=== PATIENT | male | born 1940 | race Caucasian/White ===

== ENCOUNTER 2019-11-13 21:28 | Inpatient (IN) | payer OTHER ==
[2019-11-13] MEDS ORDERED: KETAMINE HCL 200 MG/20 ML VIAL ONE (21:43)
[2019-11-13] MEDS ORDERED: PROPOFOL 1,000,000 MCG/100 ML VIAL ONE (21:51)
[2019-11-13] MEDS ORDERED: KETAMINE HCL 500 MG/10 ML VIAL ONE (21:57)
[2019-11-13] MEDS ORDERED: ROCURONIUM BROMIDE 50 MG/5 ML VIAL IVPUSH ONE (22:14)
[2019-11-13] MEDS ORDERED: KETAMINE HCL 200 MG/20 ML VIAL IVPUSH ONE (22:14)
[2019-11-13] MEDS ORDERED: VANCOMYCIN 1 GRAM (PRE-DOCKED) 1,000 MG/250 ML BAG IVPB ONE ×2 (22:15→22:29)
[2019-11-13] MEDS ORDERED: PIPERACILLIN/TAZOB 4.5 GM 4.5 GM in DEXTROSE 5%-WATER 100 ML IVPB ONE (22:16)
[2019-11-13] MEDS ORDERED: methylPREDNISolone NA SUCC 125 MG/2 ML VIAL IVPB ONE (22:21)
[2019-11-13] MEDS ORDERED: ALBUTEROL SO4 2.5/IPRATROPIUM 0.5 INH SOL 3 ML VIAL.NEB. NEB ONE ×2 (22:21→22:28)
--- NOTE | 2019-11-13 22:21 | PDOC ---
Attending Attestation - Resident Resident Name: Jesús Zapien - ED Attending Attestation I have performed the following: I have examined & evaluated the patient, The case was reviewed & discussed with the resident, I agree w/resident's findings & plan, Exceptions are as noted - HPI HPI: 11/14/19 05:44 See resident HPI - Physicial Exam PE: 11/14/19 05:44 Agree with documented exam - Medical Decision Making 11/14/19 05:44 79M BIBEMS after completing dialysis 2/2 acutely worsening dyspnea and decreasing responsiveness Was received in severe respiratory distress, GCS 8 Pt was intubated Concern for sepsis with multiple likely sources, ACS, chf, copd exacerbation f/u labs, cxr, de leon-scan dispo per clinical course possible pna +uti abx admit to icu
[2019-11-13 22:29] LABS: BASO % 0.1 % (0-2.0); HEMATOCRIT 36.4 % (35.4-49); LYMPH % 1.8 % (8-40); MCH 31.9 pg (25.7-33.7); MCHC 30.2 g/dl (32.0-35.9); MEAN CELL VOLUME 105.6 fl (80-96); MEAN PLT VOLUME 10.1 fl (7.5-11.1); MONO % 7.6 % (3.8-10.2); NEUT % 90.5 % (42.8-82.8); PLATELET COUNT 155 K/MM3 (134-434); RBC 3.44 M/mm3 (4.00-5.60); RDW 20.6 % (11.9-15.9); WHITE BLOOD COUNT 11.9 K/mm3 (4.0-10.0)
[2019-11-13] MEDS ORDERED: PIPERACILLIN/TAZOB 4.5 GM 4.5 GM/100 ML BAG IVPB ONE (22:29)
[2019-11-13] MEDS ORDERED: methylPREDNISolone NA SUCC 125 MG/2 ML VIAL ONE (22:29)
[2019-11-13] MEDS ORDERED: SODIUM CHLORIDE 0.9% 500 ML INFUS.BAG IV ONE (22:33)
[2019-11-13] MEDS: NOREPINEPHRINE BITARTRATE 4,000 MCG in DEXTROSE 5%-WATER - 496 ML IV SCH (22:35)
[2019-11-13 22:49] LABS: INR 1.34 (0.83-1.09); PROTHROMBIN TIME (PATIENT) 15.9 SEC (9.7-13.0)
[2019-11-13 22:52] LABS: ACTIVATED PTT 102.1 SECONDS (25.2-36.5)
[2019-11-13 23:01] LABS: ALBUMIN 2.2 g/dl (3.4-5.0); BILIRUBIN,TOTAL 0.8 mg/dL (0.2-1); CALCIUM 7.8 mg/dL (8.5-10.1); CREATININE 2.7 mg/dL (0.55-1.3); POTASSIUM 3.7 mmol/L (3.5-5.1); TOT PROT 5.9 g/dl (6.4-8.2)
--- NOTE | 2019-11-13 23:02 | PDOC ---
History of Present Illness - General Chief Complaint: Respiratory Distress Stated Complaint: RESPIRATORY FAILURE Time Seen by Provider: 11/13/19 22:13 History Source: Patient Exam Limitations: Clinical Condition, Unresponsive - History of Present Illness Initial Comments: Perez Stanford is a 79 yo M presenting to the [facility] er BIBEMS on CPAP in respiratory distress barely responsive with a GCS of 8 (E2V2M4) who is presenting from [facility] with a pmh of COPD, ESRD - finished dialysis today 5 hours prior to arrival via port in chest. EMS cannot provide much history other than saying that [facility] called them because the patient was in respiratory distress and was not responsive. EMS promptly placed the patient on a CPAP machine and brought him straight to the ER. Upon presentation to the ER he was saturating in the low 80's, pale, and was exhibiting agonal breathing. The patient was unable to speak any words, could not say where he is , and could not provide any history. He did open his eyes and withdraw from sternal rub. Limited pmh from son who came into the hospital: ESRD (T,Th,S), Heart Failure, COPD Son - Pascual: [phone] Past History - Past Medical History Allergies/Adverse Reactions: Allergies Allergy/AdvReac Type Severity Reaction Status Date / Time No Known Allergies Allergy Verified 11/13/19 22:17 - Psycho Social/Smoking Cessation Hx Smoking History: Unknown if ever smoked Have you smoked in the past 12 months: No Information on smoking cessation initiated: No Hx Alcohol Use: No Drug/Substance Use Hx: No Review of Systems - Review of Systems Able to Perform ROS?: No (Patient unresponsive) *Physical Exam - Vital Signs Last Vital Signs Temp Pulse Resp BP Pulse Ox 96.9 F L 98 H 16 103/54 L 90 L 11/13/19 21:35 11/13/19 21:35 11/13/19 22:04 11/13/19 21:35 11/13/19 21:35 - Physical Exam General Appearance: Yes: Severe Distress, Obese HEENT: positive: Normal ENT Inspection, Pale Conjunctivae, Other (No blood, no swelling, no exudate) Neck: positive: Supple Respiratory/Chest: positive: Labored Respiration, Rapid RR, Rhonchi (bilateral rhonchi and wheezes throughout), Wheezing. negative: Lungs Clear, Crackles Cardiovascular: positive: Regular Rhythm, Regular Rate Vascular Pulses: Dorsalis-Pedis (R): 2+, Doralis-Pedis (L): 2+ Gastrointestinal/Abdominal: positive: Protuberent, Distended, Tenderness ( Diffuse abdominal TTP). negative: Guarding, Rebound Male Genitalia: positive: normal genitalia Rectal Exam: positive: normal rectal tone. negative: decreased tone Lymphatic: negative: Adenopathy Musculoskeletal: positive: Decreased Range of Motion. negative: Normal Inspection, CVA Tenderness Extremity: positive: Normal Capillary Refill, Normal Range of Motion, Pelvis Stable, Other (Right leg BKA). negative: Normal Inspection Integumentary: positive: Normal Color, Dry, Warm, Rash (lower leg venous stasis dermatitis) Neurologic: positive: Respond to painful stimul Procedures - Intubation Time of Intubation: 10:30 Intubation Method: orotracheal Blade used: Mac Tube Size (Fr): 7.5 Medications: Ketamine, Rocuronium Tube position @ lip (cm): 25 Tube position confirmed by: Direct visualization, CO2 detector, Chest x-ray, Breath sounds Breath Sounds after Intubation: equal Intubation Complications: no complications Post Intubation Xray: Yes Heart Score/ECG Review - History History: Moderately suspicious - Electrocardiogram EKG: Non specific repolarization disturbance - Age Age: >/= 65 - Risk Factors Risk Factors Heart Score: Yes Hx Hypercholesterolemia, Yes Hx Hypertension, Yes Hx Diabetes, Yes Positive family hx of cardiac disease, Yes Hx Obesity Based on the list above the patient has:: >/=3 risk factors or Hx atherosclerotic disease - Troponin Troponin: >/=3x normal limit - Score Heart Score - Total: 8 - ECG Intrepretation Rhythm: Regular Rhythm - Bethel Bethel: Right Bethel Deviation - P and FL Atrial Enlargement: Right Comment:: There are no P waves - QRS Increased Voltage: Precordial Leads Widened: IVCD Poor R Wave Progression: No Q Wave Present: No - ST and T Non Specific ST-T Wave changes: Yes Flattened T Waves: Yes Prolonged Q-T Interval: Yes - ECG Impressions Normal ECG: No Non-specific ST Elevation: Yes Ischemic Changes: Yes ED Treatment Course - LABORATORY CBC & Chemistry Diagram: 11/13/19 22:13 11/13/19 22:13 - ADDITIONAL ORDERS Additional order review: Laboratory Results 11/13/19 11/13/19 11/13/19 22:13 22:13 21:52 PT with INR 15.90 H INR 1.34 H PTT (Actin FS) 102.1 H Sodium 138 Potassium 3.7 Chloride 102 Carbon Dioxide 25 Anion Gap 11 BUN 31.0 H Creatinine 2.7 H Est GFR (CKD-EPI)AfAm 25.21 Est GFR (CKD-EPI)NonAf 21.75 POC Glucometer 123 Random Glucose 126 H Calcium 7.8 L Total Bilirubin 0.8 AST 73 H ALT 36 Alkaline Phosphatase 139 H Troponin I 0.15 H Total Protein 5.9 L Albumin 2.2 L 11/13/19 11/13/19 22:13 21:52 RBC 3.44 L MCV 105.6 H MCHC 30.2 L RDW 20.6 H MPV 10.1 Neutrophils % 90.5 H Lymphocytes % 1.8 L Monocytes % 7.6 Eosinophils % 0.0 Basophils % 0.1 POC Glucometer 123 - RADIOLOGY Radiology Studies Ordered: Category Date Time Status ABDOMEN & PELVIS CT WITH CONTR [CT] Stat CT Scan 11/13/19 22:[address] W/O CONTR [CT] Stat CT Scan 11/13/19 22:[address] WITH CONTRAST [CT] Stat CT Scan 11/13/19 22:[address] WITHOUT CONTRAST [CT] Stat CT Scan 11/13/19 22:29 Ordered CHEST X-RAY PORTABLE* [RAD] Stat Radiology 11/13/19 22:41 Taken Radiograph Interpretation: CTAP: FINDINGS: CT chest:There is no aortic dissection or aneurysm. There is no significant mediastinal or hilar adenopathy. The heart is mildly enlarged. Left-sided pacemaker is noted. Endotracheal tube is in appropriate position. The trachea and bronchi are patent. There is no pericardial effusion. There are small bilateral pleural effusions with loculated right pleural effusion and pleural calcifications consistent with chronic fibrothorax, which may be reactive to prior infection or hemothorax. No acute pleural hemorrhage is noted. Scattered right lung fibrotic changes are noted predominantly right lung base, where there is round atelectasis. It is difficult to exclude a superimposed right-sided pneumonia. No pulmonary edema. There is mild right lung volume loss. CT abdomen and pelvis: Small to moderate amount of slightly dense ascites is noted which could represent hemorrhage. No fluid loculation. Gallbladder is contracted with slightly dense, possibly representing sludge or stones. Early porcelain gallbladder is also considered. No definite gallbladder inflammation. Normal liver, pancreas, spleen, adrenal glands and kidneys. The stomach and abdominal small and large bowel are notable only for a duodenal diverticulum without diverticulitis. There is no aortic aneurysm. There is no significant retroperitoneal lymphadenopathy. Small fat and fluid containing umbilical and right inguinal hernias are noted. The pelvic small and large bowel are notable for diverticulosis without diverticulitis. Appendix is normal. The urinary bladder is collapsed with Kern catheter. The prostate gland in its normal. . There is no significant pelvic lymphadenopathy. IMPRESSION: Small bilateral pleural effusions. Chronic right fibrothorax could be reactive to prior hemothorax or prior infection but there is no evidence of acute hemorrhage. Multifocal right lung fibrosis with right lower lobe round atelectasis and mild right lung volume loss. Superimposed right-sided pneumonia is difficult to exclude Small to moderate amount of ascites suspected to be hemorrhagic in nature, but of uncertain source. Possible early porcelain gallbladder or gallstones without gallbladder inflammation. Diverticulosis. - Medications Given in the ED: ED Medications Discontinued Medications Generic Name Dose Route Start Last Admin Trade Name Freq PRN Reason Stop Dose Admin Ketamine HCl 200 mg 11/13/19 22:14 11/13/19 22:26 Ketalar - IVPUSH 11/13/19 22:15 200 mg ONCE ONE Administration Medical Decision Making - Medical Decision Making Perez Stanford is a 79 yo M presenting to the [facility] on CPAP in respiratory distress barely responsive with a GCS of 8 (E2V2M4) who is presenting from [facility] with a pmh of COPD, ESRD - finished dialysis today 5 hours prior to arrival via port in chest. EMS cannot provide much history other than saying that [facility] called them because the patient was in respiratory distress and was not responsive. EMS promptly placed the patient on a CPAP machine and brought him straight to the ER. Upon presentation to the ER he was saturating in the low 80's, pale, and was exhibiting agonal breathing. The patient was unable to speak any words, could not say where he is , and could not provide any history. He did open his eyes and withdraw from sternal rub. Vital Signs Temp Pulse Resp BP Pulse Ox 96.9 F L 60 16 82/39 L 90 L 11/13/19 21:35 11/13/19 22:35 11/13/19 22:04 11/13/19 22:35 11/13/19 21:35 MDM: Patient was somnolent and stuporous, desaturating and we did not believe he could protect his airway so we decided to intubate the patient with ketamine and rocuronium. The intubation was successful on the first attempt without any complications. After the patient's airway was secured he was hypotensive to 70/ 30. We tried bolusing the patient with one liter of fluid but his BP remained low so we placed a femoral central line in to give the patient norepinephrine and raise his blood pressure. Propofol was placed used for post-intubation sedation after the MAP was elevated to above 65. - We attempted to place a NG and OG tube multiple times without success. - Plan is to frequently suction the patient because we are unable to pass a gastric tube We performed a bedside US which showed the patient's heart appeared to be beating well without focal wall motion abnormalities. The right atrium and ventricle were significantly enlarged without large wall motion abnormalities. The IVC was large, plethoric and plump without respiratory variation implying the patient's venous system is well loaded and he would not likely be fluid responsive. Both of his lungs appeared to have bilateral A-lines, no B-lines, and there were no pleural effusions implying this is more likely a COPD exacerbation and less likely a heart failure situation as his primary insult. His Abdominal fast was positive but this is likely secondary to ascitis fluid less likely blood. DDx IBNLT: COPD exacerbation, ACS, heart failure, electrolyte/metabolic disturbance, septic shock Plan: Sepsis workup, Empiric Abx coverage, Intubation to protect airway, Central line for Pressers to achieve MAP >65, Ruff CT (Head, neck, chest, abdomen ), correct electrolyte abnormalities, Admit ICU 1st troponin positive at 0.15 - no prior's for comparison. EKG: Wide QRS rhythm, ventricular rate of 60, rightward axis, LVH, V1-V3 SIDNEY less than 5 mm, ST depressions in leads II, III, aVF - Scarbossa criteria NOT met for STEMI Repeat EKG at 11:45 - No significant changes from the first EKG - Given inferior ST depressions will perform a right sided EKG Right sided EKG: No ST elevation in v4R MDM: I suspect this patient's primary insult was a COPD exacerbation based on the lack of fluid in his lungs, wheezes and rhoncorous breath sounds. Urine: Suggests possible UTI - covered empirically w/ vanc/Zosyn Plan: Ruff CT, re-assess - Patient can get contrast as he can be dialysed in ICU CT: Right lung aspiration contents Dispo: ICU - Patient accepted to ICU for admission Discharge - Discharge Information Problems reviewed: Yes Clinical Impression/Diagnosis: Elevated troponin COPD (chronic obstructive pulmonary disease) Qualifiers: COPD type: unspecified COPD Qualified Code(s): J44.9 - Chronic obstructive pulmonary disease, unspecified Condition: Guarded - Admission Yes - Follow up/Referral - Patient Discharge Instructions - Post Discharge Activity
--- NOTE | 2019-11-13 23:08 | PDOC ---
*Physical Exam - Vital Signs Last Vital Signs Temp Pulse Resp BP Pulse Ox 96.9 F L 98 H 16 103/54 L 90 L 11/13/19 21:35 11/13/19 21:35 11/13/19 22:04 11/13/19 21:35 11/13/19 21:35 ED Treatment Course - LABORATORY CBC & Chemistry Diagram: 11/13/19 22:13 11/13/19 22:13 - ADDITIONAL ORDERS Additional order review: Laboratory Results 11/13/19 11/13/19 11/13/19 22:13 22:13 21:52 PT with INR 15.90 H INR 1.34 H PTT (Actin FS) 102.1 H Sodium 138 Potassium 3.7 Chloride 102 Carbon Dioxide 25 Anion Gap 11 BUN 31.0 H Creatinine 2.7 H Est GFR (CKD-EPI)AfAm 25.21 Est GFR (CKD-EPI)NonAf 21.75 POC Glucometer 123 Random Glucose 126 H Calcium 7.8 L Total Bilirubin 0.8 AST 73 H ALT 36 Alkaline Phosphatase 139 H Troponin I 0.15 H Total Protein 5.9 L Albumin 2.2 L 11/13/19 11/13/19 22:13 21:52 RBC 3.44 L MCV 105.6 H MCHC 30.2 L RDW 20.6 H MPV 10.1 Neutrophils % 90.5 H Lymphocytes % 1.8 L Monocytes % 7.6 Eosinophils % 0.0 Basophils % 0.1 POC Glucometer 123 - Medications Given in the ED: ED Medications Discontinued Medications Generic Name Dose Route Start Last Admin Trade Name Freq PRN Reason Stop Dose Admin Ketamine HCl 200 mg 11/13/19 22:14 11/13/19 22:26 Ketalar - IVPUSH 11/13/19 22:15 200 mg ONCE ONE Administration ED Progress Note - Progress Note Progress Note: 11/13/19 22:30 CENTRAL LINE PROCEDURE NOTE The risks were noted to include bleeding. The indication for the procedure were hypotension. A timeout was performed. Nursing staff were present and the patient was monitored using telemetry and continuous pulse oximetry. The patient was placed in the supine position and the right groin was prepped chlorhexidine and a sterile full body drape was placed. Sterile technique including gown, mask, and gloves were used and antibacterial hand gel was used before gloving. The ultrasound machine, using a sterile probe cover, was used to visualize the right femoral vein by the compression technique. An 18 gauge finder needle was used to enter the right femoral vein. Venous blood was aspirated and a guidewire was threaded through the needle into the vein. The soft tissues were dilated and the needle was removed. An triple lumen catheter was threaded over the guidewire in the standard Seldinger technique and hubbed all the way. The guidewire was removed and all ports flushed and aspirated blood without difficulty. A sterile dressing and Biopatch were applied. Discharge - Discharge Information Problems reviewed: Yes - Follow up/Referral - Patient Discharge Instructions - Post Discharge Activity
[2019-11-13] MEDS: PROPOFOL 1,000,000 MCG/100 ML VIAL IVPB SCH (23:20)
[2019-11-13 23:57] LABS: ARTERIAL BLD GAS O2 SATURATION 86.1 % (95-98); ARTERIAL BLOOD GAS PCO2 41.8 mmHg (35-45); ARTERIAL BLOOD GAS pH 7.34 (7.35-7.45)
[2019-11-13 23:59] LABS: ARTERIAL BLOOD GAS PO2 57.8 mmHg (80-100); EPI CELLS 2.1 /HPF (0-5/HPF); HYALINE CASTS 25 /lpf (0-8); URINE APPEARANCE TURBID; URINE BACTERIA 0.8 /hpf (NEGATIVE); URINE BILIRUBIN 1+ (NEGATIVE); URINE COLOR DK YELLOW; URINE GLUCOSE (UA) TRACE (NEGATIVE); URINE KETONE NEGATIVE (NEGATIVE); URINE LEUK ESTERASE 2+ (NEGATIVE); URINE NITRITE POSITIVE (NEGATIVE); URINE PROTEIN TRACE (NEGATIVE); URINE UROBILINOGEN 0.2 mg/dL (0.2-1.0); URINE WBC 3 /hpf (0-5)
[2019-11-14 00:01] LABS: ALLENS TEST POSITIVE; CARBOXYHEMOGLOBIN < 0.5 % (0-2)
[2019-11-14] MEDS ORDERED: MAGNESIUM SULF 50% (8.12 MEQ/2 ML-1 GM VIAL) ONE (03:14)
[2019-11-14] MEDS ORDERED: MAGNESIUM SULFATE 2 GM in DEXTROSE 5%-WATER - 100 ML IVPB ONE (03:15)
--- NOTE | 2019-11-14 03:30 | CONSULT ---
Consultation: REQUESTING PROVIDER: Dr. Lyons CONSULT REQUEST: We have been asked to medically evaluate this patient for ICU management. HISTORY OF PRESENT ILLNESS: 79M PMH of COPD, ESRD on HD (T,Th,S), CHF who presented to ED after finishing dialysis 5 hours prior to arrival. Upon arrival patient was found to have a GCS score of 8. He was also found to be hypotensive which was not fluid responsive. Patient was also desaturating to the low 80s and had agonal breathing. Decision was made to intubate and place a central line in the patient. Patient was said to be in respiratory distress in custodial today. Patient is not able to respond to any questioning from examiner, and the son is not present. REVIEW OF SYSTEMS: Patient not able to participate in ROS CONSTITUTIONAL: Absent: fever, chills, diaphoresis, generalized weakness, malaise, loss of appetite, weight change HEENT: Absent: rhinorrhea, nasal congestion, throat pain, throat swelling, difficulty swallowing, mouth swelling, ear pain, eye pain, visual changes CARDIOVASCULAR: Absent: chest pain, syncope, palpitations, irregular heart rate, lightheadedness, peripheral edema RESPIRATORY: Absent: cough, shortness of breath, dyspnea with exertion, orthopnea, wheezing, stridor, hemoptysis GASTROINTESTINAL: Absent: abdominal pain, abdominal distension, nausea, vomiting, diarrhea, constipation, melena, hematochezia GENITOURINARY: Absent: dysuria, frequency, urgency, hesitancy, hematuria, flank pain, genital pain MUSCULOSKELETAL: Absent: myalgia, arthralgia, joint swelling, back pain, neck pain SKIN: Absent: rash, itching, pallor HEMATOLOGIC/IMMUNOLOGIC: Absent: easy bleeding, easy bruising, lymphadenopathy, frequent infections ENDOCRINE: Absent: unexplained weight gain, unexplained weight loss, heat intolerance, cold intolerance NEUROLOGIC: Absent: headache, focal weakness or paresthesias, dizziness, unsteady gait, seizure, mental status changes, bladder or bowel incontinence PSYCHIATRIC: Absent: anxiety, depression, suicidal or homicidal ideation, hallucinations. PHYSICAL EXAMINATION Vital Signs - 24 hr 11/13/19 11/13/19 11/13/19 21:35 22:04 22:13 Temperature 96.9 F L Pulse Rate 98 H Pulse Rate [ Left Radial] Respiratory 38 H 16 14 Rate Blood Pressure 103/54 L Blood Pressure [Right Arm] O2 Sat by Pulse 90 L Oximetry (%) 11/13/19 11/13/19 11/14/19 22:35 23:35 00:01 Temperature Pulse Rate 60 62 Pulse Rate [ Left Radial] Respiratory 15 Rate Blood Pressure 82/39 L 109/38 L Blood Pressure [Right Arm] O2 Sat by Pulse 98 Oximetry (%) 11/14/19 11/14/19 00:05 01:08 Temperature Pulse Rate Pulse Rate [ 60 Left Radial] Respiratory 15 16 Rate Blood Pressure Blood Pressure 112/41 L [Right Arm] O2 Sat by Pulse 97 Oximetry (%) GENERAL: Sedated, and intubated. Not in distress. HEAD: Normal with no signs of trauma. EYES: Left eye miosed. right eye is normal size. Neither eye is reactive to light. EARS, NOSE, THROAT: ET Tube in place. LUNGS: Crackles b/l in both lungs. Ventilator sounds present. HEART: heart sounds faint, lung sounds dominate ABDOMEN: Distended abdomen. No fluid wave shift. Hypoactive bowel sounds. UPPER EXTREMITIES: 2+ pulses, warm, well-perfused. No cyanosis. No clubbing. LOWER EXTREMITIES: Right BKA. Left foot cold to touch, nonpalpable pulses. Left heel has non purulent wound. No discharge noted. NEUROLOGICAL: Gag reflex in tact. SKIN:Chronic venous stasis changes in the left lower leg. Laboratory Results - last 24 hr 11/13/19 11/13/19 11/13/19 21:52 22:13 22:13 WBC 11.9 H RBC 3.44 L Hgb 11.0 L Hct 36.4 MCV 105.6 H MCH 31.9 MCHC 30.2 L RDW 20.6 H Plt Count 155 MPV 10.1 Absolute Neuts (auto) 10.8 H Neutrophils % 90.5 H Lymphocytes % 1.8 L Monocytes % 7.6 Eosinophils % 0.0 Basophils % 0.1 Nucleated RBC % 1 H PT with INR 15.90 H INR 1.34 H PTT (Actin FS) 102.1 H Anticoagulation Therapy Puncture Site ABG pH ABG pCO2 at Pt Temp ABG pO2 at Pt Temp ABG HCO3 ABG O2 Sat (Measured) ABG O2 Content ABG Base Excess Albert Test Carboxyhemoglobin Methemoglobin O2 Delivery Device Oxygen Flow Rate Vent Mode Vent Rate Mechanical Rate Pressure Support Vent Sodium Potassium Chloride Carbon Dioxide Anion Gap BUN Creatinine Est GFR (CKD-EPI)AfAm Est GFR (CKD-EPI)NonAf POC Glucometer 123 Random Glucose Lactic Acid Calcium Total Bilirubin AST ALT Alkaline Phosphatase Troponin I Total Protein Albumin Urine Color Urine Appearance Urine pH Ur Specific [place] Urine Protein Urine Glucose (UA) Urine Ketones Urine Blood Urine Nitrite Urine Bilirubin Urine Urobilinogen Ur Leukocyte Esterase Urine WBC (Auto) Urine Casts (Auto) U Epithel Cells (Auto) Urine Bacteria (Auto) 11/13/19 11/13/19 11/13/19 22:13 22:13 23:50 WBC RBC Hgb Hct MCV MCH MCHC RDW Plt Count MPV Absolute Neuts (auto) Neutrophils % Lymphocytes % Monocytes % Eosinophils % Basophils % Nucleated RBC % PT with INR INR PTT (Actin FS) Anticoagulation Therapy Puncture Site ABG pH ABG pCO2 at Pt Temp ABG pO2 at Pt Temp ABG HCO3 ABG O2 Sat (Measured) ABG O2 Content ABG Base Excess Albert Test Carboxyhemoglobin Methemoglobin O2 Delivery Device Oxygen Flow Rate Vent Mode Vent Rate Mechanical Rate Pressure Support Vent Sodium 138 Potassium 3.7 Chloride 102 Carbon Dioxide 25 Anion Gap 11 BUN 31.0 H Creatinine 2.7 H Est GFR (CKD-EPI)AfAm 25.21 Est GFR (CKD-EPI)NonAf 21.75 POC Glucometer Random Glucose 126 H Lactic Acid 3.2 H* Calcium 7.8 L Total Bilirubin 0.8 AST 73 H ALT 36 Alkaline Phosphatase 139 H Troponin I 0.15 H Total Protein 5.9 L Albumin 2.2 L Urine Color Dk yellow Urine Appearance Turbid Urine pH 5.0 Ur Specific [place] 1.020 Urine Protein Trace Urine Glucose (UA) Trace Urine Ketones Negative Urine Blood Negative Urine Nitrite Positive H Urine Bilirubin 1+ H Urine Urobilinogen 0.2 Ur Leukocyte Esterase 2+ H Urine WBC (Auto) 3 Urine Casts (Auto) 25 U Epithel Cells (Auto) 2.1 Urine Bacteria (Auto) 0.8 11/13/19 23:50 WBC RBC Hgb Hct MCV MCH MCHC RDW Plt Count MPV Absolute Neuts (auto) Neutrophils % Lymphocytes % Monocytes % Eosinophils % Basophils % Nucleated RBC % PT with INR INR PTT (Actin FS) Anticoagulation Therapy No Result Required. Puncture Site Right radial ABG pH 7.34 L ABG pCO2 at Pt Temp 41.8 ABG pO2 at Pt Temp 57.8 L ABG HCO3 22.0 ABG O2 Sat (Measured) 86.1 L ABG O2 Content 86.1 ABG Base Excess -3.0 L Albert Test Positive Carboxyhemoglobin < 0.5 Methemoglobin < 1.0 O2 Delivery Device No Result Required. Oxygen Flow Rate Yes Vent Mode No Result Required. Vent Rate No Result Required. Mechanical Rate No Result Required. Pressure Support Vent No Result Required. Sodium Potassium Chloride Carbon Dioxide Anion Gap BUN Creatinine Est GFR (CKD-EPI)AfAm Est GFR (CKD-EPI)NonAf POC Glucometer Random Glucose Lactic Acid Calcium Total Bilirubin AST ALT Alkaline Phosphatase Troponin I Total Protein Albumin Urine Color Urine Appearance Urine pH Ur Specific [place] Urine Protein Urine Glucose (UA) Urine Ketones Urine Blood Urine Nitrite Urine Bilirubin Urine Urobilinogen Ur Leukocyte Esterase Urine WBC (Auto) Urine Casts (Auto) U Epithel Cells (Auto) Urine Bacteria (Auto) Active Medications Generic Name Dose Route Start Last Admin Trade Name Freq PRN Reason Stop Dose Admin Chlorhexidine Gluconate 1 applic 11/14/19 22:00 Hibiclens For Decolonization - TP HS TED Heparin Sodium (Porcine) 5,000 unit 11/14/19 10:00 Heparin - SQ BID TED Propofol 1,000,000 mcg in 100 mls @ 2.556 mls/hr 11/13/19 22:15 11/14/19 01:45 Diprivan - IVPB 30 mcg/kg/min TITR TED 15.333 mls/hr Titration Protocol 5 MCG/KG/MIN Norepinephrine Bitartrate 4, 500 mls @ 37.5 mls/hr 11/13/19 22:15 11/14/19 00:01 000 mcg/ Dextrose IV 10 mcg/min TITR TED 75 mls/hr Titration Protocol 5 MCG/MIN Mupirocin 1 applic 11/14/19 10:00 Bactroban Ointment (For Decolonization) - NS 11/19/19 09:59 BID TED Imaging: CT Chest/Abdomen/Pelvis: -Small bilateral pleural effusions. -Chronic right fibrothorax could be reactive to prior hemothorax or prior infection but there is no evidence of acute hemorrhage. -Multifocal right lung fibrosis with right lower lobe round atelectasis and mild right lung volume loss. -Superimposed right-sided pneumonia is difficult to exclude -Small to moderate amount of ascites suspected to be hemorrhagic in nature, but of uncertain source. 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 -Diverticulosis. ASSESSMENT/PLAN: 79M PMH of COPD, ESRD on HD (,,), CHF who presents with exacerbation of COPD likely secondary to PNA. Neuro -Patient currently sedated on propofol -Eyes are not equal -GCS of 8 on presentation, according to chart patient is AAOx3 at baseline -Possible toxic metabolic encephalopathy if infectious cause, possible seizure, possible for anoxic brain injury. Will require further history in order to determine events. Was reported to be normal during HD. -Head CT is negative for acute changes, no evidence of bleed. -Sedation breaks Cardiovascular -Patient has hx of CHF -Hypotension refractory to fluid boluses on presentation -Currently on levophed drip. Titrate as needed -Echo to evaluate CHF -Continous cardiac monitoring -Troponin of 0.15, repeat troponin is 0.81, continue to trend. -EKG showed possible PA, repeat EKG showed no ST changes. -Paced rhythm -QTc of 533. Magnesium ordered -Pacemaker interrogation- company of Pacemaker unknown, will need to verify company to interrogate. -Cardiology consulted, appreciate recs Pulmonary -Hx of COPD, SAVANA. -On BiPAP at night. -Chest x-ray shows b/l pleural effusions. -Chest CT shows b/l pleural effusions, multifocal right lung fibrosis, super- imposed right side PNA not excluded as per night read. -Fibrothorax noted on CT chest on read by imagine [employer] motion picture. Will need to investigate prior work up done for patient before admission to [facility]. --Patient noted to have hospitilazations at [facility] in paperwork. -Duonebs -Albuterol PRN -On vent: Vt: 500, RR: 14, Fio2: 80%, PEEP 5 GI -Abdominal distension present -Abdominal CT shows ascites vs hemorrhage on read. Likely cirrhosis. 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 -Ammonia level ordered.F/U -F/U Abdominal U/S Renal -Hx of ESRD, HD on , , . -Patient was dialyzed on before admission -Creatinine of 2.7 on presentation -Had CT with contrast completed -Trend CMP -Nephrology consulted, appreciate recs ID -Vanc and zoysn given in ED -Cultures pending, f/u results -F/U urine legionella culture -Flu swab results pending. -Infectious sources may include his left lower extremity wounds, and his permacath used for dialysis. -ID consulted, appreciate recs Endocrine -Hx of DM -BGM ACHS -ISS DVT: SCD F: No standing fluids at the moment. E: Monitor CMP N: NPO Lines: Right sided femoral line 11/14/19. Intubated 11/14/19. Dispo: We will continue to follow the patient. Thank you for this consultative opportunity. Visit type - Emergency Visit Emergency Visit: Yes ED Registration Date: 11/14/19 Care time: The patient presented to the Emergency Department on the above date and was hospitalized for further evaluation of their emergent condition. - New Patient This patient is new to me today: Yes Date on this admission: 11/14/19 - Critical Care Critical Care patient: Yes Total Critical Care Time (in minutes): 45 Critical Care Statement: The care of this patient involved high complexity decision making to prevent further life threatening deterioration of the patient's condition and/or to evaluate & treat vital organ system(s) failure or risk of failure. ATTENDING PHYSICIAN STATEMENT I saw and evaluated the patient. I reviewed the resident's note and discussed the case with the resident. I agree with the resident's findings and plan as documented. SUBJECTIVE: OBJECTIVE: ASSESSMENT AND PLAN:
--- NOTE | 2019-11-14 03:34 | HP ---
Admitting History and Physical - Primary Care Physician PCP: Leeanne Rucker - Admission Chief Complaint: Respiratory Distress History of Present Illness: This is a 79 y/o man from [facility] with a PMHx of ESRD (HD- ,,), COPD, ASHD, HLD, GERD, SAVANA, Pressure Ulcer, s/p R-BKA. Who presents to the ED with respiratory distress with a GCS of 8 ([id number]). Per ED record: finished dialysis today 5 hours prior to arrival via port in chest. EMS cannot provide much history other than saying that [facility] called them because the patient was in respiratory distress and was not responsive. EMS promptly placed the patient on a CPAP machine and brought him straight to the ER. Upon presentation to the ER he was saturating in the low 80's, pale, and was exhibiting agonal breathing. The patient was unable to speak any words, could not say where he is, and could not provide any history. He did open his eyes and withdraw from sternal rub. History Source: Family Member, Transfer Record Limitations to Obtaining History: Clinical Condition - Past Medical History Cardiovascular: Yes: HTN, Other (ASHD) Pulmonary: Yes: COPD, Sleep Apnea Gastrointestinal: Yes: GERD Renal/: Yes: Renal Failure, Hemodialysis Dermatology: Yes: Other (Pressure Ulcer- L- Heel) - Smoking History Smoking history: Unknown if ever smoked Have you smoked in the past 12 months: No - Alcohol/Substance Use Hx Alcohol Use: No Home Medications - Allergies Allergies/Adverse Reactions: Allergies Allergy/AdvReac Type Severity Reaction Status Date / Time No Known Allergies Allergy Verified 11/13/19 22:17 - Home Medications Home Medications (free text): No med list provided Family Medical History Family Hx Coronary Artery Disease: Mother, Father (Family History of CAD) Review of Systems Unable to obtain ROS, reason: Clinical Condition Physical Examination Vital Signs: Vital Signs Temperature 96.9 F L 11/13/19 21:35 Pulse Rate 60 11/14/19 02:30 Respiratory Rate 19 11/14/19 02:30 Blood Pressure 128/50 L 11/14/19 02:30 O2 Sat by Pulse Oximetry (%) 100 11/14/19 02:30 Constitutional: Yes: Obese, Other (Unresponsive- intubated mechanically ventilated) Eyes: Yes: Conjunctiva Clear, PERRL HENT: Yes: WNL, Atraumatic, Normocephalic Neck: Yes: WNL, Supple, Trachea Midline Cardiovascular: Yes: Regular Rate and Rhythm, S1, S2, Other (permacath to RCW) Respiratory: Yes: Diminished (right lobes), Intubated, Mechanically Ventilated, Rhonchi Gastrointestinal: Yes: Abdomen, Obese, Ascites, Distention, Hypoactive Bowel Sounds Renal/: Yes: Kern Present (scant, dark yellow urine in tubing, nothing in collection bag) Breast(s): Yes: WNL Musculoskeletal: Yes: WNL Extremities: Yes: Amputation (Right BKA) Edema: No Peripheral Pulses WNL: Yes (R- BKA) Integumentary: Yes: Erythema, Pressure Ulcer (Left Heel), Venous Stasis Changes (LLE), Other (dry flaky skin to LLE, L- foot) Wound/Incision: Yes: Dressing Dry and Intact Neurological: Yes: Unresponsive Psychiatric: Yes: Other (unresponsive-intubated- [facility] ventilator- unable to assess) Labs: CBC, BMP 11/13/19 22:13 11/13/19 22:13 Imaging - Results Chest X-ray: Image Reviewed Cat Scan: Report Reviewed, Image Reviewed EKG: Image Reviewed Assessment/Plan This is a 79 y/o man with a PMHx of ESRD (HD- ,,), COPD, ASHD, HLD, GERD, SAVANA, Pressure Ulcer, s/p R-BKA. Admitted to ICU for Respiratory Failure with Hypoxia, Acute on Chronic COPD Exacerbation, Sepsis, Pneumonia, UTI for further evaluation of their emergent condition. Problems: 1. Respiratory Failure with Hypoxia 2. Acute on Chronic COPD Exacerbation 3. Sepsis 4. Pneumonia, Hospital Acquired vs Aspiration 5. UTI 6. ESRD 7. Elevated Troponin 8. ASHD 9. HLD 10. GERD 11. Pressure Ulcer Plan: # Respiratory Failure with Hypoxia - Likely secondary to Pneumonia vs COPD Exacerbation - Intubated- mechanical ventilator - ABG- moderate hypoxemia - Appreciate Pulm consult -Chest Xray image- increased markings, patchy infiltrates R>L - Duonebs - Monitor ABG # Acute on Chronic COPD Exacerbation - see above # Sepsis - Likely secondary to Pneumonia, UTI - Sepsis Criteria Met: WBC 11.9, BUN 31, Lactic Acid 3.2~2.6, T 96.9, R 33, BP 86/34, Spo2 90% - qSOFA- 2 - NS bolus given in ED - Continue Pressors - Chest Xray- reviewed - Continue Vancomycin, Zosyn renal dosing - Monitor vitals - Monitor CBC, BMP - Maintain MAP > 65 - Trend Lactic Acid - Tylenol prn # Pneumonia - will treat for Hospital Acquired vs Aspiration - [id number] - Blood Cultures-pending - Urine Culture-pending - Urine Legionella - Vancomycin, Zosyn given in ED, will continue renal dosing - Appreciate Pulm consult - Appreciate ID consult - Monitor CBC, BMP - Monitor vitals # UTI - UA- +nitrate, +bacteria - Urine Culture-pending - Monitor vitals - Continue ABX - Monitor CBC # ESRD - HD- ,, - Appreciate Nephrology consult- HD management # Elevated Troponin - Likely due to demand ischemia due to Sepsis, Pneumonia - Cardiac monitoring - Serial Enzymes - Appreciate Cardiology consult - EKG- reviewed - Echo in am - Asa # Pressure Ulcer L- Heel - Wound care - Elevate extremity - Heel protector # HLD - No med list avail, will need to have team review today # Hypertension - Hold meds secondary to Hypotension - Currently on Pressors FEN Fluid Restriction 1L Replete lytes prn NPO DVT ppx OOB SCD L- Leg only BOBBI L- Leg only Heparin SQ Code Status: Full Code, HCP Dispo: Requires Inpatient Care Visit type - Emergency Visit Emergency Visit: Yes ED Registration Date: 11/13/19 Care time: The patient presented to the Emergency Department on the above date and was hospitalized for further evaluation of their emergent condition. - New Patient This patient is new to me today: Yes Date on this admission: 11/14/19 - Critical Care Critical Care patient: Yes Total Critical Care Time (in minutes): 35 Critical Care Statement: The care of this patient involved high complexity decision making to prevent further life threatening deterioration of the patient 's condition and/or to evaluate & treat vital organ system(s) failure or risk of failure.
[2019-11-14] MEDS ORDERED: ALBUTEROL SO4 0.083% IH SOL 2.5 MG/3 ML VIAL.NEB. NEB PRN (03:54)
[2019-11-14] MEDS ORDERED: PIPERACILLIN/TAZOB 3.375 GM 3.375 GM in DEXTROSE 5%-WATER - 50 ML IVPB SCH ×2 (05:30→07:30)
[2019-11-14 06:39] LABS: BASO % 0.2 % (0-2.0); EOS % 1.3 % (0-4.5); HEMATOCRIT 36.6 % (35.4-49); HEMOGLOBIN 11.4 GM/dL (11.7-16.9); LYMPH % 0.8 % (8-40); MCH 32.1 pg (25.7-33.7); MCHC 31.2 g/dl (32.0-35.9); MEAN CELL VOLUME 103.1 fl (80-96); MEAN PLT VOLUME 10.1 fl (7.5-11.1); NEUT % 94.7 % (42.8-82.8); PLATELET COUNT 160 K/MM3 (134-434); RBC 3.55 M/mm3 (4.00-5.60); RDW 21.4 % (11.9-15.9); WHITE BLOOD COUNT 14.9 K/mm3 (4.0-10.0)
[2019-11-14] MEDS ORDERED: NOREPINEPHRINE BITARTRATE 4 MG/4 ML ML IV ONE ×3 (07:01→18:01)
[2019-11-14 07:03] LABS: ALBUMIN 2.1 g/dl (3.4-5.0); BILIRUBIN,TOTAL 1.2 mg/dL (0.2-1); CALCIUM 7.6 mg/dL (8.5-10.1); CREATININE 2.8 mg/dL (0.55-1.3); MAGNESIUM 2.3 mg/dL (1.8-2.4); PHOSPHOROUS 3.4 mg/dL (2.5-4.9); TOT PROT 5.8 g/dl (6.4-8.2)
[2019-11-14 07:42] LABS: ARTERIAL BLD GAS O2 SATURATION 87.7 % (95-98); ARTERIAL BLOOD GAS BASE EXCESS -6.2 meq/l (-2-2); ARTERIAL BLOOD GAS PCO2 37.6 mmHg (35-45); ARTERIAL BLOOD GAS pH 7.32 (7.35-7.45)
[2019-11-14 07:43] LABS: ALLENS TEST POSITIVE; ARTERIAL BLOOD GAS PO2 66.9 mmHg (80-100)
[2019-11-14] MEDS ORDERED: POTASSIUM CHLORIDE TABS 20 MEQ TABLET.ER (FP) PO ONE (08:07)
[2019-11-14] MEDS: PROPOFOL 1,000,000 MCG/100 ML VIAL IVPB SCH ×3 (08:30→18:20)
[2019-11-14] MEDS: ALBUTEROL SO4 2.5/IPRATROPIUM 0.5 INH SOL 3 ML VIAL.NEB. NEB SCH ×4 (08:57→21:35)
[2019-11-14 09:11] LABS: ANISOCYTOSIS 1+; MACROCYTOSIS 0; OVALOCYTE 1+; PLATELET ESTIMATE NORMAL; TARGET CELLS 1+; TEAR DROP CELLS 1+
--- NOTE | 2019-11-14 09:14 | CONSULT ---
Consultation: REQUESTING PROVIDER: Dian Newman CONSULT REQUEST: ESRD patient. HISTORY OF PRESENT ILLNESS: 79 y.o male with PMH of ESRD (//) COPD CHF, right BKA, HLD, GERD presents to the ED from [facility] due to unresponsiveness and hypotension- patient was receiving dialysis at [facility] (completed 5 hours) when the staff noticed that he was lethargic with low BPS and in respiratory distress- according to patients son this has happened a few times before after dialysis and he has been responsive to BIPAP, however EMS placed him on BIPAP with little response and patient was subsequently intubated- labs upon arrival : ABG : Ph 7.34 Co2 41 O2 57.8 WBC 11.9 Cr 2.7 (unclear patients baseline) trop 0.15-->0.81-->0.85 ammonia 64 imaging: CT/Ab pelvis B/L effusions Small to moderate amount of ascites suspected to be hemorrhagic in nature, but of uncertain source. 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 from [facility] in the [place] REVIEW OF SYSTEMS: UNABLE TO OBTAIN PATIENT IS INTUBATED/SEDATED CONSTITUTIONAL: Absent: fever, chills, diaphoresis, generalized weakness, malaise, loss of appetite, weight change HEENT: Absent: rhinorrhea, nasal congestion, throat pain, throat swelling, difficulty swallowing, mouth swelling, ear pain, eye pain, visual changes CARDIOVASCULAR: Absent: chest pain, syncope, palpitations, irregular heart rate, lightheadedness , peripheral edema RESPIRATORY: Absent: cough, shortness of breath, dyspnea with exertion, orthopnea, wheezing, stridor, hemoptysis GASTROINTESTINAL: Absent: abdominal pain, abdominal distension, nausea, vomiting, diarrhea, constipation, melena, hematochezia GENITOURINARY: Absent: dysuria, frequency, urgency, hesitancy, hematuria, flank pain, genital pain MUSCULOSKELETAL: Absent: myalgia, arthralgia, joint swelling, back pain, neck pain SKIN: Absent: rash, itching, pallor HEMATOLOGIC/IMMUNOLOGIC: Absent: easy bleeding, easy bruising, lymphadenopathy, frequent infections ENDOCRINE: Absent: unexplained weight gain, unexplained weight loss, heat intolerance, cold intolerance NEUROLOGIC: Absent: headache, focal weakness or paresthesias, dizziness, unsteady gait, seizure, mental status changes, bladder or bowel incontinence PSYCHIATRIC: Absent: anxiety, depression, suicidal or homicidal ideation, hallucinations. PHYSICAL EXAMINATION Vital Signs - 24 hr 11/13/19 11/13/19 11/13/19 21:35 22:04 22:13 Temperature 96.9 F L Pulse Rate 98 H Pulse Rate [ Left Radial] Respiratory 38 H 16 14 Rate Blood Pressure 103/54 L Blood Pressure [Right Arm] O2 Sat by Pulse 90 L Oximetry (%) 11/13/19 11/13/19 11/13/19 22:35 23:00 23:35 Temperature Pulse Rate 60 Pulse Rate [ 60 Left Radial] Respiratory 12 15 Rate Blood Pressure 82/39 L Blood Pressure 108/39 L [Right Arm] O2 Sat by Pulse 100 98 Oximetry (%) 11/14/19 11/14/19 11/14/19 00:00 00:01 00:05 Temperature Pulse Rate 62 Pulse Rate [ 60 60 Left Radial] Respiratory 15 15 Rate Blood Pressure 109/38 L Blood Pressure 112/41 L 112/41 L [Right Arm] O2 Sat by Pulse 98 97 Oximetry (%) 11/14/19 11/14/19 11/14/19 01:00 01:08 02:00 Temperature Pulse Rate Pulse Rate [ 66 64 Left Radial] Respiratory 17 16 19 Rate Blood Pressure Blood Pressure 121/44 L 113/46 L [Right Arm] O2 Sat by Pulse 99 100 Oximetry (%) 11/14/19 11/14/19 11/14/19 02:30 03:00 04:23 Temperature 98.4 F Pulse Rate 60 Pulse Rate [ 60 60 Left Radial] Respiratory 19 20 20 Rate Blood Pressure 119/48 L Blood Pressure 128/50 L 122/52 L [Right Arm] O2 Sat by Pulse 100 100 100 Oximetry (%) 11/14/19 11/14/19 11/14/19 04:35 04:46 06:00 Temperature Pulse Rate 60 Pulse Rate [ Left Radial] Respiratory 20 19 Rate Blood Pressure 104/41 L Blood Pressure [Right Arm] O2 Sat by Pulse 100 Oximetry (%) 11/14/19 09:02 Temperature Pulse Rate Pulse Rate [ Left Radial] Respiratory 141 H Rate Blood Pressure Blood Pressure [Right Arm] O2 Sat by Pulse Oximetry (%) GENERAL:intubated; sedated EYES: PEERLA; EOMI: no scleral icterus. NECK: no JVD; no lymphadenopathy LUNGS: crackles appreciated B/L HEART: Regular rate and rhythm, normal S1 and S2 without murmur, rub or gallop. ABDOMEN: Soft, NT/ND +BS in all 4 quadrants . EXTREMITIES:R BKA; left leg cool ; no edema venous stasis changes present with heel ulcer (slight drainage) NEUROLOGICAL: unable to obtain- patient currently intubated; sedated Laboratory Results - last 24 hr 11/13/19 11/13/19 11/13/19 21:52 22:13 22:13 WBC 11.9 H RBC 3.44 L Hgb 11.0 L Hct 36.4 MCV 105.6 H MCH 31.9 MCHC 30.2 L RDW 20.6 H Plt Count 155 MPV 10.1 Absolute Neuts (auto) 10.8 H Neutrophils % 90.5 H Lymphocytes % 1.8 L Monocytes % 7.6 Eosinophils % 0.0 Basophils % 0.1 Nucleated RBC % 1 H PT with INR 15.90 H INR 1.34 H PTT (Actin FS) 102.1 H Anticoagulation Therapy Puncture Site ABG pH ABG pCO2 at Pt Temp ABG pO2 at Pt Temp ABG HCO3 ABG O2 Sat (Measured) ABG O2 Content ABG Base Excess Albert Test Carboxyhemoglobin Methemoglobin O2 Delivery Device Oxygen Flow Rate Vent Mode Vent Rate Mechanical Rate PEEP Pressure Support Vent Sodium Potassium Chloride Carbon Dioxide Anion Gap BUN Creatinine Est GFR (CKD-EPI)AfAm Est GFR (CKD-EPI)NonAf POC Glucometer 123 Random Glucose Lactic Acid Calcium Phosphorus Magnesium Total Bilirubin AST ALT Alkaline Phosphatase Ammonia Troponin I Total Protein Albumin Urine Color Urine Appearance Urine pH Ur Specific [place] Urine Protein Urine Glucose (UA) Urine Ketones Urine Blood Urine Nitrite Urine Bilirubin Urine Urobilinogen Ur Leukocyte Esterase Urine WBC (Auto) Urine Casts (Auto) U Epithel Cells (Auto) Urine Bacteria (Auto) Random Vancomycin Blood Type Antibody Screen Antibody Identification Antigen Identification 11/13/19 11/13/19 11/13/19 22:13 22:13 23:50 WBC RBC Hgb Hct MCV MCH MCHC RDW Plt Count MPV Absolute Neuts (auto) Neutrophils % Lymphocytes % Monocytes % Eosinophils % Basophils % Nucleated RBC % PT with INR INR PTT (Actin FS) Anticoagulation Therapy Puncture Site ABG pH ABG pCO2 at Pt Temp ABG pO2 at Pt Temp ABG HCO3 ABG O2 Sat (Measured) ABG O2 Content ABG Base Excess Albert Test Carboxyhemoglobin Methemoglobin O2 Delivery Device Oxygen Flow Rate Vent Mode Vent Rate Mechanical Rate PEEP Pressure Support Vent Sodium 138 Potassium 3.7 Chloride 102 Carbon Dioxide 25 Anion Gap 11 BUN 31.0 H Creatinine 2.7 H Est GFR (CKD-EPI)AfAm 25.21 Est GFR (CKD-EPI)NonAf 21.75 POC Glucometer Random Glucose 126 H Lactic Acid 3.2 H* Calcium 7.8 L Phosphorus Magnesium Total Bilirubin 0.8 AST 73 H ALT 36 Alkaline Phosphatase 139 H Ammonia Troponin I 0.15 H Total Protein 5.9 L Albumin 2.2 L Urine Color Dk yellow Urine Appearance Turbid Urine pH 5.0 Ur Specific [place] 1.020 Urine Protein Trace Urine Glucose (UA) Trace Urine Ketones Negative Urine Blood Negative Urine Nitrite Positive H Urine Bilirubin 1+ H Urine Urobilinogen 0.2 Ur Leukocyte Esterase 2+ H Urine WBC (Auto) 3 Urine Casts (Auto) 25 U Epithel Cells (Auto) 2.1 Urine Bacteria (Auto) 0.8 Random Vancomycin Blood Type Antibody Screen Antibody Identification Antigen Identification 11/13/19 11/14/19 11/14/19 23:50 02:16 02:16 WBC RBC Hgb Hct MCV MCH MCHC RDW Plt Count MPV Absolute Neuts (auto) Neutrophils % Lymphocytes % Monocytes % Eosinophils % Basophils % Nucleated RBC % PT with INR INR PTT (Actin FS) Anticoagulation Therapy No Result Required. Puncture Site Right radial ABG pH 7.34 L ABG pCO2 at Pt Temp 41.8 ABG pO2 at Pt Temp 57.8 L ABG HCO3 22.0 ABG O2 Sat (Measured) 86.1 L ABG O2 Content 86.1 ABG Base Excess -3.0 L Albert Test Positive Carboxyhemoglobin < 0.5 Methemoglobin < 1.0 O2 Delivery Device No Result Required. Oxygen Flow Rate Yes Vent Mode No Result Required. Vent Rate No Result Required. Mechanical Rate No Result Required. PEEP Pressure Support Vent No Result Required. Sodium Potassium Chloride Carbon Dioxide Anion Gap BUN Creatinine Est GFR (CKD-EPI)AfAm Est GFR (CKD-EPI)NonAf POC Glucometer Random Glucose Lactic Acid 2.6 H* Calcium Phosphorus Magnesium Total Bilirubin AST ALT Alkaline Phosphatase Ammonia Troponin I Total Protein Albumin Urine Color Urine Appearance Urine pH Ur Specific [place] Urine Protein Urine Glucose (UA) Urine Ketones Urine Blood Urine Nitrite Urine Bilirubin Urine Urobilinogen Ur Leukocyte Esterase Urine WBC (Auto) Urine Casts (Auto) U Epithel Cells (Auto) Urine Bacteria (Auto) Random Vancomycin Blood Type B POSITIVE Antibody Screen Positive Antibody Identification Anti- k Antigen Identification K Antigen - NEGATIVE 11/14/19 11/14/19 11/14/19 03:11 03:30 05:30 WBC 14.9 H RBC 3.55 L Hgb 11.4 L Hct 36.6 MCV 103.1 H MCH 32.1 MCHC 31.2 L RDW 21.4 H Plt Count 160 MPV 10.1 Absolute Neuts (auto) 14.1 H Neutrophils % 94.7 H Lymphocytes % 0.8 L Monocytes % 3.0 L Eosinophils % 1.3 D Basophils % 0.2 Nucleated RBC % 1 H PT with INR INR PTT (Actin FS) Anticoagulation Therapy Puncture Site ABG pH ABG pCO2 at Pt Temp ABG pO2 at Pt Temp ABG HCO3 ABG O2 Sat (Measured) ABG O2 Content ABG Base Excess Albert Test Carboxyhemoglobin Methemoglobin O2 Delivery Device Oxygen Flow Rate Vent Mode Vent Rate Mechanical Rate PEEP Pressure Support Vent Sodium Potassium Chloride Carbon Dioxide Anion Gap BUN Creatinine Est GFR (CKD-EPI)AfAm Est GFR (CKD-EPI)NonAf POC Glucometer Random Glucose Lactic Acid Calcium Phosphorus Magnesium Total Bilirubin AST ALT Alkaline Phosphatase Ammonia 64.60 H Troponin I 0.81 H* Total Protein Albumin Urine Color Urine Appearance Urine pH Ur Specific [place] Urine Protein Urine Glucose (UA) Urine Ketones Urine Blood Urine Nitrite Urine Bilirubin Urine Urobilinogen Ur Leukocyte Esterase Urine WBC (Auto) Urine Casts (Auto) U Epithel Cells (Auto) Urine Bacteria (Auto) Random Vancomycin Blood Type Antibody Screen Antibody Identification Antigen Identification 11/14/19 11/14/19 11/14/19 05:30 05:30 05:30 WBC RBC Hgb Hct MCV MCH MCHC RDW Plt Count MPV Absolute Neuts (auto) Neutrophils % Lymphocytes % Monocytes % Eosinophils % Basophils % Nucleated RBC % PT with INR INR PTT (Actin FS) Anticoagulation Therapy Puncture Site ABG pH ABG pCO2 at Pt Temp ABG pO2 at Pt Temp ABG HCO3 ABG O2 Sat (Measured) ABG O2 Content ABG Base Excess Albert Test Carboxyhemoglobin Methemoglobin O2 Delivery Device Oxygen Flow Rate Vent Mode Vent Rate Mechanical Rate PEEP Pressure Support Vent Sodium 135 L Potassium 3.0 L Chloride 96 L Carbon Dioxide 22 Anion Gap 17 H BUN 37.0 H Creatinine 2.8 H Est GFR (CKD-EPI)AfAm 24.12 Est GFR (CKD-EPI)NonAf 20.82 POC Glucometer Random Glucose 246 H Lactic Acid Calcium 7.6 L Phosphorus 3.4 Magnesium 2.3 Total Bilirubin 1.2 H AST 81 H ALT 42 Alkaline Phosphatase 134 H Ammonia Troponin I 0.85 H* Total Protein 5.8 L Albumin 2.1 L Urine Color Urine Appearance Urine pH Ur Specific [place] Urine Protein Urine Glucose (UA) Urine Ketones Urine Blood Urine Nitrite Urine Bilirubin Urine Urobilinogen Ur Leukocyte Esterase Urine WBC (Auto) Urine Casts (Auto) U Epithel Cells (Auto) Urine Bacteria (Auto) Random Vancomycin 13.4 L Blood Type Antibody Screen Antibody Identification Antigen Identification 11/14/19 07:15 WBC RBC Hgb Hct MCV MCH MCHC RDW Plt Count MPV Absolute Neuts (auto) Neutrophils % Lymphocytes % Monocytes % Eosinophils % Basophils % Nucleated RBC % PT with INR INR PTT (Actin FS) Anticoagulation Therapy No Result Required. Puncture Site Right radial ABG pH 7.32 L ABG pCO2 at Pt Temp 37.6 ABG pO2 at Pt Temp 66.9 L ABG HCO3 18.8 L ABG O2 Sat (Measured) 87.7 L ABG O2 Content No Result Required. ABG Base Excess -6.2 L Albert Test Positive Carboxyhemoglobin Methemoglobin O2 Delivery Device Vent Oxygen Flow Rate 40% Vent Mode A/c Vent Rate 14 Mechanical Rate No Result Required. PEEP 5.0 Pressure Support Vent 500 Sodium Potassium Chloride Carbon Dioxide Anion Gap BUN Creatinine Est GFR (CKD-EPI)AfAm Est GFR (CKD-EPI)NonAf POC Glucometer Random Glucose Lactic Acid Calcium Phosphorus Magnesium Total Bilirubin AST ALT Alkaline Phosphatase Ammonia Troponin I Total Protein Albumin Urine Color Urine Appearance Urine pH Ur Specific [place] Urine Protein Urine Glucose (UA) Urine Ketones Urine Blood Urine Nitrite Urine Bilirubin Urine Urobilinogen Ur Leukocyte Esterase Urine WBC (Auto) Urine Casts (Auto) U Epithel Cells (Auto) Urine Bacteria (Auto) Random Vancomycin Blood Type Antibody Screen Antibody Identification Antigen Identification Active Medications Generic Name Dose Route Start Last Admin Trade Name Freq PRN Reason Stop Dose Admin Albuterol Sulfate 1 amp 11/14/19 03:54 Ventolin 0.083% Nebulizer Soln - NEB Q4H PRN SHORT OF BREATH/WHEEZING Albuterol/Ipratropium 1 amp 11/14/19 08:00 11/14/19 08:57 Duoneb - NEB 1 amp RQID TED Administration Heparin Sodium (Porcine) 5,000 unit 11/14/19 10:00 Heparin - SQ BID TED Propofol 1,000,000 mcg in 100 mls @ 2.556 mls/hr 11/13/19 22:15 11/14/19 01: 45 Diprivan - IVPB 30 mcg/kg/min TITR TED 15.333 mls/hr Titration Protocol 5 MCG/KG/MIN Norepinephrine Bitartrate 4, 500 mls @ 37.5 mls/hr 11/13/19 22:15 11/14/19 00 :01 000 mcg/ Dextrose IV 10 mcg/min TITR TED 75 mls/hr Titration Protocol 5 MCG/MIN Piperacillin Sod/Tazobactam 50 mls @ 100 mls/hr 11/14/19 05:30 Sod 3.375 gm/ Dextrose IVPB Q6H TED Protocol Piperacillin Sod/Tazobactam 50 mls @ 100 mls/hr 11/14/19 07:30 Sod 3.375 gm/ Dextrose IVPB 11/15/19 07:29 Q6H TED Protocol Potassium Chloride 10 meq in 100 mls @ 100 mls/hr 11/14/19 08:15 Potassium Chloride 10 Meq Premix Ivpb - IVPB 11/14/19 11:14 Q60M [facility] ASSESSMENT/PLAN: 79 y.o male with PMH of ESRD (t//s) COPD CHF, right BKA, HLD, GERD presents to the ED from [facility] due to unresponsiveness, respiratory distress and hypotension #ESRD #Hypoxic Resp Failure #CHF #tropinemia f/u renal US HD tomorrow pressor support urine lytes pending f/u echo cardio consult repeat BMP in AM monitor volume status repeat CXR in AM Dispo: We will continue to follow the patient. Thank you for this consultative opportunity. Visit type - Emergency Visit Emergency Visit: Yes ED Registration Date: 11/14/19 Care time: The patient presented to the Emergency Department on the above date and was hospitalized for further evaluation of their emergent condition. - New Patient This patient is new to me today: Yes Date on this admission: 11/14/19 - Critical Care Critical Care patient: Yes Total Critical Care Time (in minutes): 35 Critical Care Statement: The care of this patient involved high complexity decision making to prevent further life threatening deterioration of the patient 's condition and/or to evaluate & treat vital organ system(s) failure or risk of failure. ATTENDING PHYSICIAN STATEMENT I saw and evaluated the patient. I reviewed the resident's note and discussed the case with the resident. I agree with the resident's findings and plan as documented. SUBJECTIVE: OBJECTIVE: ASSESSMENT AND PLAN:
--- NOTE | 2019-11-14 09:22 | CON.CARD ---
Consult Consult Specialty:: Cardiology Referred by:: Dr. Rucker Reason for Consultation:: CAD, borderline TnI - History of Present Illness Chief Complaint: respiratory distress History of Present Illness: History obtained at bedside from son: 79M with CAD , s/p multivessel PCI (> 1 year ago), CHF (unknown type), PPM, AF , recently started on HD. Has been in and out of hospital since July with COPD/ infections/ CKD and recently had a possible GIB at [place]- no endoscopic evaluation. He was in [facility] for short term rehab and was transferred here yest for resp distress/acute resp failure/ possible PNA. Currently mechanically ventilated on Levo gtts in ICU - History Source History Provided By: Family Member - Past Medical History Cardio/Vascular: Yes: HTN, Other (ASHD) Pulmonary: Yes: COPD, Sleep Apnea Gastrointestinal: Yes: GERD, Other (recent GIB) Renal/: Yes: Renal Failure, Hemodialysis Dermatology: Yes: Other (Pressure Ulcer- L- Heel) - Alcohol/Substance Use Hx Alcohol Use: No - Smoking History Smoking history: Unknown if ever smoked Have you smoked in the past 12 months: No - Social History Usual Living Arrangement: With Spouse History of Recent Travel: No Home Medications - Allergies Allergies/Adverse Reactions: Allergies Allergy/AdvReac Type Severity Reaction Status Date / Time No Known Allergies Allergy Verified 11/13/19 22:17 Family Medical History Family History: Unremarkable (non contrib to this presentation) Review of Systems - Review of Systems Constitutional: reports: No Symptoms Eyes: reports: No Symptoms HENT: reports: No Symptoms Neck: reports: No Symptoms Cardiovascular: reports: Shortness of Breath Respiratory: denies: No Symptoms, Cough, Exercise Intolerance, Hemoptysis, Orthopnea, PND, Snoring, SOB, SOB on Exertion, Wheezing, Other Gastrointestinal: denies: No Symptoms, Abdominal Pain, Bloating, Constipation, Diarrhea, Dysphagia, Indigestion, Melena, Nausea, Rectal Bleeding, Vomiting, Vomiting Blood, Other Genitourinary: denies: No Symptoms, Burning, Discharge, Dysuria, Flank Pain, Frequency, Hematuria, Incontinence, Lesions, Menses, Pain, Testicular Mass, Testicular Pain, Testicular Swelling, Urgency, Vaginal Bleeding, Other Breasts: denies: No Symptoms Reported, See HPI, Breast Implants, Discharge from Nipple, Lumps, Pain, Skin Changes, Other Musculoskeletal: denies: No Symptoms, Back Pain, Crepitus, Decreased ROM, Extremity Pain, Joint Pain, Joint Swelling, Muscle Pain, Muscle Cramps, Muscle Weakness, Other Neurological: reports: Other (sedated on vent) Endocrine: denies: No Symptoms, Excessive Sweating, Flushing, Increased Hunger, Increased Thirst, Intolerance to Cold, Intolerance to Heat, Unexplained Weight Gain, Unexplained Weight Loss, Other Hematology/Lymphatic: denies: No Symptoms, Easily Bruised, Excessive Bleeding, Swollen Glands, Other - Risk Factors Known Risk Factors: Yes: Other (Known CAD) Vital Signs: Vital Signs Temperature 98.4 F 11/14/19 04:23 Pulse Rate 60 11/14/19 06:00 Respiratory Rate 141 H 11/14/19 09:02 Blood Pressure 104/41 L 11/14/19 06:00 O2 Sat by Pulse Oximetry (%) 100 11/14/19 04:46 Constitutional: Yes: Other (+ ETT) Respiratory: Yes: Other (= breath sounds b/l) Gastrointestinal: Yes: Soft JVD: No Extremities: Yes: Other (R LE amputation) - Other Data Labs, Other Data: CBC, BMP 11/14/19 05:30 11/14/19 05:30 INR, PTT INR 1.34 (0.83-1.09) H 11/13/19 22:13 Troponin, BNP 11/13/19 11/14/19 11/14/19 22:13 03:11 05:30 Troponin I 0.15 H 0.81 H* 0.85 H* Troponin, BNP 11/13/19 11/14/19 11/14/19 22:13 03:11 05:30 Troponin I 0.15 H 0.81 H* 0.85 H* Microbiology Laboratory Tests 11/13/19 11/13/19 11/13/19 22:13 22:13 23:50 WBC Hgb Plt Count ABG pH ABG pCO2 at Pt Temp ABG pO2 at Pt Temp Oxygen Flow Rate Sodium Lactic Acid 3.2 H* Ammonia Troponin I 0.15 H Urine Nitrite Positive H Urine Bilirubin 1+ H Ur Leukocyte Esterase 2+ H 11/13/19 11/14/19 11/14/19 23:50 02:16 03:11 WBC Hgb Plt Count ABG pH 7.34 L ABG pCO2 at Pt Temp 41.8 ABG pO2 at Pt Temp 57.8 L Oxygen Flow Rate Sodium Lactic Acid 2.6 H* Ammonia Troponin I 0.81 H* Urine Nitrite Urine Bilirubin Ur Leukocyte Esterase 11/14/19 11/14/19 11/14/19 03:30 05:30 05:30 WBC 14.9 H Hgb 11.4 L Plt Count 160 ABG pH ABG pCO2 at Pt Temp ABG pO2 at Pt Temp Oxygen Flow Rate Sodium 135 L Lactic Acid Ammonia 64.60 H Troponin I Urine Nitrite Urine Bilirubin Ur Leukocyte Esterase 11/14/19 11/14/19 05:30 07:15 WBC Hgb Plt Count ABG pH 7.32 L ABG pCO2 at Pt Temp 37.6 ABG pO2 at Pt Temp 66.9 L Oxygen Flow Rate 40% Sodium Lactic Acid Ammonia Troponin I 0.85 H* Urine Nitrite Urine Bilirubin Ur Leukocyte Esterase TELE: V-paced, appears to have underlying AF Echo: Pending Imaging - Results Chest X-ray: Image Reviewed Cat Scan: Report Reviewed, Image Reviewed EKG: Image Reviewed Assessment/Plan IMP: Acute respiratory failure secondary to RLL PNA w/loculated pleural effusion Sepsis secondary to above ESRD on HD Chronic COPD CAD s/p PCI Pacemaker Suspected underlying AF Recent reported GIB (no endoscopic evaluation) REC: 1. Pressors as per Critical Care Team for MAP 60mmHg 2. Vent support 3. Cultures/ Abx as per PMD and Critical Care 4. HD as per renal 5. Borderline/flat TnI unlikely due to type I ND. Likely due to demand ischemia/ sepsis. Trend enzymes. Check echo. Cont Tele. 6. Underlying AF- hold AC in setting recent unexplored GIB. Risks> benefits at this time. Will follow.
[2019-11-14] MEDS ORDERED: PIPERACILLIN/TAZOBACTAM 3.375 GM VIAL IVPB ONE (09:40)
[2019-11-14] MEDS ORDERED: DEXTROSE 5%-WATER - 50 ML IVPB ONE ×2 (09:40→18:00)
[2019-11-14] MEDS: KCL 10 MEQ IVPB 10 MEQ/100 ML INFUS.BAG IVPB SCH ×3 (09:49→12:42)
[2019-11-14] MEDS: HEPARIN NA (PORCINE) 5,000 UNITS/ML 1ML VIAL SQ SCH ×2 (09:49→22:03)
[2019-11-14] MEDS ORDERED: MUPIROCIN 2% TOPICAL OINTMENT FOR DECOLONIZATION NS SCH (10:00)
--- NOTE | 2019-11-14 10:25 | PN ---
Progress Note, Physician History of Present Illness: Pt seen/examined in icu chart is reviewed Intubated/ sedated On pressor support - Current Medication List Current Medications: Active Medications Albuterol Sulfate (Ventolin 0.083% Nebulizer Soln -) 1 amp NEB Q4H PRN PRN Reason: SHORT OF BREATH/WHEEZING Albuterol/Ipratropium (Duoneb -) 1 amp NEB RQID TED Last Admin: 11/14/19 08:57 Dose: 1 amp Heparin Sodium (Porcine) (Heparin -) 5,000 unit SQ BID TED Last Admin: 11/14/19 09:49 Dose: 5,000 unit Propofol (Diprivan -) 1,000,000 mcg in 100 mls @ 2.556 mls/hr IVPB TITR [facility]; Protocol Last Titration: 11/14/19 01:45 Dose: 30 mcg/kg/min, 15.333 mls/hr Norepinephrine Bitartrate 4, (000 mcg/ Dextrose) 500 mls @ 37.5 mls/hr IV TITR [facility]; Protocol Last Titration: 11/14/19 00:01 Dose: 10 mcg/min, 75 mls/hr Piperacillin Sod/Tazobactam (Sod 3.375 gm/ Dextrose) 50 mls @ 100 mls/hr IVPB Q6H TED; Protocol Piperacillin Sod/Tazobactam (Sod 3.375 gm/ Dextrose) 50 mls @ 100 mls/hr IVPB Q6H TED; Protocol Stop: 11/15/19 07:29 Last Admin: 11/14/19 09:49 Dose: 100 mls/hr Potassium Chloride (Potassium Chloride 10 Meq Premix Ivpb -) 10 meq in 100 mls @ 100 mls/hr IVPB Q60M [facility] Stop: 11/14/19 11:14 Last Admin: 11/14/19 09:49 Dose: 100 mls/hr - Objective Vital Signs: Vital Signs Temperature 97.3 F L 11/14/19 10:00 Pulse Rate 61 11/14/19 10:00 Respiratory Rate 18 11/14/19 10:00 Blood Pressure 109/38 L 11/14/19 10:00 O2 Sat by Pulse Oximetry (%) 100 11/14/19 04:46 Constitutional: Yes: Other (Intubated) Eyes: Yes: Conjunctiva Clear Neck: Yes: Supple Cardiovascular: Yes: Regular Rate and Rhythm Respiratory: Yes: Diminished Gastrointestinal: Yes: Soft Genitourinary: Yes: Concha Present Extremities: Yes: Amputation (s/p roght aka) Edema: No Integumentary: No: Other Wound/Incision: Yes: Other (Left heel ulcer) Neurological: Yes: Other (sedated) Additional Findings/Remarks: Right femoral catheter Labs: CBC, BMP 11/14/19 05:30 INR, PTT INR 1.34 (0.83-1.09) H 11/13/19 22:13 - ....Imaging Chest X-ray: Report Reviewed Cat Scan: Report Reviewed Problem List - Problems (1) Respiratory failure Code(s): J96.90 - RESPIRATORY FAILURE, UNSP, UNSP W HYPOXIA OR HYPERCAPNIA (2) CAD (coronary artery disease) Code(s): I25.10 - ATHSCL HEART DISEASE OF [place] CORONARY ARTERY W/O ANG PCTRS (3) PVD (peripheral vascular disease) Code(s): I73.9 - PERIPHERAL VASCULAR DISEASE, UNSPECIFIED (4) Elevated troponin Code(s): R79.89 - OTHER SPECIFIED ABNORMAL FINDINGS OF BLOOD CHEMISTRY Assessment/Plan In summary Pt 79yr old gentleman with extensive PMHx of CAD , s/p multivessel PCI (> 1 year ago), CHF , PPM, AF,COPD, ESRD-HD. Has been in and out of hospital since July with COPD/ infections/ CKD and recently had a possible GIB at [place]- no endoscopic evaluation. Transferred from [facility] for short term rehab and was transferred here yesterday for resp distress. Admitted to ICU / Intubated for Respiratory failure and Pneumonia. Pt was admitted to [facility] from [facility] Continue present care Abx Vent support Will discuss with ICu team lilly Kern - d/c D/W RN also Will follow CC time approx 40 min
--- NOTE | 2019-11-14 10:57 | ECHO ---
Name: JOYCELYN PEDERSEN Exam:Adult Echocardiogram Study Date: 11/14/2019 08:16 AM Age: 79 yrs Height: 70 in Weight: 187 lb BSA: 2.0 m2 MMode/2D Measurements & Calculations IVSd: 1.3 cm Ao root diam: 2.7 cm LVIDd: 3.7 cm LA dimension: 4.8 cm LVIDs: 2.3 cm LVPWd: 1.2 cm EDV(Teich): 60.0 ml LVOT diam: 2.0 cm ESV(Teich): 17.6 ml Doppler Measurements & Calculations MV E max mario alberto: 73.2 cm/sec Ao V2 max: 165.7 cm/sec MV dec time: 0.13 sec Ao max P.0 mmHg MENDEZ(V,D): 2.1 cm2 LV V1 max P.0 mmHg TR max mario alberto: 452.7 cm/sec LV V1 max: 112.0 cm/sec TR max P.6 mmHg PA V2 max: 116.1 cm/sec Med Peak E' Mario Alberto: 8.2 cm/sec PA max P.4 mmHg Med E/e': 9.0 Lat Peak E' Mario Alberto: 9.2 cm/sec Lat E/e': 7.9 PI Vmax: 198.1 cm/sec Left Ventricle Left ventricular systolic function is grossly normal. Ejection Fraction = 55-60%. Flattened septum is consistent with RV pressure overload. Right Ventricle The right ventricle is severely dilated. There is a pacemaker lead in the right ventricle. The right ventricular systolic function is severely reduced. Atria The left atrium is mildly dilated. The right atrium is moderately dilated. Mitral Valve There is mild mitral annular calcification. There is no mitral valve stenosis. There is trace to mild mitral regurgitation. Tricuspid Valve The tricuspid valve is not well visualized, but is grossly normal. There is moderate tricuspid regurg itation. Right ventricular systolic pressure is elevated at >60mmHg. There is severe pulmonary hypertension. Aortic Valve There is mild aortic sclerosis.;. No hemodynamically significant valvular aortic stenosis. No aortic regurgitation is present. Pulmonic Valve The pulmonic valve is not well seen, but is grossly normal. There is no pulmonic valvular stenosis. Great Vessels The aortic root is normal size. Pericardium/Pleura There is no pericardial effusion. Interpretation Summary Left ventricular systolic function is grossly normal. Ejection Fraction = 55-60%. The right ventricle is severely dilated. The right ventricular systolic function is severely reduced. There is a pacemaker lead in the right ventricle. The left atrium is mildly dilated. The right atrium is moderately dilated. There is mild mitral annular calcification. There is moderate tricuspid regurgitation. Right ventricular systolic pressure is elevated at >60mmHg. There is severe pulmonary hypertension. MD Calvert *Fabian 11/14/2019 10:57 AM
--- NOTE | 2019-11-14 11:40 | PROC ---
Central Line Insertion Indication: Sepsis, Vasopressor Risks and Benefits Explained: Yes Consent on Chart: Yes Central Line: Triple Lumen Catheter Anesthesia: 1% Lidocaine Sterile Technique: Yes Ultrasound Guided Assistance: Yes Position: Left Internal Jugular Post Insertion: Yes: Bilateral Breath Sounds, Bilateral Chest Expansion, Chest X-Ray Ordered Sterile Dressing Applied: Yes
--- NOTE | 2019-11-14 12:40 | CON.ID ---
Consult Consult Specialty:: infectious diseases Referred by:: hien Reason for Consultation:: resp failure,sepsis - History of Present Illness Chief Complaint: resp failure History of Present Illness: 79 y/o man from [facility] with a PMHx of ESRD (HD- ,,), COPD, ASHD, HLD, GERD, SAVANA, Pressure Ulcer, s/p R-BKA. Who presents to the ED with respiratory distress with a GCS of 8 ([id number]). Per ED record: finished dialysis today 5 hours prior to arrival via port in chest. EMS cannot provide much history other than saying that [facility] called them because the patient was in respiratory distress and was not responsive. EMS promptly placed the patient on a CPAP machine and brought him straight to the ER. Upon presentation to the ER he was saturating in the low 80's, pale, and was exhibiting agonal breathing. patient is intubated,above history obtained from the charts patient does open his eyes - History Source History Provided By: Medical Record Limitations to Obtaining History: Clinical Condition - Past Medical History Cardio/Vascular: Yes: HTN, Other (ASHD) Pulmonary: Yes: COPD, Sleep Apnea Gastrointestinal: Yes: GERD, Other (recent GIB) Renal/: Yes: Renal Failure, Hemodialysis Dermatology: Yes: Other (Pressure Ulcer- L- Heel) - Alcohol/Substance Use Hx Alcohol Use: No - Smoking History Smoking history: Unknown if ever smoked Have you smoked in the past 12 months: No - Social History Usual Living Arrangement: With Spouse History of Recent Travel: No Home Medications - Allergies Allergies/Adverse Reactions: Allergies Allergy/AdvReac Type Severity Reaction Status Date / Time No Known Allergies Allergy Verified 11/13/19 22:17 - Home Medications Home Medications: Ambulatory Orders Budesonide/Formeterol Fumarate [SYMBICORT 160/4.5mcg -] 1 puff IH BID 11/14/19 Calcitriol [Rocaltrol -] 0.25 mcg PO DAILY 11/14/19 Docusate Sodium [Colace] 100 mg PO BID PRN 11/14/19 Furosemide [Lasix] 40 mg PO DAILY 11/14/19 Iron Polysaccharide Complex [Polysaccharide Iron] 150 mg PO DAILY 11/14/19 Iron Ps Complex/B12/Folic Acid [Ferrex 150 Forte Capsule] 150 mg PO DAILY Mirabegron [Myrbetriq] 50 mg PO DAILY 11/14/19 Nitroglycerin [Nitrostat] 0.4 mg SL PRN PRN 11/14/19 Omeprazole Magnesium [Prilosec Otc] 20 mg PO DAILY 11/14/19 RX: Aspirin 81 mg PO 11/14/19 RX: Glipizide 5 mg PO DAILY 11/14/19 RX: Lisinopril 10 mg PO DAILY 11/14/19 RX: Metoprolol Tartrate 25 mg PO DAILY 11/14/19 RX: Oxybutynin Chloride [Ditropan Xl] 5 mg PO DAILY 11/14/19 RX: Simvastatin 40 mg PO HS 11/14/19 Review of Systems Unable to obtain ROS, reason: unable to obtain Physical Exam Vital Signs: Vital Signs Temperature 97.3 F L 11/14/19 10:00 Pulse Rate 61 11/14/19 12:00 Respiratory Rate 17 11/14/19 12:24 Blood Pressure 105/41 L 11/14/19 12:00 O2 Sat by Pulse Oximetry (%) 100 11/14/19 04:46 Constitutional: Yes: Other Cardiovascular: Yes: Regular Rate and Rhythm Respiratory: Yes: Intubated, Mechanically Ventilated Gastrointestinal: Yes: Normal Bowel Sounds, Soft Musculoskeletal: Yes: WNL Extremities: Yes: WNL Labs: CBC, BMP 11/14/19 05:30 Imaging - Results Chest X-ray: Report Reviewed, Image Reviewed Cat Scan: Report Reviewed, Image Reviewed Ultrasound: Report Reviewed, Image Reviewed Assessment/Plan Acute Respiratory Acute due to RLL PNA COPD, ESRD on HD CHF SAVANA R/O Seizure Septic Shock PAD Demand Ischemia Chronic loculated RLL effusion plan will start on abx await for cx reports as per icu pressors as needed vent support close watch nutrition rest as per the team await for sputum cx cc 40 min
--- NOTE | 2019-11-14 12:48 | PN ---
Teaching Attending Note Name of Resident: Kareen Huang ATTENDING PHYSICIAN STATEMENT I saw and evaluated the patient. I reviewed the resident's note and discussed the case with the resident. I agree with the resident's findings and plan as documented. SUBJECTIVE: Patient seen and examined in the ICU. Sedated on AC Mode of vent, 40% FiO2. 15 mcq NE for hemodynamic support, BP marginal. Intake & Output 11/11/19 11/12/19 11/13/19 11/14/19 23:59 23:59 23:59 23:59 Intake Total 1125 Output Total 25 25 Balance -25 1100 Weight 187 lb 12.8 oz 174 lb 6.4 oz Last Vital Signs Temp Pulse Resp BP Pulse Ox 97.3 F L 61 17 105/41 L 100 11/14/19 10:00 11/14/19 12:00 11/14/19 12:24 11/14/19 12:00 11/14/19 04:46 Active Medications Albuterol Sulfate (Ventolin 0.083% Nebulizer Soln -) 1 amp NEB Q4H PRN PRN Reason: SHORT OF BREATH/WHEEZING Albuterol/Ipratropium (Duoneb -) 1 amp NEB RQID TED Last Admin: 11/14/19 11:49 Dose: 1 amp Fludrocortisone Acetate (Florinef -) 0.05 mg NGT DAILY TED Heparin Sodium (Porcine) (Heparin -) 5,000 unit SQ BID TED Last Admin: 11/14/19 09:49 Dose: 5,000 unit Hydrocortisone Sodium Succinate (Solu-Cortef -) 100 mg IVPB Q8H-IV TED Propofol (Diprivan -) 1,000,000 mcg in 100 mls @ 2.556 mls/hr IVPB TITR TED; Protocol Last Titration: 11/14/19 01:45 Dose: 30 mcg/kg/min, 15.333 mls/hr Norepinephrine Bitartrate 4, (000 mcg/ Dextrose) 500 mls @ 37.5 mls/hr IV TITR TED; Protocol Last Titration: 11/14/19 00:01 Dose: 10 mcg/min, 75 mls/hr Vasopressin 50 units/ Sodium (Chloride) 100 mls @ 24 mls/hr IVPB TITR TED; Protocol Piperacillin Sod/Tazobactam (Sod 2.25 gm/ Dextrose) 50 mls @ 100 mls/hr IVPB Q8H-IV TED; Protocol GENERAL: Sedated and intubated. HEAD: Normal with no signs of trauma. EYES: Left eye miosed. right eye is normal size. Neither eye is reactive to light. EARS, NOSE, THROAT: ET Tube in place. LUNGS: Vented, bilateral coarse rhonchi, no wheeze. HEART: S1S2 ABDOMEN: Distended abdomen. No fluid wave shift. Hypoactive bowel sounds. UPPER EXTREMITIES: 2+ pulses, warm, well-perfused. No cyanosis. No clubbing. LOWER EXTREMITIES: Right BKA. Left foot cool to touch. Left heel has non purulent wound. No discharge noted. NEUROLOGICAL: Sedated SKIN:Chronic venous stasis changes in the left lower leg. Laboratory Results - last 24 hr 11/13/19 11/13/19 11/13/19 21:52 22:13 22:13 WBC 11.9 H RBC 3.44 L Hgb 11.0 L Hct 36.4 MCV 105.6 H MCH 31.9 MCHC 30.2 L RDW 20.6 H Plt Count 155 MPV 10.1 Absolute Neuts (auto) 10.8 H Neutrophils % 90.5 H Neutrophils % (Manual) Band Neutrophils % Lymphocytes % 1.8 L Lymphocytes % (Manual) Monocytes % 7.6 Monocytes % (Manual) Eosinophils % 0.0 Eosinophils % (Manual) Basophils % 0.1 Basophils % (Manual) Myelocytes % (Man) Promyelocytes % (Man) Blast Cells % (Manual) Nucleated RBC % 1 H Metamyelocytes Hypochromia Platelet Estimate Platelet Comment Polychromasia Poikilocytosis Anisocytosis Microcytosis Macrocytosis Target Cells Tear Drop Cells Ovalocytes [place] Cells Schistocytes PT with INR 15.90 H INR 1.34 H PTT (Actin FS) 102.1 H Anticoagulation Therapy Puncture Site ABG pH ABG pCO2 at Pt Temp ABG pO2 at Pt Temp ABG HCO3 ABG O2 Sat (Measured) ABG O2 Content ABG Base Excess Albert Test Carboxyhemoglobin Methemoglobin O2 Delivery Device Oxygen Flow Rate Vent Mode Vent Rate Mechanical Rate PEEP Pressure Support Vent Sodium Potassium Chloride Carbon Dioxide Anion Gap BUN Creatinine Est GFR (CKD-EPI)AfAm Est GFR (CKD-EPI)NonAf POC Glucometer 123 Random Glucose Lactic Acid Calcium Phosphorus Magnesium Total Bilirubin AST ALT Alkaline Phosphatase Ammonia Troponin I Total Protein Albumin Vitamin B12 Urine Color Urine Appearance Urine pH Ur Specific [place] Urine Protein Urine Glucose (UA) Urine Ketones Urine Blood Urine Nitrite Urine Bilirubin Urine Urobilinogen Ur Leukocyte Esterase Urine WBC (Auto) Urine Casts (Auto) U Epithel Cells (Auto) Urine Bacteria (Auto) Random Vancomycin Blood Type Antibody Screen Antibody Identification Antigen Identification 11/13/19 11/13/19 11/13/19 22:13 22:13 23:50 WBC RBC Hgb Hct MCV MCH MCHC RDW Plt Count MPV Absolute Neuts (auto) Neutrophils % Neutrophils % (Manual) Band Neutrophils % Lymphocytes % Lymphocytes % (Manual) Monocytes % Monocytes % (Manual) Eosinophils % Eosinophils % (Manual) Basophils % Basophils % (Manual) Myelocytes % (Man) Promyelocytes % (Man) Blast Cells % (Manual) Nucleated RBC % Metamyelocytes Hypochromia Platelet Estimate Platelet Comment Polychromasia Poikilocytosis Anisocytosis Microcytosis Macrocytosis Target Cells Tear Drop Cells Ovalocytes [place] Cells Schistocytes PT with INR INR PTT (Actin FS) Anticoagulation Therapy Puncture Site ABG pH ABG pCO2 at Pt Temp ABG pO2 at Pt Temp ABG HCO3 ABG O2 Sat (Measured) ABG O2 Content ABG Base Excess Albert Test Carboxyhemoglobin Methemoglobin O2 Delivery Device Oxygen Flow Rate Vent Mode Vent Rate Mechanical Rate PEEP Pressure Support Vent Sodium 138 Potassium 3.7 Chloride 102 Carbon Dioxide 25 Anion Gap 11 BUN 31.0 H Creatinine 2.7 H Est GFR (CKD-EPI)AfAm 25.21 Est GFR (CKD-EPI)NonAf 21.75 POC Glucometer Random Glucose 126 H Lactic Acid 3.2 H* Calcium 7.8 L Phosphorus Magnesium Total Bilirubin 0.8 AST 73 H ALT 36 Alkaline Phosphatase 139 H Ammonia Troponin I 0.15 H Total Protein 5.9 L Albumin 2.2 L Vitamin B12 Urine Color Dk yellow Urine Appearance Turbid Urine pH 5.0 Ur Specific [place] 1.020 Urine Protein Trace Urine Glucose (UA) Trace Urine Ketones Negative Urine Blood Negative Urine Nitrite Positive H Urine Bilirubin 1+ H Urine Urobilinogen 0.2 Ur Leukocyte Esterase 2+ H Urine WBC (Auto) 3 Urine Casts (Auto) 25 U Epithel Cells (Auto) 2.1 Urine Bacteria (Auto) 0.8 Random Vancomycin Blood Type Antibody Screen Antibody Identification Antigen Identification 11/13/19 11/14/19 11/14/19 23:50 02:16 02:16 WBC RBC Hgb Hct MCV MCH MCHC RDW Plt Count MPV Absolute Neuts (auto) Neutrophils % Neutrophils % (Manual) Band Neutrophils % Lymphocytes % Lymphocytes % (Manual) Monocytes % Monocytes % (Manual) Eosinophils % Eosinophils % (Manual) Basophils % Basophils % (Manual) Myelocytes % (Man) Promyelocytes % (Man) Blast Cells % (Manual) Nucleated RBC % Metamyelocytes Hypochromia Platelet Estimate Platelet Comment Polychromasia Poikilocytosis Anisocytosis Microcytosis Macrocytosis Target Cells Tear Drop Cells Ovalocytes [place] Cells Schistocytes PT with INR INR PTT (Actin FS) Anticoagulation Therapy No Result Required. Puncture Site Right radial ABG pH 7.34 L ABG pCO2 at Pt Temp 41.8 ABG pO2 at Pt Temp 57.8 L ABG HCO3 22.0 ABG O2 Sat (Measured) 86.1 L ABG O2 Content 86.1 ABG Base Excess -3.0 L Albert Test Positive Carboxyhemoglobin < 0.5 Methemoglobin < 1.0 O2 Delivery Device No Result Required. Oxygen Flow Rate Yes Vent Mode No Result Required. Vent Rate No Result Required. Mechanical Rate No Result Required. PEEP Pressure Support Vent No Result Required. Sodium Potassium Chloride Carbon Dioxide Anion Gap BUN Creatinine Est GFR (CKD-EPI)AfAm Est GFR (CKD-EPI)NonAf POC Glucometer Random Glucose Lactic Acid 2.6 H* Calcium Phosphorus Magnesium Total Bilirubin AST ALT Alkaline Phosphatase Ammonia Troponin I Total Protein Albumin Vitamin B12 Urine Color Urine Appearance Urine pH Ur Specific [place] Urine Protein Urine Glucose (UA) Urine Ketones Urine Blood Urine Nitrite Urine Bilirubin Urine Urobilinogen Ur Leukocyte Esterase Urine WBC (Auto) Urine Casts (Auto) U Epithel Cells (Auto) Urine Bacteria (Auto) Random Vancomycin Blood Type B POSITIVE Antibody Screen Positive Antibody Identification Anti- k Antigen Identification K Antigen - NEGATIVE 11/14/19 11/14/19 11/14/19 03:11 03:30 05:30 WBC 14.9 H RBC 3.55 L Hgb 11.4 L Hct 36.6 MCV 103.1 H MCH 32.1 MCHC 31.2 L RDW 21.4 H Plt Count 160 MPV 10.1 Absolute Neuts (auto) 14.1 H Neutrophils % 94.7 H Neutrophils % (Manual) 89.6 H Band Neutrophils % 7.3 Lymphocytes % 0.8 L Lymphocytes % (Manual) 0.0 L Monocytes % 3.0 L Monocytes % (Manual) 3 L Eosinophils % 1.3 D Eosinophils % (Manual) 0.0 Basophils % 0.2 Basophils % (Manual) 0.0 Myelocytes % (Man) 0 Promyelocytes % (Man) 0 Blast Cells % (Manual) 0 Nucleated RBC % 0 Metamyelocytes 0 Hypochromia 0 Platelet Estimate Normal Platelet Comment Present Polychromasia 1+ Poikilocytosis 1+ Anisocytosis 1+ Microcytosis 1+ Macrocytosis 0 Target Cells 1+ Tear Drop Cells 1+ Ovalocytes 1+ [place] Cells 2+ Schistocytes 1+ PT with INR INR PTT (Actin FS) Anticoagulation Therapy Puncture Site ABG pH ABG pCO2 at Pt Temp ABG pO2 at Pt Temp ABG HCO3 ABG O2 Sat (Measured) ABG O2 Content ABG Base Excess Albetr Test Carboxyhemoglobin Methemoglobin O2 Delivery Device Oxygen Flow Rate Vent Mode Vent Rate Mechanical Rate PEEP Pressure Support Vent Sodium Potassium Chloride Carbon Dioxide Anion Gap BUN Creatinine Est GFR (CKD-EPI)AfAm Est GFR (CKD-EPI)NonAf POC Glucometer Random Glucose Lactic Acid Calcium Phosphorus Magnesium Total Bilirubin AST ALT Alkaline Phosphatase Ammonia 64.60 H Troponin I 0.81 H* Total Protein Albumin Vitamin B12 Urine Color Urine Appearance Urine pH Ur Specific [place] Urine Protein Urine Glucose (UA) Urine Ketones Urine Blood Urine Nitrite Urine Bilirubin Urine Urobilinogen Ur Leukocyte Esterase Urine WBC (Auto) Urine Casts (Auto) U Epithel Cells (Auto) Urine Bacteria (Auto) Random Vancomycin Blood Type Antibody Screen Antibody Identification Antigen Identification 11/14/19 11/14/19 11/14/19 05:30 05:30 05:30 WBC RBC Hgb Hct MCV MCH MCHC RDW Plt Count MPV Absolute Neuts (auto) Neutrophils % Neutrophils % (Manual) Band Neutrophils % Lymphocytes % Lymphocytes % (Manual) Monocytes % Monocytes % (Manual) Eosinophils % Eosinophils % (Manual) Basophils % Basophils % (Manual) Myelocytes % (Man) Promyelocytes % (Man) Blast Cells % (Manual) Nucleated RBC % Metamyelocytes Hypochromia Platelet Estimate Platelet Comment Polychromasia Poikilocytosis Anisocytosis Microcytosis Macrocytosis Target Cells Tear Drop Cells Ovalocytes [place] Cells Schistocytes PT with INR INR PTT (Actin FS) Anticoagulation Therapy Puncture Site ABG pH ABG pCO2 at Pt Temp ABG pO2 at Pt Temp ABG HCO3 ABG O2 Sat (Measured) ABG O2 Content ABG Base Excess Albert Test Carboxyhemoglobin Methemoglobin O2 Delivery Device Oxygen Flow Rate Vent Mode Vent Rate Mechanical Rate PEEP Pressure Support Vent Sodium 135 L Potassium 3.0 L Chloride 96 L Carbon Dioxide 22 Anion Gap 17 H BUN 37.0 H Creatinine 2.8 H Est GFR (CKD-EPI)AfAm 24.12 Est GFR (CKD-EPI)NonAf 20.82 POC Glucometer Random Glucose 246 H Lactic Acid Calcium 7.6 L Phosphorus 3.4 Magnesium 2.3 Total Bilirubin 1.2 H AST 81 H ALT 42 Alkaline Phosphatase 134 H Ammonia Troponin I 0.85 H* Total Protein 5.8 L Albumin 2.1 L Vitamin B12 3654 H Urine Color Urine Appearance Urine pH Ur Specific [place] Urine Protein Urine Glucose (UA) Urine Ketones Urine Blood Urine Nitrite Urine Bilirubin Urine Urobilinogen Ur Leukocyte Esterase Urine WBC (Auto) Urine Casts (Auto) U Epithel Cells (Auto) Urine Bacteria (Auto) Random Vancomycin 13.4 L Blood Type Antibody Screen Antibody Identification Antigen Identification 11/14/19 07:15 WBC RBC Hgb Hct MCV MCH MCHC RDW Plt Count MPV Absolute Neuts (auto) Neutrophils % Neutrophils % (Manual) Band Neutrophils % Lymphocytes % Lymphocytes % (Manual) Monocytes % Monocytes % (Manual) Eosinophils % Eosinophils % (Manual) Basophils % Basophils % (Manual) Myelocytes % (Man) Promyelocytes % (Man) Blast Cells % (Manual) Nucleated RBC % Metamyelocytes Hypochromia Platelet Estimate Platelet Comment Polychromasia Poikilocytosis Anisocytosis Microcytosis Macrocytosis Target Cells Tear Drop Cells Ovalocytes [place] Cells Schistocytes PT with INR INR PTT (Actin FS) Anticoagulation Therapy No Result Required. Puncture Site Right radial ABG pH 7.32 L ABG pCO2 at Pt Temp 37.6 ABG pO2 at Pt Temp 66.9 L ABG HCO3 18.8 L ABG O2 Sat (Measured) 87.7 L ABG O2 Content No Result Required. ABG Base Excess -6.2 L Albert Test Positive Carboxyhemoglobin Methemoglobin O2 Delivery Device Vent Oxygen Flow Rate 40% Vent Mode A/c Vent Rate 14 Mechanical Rate No Result Required. PEEP 5.0 Pressure Support Vent 500 Sodium Potassium Chloride Carbon Dioxide Anion Gap BUN Creatinine Est GFR (CKD-EPI)AfAm Est GFR (CKD-EPI)NonAf POC Glucometer Random Glucose Lactic Acid Calcium Phosphorus Magnesium Total Bilirubin AST ALT Alkaline Phosphatase Ammonia Troponin I Total Protein Albumin Vitamin B12 Urine Color Urine Appearance Urine pH Ur Specific [place] Urine Protein Urine Glucose (UA) Urine Ketones Urine Blood Urine Nitrite Urine Bilirubin Urine Urobilinogen Ur Leukocyte Esterase Urine WBC (Auto) Urine Casts (Auto) U Epithel Cells (Auto) Urine Bacteria (Auto) Random Vancomycin Blood Type Antibody Screen Antibody Identification Antigen Identification ASSESSMENT/PLAN: Acute Respiratory Acute due to RLL PNA COPD ESRD on HD CHF SAVANA R/O Seizure Septic Shock (?) Cirrhosis PAD Demand Ischemia Chronic loculated RLL effusion Add Vasopressin Hydrocortisone & Fludrocortisone Strict I & O ABX per ID AC Mode of vent HD per Renal BD TX VTE prophylaxis ECHO Enteral feeds Requires ICU monitoring Dr Barnard Critical care time spent in reviewing chart, evaluating patient and formulating plan - 36 minutes.
--- NOTE | 2019-11-14 13:47 | PN ---
Physical Exam: SUBJECTIVE: Patient seen and examined. Patient remains intubated, on sedation. Left IJ CVC placed. A-flutter noted on tele today. OBJECTIVE: Vital Signs Period Temp Pulse Resp BP Sys/Armando Pulse Ox Last 24 Hr 96.9 F-98.4 F 60-98 12-141 82-128/38-54 90-100 GENERAL: Intubated, sedated. HEENT: L tunnel dialysis cath in place c/d/i no signs of infection. L IJ CVC in place c/d/i. ET & NGT in place. LUNGS: scattered rhonchi b/l bases HEART: irregular, S1, S2 without murmurs ABDOMEN: Soft, NTND. +BS. EXTREMITIES: R BKA. LLE cellulitis below knee, no weeping. SKIN: Warm, dry. Laboratory Results - last 24 hr 11/13/19 11/13/19 11/13/19 21:52 22:13 22:13 WBC 11.9 H RBC 3.44 L Hgb 11.0 L Hct 36.4 MCV 105.6 H MCH 31.9 MCHC 30.2 L RDW 20.6 H Plt Count 155 MPV 10.1 Absolute Neuts (auto) 10.8 H Neutrophils % 90.5 H Neutrophils % (Manual) Band Neutrophils % Lymphocytes % 1.8 L Lymphocytes % (Manual) Monocytes % 7.6 Monocytes % (Manual) Eosinophils % 0.0 Eosinophils % (Manual) Basophils % 0.1 Basophils % (Manual) Myelocytes % (Man) Promyelocytes % (Man) Blast Cells % (Manual) Nucleated RBC % 1 H Metamyelocytes Hypochromia Platelet Estimate Platelet Comment Polychromasia Poikilocytosis Anisocytosis Microcytosis Macrocytosis Target Cells Tear Drop Cells Ovalocytes Wheeler Cells Schistocytes PT with INR 15.90 H INR 1.34 H PTT (Actin FS) 102.1 H Anticoagulation Therapy Puncture Site ABG pH ABG pCO2 at Pt Temp ABG pO2 at Pt Temp ABG HCO3 ABG O2 Sat (Measured) ABG O2 Content ABG Base Excess Albert Test Carboxyhemoglobin Methemoglobin O2 Delivery Device Oxygen Flow Rate Vent Mode Vent Rate Mechanical Rate PEEP Pressure Support Vent Sodium Potassium Chloride Carbon Dioxide Anion Gap BUN Creatinine Est GFR (CKD-EPI)AfAm Est GFR (CKD-EPI)NonAf POC Glucometer 123 Random Glucose Lactic Acid Calcium Phosphorus Magnesium Total Bilirubin AST ALT Alkaline Phosphatase Ammonia Troponin I Total Protein Albumin Vitamin B12 Urine Color Urine Appearance Urine pH Ur Specific [place] Urine Protein Urine Glucose (UA) Urine Ketones Urine Blood Urine Nitrite Urine Bilirubin Urine Urobilinogen Ur Leukocyte Esterase Urine WBC (Auto) Urine Casts (Auto) U Epithel Cells (Auto) Urine Bacteria (Auto) Random Vancomycin Blood Type Antibody Screen Antibody Identification Antigen Identification 11/13/19 11/13/19 11/13/19 22:13 22:13 23:50 WBC RBC Hgb Hct MCV MCH MCHC RDW Plt Count MPV Absolute Neuts (auto) Neutrophils % Neutrophils % (Manual) Band Neutrophils % Lymphocytes % Lymphocytes % (Manual) Monocytes % Monocytes % (Manual) Eosinophils % Eosinophils % (Manual) Basophils % Basophils % (Manual) Myelocytes % (Man) Promyelocytes % (Man) Blast Cells % (Manual) Nucleated RBC % Metamyelocytes Hypochromia Platelet Estimate Platelet Comment Polychromasia Poikilocytosis Anisocytosis Microcytosis Macrocytosis Target Cells Tear Drop Cells Ovalocytes Wheeler Cells Schistocytes PT with INR INR PTT (Actin FS) Anticoagulation Therapy Puncture Site ABG pH ABG pCO2 at Pt Temp ABG pO2 at Pt Temp ABG HCO3 ABG O2 Sat (Measured) ABG O2 Content ABG Base Excess Albert Test Carboxyhemoglobin Methemoglobin O2 Delivery Device Oxygen Flow Rate Vent Mode Vent Rate Mechanical Rate PEEP Pressure Support Vent Sodium 138 Potassium 3.7 Chloride 102 Carbon Dioxide 25 Anion Gap 11 BUN 31.0 H Creatinine 2.7 H Est GFR (CKD-EPI)AfAm 25.21 Est GFR (CKD-EPI)NonAf 21.75 POC Glucometer Random Glucose 126 H Lactic Acid 3.2 H* Calcium 7.8 L Phosphorus Magnesium Total Bilirubin 0.8 AST 73 H ALT 36 Alkaline Phosphatase 139 H Ammonia Troponin I 0.15 H Total Protein 5.9 L Albumin 2.2 L Vitamin B12 Urine Color Dk yellow Urine Appearance Turbid Urine pH 5.0 Ur Specific [place] 1.020 Urine Protein Trace Urine Glucose (UA) Trace Urine Ketones Negative Urine Blood Negative Urine Nitrite Positive H Urine Bilirubin 1+ H Urine Urobilinogen 0.2 Ur Leukocyte Esterase 2+ H Urine WBC (Auto) 3 Urine Casts (Auto) 25 U Epithel Cells (Auto) 2.1 Urine Bacteria (Auto) 0.8 Random Vancomycin Blood Type Antibody Screen Antibody Identification Antigen Identification 11/13/19 11/14/19 11/14/19 23:50 02:16 02:16 WBC RBC Hgb Hct MCV MCH MCHC RDW Plt Count MPV Absolute Neuts (auto) Neutrophils % Neutrophils % (Manual) Band Neutrophils % Lymphocytes % Lymphocytes % (Manual) Monocytes % Monocytes % (Manual) Eosinophils % Eosinophils % (Manual) Basophils % Basophils % (Manual) Myelocytes % (Man) Promyelocytes % (Man) Blast Cells % (Manual) Nucleated RBC % Metamyelocytes Hypochromia Platelet Estimate Platelet Comment Polychromasia Poikilocytosis Anisocytosis Microcytosis Macrocytosis Target Cells Tear Drop Cells Ovalocytes [place] Cells Schistocytes PT with INR INR PTT (Actin FS) Anticoagulation Therapy No Result Required. Puncture Site Right radial ABG pH 7.34 L ABG pCO2 at Pt Temp 41.8 ABG pO2 at Pt Temp 57.8 L ABG HCO3 22.0 ABG O2 Sat (Measured) 86.1 L ABG O2 Content 86.1 ABG Base Excess -3.0 L Albert Test Positive Carboxyhemoglobin < 0.5 Methemoglobin < 1.0 O2 Delivery Device No Result Required. Oxygen Flow Rate Yes Vent Mode No Result Required. Vent Rate No Result Required. Mechanical Rate No Result Required. PEEP Pressure Support Vent No Result Required. Sodium Potassium Chloride Carbon Dioxide Anion Gap BUN Creatinine Est GFR (CKD-EPI)AfAm Est GFR (CKD-EPI)NonAf POC Glucometer Random Glucose Lactic Acid 2.6 H* Calcium Phosphorus Magnesium Total Bilirubin AST ALT Alkaline Phosphatase Ammonia Troponin I Total Protein Albumin Vitamin B12 Urine Color Urine Appearance Urine pH Ur Specific [place] Urine Protein Urine Glucose (UA) Urine Ketones Urine Blood Urine Nitrite Urine Bilirubin Urine Urobilinogen Ur Leukocyte Esterase Urine WBC (Auto) Urine Casts (Auto) U Epithel Cells (Auto) Urine Bacteria (Auto) Random Vancomycin Blood Type B POSITIVE Antibody Screen Positive Antibody Identification Anti- k Antigen Identification K Antigen - NEGATIVE 11/14/19 11/14/19 11/14/19 03:11 03:30 05:30 WBC 14.9 H RBC 3.55 L Hgb 11.4 L Hct 36.6 MCV 103.1 H MCH 32.1 MCHC 31.2 L RDW 21.4 H Plt Count 160 MPV 10.1 Absolute Neuts (auto) 14.1 H Neutrophils % 94.7 H Neutrophils % (Manual) 89.6 H Band Neutrophils % 7.3 Lymphocytes % 0.8 L Lymphocytes % (Manual) 0.0 L Monocytes % 3.0 L Monocytes % (Manual) 3 L Eosinophils % 1.3 D Eosinophils % (Manual) 0.0 Basophils % 0.2 Basophils % (Manual) 0.0 Myelocytes % (Man) 0 Promyelocytes % (Man) 0 Blast Cells % (Manual) 0 Nucleated RBC % 0 Metamyelocytes 0 Hypochromia 0 Platelet Estimate Normal Platelet Comment Present Polychromasia 1+ Poikilocytosis 1+ Anisocytosis 1+ Microcytosis 1+ Macrocytosis 0 Target Cells 1+ Tear Drop Cells 1+ Ovalocytes 1+ [place] Cells 2+ Schistocytes 1+ PT with INR INR PTT (Actin FS) Anticoagulation Therapy Puncture Site ABG pH ABG pCO2 at Pt Temp ABG pO2 at Pt Temp ABG HCO3 ABG O2 Sat (Measured) ABG O2 Content ABG Base Excess Albert Test Carboxyhemoglobin Methemoglobin O2 Delivery Device Oxygen Flow Rate Vent Mode Vent Rate Mechanical Rate PEEP Pressure Support Vent Sodium Potassium Chloride Carbon Dioxide Anion Gap BUN Creatinine Est GFR (CKD-EPI)AfAm Est GFR (CKD-EPI)NonAf POC Glucometer Random Glucose Lactic Acid Calcium Phosphorus Magnesium Total Bilirubin AST ALT Alkaline Phosphatase Ammonia 64.60 H Troponin I 0.81 H* Total Protein Albumin Vitamin B12 Urine Color Urine Appearance Urine pH Ur Specific [place] Urine Protein Urine Glucose (UA) Urine Ketones Urine Blood Urine Nitrite Urine Bilirubin Urine Urobilinogen Ur Leukocyte Esterase Urine WBC (Auto) Urine Casts (Auto) U Epithel Cells (Auto) Urine Bacteria (Auto) Random Vancomycin Blood Type Antibody Screen Antibody Identification Antigen Identification 11/14/19 11/14/19 11/14/19 05:30 05:30 05:30 WBC RBC Hgb Hct MCV MCH MCHC RDW Plt Count MPV Absolute Neuts (auto) Neutrophils % Neutrophils % (Manual) Band Neutrophils % Lymphocytes % Lymphocytes % (Manual) Monocytes % Monocytes % (Manual) Eosinophils % Eosinophils % (Manual) Basophils % Basophils % (Manual) Myelocytes % (Man) Promyelocytes % (Man) Blast Cells % (Manual) Nucleated RBC % Metamyelocytes Hypochromia Platelet Estimate Platelet Comment Polychromasia Poikilocytosis Anisocytosis Microcytosis Macrocytosis Target Cells Tear Drop Cells Ovalocytes [place] Cells Schistocytes PT with INR INR PTT (Actin FS) Anticoagulation Therapy Puncture Site ABG pH ABG pCO2 at Pt Temp ABG pO2 at Pt Temp ABG HCO3 ABG O2 Sat (Measured) ABG O2 Content ABG Base Excess Albert Test Carboxyhemoglobin Methemoglobin O2 Delivery Device Oxygen Flow Rate Vent Mode Vent Rate Mechanical Rate PEEP Pressure Support Vent Sodium 135 L Potassium 3.0 L Chloride 96 L Carbon Dioxide 22 Anion Gap 17 H BUN 37.0 H Creatinine 2.8 H Est GFR (CKD-EPI)AfAm 24.12 Est GFR (CKD-EPI)NonAf 20.82 POC Glucometer Random Glucose 246 H Lactic Acid Calcium 7.6 L Phosphorus 3.4 Magnesium 2.3 Total Bilirubin 1.2 H AST 81 H ALT 42 Alkaline Phosphatase 134 H Ammonia Troponin I 0.85 H* Total Protein 5.8 L Albumin 2.1 L Vitamin B12 3654 H Urine Color Urine Appearance Urine pH Ur Specific [place] Urine Protein Urine Glucose (UA) Urine Ketones Urine Blood Urine Nitrite Urine Bilirubin Urine Urobilinogen Ur Leukocyte Esterase Urine WBC (Auto) Urine Casts (Auto) U Epithel Cells (Auto) Urine Bacteria (Auto) Random Vancomycin 13.4 L Blood Type Antibody Screen Antibody Identification Antigen Identification 11/14/19 11/14/19 07:15 11:40 WBC RBC Hgb Hct MCV MCH MCHC RDW Plt Count MPV Absolute Neuts (auto) Neutrophils % Neutrophils % (Manual) Band Neutrophils % Lymphocytes % Lymphocytes % (Manual) Monocytes % Monocytes % (Manual) Eosinophils % Eosinophils % (Manual) Basophils % Basophils % (Manual) Myelocytes % (Man) Promyelocytes % (Man) Blast Cells % (Manual) Nucleated RBC % Metamyelocytes Hypochromia Platelet Estimate Platelet Comment Polychromasia Poikilocytosis Anisocytosis Microcytosis Macrocytosis Target Cells Tear Drop Cells Ovalocytes [place] Cells Schistocytes PT with INR INR PTT (Actin FS) Anticoagulation Therapy No Result Required. Puncture Site Right radial ABG pH 7.32 L ABG pCO2 at Pt Temp 37.6 ABG pO2 at Pt Temp 66.9 L ABG HCO3 18.8 L ABG O2 Sat (Measured) 87.7 L ABG O2 Content No Result Required. ABG Base Excess -6.2 L Albert Test Positive Carboxyhemoglobin Methemoglobin O2 Delivery Device Vent Oxygen Flow Rate 40% Vent Mode A/c Vent Rate 14 Mechanical Rate No Result Required. PEEP 5.0 Pressure Support Vent 500 Sodium Potassium Chloride Carbon Dioxide Anion Gap BUN Creatinine Est GFR (CKD-EPI)AfAm Est GFR (CKD-EPI)NonAf POC Glucometer Random Glucose Lactic Acid Calcium Phosphorus Magnesium Total Bilirubin AST ALT Alkaline Phosphatase Ammonia Troponin I 0.84 H* Total Protein Albumin Vitamin B12 Urine Color Urine Appearance Urine pH Ur Specific [place] Urine Protein Urine Glucose (UA) Urine Ketones Urine Blood Urine Nitrite Urine Bilirubin Urine Urobilinogen Ur Leukocyte Esterase Urine WBC (Auto) Urine Casts (Auto) U Epithel Cells (Auto) Urine Bacteria (Auto) Random Vancomycin Blood Type Antibody Screen Antibody Identification Antigen Identification Active Medications Generic Name Dose Route Start Last Admin Trade Name Freq PRN Reason Stop Dose Admin Albuterol Sulfate 1 amp 11/14/19 03:54 Ventolin 0.083% Nebulizer Soln - NEB Q4H PRN SHORT OF BREATH/WHEEZING Albuterol/Ipratropium 1 amp 11/14/19 08:00 11/14/19 11:49 Duoneb - NEB 1 amp RQID TED Administration Fludrocortisone Acetate 0.05 mg 11/15/19 10:00 Florinef - NGT DAILY TED Heparin Sodium (Porcine) 5,000 unit 11/14/19 10:00 11/14/19 09:49 Heparin - SQ 5,000 unit BID TED Administration Hydrocortisone Sodium Succinate 100 mg 11/14/19 12:00 Solu-Cortef - IVPB Q8H-IV TED Propofol 1,000,000 mcg in 100 mls @ 2.556 mls/hr 11/13/19 22:15 11/14/19 01: 45 Diprivan - IVPB 30 mcg/kg/min TITR TED 15.333 mls/hr Titration Protocol 5 MCG/KG/MIN Norepinephrine Bitartrate 4, 500 mls @ 37.5 mls/hr 11/13/19 22:15 11/14/19 00 :01 000 mcg/ Dextrose IV 10 mcg/min TITR TED 75 mls/hr Titration Protocol 5 MCG/MIN Vasopressin 50 units/ Sodium 100 mls @ 24 mls/hr 11/14/19 11:45 Chloride IVPB TITR TED Protocol 0.2 UNITS/MIN Piperacillin Sod/Tazobactam 50 mls @ 100 mls/hr 11/14/19 18:00 Sod 2.25 gm/ Dextrose IVPB Q8H-IV TED Protocol ASSESSMENT/PLAN: 79 y.o. M from [facility] DM type 2, HTN, CHF s/p pacemaker placement in 2012 ( replaced in 2018), ESRD on HD via R tunneled dialysis cath Tu/Val/Sat, SAVANA, MGUS , prostate CA, venous stasis, constipation presenting for septic shock & acute respiratory failure 2/2 pneumonia. #[employer]AND [employer]ER -Acute toxic metabolic encephalopathy; as per son patient is AOx3 at baseline -Sedated on propofol 30 -CT head neg for acute pathology -daily sedation vacations to assess mental status #CV -Acute respiratory failure 2/2 RLL PNA -records acquired from [facility], echo done 09/23/19: EF>70%, mild conc LVH, diastolic filling pattern indicated impaired relaxation. RV mildly enlarged, RV sys fxn severely impaired. . LA mildly dilated, RA mildly enlagred. Mod ao valve sclerosis. Mild aortic insufficiency. Mild mitral annular calc. MV leaflets mildly thickened. Mild MR noted. Mod TR. Severe pulm HTN, estimated ventricular systolic pressure of nearly 100. Trivial pericardial effusion present. IVC is dilated, RA pressure estimated at least 15mmHg. -On pressor support, inserted L IJ CVC today: Levo 15. adding vasopressin -Septic shock -added steroids hydrocortisone & fludrocortisone -A-flutter seen on tele today: rate controlled, f/u cardio for further recs -Tropinemia; latest is downtrending (0.85--0.84)-- f/u repeat & document peak. -Dr. Peralta following -Hx HTN, HLD, diastolic CHF: home meds include asa 81mg/d, metoprolol 25mg/d, simvastatin 40mg/d, lasix 40mg/d, lisinopril 10mg/d, nitroglycerin SL 0.4mg prn #Pulm -Intubated; vent settings: 500/ 14/ 5/ 40% -CT chest: small b/l pl effusion. 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 Multifocal R lung fibrosis w/ RLL round atelectasis & mild R lung volume loss. Rt sided PNA. -continue inhaled bronchodilators prn -Continue abx #Renal -ESRD on HD-- last HD 11/13 -calculate FeNa -F/u renal U/S -evaluate for HD tomorrow -Cr 2.8 today #GI -Transaminitis -CT A/P shows ascites, diverticulosis, small umbilical R inguinal hernias -F/u Abd/ pelvis u/s #Endo -Dm2 -holding oral agents -ISS -BGMs ACHS #ID -continue zosyn -Dr. Tello consulted -f/u permacath cx's, blood, urine & sputum cx's -leukocytosis present trend cbc #PPX -Heparin SQ #FENLTD -no standing fluids -hypokalemia repleted; trend lytes replete prn -NPO -Left IJ CVC placed 11/14/2019 -[facility] d/c'd today #Dispo Continue ICU level of care Visit type - Emergency Visit Emergency Visit: Yes ED Registration Date: 11/14/19 Care time: The patient presented to the Emergency Department on the above date and was hospitalized for further evaluation of their emergent condition. - New Patient This patient is new to me today: Yes Date on this admission: 11/14/19 - Critical Care Critical Care patient: Yes Total Critical Care Time (in minutes): 45 Critical Care Statement: The care of this patient involved high complexity decision making to prevent further life threatening deterioration of the patient 's condition and/or to evaluate & treat vital organ system(s) failure or risk of failure. ATTENDING PHYSICIAN STATEMENT I saw and evaluated the patient. I reviewed the resident's note and discussed the case with the resident. I agree with the resident's findings and plan as documented. SUBJECTIVE: OBJECTIVE: ASSESSMENT AND PLAN:
--- NOTE | 2019-11-14 13:49 | EKG ---
Test Reason : Blood Pressure : / mmHG Vent. Rate : 060 BPM Atrial Rate : 375 BPM P-R Int : 000 ms QRS Dur : 178 ms QT Int : 536 ms P-R-T Axes : 030 104 027 degrees QTc Int : 536 ms Ventricular-paced rhythm ABNORMAL ECG WHEN COMPARED WITH ECG OF 14-NOV-2019 02:30, NO SIGNIFICANT CHANGE WAS FOUND Confirmed by PRISCILLA TRIPLETT MD ([id number]) on 11/14/2019 1:48:47 PM Referred By: FOX ARZOLA Confirmed By:PRISCILLA TRIPLETT MD
--- NOTE | 2019-11-14 13:55 | EKG ---
Test Reason : Blood Pressure : / mmHG Vent. Rate : 061 BPM Atrial Rate : 416 BPM P-R Int : 000 ms QRS Dur : 182 ms QT Int : 506 ms P-R-T Axes : 000 099 -35 degrees QTc Int : 509 ms Ventricular-paced rhythm ABNORMAL ECG WHEN COMPARED WITH ECG OF 13-NOV-2019 21:58, ELECTRONIC VENTRICULAR PACEMAKER HAS REPLACED WIDE QRS RHYTHM Confirmed by PRISCILLA TRIPLETT MD ([id number]) on 11/14/2019 1:55:26 PM Referred By: Confirmed By:PRISCILLA TRIPLETT MD
--- NOTE | 2019-11-14 13:55 | EKG ---
Test Reason : Blood Pressure : / mmHG Vent. Rate : 060 BPM Atrial Rate : 258 BPM P-R Int : 000 ms QRS Dur : 182 ms QT Int : 518 ms P-R-T Axes : 000 099 020 degrees QTc Int : 518 ms Ventricular-paced rhythm ABNORMAL ECG WHEN COMPARED WITH ECG OF 13-NOV-2019 23:50, NO SIGNIFICANT CHANGE WAS FOUND Confirmed by PRISCILLA TRIPLETT MD ([id number]) on 11/14/2019 1:55:22 PM Referred By: Confirmed By:PRISCILLA TRIPLETT MD
--- NOTE | 2019-11-14 14:02 | EKG ---
Test Reason : Blood Pressure : / mmHG Vent. Rate : 060 BPM Atrial Rate : 144 BPM P-R Int : 000 ms QRS Dur : 190 ms QT Int : 528 ms P-R-T Axes : 000 100 -60 degrees QTc Int : 528 ms Underlying atrial fibrillation Ventricular-paced rhythm ABNORMAL ECG NO PREVIOUS ECGS AVAILABLE Confirmed by PRISCILLA TRIPLETT MD ([id number]) on 11/14/2019 2:01:43 PM Referred By: Confirmed By:PRISCILLA TRIPLETT MD
[2019-11-14] MEDS: HYDROCORTISONE SOD SUCCINATE 100 MG/2 ML VIAL IVPB SCH ×2 (14:27→18:14)
[2019-11-14] MEDS ORDERED: PROPOFOL 1,000,000 MCG/100 ML VIAL ONE ×2 (14:42→18:00)
--- NOTE | 2019-11-14 15:00 | PN ---
Teaching Attending Note Name of Resident: Margo Cramer (Nephrology) ATTENDING PHYSICIAN STATEMENT I saw and evaluated the patient. I reviewed the resident's note and discussed the case with the resident. I agree with the resident's findings and plan as documented. Renal Pt is a 79 year old male with pmhx of esrd, copd, HLD, GERD, SAVANA, right bka who presents with resp distress. He was intubated and is now in the ICU. He was last dialyzed yesterday. pmhx esrd, copd hld gerd pshx right bka nkda fam hx unable to obtain social hx unable to obtain ros unable to obtain Current Medications Generic Name Dose Route Start Last Admin Trade Name Freq PRN Reason Stop Dose Admin Albuterol Sulfate 1 amp 11/14/19 03:54 Ventolin 0.083% Nebulizer Soln - NEB Q4H PRN SHORT OF BREATH/WHEEZING Albuterol/Ipratropium 1 amp 11/14/19 08:00 11/14/19 11:49 Duoneb - NEB 1 amp RQID TED Administration Fludrocortisone Acetate 0.05 mg 11/15/19 10:00 Florinef - NGT DAILY TED Heparin Sodium (Porcine) 5,000 unit 11/14/19 10:00 11/14/19 09:49 Heparin - SQ 5,000 unit BID TED Administration Hydrocortisone Sodium Succinate 100 mg 11/14/19 12:00 11/14/19 14:27 Solu-Cortef - IVPB 100 mg Q8H-IV TED Administration Propofol 1,000,000 mcg in 100 mls @ 2.556 mls/hr 11/13/19 22:15 11/14/19 01: 45 Diprivan - IVPB 30 mcg/kg/min TITR TED 15.333 mls/hr Titration Protocol 5 MCG/KG/MIN Norepinephrine Bitartrate 4, 500 mls @ 37.5 mls/hr 11/13/19 22:15 11/14/19 00 :01 000 mcg/ Dextrose IV 10 mcg/min TITR TED 75 mls/hr Titration Protocol 5 MCG/MIN Vasopressin 50 units/ Sodium 100 mls @ 24 mls/hr 11/14/19 11:45 Chloride IVPB TITR TED Protocol 0.2 UNITS/MIN Piperacillin Sod/Tazobactam 50 mls @ 100 mls/hr 11/14/19 18:00 Sod 2.25 gm/ Dextrose IVPB Q8H-IV TED Protocol Last Vital Signs Temp Pulse Resp BP Pulse Ox 98 F 64 18 111/43 L 100 11/14/19 14:00 11/14/19 14:00 11/14/19 14:00 11/14/19 14:00 11/14/19 09:00 Selected Entries 11/14/19 11/14/19 10:00 12:00 Blood Pressure 109/38 L 105/41 L Laboratory Tests 11/14/19 05:30 BUN 37.0 H Creatinine 2.8 H cardio s1s2 pulm vent support GI soft ext right bka neuro awake and alert Impression 1. ESRD 2. resp failure 3. PNA 4. copd 5. chf 6. sepsis 7. pulm effusion Plan - vent support - pressors to map of 65 - follow cultures - cont abx - evaluate for HD tomorrow - called HD unit for prescription - HD: TTS f180 3:30 DW 87 kg 2 k bath 2.5 ca, [id number], na 137, access PC right chest
[2019-11-14] MEDS ORDERED: PIPERACILLIN/TAZOBACTAM 2.25 GM VIAL IVPB ONE (18:00)
[2019-11-14] MEDS: NOREPINEPHRINE BITARTRATE 4,000 MCG in DEXTROSE 5%-WATER - 496 ML IV SCH (18:00)
[2019-11-14] MEDS: PIPERACILLIN/TAZOB 2.25 GM 2.25 GM in DEXTROSE 5%-WATER - 50 ML IVPB SCH (18:14)
[2019-11-14] MEDS: VASOPRESSIN 50 UNITS in SODIUM CHLORIDE 97.5 ML IVPB SCH (18:14)
[2019-11-14] MEDS: INSULIN SLIDING SCALE (NOVOLOG) 1 VIAL SQ SCH ×2 (18:28→22:07)
[2019-11-14] MEDS ORDERED: CHLORHEXIDINE GLUCONATE 4% CLEANSER FOR DECOLONIZATION TP SCH (22:00)
[2019-11-15] MEDS ORDERED: PIPERACILLIN/TAZOBACTAM 2.25 GM VIAL IVPB ONE ×3 (02:53→14:03)
[2019-11-15] MEDS ORDERED: DEXTROSE 5%-WATER - 50 ML IVPB ONE ×3 (02:54→14:03)
[2019-11-15] MEDS: PIPERACILLIN/TAZOB 2.25 GM 2.25 GM in DEXTROSE 5%-WATER - 50 ML IVPB SCH ×3 (03:13→17:08)
[2019-11-15] MEDS: HYDROCORTISONE SOD SUCCINATE 100 MG/2 ML VIAL IVPB SCH ×3 (03:14→17:07)
[2019-11-15] MEDS: NOREPINEPHRINE BITARTRATE 4,000 MCG in DEXTROSE 5%-WATER - 496 ML IV SCH (03:15)
[2019-11-15] MEDS: PROPOFOL 1,000,000 MCG/100 ML VIAL IVPB SCH (03:16)
[2019-11-15] MEDS: INSULIN SLIDING SCALE (NOVOLOG) 1 VIAL SQ SCH ×4 (06:23→22:00)
[2019-11-15 07:12] LABS: BASO % 0.2 % (0-2.0); HEMATOCRIT 34.8 % (35.4-49); LYMPH % 1.8 % (8-40); MCH 31.7 pg (25.7-33.7); MCHC 31.7 g/dl (32.0-35.9); MEAN CELL VOLUME 99.8 fl (80-96); MEAN PLT VOLUME 9.7 fl (7.5-11.1); MONO % 3.2 % (3.8-10.2); NEUT % 94.8 % (42.8-82.8); PLATELET COUNT 115 K/MM3 (134-434); RBC 3.48 M/mm3 (4.00-5.60); RDW 20.4 % (11.9-15.9); WHITE BLOOD COUNT 13.2 K/mm3 (4.0-10.0)
[2019-11-15] MEDS ORDERED: NOREPINEPHRINE BITARTRATE 4 MG/4 ML ML IV ONE ×2 (07:23→14:03)
[2019-11-15 07:41] LABS: ALBUMIN 2.1 g/dl (3.4-5.0); BLOOD UREA NITROGEN 46.9 mg/dL (7-18); CALCIUM 7.8 mg/dL (8.5-10.1); CREATININE 3.5 mg/dL (0.55-1.3); MAGNESIUM 2.5 mg/dL (1.8-2.4); PHOSPHOROUS 3.3 mg/dL (2.5-4.9); POTASSIUM 3.5 mmol/L (3.5-5.1); TOT PROT 5.8 g/dl (6.4-8.2)
[2019-11-15] MEDS: ALBUTEROL SO4 2.5/IPRATROPIUM 0.5 INH SOL 3 ML VIAL.NEB. NEB SCH ×4 (08:05→21:05)
--- NOTE | 2019-11-15 08:10 | PN ---
Progress Note (short form) - Note Progress Note: Pulm/CCM SUBJECTIVE: Patient seen and examined in the ICU. -remains on levo -likely HD today, seen by Neph -Cxl negative Vital Signs Temp 97.4 F L 11/15/19 03:00 Pulse 60 11/15/19 06:00 Resp 18 11/15/19 06:00 BP 122/58 L 11/15/19 06:00 Pulse Ox 100 11/14/19 09:00 Intake & Output 11/14/19 11/14/19 11/15/19 11:59 23:59 11:59 Intake Total 1125 2214.8 713.4 Output Total 25 0 0 Balance 1100 2214.8 713.4 Weight 79.107 kg 80.195 kg Intake: IV 775 1814.8 663.4 DIPRIVAN - 1,000,000 mcg 55 160 120 In 100 ml @ 5 MCG/KG/MIN 2.556 mls/hr IVPB TITR TED Rx#:[id number] Levophed - 4,000 Mcg In 220 1150 535 D5w - 496 ml @ 5 MCG/MIN 37.5 mls/hr IV TITR TED Rx#:[id number] NS 500 500 Pitressin - 50 Units In 4.8 8.4 Normal Saline - 97.5 ml @ 0.2 UNITS/MIN 24 mls/hr IVPB TITR TED Rx#: [id number] IVPB 350 400 50 Output: Urine 25 0 0 [place] 25 0 0 Other: Voiding Method Indwelling Catheter Diaper Bowel Movement No No Height 5 ft 10 in Body Mass Index (BMI) 25.0 Weight Measurement Method Built in [facility] Built in [facility] GENERAL: Sedated and intubated. RASS -4 HEAD: Normal with no signs of trauma. EYES: Left eye miosed. right eye is normal size. Neither eye is reactive to light. EARS, NOSE, THROAT: ET Tube in place. LUNGS: Vented, scattered rhonchi HEART: S1S2 ABDOMEN: lightly distened , hypoactivce BS UPPER EXTREMITIES: 2+ pulses, warm, well-perfused. No cyanosis. No clubbing. 1+ upper ext edema LOWER EXTREMITIES: Right BKA. Left foot cool to touch. Left heel has non purulent wound. No discharge noted. NEUROLOGICAL: Sedated , withdrawals to noxious stimuli SKIN:Chronic venous stasis changes in the left lower leg. CBC, BMP 11/15/19 06:00 11/15/19 06:00 ASSESSMENT/PLAN: Acute Respiratory Acute due to RLL PNA COPD, ? Cor Pulmonale ESRD on HD CHF SAVANA R/O Seizure Septic Shock (?) Cirrhosis PAD Demand Ischemia Chronic loculated RLL effusion On Levo and Vaso, trending down check CVP in setting of TTE with RV hypokinesis/?overload (CVP 15 this am) Hydrocortisone & Fludrocortisone Strict I & O ABX per ID AC Mode of vent , pPlat 22, will monitor and decrease TV, adjust rate HD per Renal , likely HD today BD TX VTE prophylaxis Start Enteral feeds today Requires ICU monitoring , discussed pt condition and plan of care with . Pedro ACNP [id number] 35Min CCT
--- NOTE | 2019-11-15 08:12 | PN ---
Progress Note, Physician Chief Complaint: CXR worse Echo yesterday with normal LVEF but sig RV dilatation and RV dysfx and severe PHTN On vent: 40% FIO2, AC Mode, PEEP 5 TELE: Paced. Sedated, on Levo and Vaso - Current Medication List Current Medications: Active Medications Albuterol Sulfate (Ventolin 0.083% Nebulizer Soln -) 1 amp NEB Q4H PRN PRN Reason: SHORT OF BREATH/WHEEZING Albuterol/Ipratropium (Duoneb -) 1 amp NEB RQID TED Last Admin: 11/14/19 21:35 Dose: 1 amp Fludrocortisone Acetate (Florinef -) 0.05 mg NGT DAILY TED Heparin Sodium (Porcine) (Heparin -) 5,000 unit SQ BID TED Last Admin: 11/14/19 22:03 Dose: 5,000 unit Hydrocortisone Sodium Succinate (Solu-Cortef -) 100 mg IVPB Q8H-IV TED Last Admin: 11/15/19 03:14 Dose: 100 mg Propofol (Diprivan -) 1,000,000 mcg in 100 mls @ 2.556 mls/hr IVPB TITR TED; Protocol Last Admin: 11/15/19 03:16 Dose: 20 mcg/kg/min, 10.222 mls/hr Norepinephrine Bitartrate 4, (000 mcg/ Dextrose) 500 mls @ 37.5 mls/hr IV TITR TED; Protocol Last Admin: 11/15/19 03:15 Dose: 10 mcg/min, 75 mls/hr Vasopressin 50 units/ Sodium (Chloride) 100 mls @ 24 mls/hr IVPB TITR TED; Protocol Last Admin: 11/14/19 18:14 Dose: 0.6 units/min, 72 mls/hr Piperacillin Sod/Tazobactam (Sod 2.25 gm/ Dextrose) 50 mls @ 100 mls/hr IVPB Q8H-IV TED; Protocol Last Admin: 11/15/19 03:13 Dose: 100 mls/hr Insulin Aspart (Novolog Vial Sliding Scale -) 1 vial SQ ACHS TED; Protocol Last Admin: 11/15/19 06:23 Dose: 4 units - Objective Vital Signs: Vital Signs Temperature 97.4 F L 11/15/19 03:00 Pulse Rate 60 11/15/19 06:00 Respiratory Rate 18 11/15/19 06:00 Blood Pressure 122/58 L 11/15/19 06:00 O2 Sat by Pulse Oximetry (%) 100 11/14/19 09:00 Constitutional: Yes: Other (+ ETT) Cardiovascular: Yes: Regular Rate and Rhythm Respiratory: Yes: Other (= breath sounds b/l, no wheezing) Gastrointestinal: Yes: Soft Edema: No (LE amputation) Labs: CBC, BMP 11/15/19 06:00 11/15/19 06:00 INR, PTT INR 1.34 (0.83-1.09) H 11/13/19 22:13 Microbiology 11/13/19 22:13 Blood - Peripheral Venous Blood Culture - Preliminary NO GROWTH OBTAINED AFTER 24 HOURS, INCUBATION TO CONTINUE FOR 4 DAYS. 11/13/19 00:05 Blood - Peripheral Venous Blood Culture - Preliminary NO GROWTH OBTAINED AFTER 24 HOURS, INCUBATION TO CONTINUE FOR 4 DAYS. Laboratory Tests 11/13/19 11/14/19 11/14/19 22:13 03:11 05:30 WBC Hgb Plt Count Sodium Potassium BUN Creatinine Magnesium Total Bilirubin AST ALT Alkaline Phosphatase Troponin I 0.15 H 0.81 H* 0.85 H* 11/14/19 11/15/19 11/15/19 11:40 06:00 06:00 WBC 13.2 H Hgb 11.0 L Plt Count 115 L D Sodium 129 L Potassium 3.5 BUN 46.9 H Creatinine 3.5 H Magnesium 2.5 H Total Bilirubin 1.0 AST 57 H ALT 40 Alkaline Phosphatase 129 H Troponin I 0.84 H* - ....Imaging X-ray: Image Reviewed Assessment/Plan Assessment/Plan IMP: Acute respiratory failure secondary to RLL PNA w/loculated pleural effusion Sepsis secondary to above ESRD on HD Chronic COPD CAD s/p PCI Right sided CHF with severe PHTN, RV dilatation and RV dysfunction (chronic per son report) Pacemaker Underlying AFib/flutter Recent reported GIB (no endoscopic evaluation) REC: 1. Pressors as per Critical Care Team for MAP 60mmHg 2. Vent support 3. Cultures/ Abx as per PMD, Critical Care and ID 4. HD as per renal, planned for today. 5. Borderline/flat TnI unlikely due to type I [place]. Likely due to demand ischemia/ sepsis. Echo with RV dilatation and RV dysfx, severe PHTN- chronic per son. May be due to chronic COPD, and acutely worsened in setting of PNA/hypoxia. D/W Critical Care. Will check LE venous duplex r/o DVT. CTEPH?? 6. Underlying AF- hold AC in setting recent unexplored GIB. Risks> benefits at this time. Prognosis guarded.
--- NOTE | 2019-11-15 08:37 | PN ---
Progress Note (short form) - Note Progress Note: RENAL Pt is known to me from [facility] dialysis He is now in icu and is on pressors Last Vital Signs Temp Pulse Resp BP Pulse Ox 97.4 F L 60 18 122/58 L 100 11/15/19 03:00 11/15/19 06:00 11/15/19 06:00 11/15/19 06:00 11/14/19 09:00 lungs clear anteriorly has an IJ catheter on left cvs s1s2 rr abd soft ext no edema neuro sedated ext no edema has BKA CBC, BMP 11/15/19 06:00 11/15/19 06:00 Current Medications Generic Name Dose Route Start Last Admin Trade Name Freq PRN Reason Stop Dose Admin Albuterol Sulfate 1 amp 11/14/19 03:54 Ventolin 0.083% Nebulizer Soln - NEB Q4H PRN SHORT OF BREATH/WHEEZING Albuterol/Ipratropium 1 amp 11/14/19 08:00 11/14/19 21:35 Duoneb - NEB 1 amp RQID TED Administration Fludrocortisone Acetate 0.05 mg 11/15/19 10:00 Florinef - NGT DAILY TED Heparin Sodium (Porcine) 5,000 unit 11/14/19 10:00 11/14/19 22:03 Heparin - SQ 5,000 unit BID TED Administration Hydrocortisone Sodium Succinate 100 mg 11/14/19 12:00 11/15/19 03:14 Solu-Cortef - IVPB 100 mg Q8H-IV TED Administration Propofol 1,000,000 mcg in 100 mls @ 2.556 mls/hr 11/13/19 22:15 11/15/19 03: 16 Diprivan - IVPB 20 mcg/kg/min TITR TED 10.222 mls/hr Administration Protocol 5 MCG/KG/MIN Norepinephrine Bitartrate 4, 500 mls @ 37.5 mls/hr 11/13/19 22:15 11/15/19 03 :15 000 mcg/ Dextrose IV 10 mcg/min TITR TED 75 mls/hr Administration Protocol 5 MCG/MIN Vasopressin 50 units/ Sodium 100 mls @ 24 mls/hr 11/14/19 11:45 11/14/19 18: 14 Chloride IVPB 0.6 units/min TITR TED 72 mls/hr Administration Protocol 0.2 UNITS/MIN Piperacillin Sod/Tazobactam 50 mls @ 100 mls/hr 11/14/19 18:00 11/15/19 03:13 Sod 2.25 gm/ Dextrose IVPB 100 mls/hr Q8H-IV TED Administration Protocol Insulin Aspart 1 vial 11/14/19 16:30 11/15/19 06:23 Novolog Vial Sliding Scale - SQ 4 units ACHS TED Administration Protocol Impression 1. ESRD 2. resp failure 3. PNA 4. copd 5. chf 6. sepsis 7. pleural effusion Plan He has no acute indication for HD remains septic and on pressors continue antibiotics follow cultures will hold HD today MV
[2019-11-15] MEDS: HEPARIN NA (PORCINE) 5,000 UNITS/ML 1ML VIAL SQ SCH ×2 (09:23→21:46)
[2019-11-15] MEDS ORDERED: FLUDROCORTISONE ACETATE 0.1 MG TABLET (FP) PO SCH (10:00)
[2019-11-15] MEDS: FLUDROCORTISONE ACETATE 0.1 MG TABLET (FP) NGT SCH (10:57)
[2019-11-15 11:20] LABS: OVALOCYTE 1+; PLATELET ESTIMATE DECREASED; TARGET CELLS 1+; TEAR DROP CELLS 1+
--- NOTE | 2019-11-15 12:26 | PN ---
Progress Note (short form) - Note Progress Note: pt seen/ examined in icu. Events noted/ all f/u noted and appreciated. Also d/w ICU attending as well as RN. Remains on pressor support/ intubated . Vital Signs Temp 97.4 F L 11/15/19 03:00 Pulse 60 11/15/19 10:00 Resp 14 11/15/19 11:46 BP 139/62 11/15/19 10:00 Pulse Ox 100 11/15/19 10:30 Intake & Output 11/14/19 11/15/19 11/15/19 23:59 11:59 23:59 Intake Total 2214.8 713.4 Output Total 0 0 Balance 2214.8 713.4 Weight 176 lb 12.8 oz Intake: IV 1814.8 663.4 DIPRIVAN - 1,000,000 mcg 160 120 In 100 ml @ 5 MCG/KG/MIN 2.556 mls/hr IVPB TITR [facility] Rx#:[id number] Levophed - 4,000 Mcg In 1150 535 D5w - 496 ml @ 5 MCG/MIN 37.5 mls/hr IV TITR TED Rx#:[id number] NS 500 Pitressin - 50 Units In 4.8 8.4 Normal Saline - 97.5 ml @ 0.2 UNITS/MIN 24 mls/hr IVPB TITR TED Rx#: [id number] IVPB 400 50 Output: Urine 0 0 Kern 0 0 Other: Voiding Method Diaper Diaper Bowel Movement No Weight Measurement Method Built in [facility] Active Medications Albuterol Sulfate (Ventolin 0.083% Nebulizer Soln -) 1 amp NEB Q4H PRN PRN Reason: SHORT OF BREATH/WHEEZING Albuterol/Ipratropium (Duoneb -) 1 amp NEB RQID [facility] Last Admin: 11/15/19 11:47 Dose: 1 amp Fludrocortisone Acetate (Florinef -) 0.05 mg NGT DAILY [facility] Last Admin: 11/15/19 10:57 Dose: 0.05 mg Heparin Sodium (Porcine) (Heparin -) 5,000 unit SQ BID TED Last Admin: 11/15/19 09:23 Dose: 5,000 unit Hydrocortisone Sodium Succinate (Solu-Cortef -) 100 mg IVPB Q8H-IV TED Last Admin: 11/15/19 09:24 Dose: 100 mg Propofol (Diprivan -) 1,000,000 mcg in 100 mls @ 2.556 mls/hr IVPB TITR TED; Protocol Last Admin: 11/15/19 03:16 Dose: 20 mcg/kg/min, 10.222 mls/hr Norepinephrine Bitartrate 4, (000 mcg/ Dextrose) 500 mls @ 37.5 mls/hr IV TITR TED; Protocol Last Admin: 11/15/19 03:15 Dose: 10 mcg/min, 75 mls/hr Vasopressin 50 units/ Sodium (Chloride) 100 mls @ 24 mls/hr IVPB TITR TED; Protocol Last Titration: 11/15/19 08:00 Dose: 0 units/min, 0 mls/hr Piperacillin Sod/Tazobactam (Sod 2.25 gm/ Dextrose) 50 mls @ 100 mls/hr IVPB Q8H-IV TED; Protocol Last Admin: 11/15/19 09:23 Dose: 100 mls/hr Insulin Aspart (Novolog Vial Sliding Scale -) 1 vial SQ ACHS TED; Protocol Last Admin: 11/15/19 10:46 Dose: 6 units CBC, BMP 11/15/19 06:00 11/15/19 06:00 Abnormal Lab Results 11/14/19 11/14/19 11/15/19 11:40 18:15 06:00 WBC 13.2 H RBC 3.48 L Hgb 11.0 L Hct 34.8 L MCV 99.8 H MCHC 31.7 L RDW 20.4 H Plt Count 115 L D Absolute Neuts (auto) 12.6 H Neutrophils % 94.8 H Neutrophils % (Manual) 87.0 H Lymphocytes % 1.8 L D Lymphocytes % (Manual) 6.0 L D Monocytes % 3.2 L Nucleated RBC % 1 H Sodium Chloride BUN Creatinine Random Glucose Calcium Magnesium AST Alkaline Phosphatase Troponin I 0.84 H* Total Protein Albumin U Random Total Protein 233.7 H Ur Random Sodium 28 L 11/15/19 06:00 WBC RBC Hgb Hct MCV MCHC RDW Plt Count Absolute Neuts (auto) Neutrophils % Neutrophils % (Manual) Lymphocytes % Lymphocytes % (Manual) Monocytes % Nucleated RBC % Sodium 129 L Chloride 93 L BUN 46.9 H Creatinine 3.5 H Random Glucose 267 H Calcium 7.8 L Magnesium 2.5 H AST 57 H Alkaline Phosphatase 129 H Troponin I Total Protein 5.8 L Albumin 2.1 L U Random Total Protein Ur Random Sodium Microbiology 11/14/19 05:00 Gram Stain - Final Sputum - Endotrachea Suction/Ventilator Sputum Culture - Preliminary NORMAL RESPIRATORY MONICA 11/13/19 23:50 Urine Culture - Final Urine - Urine Kern NO GROWTH OBTAINED 11/13/19 00:05 Blood Culture - Preliminary Blood - Peripheral Venous NO GROWTH OBTAINED AFTER 24 HOURS, INCUBATION TO CONTINUE FOR 4 DAYS. 11/13/19 22:13 Blood Culture - Preliminary Blood - Peripheral Venous NO GROWTH OBTAINED AFTER 24 HOURS, INCUBATION TO CONTINUE FOR 4 DAYS. 11/14/19 05:00 Legionella Antigen - Final Urine For Antigen Detection Streptococcus pneumoniae Antigen (M - Final cxr-- No change. Physical Constitutional: Yes: Other (Intubated) NGT + Eyes: Yes: Conjunctiva Clear Neck: Yes: Supple. Central line + Cardiovascular: Yes: Regular Rate and Rhythm Respiratory: Yes: Diminished Gastrointestinal: Yes: Soft Genitourinary: Yes: Kern Removed Extremities: Yes: Amputation (s/p right aka) Edema: No Integumentary: No: Other Wound/Incision: Yes: Other (Left heel ulcer) Neurological: Yes: Other (sedated) Additional Findings/Remarks: - ....Imaging Chest X-ray: Report Reviewed Cat Scan: Report Reviewed Echo-- Reviewed Assessment/Plan In summary Pt 79yr old gentleman with extensive PMHx of CAD , s/p multivessel PCI (> 1 year ago), CHF , PPM, AF,COPD, ESRD-HD. Has been in and out of hospital since July with COPD/ infections/ CKD and recently had a possible GIB at [place]- no endoscopic evaluation. Transferred from [facility] for short term rehab and was transferred here yesterday for resp distress. Admitted to ICU / Intubated for Respiratory failure and Pneumonia. Pt was admitted to [facility] from [facility] Remains critically ill Continue present care Abx Vent support Kern - d/c ed Taper pressors as tolerated Start on feeding D/W RN also Will follow CC time approx 35 min Problem List - Problems (1) Respiratory failure Code(s): J96.90 - RESPIRATORY FAILURE, UNSP, UNSP W HYPOXIA OR HYPERCAPNIA (2) CAD (coronary artery disease) Code(s): I25.10 - ATHSCL HEART DISEASE OF [place] CORONARY ARTERY W/O ANG PCTRS (3) PVD (peripheral vascular disease) Code(s): I73.9 - PERIPHERAL VASCULAR DISEASE, UNSPECIFIED (4) Elevated troponin Code(s): R79.89 - OTHER SPECIFIED ABNORMAL FINDINGS OF BLOOD CHEMISTRY
--- NOTE | 2019-11-15 12:54 | PN ---
Progress Note, Physician History of Present Illness: continues to be intubated still needing pressor support - Current Medication List Current Medications: Active Medications Albuterol Sulfate (Ventolin 0.083% Nebulizer Soln -) 1 amp NEB Q4H PRN PRN Reason: SHORT OF BREATH/WHEEZING Albuterol/Ipratropium (Duoneb -) 1 amp NEB RQID TED Last Admin: 11/15/19 11:47 Dose: 1 amp Fludrocortisone Acetate (Florinef -) 0.05 mg NGT DAILY TED Last Admin: 11/15/19 10:57 Dose: 0.05 mg Heparin Sodium (Porcine) (Heparin -) 5,000 unit SQ BID TED Last Admin: 11/15/19 09:23 Dose: 5,000 unit Hydrocortisone Sodium Succinate (Solu-Cortef -) 100 mg IVPB Q8H-IV TED Last Admin: 11/15/19 09:24 Dose: 100 mg Propofol (Diprivan -) 1,000,000 mcg in 100 mls @ 2.556 mls/hr IVPB TITR TED; Protocol Last Admin: 11/15/19 03:16 Dose: 20 mcg/kg/min, 10.222 mls/hr Norepinephrine Bitartrate 4, (000 mcg/ Dextrose) 500 mls @ 37.5 mls/hr IV TITR TED; Protocol Last Admin: 11/15/19 03:15 Dose: 10 mcg/min, 75 mls/hr Vasopressin 50 units/ Sodium (Chloride) 100 mls @ 24 mls/hr IVPB TITR TED; Protocol Last Titration: 11/15/19 08:00 Dose: 0 units/min, 0 mls/hr Piperacillin Sod/Tazobactam (Sod 2.25 gm/ Dextrose) 50 mls @ 100 mls/hr IVPB Q8H-IV TED; Protocol Last Admin: 11/15/19 09:23 Dose: 100 mls/hr Insulin Aspart (Novolog Vial Sliding Scale -) 1 vial SQ ACHS TED; Protocol Last Admin: 11/15/19 10:46 Dose: 6 units - Objective Vital Signs: Vital Signs Temperature 97.4 F L 11/15/19 03:00 Pulse Rate 60 11/15/19 10:00 Respiratory Rate 14 11/15/19 11:46 Blood Pressure 139/62 01/25/20 10:00 O2 Sat by Pulse Oximetry (%) 100 11/15/19 10:30 Constitutional: Yes: No Distress, Calm Cardiovascular: Yes: S1, S2, Other (on pressors) Respiratory: Yes: Intubated, Mechanically Ventilated Gastrointestinal: Yes: Normal Bowel Sounds, Soft, Other (ng tube) Musculoskeletal: Yes: WNL Extremities: Yes: WNL Labs: CBC, BMP 11/15/19 06:00 11/15/19 06:00 INR, PTT INR 1.34 (0.83-1.09) H 11/13/19 22:13 Assessment/Plan Acute Respiratory Acute due to RLL PNA COPD, ESRD on HD CHF SAVANA R/O Seizure Septic Shock PAD Demand Ischemia Chronic loculated RLL effusion plan continue abx as per icu pressors as needed vent support close watch nutrition rest as per the team cc 45 min
[2019-11-16] MEDS ORDERED: PIPERACILLIN/TAZOBACTAM 2.25 GM VIAL IVPB ONE ×3 (00:57→17:05)
[2019-11-16] MEDS ORDERED: DEXTROSE 5%-WATER - 50 ML IVPB ONE ×3 (00:57→17:05)
[2019-11-16] MEDS: VASOPRESSIN 50 UNITS in SODIUM CHLORIDE 97.5 ML IVPB SCH (01:36)
[2019-11-16] MEDS: HYDROCORTISONE SOD SUCCINATE 100 MG/2 ML VIAL IVPB SCH ×3 (01:39→17:08)
[2019-11-16] MEDS: PIPERACILLIN/TAZOB 2.25 GM 2.25 GM in DEXTROSE 5%-WATER - 50 ML IVPB SCH ×3 (02:00→17:08)
[2019-11-16 06:11] LABS: HEMATOCRIT 32.2 % (35.4-49); HEMOGLOBIN 10.3 GM/dL (11.7-16.9); MCH 31.7 pg (25.7-33.7); MCHC 32.1 g/dl (32.0-35.9); MEAN CELL VOLUME 98.8 fl (80-96); MEAN PLT VOLUME 9.2 fl (7.5-11.1); PLATELET COUNT 74 K/MM3 (134-434); RBC 3.26 M/mm3 (4.00-5.60); RDW 20.5 % (11.9-15.9); WHITE BLOOD COUNT 12.9 K/mm3 (4.0-10.0)
[2019-11-16 06:41] LABS: BLOOD UREA NITROGEN 55.9 mg/dL (7-18); CREATININE 3.8 mg/dL (0.55-1.3); MAGNESIUM 2.4 mg/dL (1.8-2.4); PHOSPHOROUS 4.9 mg/dL (2.5-4.9); POTASSIUM 3.9 mmol/L (3.5-5.1)
[2019-11-16] MEDS: INSULIN SLIDING SCALE (NOVOLOG) 1 VIAL SQ SCH ×4 (06:47→21:30)
[2019-11-16] MEDS: NOREPINEPHRINE BITARTRATE 4,000 MCG in DEXTROSE 5%-WATER - 496 ML IV SCH (06:50)
[2019-11-16] MEDS: ALBUTEROL SO4 2.5/IPRATROPIUM 0.5 INH SOL 3 ML VIAL.NEB. NEB SCH ×4 (08:00→20:55)
--- NOTE | 2019-11-16 08:04 | PN ---
Progress Note, Physician Chief Complaint: More hyponatremic Creat increasing Weight is up Remains mechanically ventilated on AC/ 40% FIO2, PEEP 5- settings are unchanged Remains on Levo/ off Vaso TELE: Paced. - Current Medication List Current Medications: Active Medications Albuterol Sulfate (Ventolin 0.083% Nebulizer Soln -) 1 amp NEB Q4H PRN PRN Reason: SHORT OF BREATH/WHEEZING Albuterol/Ipratropium (Duoneb -) 1 amp NEB RQID TED Last Admin: 11/15/19 21:05 Dose: 1 amp Fludrocortisone Acetate (Florinef -) 0.05 mg NGT DAILY TED Last Admin: 11/15/19 10:57 Dose: 0.05 mg Heparin Sodium (Porcine) (Heparin -) 5,000 unit SQ BID TED Last Admin: 11/15/19 21:46 Dose: 5,000 unit Hydrocortisone Sodium Succinate (Solu-Cortef -) 100 mg IVPB Q8H-IV TED Last Admin: 11/16/19 01:39 Dose: 100 mg Propofol (Diprivan -) 1,000,000 mcg in 100 mls @ 2.556 mls/hr IVPB TITR TED; Protocol Last Admin: 11/15/19 03:16 Dose: 20 mcg/kg/min, 10.222 mls/hr Norepinephrine Bitartrate 4, (000 mcg/ Dextrose) 500 mls @ 37.5 mls/hr IV TITR TED; Protocol Last Admin: 11/16/19 06:50 Dose: 5 mcg/min, 37.5 mls/hr Vasopressin 50 units/ Sodium (Chloride) 100 mls @ 24 mls/hr IVPB TITR TED; Protocol Last Admin: 11/16/19 01:36 Dose: Not Given Piperacillin Sod/Tazobactam (Sod 2.25 gm/ Dextrose) 50 mls @ 100 mls/hr IVPB Q8H-IV TED; Protocol Last Admin: 11/16/19 02:00 Dose: 100 mls/hr Insulin Aspart (Novolog Vial Sliding Scale -) 1 vial SQ ACHS TED; Protocol Last Admin: 11/16/19 06:47 Dose: 4 units - Objective Vital Signs: Vital Signs Temperature 97.9 F 11/16/19 02:00 Pulse Rate 60 11/16/19 06:50 Respiratory Rate 16 11/16/19 04:56 Blood Pressure 95/51 L 11/16/19 06:50 O2 Sat by Pulse Oximetry (%) 100 11/16/19 04:30 HENT: Yes: Other (+ ETT) Cardiovascular: Yes: Regular Rate and Rhythm Respiratory: Yes: Rhonchi Gastrointestinal: Yes: Soft Edema: No (amputation) Neurological: Yes: Other (sedated on vent) Labs: CBC, BMP 11/16/19 05:59 11/16/19 05:59 INR, PTT INR 1.34 (0.83-1.09) H 11/13/19 22:13 Microbiology 11/14/19 05:00 Urine For Antigen Detection Legionella Antigen - Final 11/14/19 05:00 Urine For Antigen Detection Streptococcus pneumoniae Antigen (M - Final 11/14/19 05:00 Sputum - Endotrachea Suction/Ventilator Gram Stain - Final 11/13/19 23:50 Urine - Urine Kern Urine Culture - Final NO GROWTH OBTAINED 11/14/19 16:20 Blood - Diamante Cath Blood Culture - Preliminary NO GROWTH OBTAINED AFTER 24 HOURS, INCUBATION TO CONTINUE FOR 4 DAYS. 11/14/19 16:20 Blood - Diamante Cath Blood Culture - Preliminary NO GROWTH OBTAINED AFTER 24 HOURS, INCUBATION TO CONTINUE FOR 4 DAYS. 11/14/19 05:00 Sputum - Endotrachea Suction/Ventilator Sputum Culture - Preliminary NORMAL RESPIRATORY MONICA 11/13/19 22:13 Blood - Peripheral Venous Blood Culture - Preliminary NO GROWTH OBTAINED AFTER 48 HOURS, INCUBATION TO CONTINUE FOR 3 DAYS. 11/13/19 00:05 Blood - Peripheral Venous Blood Culture - Preliminary NO GROWTH OBTAINED AFTER 48 HOURS, INCUBATION TO CONTINUE FOR 3 DAYS. Laboratory Tests 11/13/19 11/14/19 11/15/19 22:13 05:30 06:00 WBC Hgb Plt Count Sodium Potassium Creatinine 2.7 H 2.8 H 3.5 H Magnesium 11/16/19 11/16/19 05:59 05:59 WBC 12.9 H Hgb 10.3 L Plt Count 74 L D Sodium 127 L Potassium 3.9 Creatinine 3.8 H Magnesium 2.4 - ....Imaging EKG: Image Reviewed Assessment/Plan IMP: Acute respiratory failure secondary to RLL PNA w/loculated pleural effusion Sepsis secondary to above ESRD on HD Hyponatremia Chronic COPD CAD s/p PCI Right sided CHF with severe PHTN, RV dilatation and RV dysfunction (chronic per son report) Pacemaker Underlying AFib/flutter Recent reported GIB (no endoscopic evaluation) REC: 1. Pressors as per Critical Care Team for MAP 60mmHg 2. Vent support 3. D/W Renal- for ultrafiltration today. 4. Cultures/ Abx as per PMD, Critical Care and ID 5. Borderline/flat TnI unlikely due to type I [place]. Likely due to demand ischemia/ sepsis. Echo with RV dilatation and RV dysfx, severe PHTN- chronic per son. May be due to chronic COPD, and acutely worsened in setting of PNA/hypoxia. LE venous duplex r/o DVT pending . CTEPH?? 6. Underlying AF- hold AC in setting recent unexplored GIB/ dropping platelets ( sepsis/ possible abx effect). Risks> benefits at this time. Prognosis guarded.
--- NOTE | 2019-11-16 08:58 | PN ---
Progress Note (short form) - Note Progress Note: RENAL Pt is known to me from [facility] dialysis He is now in icu and is on pressors he was not dialyzed yesterday Last Vital Signs Temp Pulse Resp BP Pulse Ox 97.9 F 60 16 95/51 L 100 11/16/19 02:00 11/16/19 06:50 11/16/19 04:56 11/16/19 06:50 11/16/19 04:30 ngt lungs clear anteriorly has an IJ catheter on left cvs s1s2 rr abd soft ext + edema neuro sedated has BKA CBC, BMP 11/16/19 05:59 11/16/19 05:59 Current Medications Current Medications Generic Name Dose Route Start Last Admin Trade Name Freq PRN Reason Stop Dose Admin Albuterol Sulfate 1 amp 11/14/19 03:54 Ventolin 0.083% Nebulizer Soln - NEB Q4H PRN SHORT OF BREATH/WHEEZING Albuterol/Ipratropium 1 amp 11/14/19 08:00 11/15/19 21:05 Duoneb - NEB 1 amp RQID TED Administration Fludrocortisone Acetate 0.05 mg 11/15/19 10:00 11/15/19 10:57 Florinef - NGT 0.05 mg DAILY TED Administration Heparin Sodium (Porcine) 5,000 unit 11/14/19 10:00 11/15/19 21:46 Heparin - SQ 5,000 unit BID TED Administration Hydrocortisone Sodium Succinate 100 mg 11/14/19 12:00 11/16/19 01:39 Solu-Cortef - IVPB 100 mg Q8H-IV TED Administration Propofol 1,000,000 mcg in 100 mls @ 2.556 mls/hr 11/13/19 22:15 11/15/19 03: 16 Diprivan - IVPB 20 mcg/kg/min TITR TED 10.222 mls/hr Administration Protocol 5 MCG/KG/MIN Norepinephrine Bitartrate 4, 500 mls @ 37.5 mls/hr 11/13/19 22:15 11/16/19 06 :50 000 mcg/ Dextrose IV 5 mcg/min TITR TED 37.5 mls/hr Administration Protocol 5 MCG/MIN Vasopressin 50 units/ Sodium 100 mls @ 24 mls/hr 11/14/19 11:45 11/16/19 01: 36 Chloride IVPB Not Given TITR TED Protocol 0.2 UNITS/MIN Piperacillin Sod/Tazobactam 50 mls @ 100 mls/hr 11/14/19 18:00 11/16/19 02:00 Sod 2.25 gm/ Dextrose IVPB 100 mls/hr Q8H-IV TED Administration Protocol Insulin Aspart 1 vial 11/14/19 16:30 11/16/19 06:47 Novolog Vial Sliding Scale - SQ 4 units ACHS TED Administration Protocol Impression 1. ESRD 2. resp failure 3. PNA 4. copd 5. chf 6. sepsis 7. pleural effusion 8 becoming increasingly hyponatremic Plan will uf, hopefully bp wont drop too much this way remains septic and on pressors continue antibiotics follow cultures- all neg so far MV
[2019-11-16] MEDS ORDERED: SODIUM CHLORIDE 250 ML IV PRN (09:06)
[2019-11-16] MEDS: HEPARIN NA (PORCINE) 5,000 UNITS/ML 1ML VIAL SQ SCH (09:26)
[2019-11-16] MEDS: FLUDROCORTISONE ACETATE 0.1 MG TABLET (FP) NGT SCH (09:26)
--- NOTE | 2019-11-16 10:39 | PN ---
Progress Note (short form) - Note Progress Note: pt seen/ examined all f/u noted and appreciated off sedation opens eyes on calling name son at bedside Vital Signs Temp 97.9 F 11/16/19 02:00 Pulse 61 11/16/19 08:00 Resp 14 11/16/19 08:00 BP 95/51 L 11/16/19 06:50 Pulse Ox 100 11/16/19 08:00 Intake & Output 11/15/19 11/15/19 11/16/19 11:59 23:59 11:59 Intake Total 713.4 1753.4 Output Total 0 0 Balance 713.4 1753.4 Weight 176 lb 12.8 oz 180 lb 9 oz Intake: IV 663.4 1653.4 DIPRIVAN - 1,000,000 mcg 120 240 In 100 ml @ 5 MCG/KG/MIN 2.556 mls/hr IVPB TITR TED Rx#:[id number] Levophed - 4,000 Mcg In 535 905 D5w - 496 ml @ 5 MCG/MIN 37.5 mls/hr IV TITR TED Rx#:[id number] NS 500 Pitressin - 50 Units In 8.4 8.4 Normal Saline - 97.5 ml @ 0.2 UNITS/MIN 24 mls/hr IVPB TITR TED Rx#: [id number] IVPB 50 100 Output: Urine 0 0 Kern 0 0 Other: Voiding Method Diaper Diaper # Unmeasured Voids Kern 1 1 Bowel Movement No No Weight Measurement Method Built in [facility] Active Medications Albuterol Sulfate (Ventolin 0.083% Nebulizer Soln -) 1 amp NEB Q4H PRN PRN Reason: SHORT OF BREATH/WHEEZING Albuterol/Ipratropium (Duoneb -) 1 amp NEB RQID [facility] Last Admin: 11/16/19 08:00 Dose: 1 amp Fludrocortisone Acetate (Florinef -) 0.05 mg NGT DAILY TED Last Admin: 11/16/19 09:26 Dose: 0.05 mg Heparin Sodium (Porcine) (Heparin -) 5,000 unit SQ BID TED Last Admin: 11/16/19 09:26 Dose: 5,000 unit Hydrocortisone Sodium Succinate (Solu-Cortef -) 100 mg IVPB Q8H-IV TED Last Admin: 11/16/19 09:26 Dose: 100 mg Propofol (Diprivan -) 1,000,000 mcg in 100 mls @ 2.556 mls/hr IVPB TITR TED; Protocol Last Admin: 11/15/19 03:16 Dose: 20 mcg/kg/min, 10.222 mls/hr Norepinephrine Bitartrate 4, (000 mcg/ Dextrose) 500 mls @ 37.5 mls/hr IV TITR TED; Protocol Last Admin: 11/16/19 06:50 Dose: 5 mcg/min, 37.5 mls/hr Vasopressin 50 units/ Sodium (Chloride) 100 mls @ 24 mls/hr IVPB TITR TED; Protocol Last Admin: 11/16/19 01:36 Dose: Not Given Piperacillin Sod/Tazobactam (Sod 2.25 gm/ Dextrose) 50 mls @ 100 mls/hr IVPB Q8H-IV TED; Protocol Last Admin: 11/16/19 09:27 Dose: 100 mls/hr Sodium Chloride (Normal Saline -) 250 mls @ 3,000 mls/hr IV PRN PRN PRN Reason: Hypotension during Dialysis Stop: 11/17/19 09:06 Insulin Aspart (Novolog Vial Sliding Scale -) 1 vial SQ ACHS TED; Protocol Last Admin: 11/16/19 06:47 Dose: 4 units CBC, BMP 11/16/19 05:59 11/16/19 05:59 Microbiology 11/14/19 05:00 Gram Stain - Final Sputum - Endotrachea Suction/Ventilator Sputum Culture - Preliminary Non Lactose Fermenting Gnb 11/13/19 00:05 Blood Culture - Preliminary Blood - Peripheral Venous NO GROWTH OBTAINED AFTER 48 HOURS, INCUBATION TO CONTINUE FOR 3 DAYS. 11/13/19 22:13 Blood Culture - Preliminary Blood - Peripheral Venous NO GROWTH OBTAINED AFTER 48 HOURS, INCUBATION TO CONTINUE FOR 3 DAYS. 11/14/19 16:20 Blood Culture - Preliminary Blood - Diamante Cath NO GROWTH OBTAINED AFTER 24 HOURS, INCUBATION TO CONTINUE FOR 4 DAYS. 11/14/19 16:20 Blood Culture - Preliminary Blood - Diamante Cath NO GROWTH OBTAINED AFTER 24 HOURS, INCUBATION TO CONTINUE FOR 4 DAYS. 11/13/19 23:50 Urine Culture - Final Urine - Urine Kern NO GROWTH OBTAINED Physical Constitutional: Yes: Other (Intubated) NGT + Eyes: Yes: Conjunctiva Clear Neck: Yes: Supple. Central line + Cardiovascular: Yes: Regular Rate and Rhythm Respiratory: Yes: Diminished Gastrointestinal: Yes: Soft Genitourinary: Yes: Kern Removed Extremities: Yes: Amputation (s/p right aka) Edema: No Integumentary: No: Other Wound/Incision: Yes: Other (Left heel ulcer)-- Dressing + Neurological: Yes: Other (sedated) Additional Findings/Remarks: - ....Imaging Chest X-ray: Report Reviewed Cat Scan: Report Reviewed Echo-- Reviewed Assessment/Plan In summary Pt 79yr old gentleman with extensive PMHx of CAD , s/p multivessel PCI (> 1 year ago), CHF , PPM, AF,COPD, ESRD-HD. Has been in and out of hospital since July with COPD/ infections/ CKD and recently had a possible GIB at [facility]- no endoscopic evaluation. Transferred from [facility] for short term rehab and was transferred here yesterday for resp distress. Admitted to ICU / Intubated for Respiratory failure and Pneumonia. Pt was admitted to [facility] from [facility] Remains critically ill Continue present care Abx Vent support Kern - d/c ed Taper pressors as tolerated Started on feeding weaning as tolerated Dialysis today D/W RN also Platlets low-- will hold off Heparin d/w pts son in detail also Will follow CC time approx 35 min Problem List - Problems (1) Respiratory failure Code(s): J96.90 - RESPIRATORY FAILURE, UNSP, UNSP W HYPOXIA OR HYPERCAPNIA (2) CAD (coronary artery disease) Code(s): I25.10 - ATHSCL HEART DISEASE OF [place] CORONARY ARTERY W/O ANG PCTRS (3) PVD (peripheral vascular disease) Code(s): I73.9 - PERIPHERAL VASCULAR DISEASE, UNSPECIFIED (4) Elevated troponin Code(s): R79.89 - OTHER SPECIFIED ABNORMAL FINDINGS OF BLOOD CHEMISTRY (5) Thrombocytopenia Code(s): D69.6 - THROMBOCYTOPENIA, UNSPECIFIED
--- NOTE | 2019-11-16 12:36 | PN ---
Progress Note (short form) - Note Progress Note: Progress Note Pulm/CCM Pt seen and examined in the ICU. Remains intubated and sedated. Remains on low dose pressor. For iHD today. Easily aroused, follows commands. Active Medications Albuterol Sulfate (Ventolin 0.083% Nebulizer Soln -) 1 amp NEB Q4H PRN PRN Reason: SHORT OF BREATH/WHEEZING Albuterol/Ipratropium (Duoneb -) 1 amp NEB RQID TED Last Admin: 11/16/19 12:09 Dose: Not Given Fludrocortisone Acetate (Florinef -) 0.05 mg NGT DAILY TED Last Admin: 11/16/19 09:26 Dose: 0.05 mg Hydrocortisone Sodium Succinate (Solu-Cortef -) 100 mg IVPB Q8H-IV TED Last Admin: 11/16/19 09:26 Dose: 100 mg Propofol (Diprivan -) 1,000,000 mcg in 100 mls @ 2.556 mls/hr IVPB TITR TED; Protocol Last Admin: 11/15/19 03:16 Dose: 20 mcg/kg/min, 10.222 mls/hr Norepinephrine Bitartrate 4, (000 mcg/ Dextrose) 500 mls @ 37.5 mls/hr IV TITR TED; Protocol Last Admin: 11/16/19 06:50 Dose: 5 mcg/min, 37.5 mls/hr Vasopressin 50 units/ Sodium (Chloride) 100 mls @ 24 mls/hr IVPB TITR TED; Protocol Last Admin: 11/16/19 01:36 Dose: Not Given Piperacillin Sod/Tazobactam (Sod 2.25 gm/ Dextrose) 50 mls @ 100 mls/hr IVPB Q8H-IV TED; Protocol Last Admin: 11/16/19 09:27 Dose: 100 mls/hr Sodium Chloride (Normal Saline -) 250 mls @ 3,000 mls/hr IV PRN PRN PRN Reason: Hypotension during Dialysis Stop: 11/17/19 09:06 Insulin Aspart (Novolog Vial Sliding Scale -) 1 vial SQ ACHS TED; Protocol Last Admin: 11/16/19 11:36 Dose: 4 units Vital Signs Period Temp Pulse Resp BP Sys/Armando Pulse Ox Last 24 Hr 97.6 F-98.2 F 60-67 14-21 91-124/47-64 100-100 Intake & Output 11/13/19 11/14/19 11/15/19 11/16/19 23:59 23:59 23:59 23:59 Intake Total 3339.8 713.4 3.4 Output Total 25 25 0 0 Balance -25 3314.8 713.4 3.4 Weight 85.185 kg 79.107 kg 80.195 kg 81.902 kg GENERAL: Sedated and intubated. RASS -1 HEAD: Normal with no signs of trauma. EYES: Left eye miosed. right eye is normal size. Neither eye is reactive to light. EARS, NOSE, THROAT: ET Tube in place. LUNGS: Vented, scattered rhonchi HEART: S1S2 ABDOMEN: lightly distended , hypoactivce BS UPPER EXTREMITIES: 2+ pulses, warm, well-perfused. No cyanosis. No clubbing. 1+ upper ext edema LOWER EXTREMITIES: Right BKA. LLE venous discoloration; Left foot cool to touch. Left heel has non purulent wound. NEUROLOGICAL: Easily aroused; following simple commands CBC,CMP WBC 12.9 K/mm3 (4.0-10.0) H 11/16/19 05:59 RBC 3.26 M/mm3 (4.00-5.60) L 11/16/19 05:59 Hgb 10.3 GM/dL (11.7-16.9) L 11/16/19 05:59 Hct 32.2 % (35.4-49) L 11/16/19 05:59 MCV 98.8 fl (80-96) H 11/16/19 05:59 MCH 31.7 pg (25.7-33.7) 11/16/19 05:59 MCHC 32.1 g/dl (32.0-35.9) 11/16/19 05:59 RDW 20.5 % (11.9-15.9) H 11/16/19 05:59 Plt Count 74 K/MM3 (134-434) L D 11/16/19 05:59 MPV 9.2 fl (7.5-11.1) 11/16/19 05:59 Absolute Neuts (auto) 12.6 K/mm3 (1.5-8.0) H 11/15/19 06:00 Total Counted 100 11/15/19 06:00 Neutrophils % 94.8 % (42.8-82.8) H 11/15/19 06:00 Neutrophils % (Manual) 87.0 % (42.8-82.8) H 11/15/19 06:00 Band Neutrophils % 7.0 % 11/15/19 06:00 Lymphocytes % 1.8 % (8-40) L D 11/15/19 06:00 Lymphocytes % (Manual) 6.0 % (8-40) L D 11/15/19 06:00 Monocytes % 3.2 % (3.8-10.2) L 11/15/19 06:00 Monocytes % (Manual) 3 % (3.8-10.2) L 11/14/19 05:30 Eosinophils % 0.0 % (0-4.5) D 11/15/19 06:00 Eosinophils % (Manual) 0.0 % (0-4.5) 11/14/19 05:30 Basophils % 0.2 % (0-2.0) 11/15/19 06:00 Basophils % (Manual) 0.0 % (0-2.0) 11/14/19 05:30 Myelocytes % (Man) 0 % (0-2) 11/14/19 05:30 Promyelocytes % (Man) 0 % (0-2) 11/14/19 05:30 Blast Cells % (Manual) 0 % (0-0) 11/14/19 05:30 Nucleated RBC % 1 % (0-0) H 11/15/19 06:00 Metamyelocytes 0 % (0-2) 11/14/19 05:30 Hypochromia 0 11/14/19 05:30 Platelet Estimate Decreased 11/15/19 06:00 Platelet Comment Giant platelets 11/15/19 06:00 Platelet Comment Large platelets 11/15/19 06:00 Polychromasia 1+ 11/15/19 06:00 Poikilocytosis 1+ 11/14/19 05:30 Anisocytosis 1+ 11/14/19 05:30 Microcytosis 1+ 11/14/19 05:30 Macrocytosis 0 11/14/19 05:30 Target Cells 1+ 11/15/19 06:00 Tear Drop Cells 1+ 11/15/19 06:00 Ovalocytes 1+ 11/15/19 06:00 Israel Cells 1+ 11/15/19 06:00 Schistocytes 1+ 11/15/19 06:00 Sodium 127 mmol/L (136-145) L 11/16/19 05:59 Potassium 3.9 mmol/L (3.5-5.1) 11/16/19 05:59 Chloride 90 mmol/L (98-107) L 11/16/19 05:59 Carbon Dioxide 23 mmol/L (21-32) 11/16/19 05:59 Anion Gap 13 MMOL/L (8-16) 11/16/19 05:59 BUN 55.9 mg/dL (7-18) H 11/16/19 05:59 Creatinine 3.8 mg/dL (0.55-1.3) H 11/16/19 05:59 Est GFR (CKD-EPI)AfAm 16.68 11/16/19 05:59 Est GFR (CKD-EPI)NonAf 14.39 11/16/19 05:59 POC Glucometer 240 UNITS (80-120) 11/16/19 11:29 Random Glucose 189 mg/dL (74-106) H 11/16/19 05:59 Lactic Acid 2.6 mmol/L (0.4-2.0) H* 11/14/19 02:16 Calcium 8.0 mg/dL (8.5-10.1) L 11/16/19 05:59 Phosphorus 4.9 mg/dL (2.5-4.9) 11/16/19 05:59 Magnesium 2.4 mg/dL (1.8-2.4) 11/16/19 05:59 Total Bilirubin 1.0 mg/dL (0.2-1) 11/15/19 06:00 AST 57 U/L (15-37) H 11/15/19 06:00 ALT 40 U/L (13-61) 11/15/19 06:00 Alkaline Phosphatase 129 U/L (45-117) H 11/15/19 06:00 Ammonia 64.60 umol/L (11-32) H 11/14/19 03:30 Troponin I 0.84 ng/ml (0.00-0.05) H* 11/14/19 11:40 Total Protein 5.8 g/dl (6.4-8.2) L 11/15/19 06:00 Albumin 2.1 g/dl (3.4-5.0) L 11/15/19 06:00 Vitamin B12 3654 pg/ml (193-986) H 11/14/19 05:30 Folate >1619 ng/mL (>498) 11/14/19 09:15 Folate Hemolysate >620.0 ng/mL (Not Estab.) 11/14/19 09:15 ASSESSMENT/PLAN: Acute Respiratory Acute due to RLL PNA COPD, ? Cor Pulmonale ESRD on HD CHF SAVANA R/O Seizure Septic Shock (?) Cirrhosis PAD Demand Ischemia Chronic loculated RLL effusion -Cont Levo and Vaso may need to increase to tolerate iHD -Trend CVP and BMP -Cont Hydrocortisone & Fludrocortisone -Strict I & O -ABX per ID -AC Mode of vent, minimal settings -SBT trial s/p fluid removal -HD per Renal , likely HD today -VTE prophylaxis -Enteral feeds - Requires ICU monitoring Shayla Lewis, JEANNEP
--- NOTE | 2019-11-16 12:51 | PN ---
Progress Note, Physician History of Present Illness: continues to be intubated more responsive today bp still on the lower side being dialysed - Current Medication List Current Medications: Active Medications Albuterol Sulfate (Ventolin 0.083% Nebulizer Soln -) 1 amp NEB Q4H PRN PRN Reason: SHORT OF BREATH/WHEEZING Albuterol/Ipratropium (Duoneb -) 1 amp NEB RQID TED Last Admin: 11/16/19 12:09 Dose: Not Given Fludrocortisone Acetate (Florinef -) 0.05 mg NGT DAILY TED Last Admin: 11/16/19 09:26 Dose: 0.05 mg Hydrocortisone Sodium Succinate (Solu-Cortef -) 100 mg IVPB Q8H-IV TED Last Admin: 11/16/19 09:26 Dose: 100 mg Propofol (Diprivan -) 1,000,000 mcg in 100 mls @ 2.556 mls/hr IVPB TITR TED; Protocol Last Admin: 11/15/19 03:16 Dose: 20 mcg/kg/min, 10.222 mls/hr Norepinephrine Bitartrate 4, (000 mcg/ Dextrose) 500 mls @ 37.5 mls/hr IV TITR TED; Protocol Last Admin: 11/16/19 06:50 Dose: 5 mcg/min, 37.5 mls/hr Vasopressin 50 units/ Sodium (Chloride) 100 mls @ 24 mls/hr IVPB TITR TED; Protocol Last Admin: 11/16/19 01:36 Dose: Not Given Piperacillin Sod/Tazobactam (Sod 2.25 gm/ Dextrose) 50 mls @ 100 mls/hr IVPB Q8H-IV TED; Protocol Last Admin: 11/16/19 09:27 Dose: 100 mls/hr Sodium Chloride (Normal Saline -) 250 mls @ 3,000 mls/hr IV PRN PRN PRN Reason: Hypotension during Dialysis Stop: 11/17/19 09:06 Insulin Aspart (Novolog Vial Sliding Scale -) 1 vial SQ ACHS [facility]; Protocol Last Admin: 11/16/19 11:36 Dose: 4 units - Objective Vital Signs: Vital Signs Temperature 98.2 F 11/16/19 10:45 Pulse Rate 60 11/16/19 12:00 Respiratory Rate 20 11/16/19 12:08 Blood Pressure 97/54 L 11/16/19 12:00 O2 Sat by Pulse Oximetry (%) 100 11/16/19 09:00 Constitutional: Yes: Other Cardiovascular: Yes: S1, S2 Respiratory: Yes: Intubated, Mechanically Ventilated Gastrointestinal: Yes: Normal Bowel Sounds, Soft, Other (ng in place) Musculoskeletal: Yes: WNL Extremities: Yes: WNL Labs: CBC, BMP 11/16/19 05:59 11/16/19 05:59 INR, PTT INR 1.34 (0.83-1.09) H 11/13/19 22:13 Assessment/Plan Acute Respiratory Acute due to RLL PNA COPD, ESRD on HD CHF SAVANA R/O Seizure Septic Shock PAD Demand Ischemia Chronic loculated RLL effusion plan continue abx as per icu pressors as needed vent support close watch nutrition rest as per the team await for sputum cx cc 40 min
[2019-11-16] MEDS ORDERED: NOREPINEPHRINE BITARTRATE 4 MG/4 ML ML IV ONE (14:06)
[2019-11-16] MEDS: PROPOFOL 1,000,000 MCG/100 ML VIAL IVPB SCH (21:31)
[2019-11-17] MEDS ORDERED: DEXTROSE 5%-WATER - 50 ML IVPB ONE (01:19)
[2019-11-17] MEDS ORDERED: PIPERACILLIN/TAZOBACTAM 2.25 GM VIAL IVPB ONE ×3 (01:19→16:23)
[2019-11-17] MEDS: PIPERACILLIN/TAZOB 2.25 GM 2.25 GM in DEXTROSE 5%-WATER - 50 ML IVPB SCH (01:42)
[2019-11-17] MEDS: HYDROCORTISONE SOD SUCCINATE 100 MG/2 ML VIAL IVPB SCH ×3 (01:43→16:59)
[2019-11-17] MEDS: PROPOFOL 1,000,000 MCG/100 ML VIAL IVPB SCH (06:47)
[2019-11-17] MEDS: INSULIN SLIDING SCALE (NOVOLOG) 1 VIAL SQ SCH ×4 (06:48→22:16)
[2019-11-17 06:56] LABS: MCH 31.9 pg (25.7-33.7); MCHC 32.2 g/dl (32.0-35.9); MEAN CELL VOLUME 99.2 fl (80-96); MEAN PLT VOLUME 9.1 fl (7.5-11.1); PLATELET COUNT 61 K/MM3 (134-434); RBC 3.13 M/mm3 (4.00-5.60); WHITE BLOOD COUNT 12.8 K/mm3 (4.0-10.0)
[2019-11-17 07:08] LABS: INR 1.02 (0.83-1.09)
[2019-11-17 07:09] LABS: ACTIVATED PTT 31.4 SECONDS (25.2-36.5)
[2019-11-17] MEDS: VASOPRESSIN 50 UNITS in SODIUM CHLORIDE 97.5 ML IVPB SCH (07:34)
[2019-11-17 07:45] LABS: ALBUMIN 1.8 g/dl (3.4-5.0); BILIRUBIN,DIRECT 0.5 mg/dL (0.0-0.2); BILIRUBIN,TOTAL 0.9 mg/dL (0.2-1); BLOOD UREA NITROGEN 71.6 mg/dL (7-18); CALCIUM 7.7 mg/dL (8.5-10.1); CREATININE 4.2 mg/dL (0.55-1.3); MAGNESIUM 2.3 mg/dL (1.8-2.4); PHOSPHOROUS 5.7 mg/dL (2.5-4.9); TOT PROT 5.4 g/dl (6.4-8.2)
[2019-11-17] MEDS: ALBUTEROL SO4 2.5/IPRATROPIUM 0.5 INH SOL 3 ML VIAL.NEB. NEB SCH ×4 (08:00→20:50)
[2019-11-17] MEDS ORDERED: SODIUM CHLORIDE 50 ML IVPB ONE ×2 (09:53→16:23)
[2019-11-17] MEDS: FLUDROCORTISONE ACETATE 0.1 MG TABLET (FP) NGT SCH (09:58)
[2019-11-17] MEDS ORDERED: PIPERACILLIN/TAZOB 2.25 GM 2.25 GM in SODIUM CHLORIDE 50 ML IVPB SCH (10:00)
--- NOTE | 2019-11-17 10:09 | PN ---
Progress Note, Physician Chief Complaint: resp failure History of Present Illness: intubated, opens eyes. not communicative - Current Medication List Current Medications: Active Medications Albuterol Sulfate (Ventolin 0.083% Nebulizer Soln -) 1 amp NEB Q4H PRN PRN Reason: SHORT OF BREATH/WHEEZING Albuterol/Ipratropium (Duoneb -) 1 amp NEB RQID TED Last Admin: 11/16/19 20:55 Dose: 1 amp Fludrocortisone Acetate (Florinef -) 0.05 mg NGT DAILY TED Last Admin: 11/17/19 09:58 Dose: 0.05 mg Hydrocortisone Sodium Succinate (Solu-Cortef -) 100 mg IVPB Q8H-IV TED Last Admin: 11/17/19 09:57 Dose: 100 mg Propofol (Diprivan -) 1,000,000 mcg in 100 mls @ 2.556 mls/hr IVPB TITR TED; Protocol Last Admin: 11/17/19 06:47 Dose: 20 mcg/kg/min, 10.222 mls/hr Norepinephrine Bitartrate 4, (000 mcg/ Dextrose) 500 mls @ 37.5 mls/hr IV TITR TED; Protocol Last Titration: 11/17/19 05:27 Dose: 3 mcg/min, 22.5 mls/hr Vasopressin 50 units/ Sodium (Chloride) 100 mls @ 24 mls/hr IVPB TITR TED; Protocol Last Admin: 11/17/19 07:34 Dose: Not Given Sodium Chloride (Normal Saline -) 250 mls @ 3,000 mls/hr IV PRN PRN PRN Reason: Hypotension during Dialysis Stop: 11/17/19 09:06 Piperacillin Sod/Tazobactam (Sod 2.25 gm/ Sodium Chloride) 50 mls @ 100 mls/hr IVPB Q8H-IV TED; Protocol Last Admin: 11/17/19 09:57 Dose: 100 mls/hr Insulin Aspart (Novolog Vial Sliding Scale -) 1 vial SQ ACHS TED; Protocol Last Admin: 11/17/19 06:48 Dose: 8 units - Objective Vital Signs: Vital Signs Temperature 98.2 F 11/17/19 06:00 Pulse Rate 60 11/17/19 08:00 Respiratory Rate 14 11/17/19 08:00 Blood Pressure 104/56 L 11/17/19 08:00 O2 Sat by Pulse Oximetry (%) 98 11/17/19 04:04 Constitutional: Yes: Well Nourished, No Distress, Calm Cardiovascular: Yes: Regular Rate and Rhythm, S1, S2. No: Gallop, Murmur Respiratory: Yes: Regular, CTA Bilaterally. No: Accessory Muscle Use, Rales, Wheezes Extremities: No: Cold Edema: No (s/p R AKA) Neurological: Yes: Alert. No: Seizure Psychiatric: No: Agitated Labs: CBC, BMP 11/17/19 06:00 11/17/19 06:00 INR, PTT INR 1.02 (0.83-1.09) 11/17/19 06:00 Assessment/Plan tele: AF, V-P IMP: Acute respiratory failure secondary to RLL PNA w/loculated pleural effusion Sepsis secondary to above ESRD on HD Hyponatremia Chronic COPD CAD s/p PCI Right sided CHF with severe PHTN, RV dilatation and RV dysfunction (chronic per son report). nl LVEF Pacemaker Underlying AFib/flutter Recent reported GIB (no endoscopic evaluation) REC: 1. Pressors as per Critical Care Team for MAP 60mmHg 2. Vent support, per ICU team 3. HD/UF per renal 4. Cultures/ Abx as per PMD, Critical Care and ID 5. Borderline/flat TnI unlikely due to type I [place]. Likely due to demand ischemia/ sepsis. Echo with RV dilatation and RV dysfx, severe PHTN- chronic per son. May be due to chronic COPD, and acutely worsened in setting of PNA/hypoxia. LE venous duplex r/o DVT pending . CTEPH?? 6. Underlying AF-holding AC in setting recent unexplored GIB/ dropping platelets (sepsis/ possible abx effect). Risks> benefits at this time. no tachycardia (V-paced--? PM dependent)
[2019-11-17 11:07] LABS: BLOOD UREA NITROGEN 77.1 mg/dL (7-18); CALCIUM 7.9 mg/dL (8.5-10.1); CREATININE 4.4 mg/dL (0.55-1.3); POTASSIUM 3.8 mmol/L (3.5-5.1)
--- NOTE | 2019-11-17 11:37 | PN ---
Teaching Attending Note Name of Resident: Titi Olivas ATTENDING PHYSICIAN STATEMENT I saw and evaluated the patient. I reviewed the resident's note and discussed the case with the resident. I agree with the resident's findings and plan as documented. SUBJECTIVE: Patient seen and examined in the ICU. Sedated on AC Mode of vent, 40% FiO2. 3 mcq NE for hemodynamic support. Apparently failed weaning attempts yesterday after only 3 minutes. Intake & Output 11/14/19 11/15/19 11/16/19 11/17/19 23:59 23:59 23:59 23:59 Intake Total 3339.8 713.4 2915.8 464 Output Total 25 0 3400 Balance 3314.8 713.4 -484.2 464 Weight 174 lb 6.4 oz 176 lb 12.8 oz 180 lb 184 lb 14.4 oz Last Vital Signs Temp Pulse Resp BP Pulse Ox 98.4 F 60 14 95/54 L 100 11/17/19 10:00 11/17/19 10:00 11/17/19 10:00 11/17/19 10:00 11/17/19 09:00 Active Medications Albuterol Sulfate (Ventolin 0.083% Nebulizer Soln -) 1 amp NEB Q4H PRN PRN Reason: SHORT OF BREATH/WHEEZING Albuterol/Ipratropium (Duoneb -) 1 amp NEB RQID TED Last Admin: 11/17/19 08:00 Dose: 1 amp Fludrocortisone Acetate (Florinef -) 0.05 mg NGT DAILY TED Last Admin: 11/17/19 09:58 Dose: 0.05 mg Hydrocortisone Sodium Succinate (Solu-Cortef -) 100 mg IVPB Q8H-IV TED Last Admin: 11/17/19 09:57 Dose: 100 mg Propofol (Diprivan -) 1,000,000 mcg in 100 mls @ 2.556 mls/hr IVPB TITR TED; Protocol Last Admin: 11/17/19 06:47 Dose: 20 mcg/kg/min, 10.222 mls/hr Vasopressin 50 units/ Sodium (Chloride) 100 mls @ 24 mls/hr IVPB TITR TED; Protocol Last Admin: 11/17/19 07:34 Dose: Not Given Sodium Chloride (Normal Saline -) 250 mls @ 3,000 mls/hr IV PRN PRN PRN Reason: Hypotension during Dialysis Stop: 11/17/19 09:06 Norepinephrine Bitartrate 4, (000 mcg/ Sodium Chloride) 500 mls @ 37.5 mls/hr IV TITR TED; Protocol Piperacillin Sod/Tazobactam (Sod 2.25 gm/ Sodium Chloride) 50 mls @ 100 mls/hr IVPB Q8H-IV TED; Protocol Insulin Aspart (Novolog Vial Sliding Scale -) 1 vial SQ ACHS TED; Protocol Last Admin: 11/17/19 11:25 Dose: 6 units GENERAL: Sedated and intubated. HEAD: Normal with no signs of trauma. EYES: Left eye miosed. right eye is normal size. Neither eye is reactive to light. EARS, NOSE, THROAT: ET Tube in place. LUNGS: Vented, bilateral coarse rhonchi, no wheeze. HEART: S1S2 ABDOMEN: Distended abdomen. No fluid wave shift. Hypoactive bowel sounds. UPPER EXTREMITIES: 2+ pulses, warm, well-perfused. No cyanosis. No clubbing. LOWER EXTREMITIES: Right BKA. Left foot cool to touch. Left heel has non purulent wound. No discharge noted. NEUROLOGICAL: Sedated SKIN:Chronic venous stasis changes in the left lower leg. Laboratory Results - last 24 hr 11/16/19 11/16/19 11/17/19 16:23 21:29 06:00 WBC 12.8 H RBC 3.13 L Hgb 10.0 L Hct 31.0 L MCV 99.2 H MCH 31.9 MCHC 32.2 RDW 20.0 H Plt Count 61 L MPV 9.1 PT with INR INR PTT (Actin FS) Sodium Potassium Chloride Carbon Dioxide Anion Gap BUN Creatinine Est GFR (CKD-EPI)AfAm Est GFR (CKD-EPI)NonAf POC Glucometer 198 186 Random Glucose Calcium Phosphorus Magnesium Total Bilirubin Direct Bilirubin AST ALT Alkaline Phosphatase Total Protein Albumin 11/17/19 11/17/19 11/17/19 06:00 06:00 06:45 WBC RBC Hgb Hct MCV MCH MCHC RDW Plt Count MPV PT with INR 12.00 INR 1.02 PTT (Actin FS) 31.4 Sodium 121 L Potassium 4.0 Chloride 86 L Carbon Dioxide 22 Anion Gap 14 BUN 71.6 H Creatinine 4.2 H Est GFR (CKD-EPI)AfAm 14.78 Est GFR (CKD-EPI)NonAf 12.75 POC Glucometer 364 Random Glucose 336 H Calcium 7.7 L Phosphorus 5.7 H Magnesium 2.3 Total Bilirubin 0.9 Direct Bilirubin 0.5 H AST 20 ALT 23 Alkaline Phosphatase 116 Total Protein 5.4 L Albumin 1.8 L 11/17/19 11/17/19 10:15 11:23 WBC RBC Hgb Hct MCV MCH MCHC RDW Plt Count MPV PT with INR INR PTT (Actin FS) Sodium 124 L Potassium 3.8 Chloride 86 L Carbon Dioxide 24 Anion Gap 15 BUN 77.1 H Creatinine 4.4 H Est GFR (CKD-EPI)AfAm 13.97 Est GFR (CKD-EPI)NonAf 12.05 POC Glucometer 294 Random Glucose 262 H Calcium 7.9 L Phosphorus Magnesium Total Bilirubin Direct Bilirubin AST ALT Alkaline Phosphatase Total Protein Albumin ASSESSMENT/PLAN: Acute Respiratory Acute due to RLL PNA COPD ESRD on HD CHF SAVANA R/O Seizure Septic Shock (?) Cirrhosis PAD Demand Ischemia Chronic loculated RLL effusion Hyponatremia: (?) worsening a lab error Follow repeat Sodium level Wean pressors Hydrocortisone & Fludrocortisone Strict I & O ABX per ID HD per Renal BD TX VTE prophylaxis Enteral feeds Wean trials as tolerated Requires ICU monitoring Dr Barnard Critical care time spent in reviewing chart, evaluating patient and formulating plan - 36 minutes.
--- NOTE | 2019-11-17 12:27 | PN ---
Progress Note (short form) - Note Progress Note: Pt seen/ examined in icu. chart is reviewed. remains Intubated off sedation opens eyes had dialysis yesterday remains on Levophed Vital Signs Temp 98.4 F 11/17/19 10:00 Pulse 60 11/17/19 10:00 Resp 14 11/17/19 10:00 BP 95/54 L 11/17/19 10:00 Pulse Ox 100 11/17/19 09:00 Intake & Output 11/16/19 11/17/19 11/17/19 23:59 11:59 23:59 Intake Total 962.4 464 Output Total 3400 Balance -2437.6 464 Weight 180 lb 184 lb 14.4 oz Intake: IV 562.4 414 DIPRIVAN - 1,000,000 mcg 92.4 150 In 100 ml @ 5 MCG/KG/MIN 2.556 mls/hr IVPB TITR TED Rx#:[id number] Levophed - 4,000 Mcg In 470 264 D5w - 496 ml @ 5 MCG/MIN 37.5 mls/hr IV TITR TED Rx#:[id number] IVPB 400 50 Output: Fluid Removed, 3400 Hemodialysis Other: Voiding Method Diaper # Unmeasured Voids Kern 1 Bowel Movement Yes Yes # Bowel Movements 1 1 Height 5 ft 10 in Body Mass Index (BMI) 25.8 Weight Measurement Method Built in [facility] Active Medications Albuterol Sulfate (Ventolin 0.083% Nebulizer Soln -) 1 amp NEB Q4H PRN PRN Reason: SHORT OF BREATH/WHEEZING Albuterol/Ipratropium (Duoneb -) 1 amp NEB RQID TED Last Admin: 11/17/19 08:00 Dose: 1 amp Fludrocortisone Acetate (Florinef -) 0.05 mg NGT DAILY TED Last Admin: 11/17/19 09:58 Dose: 0.05 mg Hydrocortisone Sodium Succinate (Solu-Cortef -) 100 mg IVPB Q8H-IV TED Last Admin: 11/17/19 09:57 Dose: 100 mg Propofol (Diprivan -) 1,000,000 mcg in 100 mls @ 2.556 mls/hr IVPB TITR TED; Protocol Last Admin: 11/17/19 06:47 Dose: 20 mcg/kg/min, 10.222 mls/hr Vasopressin 50 units/ Sodium (Chloride) 100 mls @ 24 mls/hr IVPB TITR TED; Protocol Last Admin: 11/17/19 07:34 Dose: Not Given Sodium Chloride (Normal Saline -) 250 mls @ 3,000 mls/hr IV PRN PRN PRN Reason: Hypotension during Dialysis Stop: 11/17/19 09:06 Norepinephrine Bitartrate 4, (000 mcg/ Sodium Chloride) 500 mls @ 37.5 mls/hr IV TITR TED; Protocol Piperacillin Sod/Tazobactam (Sod 2.25 gm/ Sodium Chloride) 50 mls @ 100 mls/hr IVPB Q8H-IV TED; Protocol Insulin Aspart (Novolog Vial Sliding Scale -) 1 vial SQ ACHS TED; Protocol Last Admin: 11/17/19 11:25 Dose: 6 units CBC, BMP 11/17/19 06:00 11/17/19 10:15 Microbiology 11/14/19 05:00 Gram Stain - Final Sputum - Endotrachea Suction/Ventilator Sputum Culture - Final Morganella Morganii 11/13/19 00:05 Blood Culture - Preliminary Blood - Peripheral Venous NO GROWTH OBTAINED AFTER 72 HOURS, INCUBATION TO CONTINUE FOR 2 DAYS. 11/13/19 22:13 Blood Culture - Preliminary Blood - Peripheral Venous NO GROWTH OBTAINED AFTER 72 HOURS, INCUBATION TO CONTINUE FOR 2 DAYS. 11/14/19 16:20 Blood Culture - Preliminary Blood - Diamante Cath NO GROWTH OBTAINED AFTER 48 HOURS, INCUBATION TO CONTINUE FOR 3 DAYS. 11/14/19 16:20 Blood Culture - Preliminary Blood - Diamante Cath NO GROWTH OBTAINED AFTER 48 HOURS, INCUBATION TO CONTINUE FOR 3 DAYS. cxr - No change Physical Constitutional: Yes: Other (Intubated) NGT + Eyes: Yes: Conjunctiva Clear Neck: Yes: Supple. Central line + Cardiovascular: Yes: Regular Rate and Rhythm Respiratory: Yes: Diminished Gastrointestinal: Yes: Soft Genitourinary: Yes: Kern Removed Extremities: Yes: Amputation (s/p right aka) Edema: No Integumentary: No: Other Wound/Incision: Yes: Other (Left heel ulcer)-- Dressing + Neurological: Yes: Other (sedated) Additional Findings/Remarks: - ....Imaging Chest X-ray: Report Reviewed Cat Scan: Report Reviewed Echo-- Reviewed Assessment/Plan In summary Pt 79yr old gentleman with extensive PMHx of CAD , s/p multivessel PCI (> 1 year ago), CHF , PPM, AF,COPD, ESRD-HD. Has been in and out of hospital since July with COPD/ infections/ CKD and recently had a possible GIB at [place]- no endoscopic evaluation. Transferred from [facility] for short term rehab and was transferred here yesterday for resp distress. Admitted to ICU / Intubated for Respiratory failure and Pneumonia. Pt was admitted to [facility] Remains critically ill Continue present care Abx Vent support Taper pressors as tolerated Started on feeding weaning as tolerated Dialysis today D/W RN also [place] low--hold off Heparin d/w pts son in detail also Will follow CC time approx 35 min Problem List - Problems (1) Respiratory failure Code(s): J96.90 - RESPIRATORY FAILURE, UNSP, UNSP W HYPOXIA OR HYPERCAPNIA (2) CAD (coronary artery disease) Code(s): I25.10 - ATHSCL HEART DISEASE OF [place] CORONARY ARTERY W/O ANG PCTRS (3) PVD (peripheral vascular disease) Code(s): I73.9 - PERIPHERAL VASCULAR DISEASE, UNSPECIFIED (4) Elevated troponin Code(s): R79.89 - OTHER SPECIFIED ABNORMAL FINDINGS OF BLOOD CHEMISTRY (5) Thrombocytopenia Code(s): D69.6 - THROMBOCYTOPENIA, UNSPECIFIED Problem List - Problems (1) Respiratory failure Code(s): J96.90 - RESPIRATORY FAILURE, UNSP, UNSP W HYPOXIA OR HYPERCAPNIA (2) CAD (coronary artery disease) Code(s): I25.10 - ATHSCL HEART DISEASE OF [place] CORONARY ARTERY W/O ANG PCTRS (3) PVD (peripheral vascular disease) Code(s): I73.9 - PERIPHERAL VASCULAR DISEASE, UNSPECIFIED (4) Elevated troponin Code(s): R79.89 - OTHER SPECIFIED ABNORMAL FINDINGS OF BLOOD CHEMISTRY (5) Thrombocytopenia Code(s): D69.6 - THROMBOCYTOPENIA, UNSPECIFIED
--- NOTE | 2019-11-17 12:58 | PN ---
Progress Note, Physician History of Present Illness: Pt seen and examined at bedside. He was dialyzed yesterday. He remains in the ICU. - Current Medication List Current Medications: Active Medications Albuterol Sulfate (Ventolin 0.083% Nebulizer Soln -) 1 amp NEB Q4H PRN PRN Reason: SHORT OF BREATH/WHEEZING Albuterol/Ipratropium (Duoneb -) 1 amp NEB RQID TED Last Admin: 11/17/19 08:00 Dose: 1 amp Fludrocortisone Acetate (Florinef -) 0.05 mg NGT DAILY TED Last Admin: 11/17/19 09:58 Dose: 0.05 mg Hydrocortisone Sodium Succinate (Solu-Cortef -) 100 mg IVPB Q8H-IV TED Last Admin: 11/17/19 09:57 Dose: 100 mg Propofol (Diprivan -) 1,000,000 mcg in 100 mls @ 2.556 mls/hr IVPB TITR TED; Protocol Last Admin: 11/17/19 06:47 Dose: 20 mcg/kg/min, 10.222 mls/hr Vasopressin 50 units/ Sodium (Chloride) 100 mls @ 24 mls/hr IVPB TITR TED; Protocol Last Admin: 11/17/19 07:34 Dose: Not Given Sodium Chloride (Normal Saline -) 250 mls @ 3,000 mls/hr IV PRN PRN PRN Reason: Hypotension during Dialysis Stop: 11/17/19 09:06 Norepinephrine Bitartrate 4, (000 mcg/ Sodium Chloride) 500 mls @ 37.5 mls/hr IV TITR TED; Protocol Piperacillin Sod/Tazobactam (Sod 2.25 gm/ Sodium Chloride) 50 mls @ 100 mls/hr IVPB Q8H-IV TED; Protocol Insulin Aspart (Novolog Vial Sliding Scale -) 1 vial SQ ACHS TED; Protocol Last Admin: 11/17/19 11:25 Dose: 6 units - Objective Vital Signs: Vital Signs Temperature 98.4 F 11/17/19 10:00 Pulse Rate 60 11/17/19 12:00 Respiratory Rate 14 11/17/19 12:00 Blood Pressure 88/52 L 11/17/19 12:00 O2 Sat by Pulse Oximetry (%) 100 11/17/19 09:00 Constitutional: Yes: Calm Eyes: Yes: Conjunctiva Clear Cardiovascular: Yes: S1, S2 Respiratory: Yes: Mechanically Ventilated Genitourinary: Yes: Incontinence Musculoskeletal: Yes: Muscle Weakness Extremities: Yes: Other (right bka) Edema: No Neurological: Yes: Lethargy Labs: CBC, BMP 11/17/19 06:00 11/17/19 10:15 INR, PTT INR 1.02 (0.83-1.09) 11/17/19 06:00 - ....Imaging Chest X-ray: Report Reviewed Assessment/Plan Current Medications Generic Name Dose Route Start Last Admin Trade Name Freq PRN Reason Stop Dose Admin Albuterol Sulfate 1 amp 11/14/19 03:54 Ventolin 0.083% Nebulizer Soln - NEB Q4H PRN SHORT OF BREATH/WHEEZING Albuterol/Ipratropium 1 amp 11/14/19 08:00 11/17/19 08:00 Duoneb - NEB 1 amp RQID TED Administration Fludrocortisone Acetate 0.05 mg 11/15/19 10:00 11/17/19 09:58 Florinef - NGT 0.05 mg DAILY TED Administration Hydrocortisone Sodium Succinate 100 mg 11/14/19 12:00 11/17/19 09:57 Solu-Cortef - IVPB 100 mg Q8H-IV TED Administration Propofol 1,000,000 mcg in 100 mls @ 2.556 mls/hr 11/13/19 22:15 11/17/19 06: 47 Diprivan - IVPB 20 mcg/kg/min TITR TED 10.222 mls/hr Administration Protocol 5 MCG/KG/MIN Vasopressin 50 units/ Sodium 100 mls @ 24 mls/hr 11/14/19 11:45 11/17/19 07: 34 Chloride IVPB Not Given TITR TED Protocol 0.2 UNITS/MIN Sodium Chloride 250 mls @ 3,000 mls/hr 11/16/19 09:06 Normal Saline - IV 11/17/19 09:06 PRN PRN Hypotension during Dialysis Norepinephrine Bitartrate 4, 500 mls @ 37.5 mls/hr 11/17/19 11:15 000 mcg/ Sodium Chloride IV TITR TED Protocol 5 MCG/MIN Piperacillin Sod/Tazobactam 50 mls @ 100 mls/hr 11/17/19 18:00 Sod 2.25 gm/ Sodium Chloride IVPB Q8H-IV TED Protocol Insulin Aspart 1 vial 11/14/19 16:30 11/17/19 11:25 Novolog Vial Sliding Scale - SQ 6 units ACHS TED Administration Protocol Impression 1. ESRD 2. resp failure 3. PNA 4. copd 5. chf 6. sepsis 7. pulm effusion 8. hyponatremia Plan - HD likely tomorrow - change drips to saline - titrate off vasopressin, con norepi - vent support - pressors to map of 65 - follow cultures - cont abx - HD: TTS f180 3:30 DW 87 kg 2 k bath 2.5 ca, [id number], na 137, access PC right chest
--- NOTE | 2019-11-17 13:03 | PN ---
Progress Note, Physician History of Present Illness: failed weaning attempts still on pressors continues to be intubated opens eyes and understands - Current Medication List Current Medications: Active Medications Albuterol Sulfate (Ventolin 0.083% Nebulizer Soln -) 1 amp NEB Q4H PRN PRN Reason: SHORT OF BREATH/WHEEZING Albuterol/Ipratropium (Duoneb -) 1 amp NEB RQID TED Last Admin: 11/17/19 08:00 Dose: 1 amp Fludrocortisone Acetate (Florinef -) 0.05 mg NGT DAILY TED Last Admin: 11/17/19 09:58 Dose: 0.05 mg Hydrocortisone Sodium Succinate (Solu-Cortef -) 100 mg IVPB Q8H-IV TED Last Admin: 11/17/19 09:57 Dose: 100 mg Propofol (Diprivan -) 1,000,000 mcg in 100 mls @ 2.556 mls/hr IVPB TITR TED; Protocol Last Admin: 11/17/19 06:47 Dose: 20 mcg/kg/min, 10.222 mls/hr Vasopressin 50 units/ Sodium (Chloride) 100 mls @ 24 mls/hr IVPB TITR TED; Protocol Last Admin: 11/17/19 07:34 Dose: Not Given Sodium Chloride (Normal Saline -) 250 mls @ 3,000 mls/hr IV PRN PRN PRN Reason: Hypotension during Dialysis Stop: 11/17/19 09:06 Norepinephrine Bitartrate 4, (000 mcg/ Sodium Chloride) 500 mls @ 37.5 mls/hr IV TITR TED; Protocol Piperacillin Sod/Tazobactam (Sod 2.25 gm/ Sodium Chloride) 50 mls @ 100 mls/hr IVPB Q8H-IV TED; Protocol Insulin Aspart (Novolog Vial Sliding Scale -) 1 vial SQ ACHS TED; Protocol Last Admin: 11/17/19 11:25 Dose: 6 units - Objective Vital Signs: Vital Signs Temperature 98.4 F 11/17/19 10:00 Pulse Rate 60 11/17/19 12:00 Respiratory Rate 14 11/17/19 12:00 Blood Pressure 88/52 L 11/17/19 12:00 O2 Sat by Pulse Oximetry (%) 100 11/17/19 09:00 Constitutional: Yes: Other Cardiovascular: Yes: S1, S2 Respiratory: Yes: Intubated, Mechanically Ventilated Gastrointestinal: Yes: Normal Bowel Sounds, Soft, Other (ng tube) Musculoskeletal: Yes: WNL Extremities: Yes: WNL, Other (Right BKA. Left foot cool to touch. Left heel has non purulent wound. No discharge noted.) Integumentary: Yes: Other (Right BKA. Left foot cool to touch. Left heel has non purulent wound. No discharge noted.) Neurological: Yes: Other Labs: CBC, BMP 11/17/19 06:00 11/17/19 10:15 INR, PTT INR 1.02 (0.83-1.09) 11/17/19 06:00 Assessment/Plan Acute Respiratory Acute due to RLL PNA COPD, ESRD on HD CHF SAVANA R/O Seizure Septic Shock PAD Demand Ischemia Chronic loculated RLL effusion plan will start on abx await for cx reports as per icu pressors as needed vent support close watch nutrition rest as per the team await for sputum cx cc 40 min low sodium monitor weaning trials as tolerated
--- NOTE | 2019-11-17 13:23 | PN ---
Physical Exam: SUBJECTIVE: Patient seen and examined in the morning. No acute events overnight. No events on cardiac monitoring. Patient was coming off of sedation in the morning, was not able to respond to questions about pain. OBJECTIVE: Vital Signs Period Temp Pulse Resp BP Sys/Armando Pulse Ox Last 24 Hr 98.2 F-98.9 F 60-63 14-25 88-129/52-58 98-100 GENERAL: The patient is sedated and intubated. HEAD: Normal with no signs of trauma. ET tube in place. EYES: PERRLA NECK: Central line in place, left side. LUNGS: Breath sounds equal, clear to auscultation bilaterally, no wheezes, no crackles, no accessory muscle use. HEART: Regular rate and rhythm, S1, S2 without murmur, rub or gallop. ABDOMEN: Soft, nontender, nondistended, normoactive bowel sounds, no guarding, no rebound, no hepatosplenomegaly, no masses. EXTREMITIES: Left leg has venous stasis changes, right leg aka. NEUROLOGICAL: Sedated. Laboratory Results - last 24 hr 11/16/19 11/16/19 11/17/19 16:23 21:29 06:00 WBC 12.8 H RBC 3.13 L Hgb 10.0 L Hct 31.0 L MCV 99.2 H MCH 31.9 MCHC 32.2 RDW 20.0 H Plt Count 61 L MPV 9.1 PT with INR INR PTT (Actin FS) Sodium Potassium Chloride Carbon Dioxide Anion Gap BUN Creatinine Est GFR (CKD-EPI)AfAm Est GFR (CKD-EPI)NonAf POC Glucometer 198 186 Random Glucose Calcium Phosphorus Magnesium Total Bilirubin Direct Bilirubin AST ALT Alkaline Phosphatase Total Protein Albumin 11/17/19 11/17/19 11/17/19 06:00 06:00 06:45 WBC RBC Hgb Hct MCV MCH MCHC RDW Plt Count MPV PT with INR 12.00 INR 1.02 PTT (Actin FS) 31.4 Sodium 121 L Potassium 4.0 Chloride 86 L Carbon Dioxide 22 Anion Gap 14 BUN 71.6 H Creatinine 4.2 H Est GFR (CKD-EPI)AfAm 14.78 Est GFR (CKD-EPI)NonAf 12.75 POC Glucometer 364 Random Glucose 336 H Calcium 7.7 L Phosphorus 5.7 H Magnesium 2.3 Total Bilirubin 0.9 Direct Bilirubin 0.5 H AST 20 ALT 23 Alkaline Phosphatase 116 Total Protein 5.4 L Albumin 1.8 L 11/17/19 11/17/19 10:15 11:23 WBC RBC Hgb Hct MCV MCH MCHC RDW Plt Count MPV PT with INR INR PTT (Actin FS) Sodium 124 L Potassium 3.8 Chloride 86 L Carbon Dioxide 24 Anion Gap 15 BUN 77.1 H Creatinine 4.4 H Est GFR (CKD-EPI)AfAm 13.97 Est GFR (CKD-EPI)NonAf 12.05 POC Glucometer 294 Random Glucose 262 H Calcium 7.9 L Phosphorus Magnesium Total Bilirubin Direct Bilirubin AST ALT Alkaline Phosphatase Total Protein Albumin Active Medications Generic Name Dose Route Start Last Admin Trade Name Freq PRN Reason Stop Dose Admin Albuterol Sulfate 1 amp 11/14/19 03:54 Ventolin 0.083% Nebulizer Soln - NEB Q4H PRN SHORT OF BREATH/WHEEZING Albuterol/Ipratropium 1 amp 11/14/19 08:00 11/17/19 08:00 Duoneb - NEB 1 amp RQID TED Administration Fludrocortisone Acetate 0.05 mg 11/15/19 10:00 11/17/19 09:58 Florinef - NGT 0.05 mg DAILY TED Administration Hydrocortisone Sodium Succinate 100 mg 11/14/19 12:00 11/17/19 09:57 Solu-Cortef - IVPB 100 mg Q8H-IV TED Administration Propofol 1,000,000 mcg in 100 mls @ 2.556 mls/hr 11/13/19 22:15 11/17/19 06: 47 Diprivan - IVPB 20 mcg/kg/min TITR TED 10.222 mls/hr Administration Protocol 5 MCG/KG/MIN Vasopressin 50 units/ Sodium 100 mls @ 24 mls/hr 11/14/19 11:45 11/17/19 07: 34 Chloride IVPB Not Given TITR TED Protocol 0.2 UNITS/MIN Sodium Chloride 250 mls @ 3,000 mls/hr 11/16/19 09:06 Normal Saline - IV 11/17/19 09:06 PRN PRN Hypotension during Dialysis Norepinephrine Bitartrate 4, 500 mls @ 37.5 mls/hr 11/17/19 11:15 000 mcg/ Sodium Chloride IV TITR TED Protocol 5 MCG/MIN Piperacillin Sod/Tazobactam 50 mls @ 100 mls/hr 11/17/19 18:00 Sod 2.25 gm/ Sodium Chloride IVPB Q8H-IV TED Protocol Insulin Aspart 1 vial 11/14/19 16:30 11/17/19 11:25 Novolog Vial Sliding Scale - SQ 6 units ACHS TED Administration Protocol ASSESSMENT/PLAN: 79M PMH of COPD, ESRD on HD (,Sun),CHF s/p pacemaker, DM II, prostate cancer , venous stasis changes, constipation who presented with exacerbation of COPD likely secondary to PNA. Was found to be obtunded in the [facility] and was intubated in the ED. Neuro -Patient currently sedated on propofol -Sedation break given. patient was not able to stay on CPAP mode of ventilation for extended period of time -Continue to monitor, Cardiovascular -Patient has hx of CHF -Patient was hypotensive refractory to fluid boluses. Will continue with levophed -Echo records obtained from [place]. EF of 70%, mild conc. lVH, diastolic filling pattern, RV mildly enlarged, RV severely imparied, LA dilated, RA mildly enlarged, AO valve sclerosis, aortic insufficiency. -Continous cardiac monitoring -Afib present,holding anticoagulation. -Continue hydro/fludro -Cardiology consulted, appreciate recs Pulmonary -Hx of COPD, SAVANA. -On BiPAP at night. -Chest x-ray shows RLL pleural effusions -Duonebs -Albuterol PRN -On vent: Vt: 500, RR: 14, Fio2: 40%, PEEP 5 GI -CT A/P shows ascites, diverticulosis, small umbilical R inguinal hernias -Abd U/S shows mild hepatomegaly with fatty infiltration of the liver.Smallamount of ascites in the 4 abdominal quadrants. No cholelithiasis. Nonspecific diffusely thickned gallbladder wall likely due to hepatocellular disease andthird spacing rather than cholecystitis.Correlate clinically. Diffusely prominent and heterogenous pancreas but no focal lesion probably due to third spacing -Continue to monitor Renal -Hx of ESRD, HD on , S. -Patient was dialyzed on Sunday-3L taken off of Fluid -Na of 121 in the morning, repeat was 124. F/U repeat BMP in the evening. -D/C vasopressin, continue levophed. Switched fluids to NS for zosyn -Nephrology consulted, appreciate recs ID -Continue zoysn -sputum culture growing lactose fermenting GNB -ID consulted, appreciate recs Endocrine -ACHS -ISS DVT: SCDs F: No standing fluids at the moment. E: Monitor Na. N: Nepro Tube feeds Lines: Right sided femoral line 11/14/19. Intubated 11/14/19. Kern in place. Dispo: We will continue to follow the patient. Thank you for this consultative opportunity. Visit type - Emergency Visit Emergency Visit: Yes ED Registration Date: 11/14/19 Care time: The patient presented to the Emergency Department on the above date and was hospitalized for further evaluation of their emergent condition. - New Patient This patient is new to me today: No - Critical Care Critical Care patient: Yes Total Critical Care Time (in minutes): 35 Critical Care Statement: The care of this patient involved high complexity decision making to prevent further life threatening deterioration of the patient 's condition and/or to evaluate & treat vital organ system(s) failure or risk of failure. ATTENDING PHYSICIAN STATEMENT I saw and evaluated the patient. I reviewed the resident's note and discussed the case with the resident. I agree with the resident's findings and plan as documented. SUBJECTIVE: OBJECTIVE: ASSESSMENT AND PLAN:
[2019-11-17] MEDS: NOREPINEPHRINE BITARTRATE 4,000 MCG in SODIUM CHLORIDE 496 ML IV SCH (13:24)
[2019-11-17 16:33] LABS: BLOOD UREA NITROGEN 75.1 mg/dL (7-18); CALCIUM 7.9 mg/dL (8.5-10.1); CREATININE 4.4 mg/dL (0.55-1.3); POTASSIUM 3.8 mmol/L (3.5-5.1)
[2019-11-17] MEDS: PIPERACILLIN/TAZOB 2.25 GM 2.25 GM in SODIUM CHLORIDE 50 ML IVPB SCH (16:59)
[2019-11-17] MEDS ORDERED: PIPERACILLIN/TAZOB 2.25 GM 2.25 GM in DEXTROSE 5%-WATER - 50 ML IVPB SCH (18:00)
[2019-11-18] MEDS ORDERED: SODIUM CHLORIDE 50 ML IVPB ONE ×2 (03:20→08:07)
[2019-11-18] MEDS ORDERED: PIPERACILLIN/TAZOBACTAM 2.25 GM VIAL IVPB ONE ×2 (03:20→08:06)
[2019-11-18] MEDS: PIPERACILLIN/TAZOB 2.25 GM 2.25 GM in SODIUM CHLORIDE 50 ML IVPB SCH ×2 (03:25→11:00)
[2019-11-18] MEDS: HYDROCORTISONE SOD SUCCINATE 100 MG/2 ML VIAL IVPB SCH ×3 (03:27→17:48)
[2019-11-18] MEDS: INSULIN SLIDING SCALE (NOVOLOG) 1 VIAL SQ SCH ×4 (06:25→21:30)
[2019-11-18] MEDS: PROPOFOL 1,000,000 MCG/100 ML VIAL IVPB SCH (06:26)
[2019-11-18 06:30] LABS: BASO % 0.4 % (0-2.0); EOS % 0.1 % (0-4.5); HEMATOCRIT 30.1 % (35.4-49); HEMOGLOBIN 9.9 GM/dL (11.7-16.9); LYMPH % 1.6 % (8-40); MCH 32.5 pg (25.7-33.7); MCHC 32.9 g/dl (32.0-35.9); MEAN CELL VOLUME 98.6 fl (80-96); MEAN PLT VOLUME 9.3 fl (7.5-11.1); MONO % 1.8 % (3.8-10.2); NEUT % 96.1 % (42.8-82.8); PLATELET COUNT 57 K/MM3 (134-434); RBC 3.05 M/mm3 (4.00-5.60); RDW 19.9 % (11.9-15.9); WHITE BLOOD COUNT 10.2 K/mm3 (4.0-10.0)
[2019-11-18 06:51] LABS: ALBUMIN 1.9 g/dl (3.4-5.0); BILIRUBIN,TOTAL 0.7 mg/dL (0.2-1); BLOOD UREA NITROGEN 84.4 mg/dL (7-18); CALCIUM 7.7 mg/dL (8.5-10.1); CREATININE 4.6 mg/dL (0.55-1.3); MAGNESIUM 2.4 mg/dL (1.8-2.4); PHOSPHOROUS 5.8 mg/dL (2.5-4.9); POTASSIUM 3.9 mmol/L (3.5-5.1); TOT PROT 5.6 g/dl (6.4-8.2)
[2019-11-18] MEDS: ALBUTEROL SO4 2.5/IPRATROPIUM 0.5 INH SOL 3 ML VIAL.NEB. NEB SCH ×4 (07:50→20:15)
--- NOTE | 2019-11-18 10:38 | PN ---
Progress Note (short form) - Note Progress Note: Events noted Pt intubated in ICU Weaning trial in progress Vital Signs - 24 hr 11/17/19 11/17/19 11/17/19 16:00 16:14 18:00 Temperature Pulse Rate 60 60 Respiratory 15 15 14 Rate Blood Pressure 92/52 L 98/53 L O2 Sat by Pulse 100 Oximetry (%) 11/17/19 11/17/19 11/17/19 18:05 19:00 20:00 Temperature 97.6 F Pulse Rate 60 60 60 Respiratory 18 15 20 Rate Blood Pressure 96/51 L 99/55 L 94/54 L O2 Sat by Pulse Oximetry (%) 11/17/19 11/17/19 11/17/19 20:30 21:00 22:00 Temperature 97.6 F Pulse Rate 60 60 Respiratory 16 16 17 Rate Blood Pressure 95/52 L 97/54 L O2 Sat by Pulse Oximetry (%) 11/17/19 11/17/19 11/18/19 22:37 23:00 00:00 Temperature Pulse Rate 60 60 Respiratory 16 25 H 19 Rate Blood Pressure 100/53 L 98/54 L O2 Sat by Pulse 100 Oximetry (%) 11/18/19 11/18/19 11/18/19 00:49 01:00 02:00 Temperature 97.7 F Pulse Rate 60 60 Respiratory 18 17 17 Rate Blood Pressure 95/53 L 96/52 L O2 Sat by Pulse Oximetry (%) 11/18/19 11/18/19 11/18/19 03:00 04:00 05:00 Temperature Pulse Rate 60 60 60 Respiratory 18 20 19 Rate Blood Pressure 97/54 L 99/53 L 97/52 L O2 Sat by Pulse Oximetry (%) 11/18/19 11/18/19 11/18/19 06:00 08:00 08:31 Temperature 97.8 F Pulse Rate 60 60 Respiratory 17 19 15 Rate Blood Pressure 94/54 L 97/52 L O2 Sat by Pulse Oximetry (%) 11/18/19 11/18/19 11/18/19 09:00 10:00 10:35 Temperature 97.2 F L Pulse Rate 60 Respiratory 17 19 Rate Blood Pressure 97/52 L O2 Sat by Pulse 100 97 Oximetry (%) 11/18/19 11/18/19 11/18/19 11:00 11:25 11:30 Temperature 97.5 F L Pulse Rate 60 60 60 Respiratory 17 22 H 18 Rate Blood Pressure 90/51 L 96/51 L 81/47 L O2 Sat by Pulse 97 Oximetry (%) 11/18/19 11/18/19 11/18/19 11:46 12:00 12:10 Temperature Pulse Rate 60 61 Respiratory 21 H 24 H Rate Blood Pressure 81/47 L 91/49 L O2 Sat by Pulse Oximetry (%) 11/18/19 11/18/19 12:30 13:00 Temperature Pulse Rate 60 60 Respiratory 19 17 Rate Blood Pressure 91/49 L 90/51 L O2 Sat by Pulse Oximetry (%) Current Medications Generic Name Dose Route Start Last Admin Trade Name Freq PRN Reason Stop Dose Admin Albuterol Sulfate 1 amp 11/14/19 03:54 Ventolin 0.083% Nebulizer Soln - NEB Q4H PRN SHORT OF BREATH/WHEEZING Albuterol/Ipratropium 1 amp 11/14/19 08:00 11/18/19 11:40 Duoneb - NEB 1 amp RQID TED Administration Fludrocortisone Acetate 0.05 mg 11/15/19 10:00 11/18/19 11:01 Florinef - NGT 0.05 mg DAILY TED Administration Hydrocortisone Sodium Succinate 100 mg 11/14/19 12:00 11/18/19 11:01 Solu-Cortef - IVPB 100 mg Q8H-IV TED Administration Propofol 1,000,000 mcg in 100 mls @ 2.556 mls/hr 11/13/19 22:15 11/18/19 06: 26 Diprivan - IVPB 20 mcg/kg/min TITR TED 10.222 mls/hr Administration Protocol 5 MCG/KG/MIN Norepinephrine Bitartrate 4, 500 mls @ 37.5 mls/hr 11/17/19 11:15 11/18/19 11 :46 000 mcg/ Sodium Chloride IV 2 mcg/min TITR TED 15 mls/hr Titration Protocol 5 MCG/MIN Sodium Chloride 250 mls @ 3,000 mls/hr 11/18/19 10:52 Normal Saline - IV 11/19/19 10:51 PRN PRN Hypotension during Dialysis Sodium Chloride 250 mls @ 3,000 mls/hr 11/18/19 10:53 Normal Saline - IV 11/19/19 10:52 PRN PRN Hypotension during Dialysis Ceftriaxone Sodium 1 gm/ 50 mls @ 100 mls/hr 11/18/19 13:15 Dextrose IVPB DAILY [facility] Protocol Insulin Aspart 1 vial 11/14/19 16:30 11/18/19 11:47 Novolog Vial Sliding Scale - SQ 4 units ACHS [facility] Administration Protocol Laboratory Results - last 24 hr 11/17/19 11/17/19 11/17/19 15:50 16:10 22:12 WBC RBC Hgb Hct MCV MCH MCHC RDW Plt Count MPV Absolute Neuts (auto) Neutrophils % Neutrophils % (Manual) Band Neutrophils % Lymphocytes % Lymphocytes % (Manual) Monocytes % Monocytes % (Manual) Eosinophils % Eosinophils % (Manual) Basophils % Basophils % (Manual) Myelocytes % (Man) Promyelocytes % (Man) Blast Cells % (Manual) Nucleated RBC % Metamyelocytes Hypochromia Platelet Estimate Polychromasia Anisocytosis Microcytosis Macrocytosis [place] Cells Fragmented RBCs Sodium 122 L Potassium 3.8 Chloride 87 L Carbon Dioxide 22 Anion Gap 13 BUN 75.1 H Creatinine 4.4 H Est GFR (CKD-EPI)AfAm 13.97 Est GFR (CKD-EPI)NonAf 12.05 POC Glucometer 233 253 Random Glucose 229 H Calcium 7.9 L Phosphorus Magnesium Total Bilirubin AST ALT Alkaline Phosphatase Total Protein Albumin 11/18/19 11/18/19 11/18/19 06:00 06:00 06:25 WBC 10.2 H RBC 3.05 L Hgb 9.9 L Hct 30.1 L MCV 98.6 H MCH 32.5 MCHC 32.9 RDW 19.9 H Plt Count 57 L MPV 9.3 Absolute Neuts (auto) 9.8 H Neutrophils % 96.1 H Neutrophils % (Manual) 99.0 H Band Neutrophils % 0.0 Lymphocytes % 1.6 L Lymphocytes % (Manual) 0.0 L Monocytes % 1.8 L Monocytes % (Manual) 0 L D Eosinophils % 0.1 D Eosinophils % (Manual) 0.0 Basophils % 0.4 Basophils % (Manual) 0.0 Myelocytes % (Man) 1 D Promyelocytes % (Man) 0 Blast Cells % (Manual) 0 Nucleated RBC % 0 Metamyelocytes 0 Hypochromia 0 Platelet Estimate Decreased Polychromasia 1+ Anisocytosis 1+ Microcytosis 0 Macrocytosis 0 [place] Cells 1+ Fragmented RBCs 1+ Sodium 122 L Potassium 3.9 Chloride 84 L Carbon Dioxide 22 Anion Gap 16 BUN 84.4 H Creatinine 4.6 H Est GFR (CKD-EPI)AfAm 13.24 Est GFR (CKD-EPI)NonAf 11.42 POC Glucometer 345 Random Glucose 319 H Calcium 7.7 L Phosphorus 5.8 H Magnesium 2.4 Total Bilirubin 0.7 AST 24 ALT 23 Alkaline Phosphatase 152 H Total Protein 5.6 L Albumin 1.9 L 11/18/19 11:42 WBC RBC Hgb Hct MCV MCH MCHC RDW Plt Count MPV Absolute Neuts (auto) Neutrophils % Neutrophils % (Manual) Band Neutrophils % Lymphocytes % Lymphocytes % (Manual) Monocytes % Monocytes % (Manual) Eosinophils % Eosinophils % (Manual) Basophils % Basophils % (Manual) Myelocytes % (Man) Promyelocytes % (Man) Blast Cells % (Manual) Nucleated RBC % Metamyelocytes Hypochromia Platelet Estimate Polychromasia Anisocytosis Microcytosis Macrocytosis [place] Cells Fragmented RBCs Sodium Potassium Chloride Carbon Dioxide Anion Gap BUN Creatinine Est GFR (CKD-EPI)AfAm Est GFR (CKD-EPI)NonAf POC Glucometer 219 Random Glucose Calcium Phosphorus Magnesium Total Bilirubin AST ALT Alkaline Phosphatase Total Protein Albumin cxr - No change Physical Constitutional: Yes: Other (Intubated) NGT + Eyes: Yes: Conjunctiva Clear Neck: Yes: Supple. Central line + Cardiovascular: Yes: Regular Rate and Rhythm Respiratory: Yes: Diminished Gastrointestinal: Yes: Soft Genitourinary: Yes: [place] Removed Extremities: Yes: Amputation (s/p right aka) Edema: No Integumentary: No: Other Wound/Incision: Yes: Other (Left heel ulcer)-- Dressing + Neurological: Yes: Other (sedated) Additional Findings/Remarks: - ....Imaging Chest X-ray: Report Reviewed Cat Scan: Report Reviewed Echo-- Reviewed Assessment/Plan In summary Pt 79yr old gentleman with extensive PMHx of CAD , s/p multivessel PCI (> 1 year ago), CHF , PPM, AF,COPD, ESRD-HD. Has been in and out of hospital since July with COPD/ infections/ CKD and recently had a possible GIB at [place]- no endoscopic evaluation. Transferred from [facility] for short term rehab and was transferred here for resp distress. Admitted to ICU / Intubated for Respiratory failure and Pneumonia. Pt was admitted to [facility] from [facility] Remains critically ill Continue present care Abx Vent support Taper pressors as tolerated Started on feeding weaning as tolerated Dialysis yesterday D/W RN also Tommy low--hold off Heparin CC time approx 35 min Problem List - Problems (1) CAD (coronary artery disease) Code(s): I25.10 - ATHSCL HEART DISEASE OF [place] CORONARY ARTERY W/O ANG PCTRS (2) COPD (chronic obstructive pulmonary disease) Code(s): J44.9 - CHRONIC OBSTRUCTIVE PULMONARY DISEASE, UNSPECIFIED Qualifiers: COPD type: unspecified COPD Qualified Code(s): J44.9 - Chronic obstructive pulmonary disease, unspecified (3) Elevated troponin Code(s): R79.89 - OTHER SPECIFIED ABNORMAL FINDINGS OF BLOOD CHEMISTRY (4) PVD (peripheral vascular disease) Code(s): I73.9 - PERIPHERAL VASCULAR DISEASE, UNSPECIFIED (5) Respiratory failure Code(s): J96.90 - RESPIRATORY FAILURE, UNSP, UNSP W HYPOXIA OR HYPERCAPNIA (6) Thrombocytopenia Code(s): D69.6 - THROMBOCYTOPENIA, UNSPECIFIED
[2019-11-18 10:39] LABS: ANISOCYTOSIS 1+; MACROCYTOSIS 0; PLATELET ESTIMATE DECREASED
[2019-11-18] MEDS ORDERED: SODIUM CHLORIDE 250 ML IV PRN ×2 (10:52→10:53)
[2019-11-18] MEDS ORDERED: EPOETIN ALFA-EPBX 2,000 UNIT/ML VIAL IVPUSH ONE (11:00)
[2019-11-18] MEDS ORDERED: EPOETIN ALFA 3,000 UNIT/1 ML ML IVPUSH ONE (11:00)
[2019-11-18] MEDS: FLUDROCORTISONE ACETATE 0.1 MG TABLET (FP) NGT SCH (11:01)
--- NOTE | 2019-11-18 11:17 | PN ---
Teaching Attending Note Name of Resident: Titi Olivas ATTENDING PHYSICIAN STATEMENT I saw and evaluated the patient. I reviewed the resident's note and discussed the case with the resident. I agree with the resident's findings and plan as documented. SUBJECTIVE: Patient seen and examined in the ICU. Sedated on AC Mode of vent, 40% FiO2. 1 mcq NE for hemodynamic support. Failed weaning attempts due to low minute ventilation and lethargy. Intake & Output 11/15/19 11/16/19 11/17/19 11/18/19 23:59 23:59 23:59 23:59 Intake Total 713.4 2915.8 909 501 Output Total 0 3400 0 Balance 713.4 -484.2 909 501 Weight 176 lb 12.8 oz 180 lb 184 lb 14.4 oz 183 lb 14.4 oz Last Vital Signs Temp Pulse Resp BP Pulse Ox 97.2 F L 60 19 87/45 L 100 11/18/19 10:00 11/18/19 10:00 11/18/19 10:11/18/19 10:00 11/17/19 22:37 Active Medications Albumin Human (Albumin Human 25%) 12.5 gm IVPB Q30M TED Stop: 11/18/19 12:31 Albuterol Sulfate (Ventolin 0.083% Nebulizer Soln -) 1 amp NEB Q4H PRN PRN Reason: SHORT OF BREATH/WHEEZING Albuterol/Ipratropium (Duoneb -) 1 amp NEB RQID TED Last Admin: 11/18/19 07:50 Dose: 1 amp Fludrocortisone Acetate (Florinef -) 0.05 mg NGT DAILY TED Last Admin: 11/18/19 11:01 Dose: 0.05 mg Hydrocortisone Sodium Succinate (Solu-Cortef -) 100 mg IVPB Q8H-IV TED Last Admin: 11/18/19 11:01 Dose: 100 mg Propofol (Diprivan -) 1,000,000 mcg in 100 mls @ 2.556 mls/hr IVPB TITR TED; Protocol Last Admin: 11/18/19 06:26 Dose: 20 mcg/kg/min, 10.222 mls/hr Norepinephrine Bitartrate 4, (000 mcg/ Sodium Chloride) 500 mls @ 37.5 mls/hr IV TITR TED; Protocol Last Admin: 11/17/19 13:24 Dose: 2 mcg/min, 15 mls/hr Piperacillin Sod/Tazobactam (Sod 2.25 gm/ Sodium Chloride) 50 mls @ 100 mls/hr IVPB Q8H-IV TED; Protocol Last Admin: 11/18/19 11:00 Dose: 100 mls/hr Sodium Chloride (Normal Saline -) 250 mls @ 3,000 mls/hr IV PRN PRN PRN Reason: Hypotension during Dialysis Stop: 11/19/19 10:51 Sodium Chloride (Normal Saline -) 250 mls @ 3,000 mls/hr IV PRN PRN PRN Reason: Hypotension during Dialysis Stop: 11/19/19 10:52 Insulin Aspart (Novolog Vial Sliding Scale -) 1 vial SQ ACHS [facility]; Protocol Last Admin: 11/18/19 06:25 Dose: 8 units GENERAL: Intubated, sleepy but arousable. HEAD: Normal with no signs of trauma. EYES: (-) Icterus (-) Pallor EARS, NOSE, THROAT: ET Tube in place. LUNGS: Vented, bilateral coarse rhonchi, no wheeze. HEART: S1S2 ABDOMEN: Mildly distended. No fluid wave shift. Hypoactive bowel sounds. UPPER EXTREMITIES: 2+ pulses, warm, well-perfused. No cyanosis. No clubbing. LOWER EXTREMITIES: Right BKA. Left foot cool to touch. Left heel has non purulent wound. No discharge noted. NEUROLOGICAL: Sleepy, non-focal SKIN:Chronic venous stasis changes in the left lower leg. Laboratory Results - last 24 hr 11/16/19 11/17/19 11/17/19 06:00 11:23 15:50 WBC RBC Hgb Hct MCV MCH MCHC RDW Plt Count MPV Absolute Neuts (auto) Neutrophils % Neutrophils % (Manual) Band Neutrophils % Lymphocytes % Lymphocytes % (Manual) Monocytes % Monocytes % (Manual) Eosinophils % Eosinophils % (Manual) Basophils % Basophils % (Manual) Myelocytes % (Man) Promyelocytes % (Man) Blast Cells % (Manual) Nucleated RBC % Metamyelocytes Hypochromia Platelet Estimate Polychromasia Anisocytosis Microcytosis Macrocytosis [place] Cells Fragmented RBCs Sodium 122 L Potassium 3.8 Chloride 87 L Carbon Dioxide 22 Anion Gap 13 BUN 75.1 H Creatinine 4.4 H Est GFR (CKD-EPI)AfAm 13.97 Est GFR (CKD-EPI)NonAf 12.05 POC Glucometer 294 Random Glucose 229 H Calcium 7.9 L Phosphorus Magnesium Total Bilirubin AST ALT Alkaline Phosphatase Total Protein Albumin Hep Bs Antigen Negative Hep C Ab Diagnostic <0.1 11/17/19 11/17/19 11/18/19 16:10 22:12 06:00 WBC 10.2 H RBC 3.05 L Hgb 9.9 L Hct 30.1 L MCV 98.6 H MCH 32.5 MCHC 32.9 RDW 19.9 H Plt Count 57 L MPV 9.3 Absolute Neuts (auto) 9.8 H Neutrophils % 96.1 H Neutrophils % (Manual) 99.0 H Band Neutrophils % 0.0 Lymphocytes % 1.6 L Lymphocytes % (Manual) 0.0 L Monocytes % 1.8 L Monocytes % (Manual) 0 L D Eosinophils % 0.1 D Eosinophils % (Manual) 0.0 Basophils % 0.4 Basophils % (Manual) 0.0 Myelocytes % (Man) 1 D Promyelocytes % (Man) 0 Blast Cells % (Manual) 0 Nucleated RBC % 0 Metamyelocytes 0 Hypochromia 0 Platelet Estimate Decreased Polychromasia 1+ Anisocytosis 1+ Microcytosis 0 Macrocytosis 0 [place] Cells 1+ Fragmented RBCs 1+ Sodium Potassium Chloride Carbon Dioxide Anion Gap BUN Creatinine Est GFR (CKD-EPI)AfAm Est GFR (CKD-EPI)NonAf POC Glucometer 233 253 Random Glucose Calcium Phosphorus Magnesium Total Bilirubin AST ALT Alkaline Phosphatase Total Protein Albumin Hep Bs Antigen Hep C Ab Diagnostic 11/18/19 11/18/19 06:00 06:25 WBC RBC Hgb Hct MCV MCH MCHC RDW Plt Count MPV Absolute Neuts (auto) Neutrophils % Neutrophils % (Manual) Band Neutrophils % Lymphocytes % Lymphocytes % (Manual) Monocytes % Monocytes % (Manual) Eosinophils % Eosinophils % (Manual) Basophils % Basophils % (Manual) Myelocytes % (Man) Promyelocytes % (Man) Blast Cells % (Manual) Nucleated RBC % Metamyelocytes Hypochromia Platelet Estimate Polychromasia Anisocytosis Microcytosis Macrocytosis [place] Cells Fragmented RBCs Sodium 122 L Potassium 3.9 Chloride 84 L Carbon Dioxide 22 Anion Gap 16 BUN 84.4 H Creatinine 4.6 H Est GFR (CKD-EPI)AfAm 13.24 Est GFR (CKD-EPI)NonAf 11.42 POC Glucometer 345 Random Glucose 319 H Calcium 7.7 L Phosphorus 5.8 H Magnesium 2.4 Total Bilirubin 0.7 AST 24 ALT 23 Alkaline Phosphatase 152 H Total Protein 5.6 L Albumin 1.9 L Hep Bs Antigen Hep C Ab Diagnostic ASSESSMENT/PLAN: Acute Respiratory Acute due to RLL PNA COPD ESRD on HD CHF SAVANA R/O Seizure Septic Shock (?) Cirrhosis PAD Demand Ischemia Chronic loculated RLL effusion Hyponatremia Follow Sodium level Wean pressors Hydrocortisone & Fludrocortisone Strict I & O ABX per ID HD per Renal BD TX VTE prophylaxis Enteral feeds Wean trials as tolerated Requires ICU monitoring Dr Barnard Critical care time spent in reviewing chart, evaluating patient and formulating plan - 36 minutes.
--- NOTE | 2019-11-18 11:18 | PN ---
Progress Note (short form) - Note Progress Note: s: intubated, sedated Current Medications Albumin Human (Albumin Human 25%) 12.5 gm IVPB Q30M TED Stop: 11/18/19 12:31 Albuterol Sulfate (Ventolin 0.083% Nebulizer Soln -) 1 amp NEB Q4H PRN PRN Reason: SHORT OF BREATH/WHEEZING Albuterol/Ipratropium (Duoneb -) 1 amp NEB RQID TED Last Admin: 11/18/19 07:50 Dose: 1 amp Fludrocortisone Acetate (Florinef -) 0.05 mg NGT DAILY TED Last Admin: 11/18/19 11:01 Dose: 0.05 mg Hydrocortisone Sodium Succinate (Solu-Cortef -) 100 mg IVPB Q8H-IV TED Last Admin: 11/18/19 11:01 Dose: 100 mg Propofol (Diprivan -) 1,000,000 mcg in 100 mls @ 2.556 mls/hr IVPB TITR TED; Protocol Last Admin: 11/18/19 06:26 Dose: 20 mcg/kg/min, 10.222 mls/hr Norepinephrine Bitartrate 4, (000 mcg/ Sodium Chloride) 500 mls @ 37.5 mls/hr IV TITR TDE; Protocol Last Admin: 11/17/19 13:24 Dose: 2 mcg/min, 15 mls/hr Piperacillin Sod/Tazobactam (Sod 2.25 gm/ Sodium Chloride) 50 mls @ 100 mls/hr IVPB Q8H-IV TED; Protocol Last Admin: 11/18/19 11:00 Dose: 100 mls/hr Sodium Chloride (Normal Saline -) 250 mls @ 3,000 mls/hr IV PRN PRN PRN Reason: Hypotension during Dialysis Stop: 11/19/19 10:51 Sodium Chloride (Normal Saline -) 250 mls @ 3,000 mls/hr IV PRN PRN PRN Reason: Hypotension during Dialysis Stop: 11/19/19 10:52 Insulin Aspart (Novolog Vial Sliding Scale -) 1 vial SQ ACHS T[facility]; Protocol Last Admin: 11/18/19 06:25 Dose: 8 units Vital Signs Period Temp Pulse Resp BP Sys/Armando Pulse Ox Last 24 Hr 97.2 F-98.1 F 60-60 14-25 85-100/45-55 100-100 Constitutional: Yes: Well Nourished, No Distress, Calm Cardiovascular: Yes: Regular Rate and Rhythm, S1, S2. No: Gallop, Murmur Respiratory: Yes: Regular, CTA Bilaterally. No: Accessory Muscle Use, Rales, Wheezes Extremities: No: Cold Edema: No (s/p R AKA) Neurological: Yes: Alert. No: Seizure Psychiatric: No: Agitated Assessment/Plan tele: AF, V-P, 3 bt NSVT IMP: Acute respiratory failure secondary to RLL PNA w/loculated pleural effusion Sepsis secondary to above ESRD on HD Hyponatremia Chronic COPD CAD s/p PCI Right sided CHF with severe PHTN, RV dilatation and RV dysfunction (chronic per son report). nl LVEF Pacemaker Underlying AFib/flutter Recent reported GIB (no endoscopic evaluation) REC: 1. wean pressors as tolerated per critical care for MAP 60mmHg 2. Vent support, per ICU team 3. HD/UF per renal 4. Cultures/ Abx as per PMD, Critical Care and ID 5. Borderline/flat TnI unlikely due to type I DC. Likely due to demand ischemia/ sepsis. Echo with RV dilatation and RV dysfx, severe PHTN- chronic per son. May be due to chronic COPD, and acutely worsened in setting of PNA/hypoxia. LE venous duplex r/o DVT pending . ?CTEPH 6. Underlying AF-holding AC in setting recent unexplored GIB/ dropping platelets (sepsis/ possible abx effect). Risks> benefits at this time. no tachycardia (V-paced--? PM dependent)
[2019-11-18] MEDS: ALBUMIN HUMAN 25% 12.5 GM/50 ML VIAL IVPB SCH ×4 (12:00→14:06)
--- NOTE | 2019-11-18 12:16 | PN ---
Physical Exam: SUBJECTIVE: Patient seen and examined in the morning. No acute events overnight. No events on cardiac monitoring. Patient was coming off of sedation in the morning, was not able to respond to questions about pain. OBJECTIVE: Vital Signs Period Temp Pulse Resp BP Sys/Armando Pulse Ox Last 24 Hr 97.2 F-98.1 F 60-60 14-25 81-100/45-55 100-100 GENERAL: The patient is sedated and intubated. HEAD: Normal with no signs of trauma. ET tube in place. EYES: PERRLA NECK: Central line in place, left side. LUNGS: Breath sounds equal, clear to auscultation bilaterally, no wheezes, no crackles, no accessory muscle use. HEART: Regular rate and rhythm, S1, S2 without murmur, rub or gallop. ABDOMEN: Soft, nontender, nondistended, normoactive bowel sounds, no guarding, no rebound, no hepatosplenomegaly, no masses. EXTREMITIES: Left leg has venous stasis changes, right leg aka. NEUROLOGICAL: Sedated. Laboratory Results - last 24 hr 11/16/19 11/17/19 11/17/19 06:00 15:50 16:10 WBC RBC Hgb Hct MCV MCH MCHC RDW Plt Count MPV Absolute Neuts (auto) Neutrophils % Neutrophils % (Manual) Band Neutrophils % Lymphocytes % Lymphocytes % (Manual) Monocytes % Monocytes % (Manual) Eosinophils % Eosinophils % (Manual) Basophils % Basophils % (Manual) Myelocytes % (Man) Promyelocytes % (Man) Blast Cells % (Manual) Nucleated RBC % Metamyelocytes Hypochromia Platelet Estimate Polychromasia Anisocytosis Microcytosis Macrocytosis [place] Cells Fragmented RBCs Sodium 122 L Potassium 3.8 Chloride 87 L Carbon Dioxide 22 Anion Gap 13 BUN 75.1 H Creatinine 4.4 H Est GFR (CKD-EPI)AfAm 13.97 Est GFR (CKD-EPI)NonAf 12.05 POC Glucometer 233 Random Glucose 229 H Calcium 7.9 L Phosphorus Magnesium Total Bilirubin AST ALT Alkaline Phosphatase Total Protein Albumin Hep Bs Antigen Negative Hep C Ab Diagnostic <0.1 11/17/19 11/18/19 11/18/19 22:12 06:00 06:00 WBC 10.2 H RBC 3.05 L Hgb 9.9 L Hct 30.1 L MCV 98.6 H MCH 32.5 MCHC 32.9 RDW 19.9 H Plt Count 57 L MPV 9.3 Absolute Neuts (auto) 9.8 H Neutrophils % 96.1 H Neutrophils % (Manual) 99.0 H Band Neutrophils % 0.0 Lymphocytes % 1.6 L Lymphocytes % (Manual) 0.0 L Monocytes % 1.8 L Monocytes % (Manual) 0 L D Eosinophils % 0.1 D Eosinophils % (Manual) 0.0 Basophils % 0.4 Basophils % (Manual) 0.0 Myelocytes % (Man) 1 D Promyelocytes % (Man) 0 Blast Cells % (Manual) 0 Nucleated RBC % 0 Metamyelocytes 0 Hypochromia 0 Platelet Estimate Decreased Polychromasia 1+ Anisocytosis 1+ Microcytosis 0 Macrocytosis 0 [place] Cells 1+ Fragmented RBCs 1+ Sodium 122 L Potassium 3.9 Chloride 84 L Carbon Dioxide 22 Anion Gap 16 BUN 84.4 H Creatinine 4.6 H Est GFR (CKD-EPI)AfAm 13.24 Est GFR (CKD-EPI)NonAf 11.42 POC Glucometer 253 Random Glucose 319 H Calcium 7.7 L Phosphorus 5.8 H Magnesium 2.4 Total Bilirubin 0.7 AST 24 ALT 23 Alkaline Phosphatase 152 H Total Protein 5.6 L Albumin 1.9 L Hep Bs Antigen Hep C Ab Diagnostic 11/18/19 11/18/19 06:25 11:42 WBC RBC Hgb Hct MCV MCH MCHC RDW Plt Count MPV Absolute Neuts (auto) Neutrophils % Neutrophils % (Manual) Band Neutrophils % Lymphocytes % Lymphocytes % (Manual) Monocytes % Monocytes % (Manual) Eosinophils % Eosinophils % (Manual) Basophils % Basophils % (Manual) Myelocytes % (Man) Promyelocytes % (Man) Blast Cells % (Manual) Nucleated RBC % Metamyelocytes Hypochromia Platelet Estimate Polychromasia Anisocytosis Microcytosis Macrocytosis [place] Cells Fragmented RBCs Sodium Potassium Chloride Carbon Dioxide Anion Gap BUN Creatinine Est GFR (CKD-EPI)AfAm Est GFR (CKD-EPI)NonAf POC Glucometer 345 219 Random Glucose Calcium Phosphorus Magnesium Total Bilirubin AST ALT Alkaline Phosphatase Total Protein Albumin Hep Bs Antigen Hep C Ab Diagnostic Active Medications Generic Name Dose Route Start Last Admin Trade Name Freq PRN Reason Stop Dose Admin Albumin Human 12.5 gm 11/18/19 11:00 Albumin Human 25% IVPB 11/18/19 12:31 Q30M TED Albuterol Sulfate 1 amp 11/14/19 03:54 Ventolin 0.083% Nebulizer Soln - NEB Q4H PRN SHORT OF BREATH/WHEEZING Albuterol/Ipratropium 1 amp 11/14/19 08:00 11/18/19 07:50 Duoneb - NEB 1 amp RQID TED Administration Fludrocortisone Acetate 0.05 mg 11/15/19 10:00 11/18/19 11:01 Florinef - NGT 0.05 mg DAILY TED Administration Hydrocortisone Sodium Succinate 100 mg 11/14/19 12:00 11/18/19 11:01 Solu-Cortef - IVPB 100 mg Q8H-IV TED Administration Propofol 1,000,000 mcg in 100 mls @ 2.556 mls/hr 11/13/19 22:15 11/18/19 06: 26 Diprivan - IVPB 20 mcg/kg/min TITR TED 10.222 mls/hr Administration Protocol 5 MCG/KG/MIN Norepinephrine Bitartrate 4, 500 mls @ 37.5 mls/hr 11/17/19 11:15 11/18/19 11 :46 000 mcg/ Sodium Chloride IV 2 mcg/min TITR TED 15 mls/hr Titration Protocol 5 MCG/MIN Piperacillin Sod/Tazobactam 50 mls @ 100 mls/hr 11/17/19 18:00 11/18/19 11:00 Sod 2.25 gm/ Sodium Chloride IVPB 100 mls/hr Q8H-IV TED Administration Protocol Sodium Chloride 250 mls @ 3,000 mls/hr 11/18/19 10:52 Normal Saline - IV 11/19/19 10:51 PRN PRN Hypotension during Dialysis Sodium Chloride 250 mls @ 3,000 mls/hr 11/18/19 10:53 Normal Saline - IV 11/19/19 10:52 PRN PRN Hypotension during Dialysis Insulin Aspart 1 vial 11/14/19 16:30 11/18/19 11:47 Novolog Vial Sliding Scale - SQ 4 units ACHS TED Administration Protocol ASSESSMENT/PLAN: 79M PMH of COPD, ESRD on HD (T,Th,Sat),CHF s/p pacemaker, DM II, prostate cancer , venous stasis changes, constipation who presented with exacerbation of COPD likely secondary to PNA. [facility] and was intubated in the ED. Neuro -Patient currently sedated on propofol -Sedation break given. patient was not able to stay on CPAP mode of ventilation for extended period of time -Continue to monitor, Cardiovascular -Patient has hx of CHF -Patient was hypotensive refractory to fluid boluses. Will continue with levophed -Echo records obtained from [facility]. EF of 70%, mild conc. lVH, diastolic filling pattern, RV mildly enlarged, RV severely imparied, LA dilated, RA mildly enlarged, AO valve sclerosis, aortic insufficiency. -Continous cardiac monitoring -Afib present,holding anticoagulation. -Continue hydro/fludro -Cardiology consulted, appreciate recs Pulmonary -Hx of COPD, SAVANA. -Chest x-ray shows RLL pleural effusions -Duonebs -Albuterol PRN -On vent: Vt: 500, RR: 14, Fio2: 40%, PEEP 5 GI -CT A/P shows ascites, diverticulosis, small umbilical R inguinal hernias -Abd U/S shows mild hepatomegaly with fatty infiltration of the liver.Smallamount of ascites in the 4 abdominal quadrants. No cholelithiasis. Nonspecific diffusely thickned gallbladder wall likely due to hepatocellular disease andthird spacing rather than cholecystitis.Correlate clinically. Diffusely prominent and heterogenous pancreas but no focal lesion probably due to third spacing -Continue to monitor Renal -Hx of ESRD, HD on T, Th, S. -Dialysis today. -Na of 121 today. -D/Cd vasopressin, continue levophed. Switched fluids to NS for zosyn -Nephrology consulted, appreciate recs ID -Continue zoysn -sputum culture growing lactose fermenting GNB -ID consulted, appreciate recs Endocrine -ACHS -ISS DVT: SCDs F: No standing fluids at the moment. E: Monitor Na. N: Nepro Tube feeds Lines: Right sided femoral line 11/14/19. Intubated 11/14/19. [place] in place. Dispo: We will continue to follow the patient. Thank you for this consultative opportunity. Visit type - Emergency Visit Emergency Visit: Yes ED Registration Date: 11/14/19 Care time: The patient presented to the Emergency Department on the above date and was hospitalized for further evaluation of their emergent condition. - New Patient This patient is new to me today: No - Critical Care Critical Care patient: Yes Total Critical Care Time (in minutes): 45 Critical Care Statement: The care of this patient involved high complexity decision making to prevent further life threatening deterioration of the patient 's condition and/or to evaluate & treat vital organ system(s) failure or risk of failure. ATTENDING PHYSICIAN STATEMENT I saw and evaluated the patient. I reviewed the resident's note and discussed the case with the resident. I agree with the resident's findings and plan as documented. SUBJECTIVE: OBJECTIVE: ASSESSMENT AND PLAN:
--- NOTE | 2019-11-18 13:06 | PN ---
Progress Note, Physician History of Present Illness: continues to be intubated being dialysis - Current Medication List Current Medications: Active Medications Albuterol Sulfate (Ventolin 0.083% Nebulizer Soln -) 1 amp NEB Q4H PRN PRN Reason: SHORT OF BREATH/WHEEZING Albuterol/Ipratropium (Duoneb -) 1 amp NEB RQID TED Last Admin: 11/18/19 11:40 Dose: 1 amp Fludrocortisone Acetate (Florinef -) 0.05 mg NGT DAILY TED Last Admin: 11/18/19 11:01 Dose: 0.05 mg Hydrocortisone Sodium Succinate (Solu-Cortef -) 100 mg IVPB Q8H-IV TED Last Admin: 11/18/19 11:01 Dose: 100 mg Propofol (Diprivan -) 1,000,000 mcg in 100 mls @ 2.556 mls/hr IVPB TITR [facility]; Protocol Last Admin: 11/18/19 06:26 Dose: 20 mcg/kg/min, 10.222 mls/hr Norepinephrine Bitartrate 4, (000 mcg/ Sodium Chloride) 500 mls @ 37.5 mls/hr IV TITR [facility]; Protocol Last Titration: 11/18/19 11:46 Dose: 2 mcg/min, 15 mls/hr Sodium Chloride (Normal Saline -) 250 mls @ 3,000 mls/hr IV PRN PRN PRN Reason: Hypotension during Dialysis Stop: 11/19/19 10:51 Sodium Chloride (Normal Saline -) 250 mls @ 3,000 mls/hr IV PRN PRN PRN Reason: Hypotension during Dialysis Stop: 11/19/19 10:52 Ceftriaxone Sodium 1 gm/ (Dextrose) 50 mls @ 200 mls/hr IVPB DAILY [facility]; Protocol Insulin Aspart (Novolog Vial Sliding Scale -) 1 vial SQ ACHS [facility]; Protocol Last Admin: 11/18/19 11:47 Dose: 4 units - Objective Vital Signs: Vital Signs Temperature 97.5 F L 11/18/19 11:25 Pulse Rate 60 11/18/19 12:00 Respiratory Rate 24 H 11/18/19 12:10 Blood Pressure 87/48 L 11/18/19 12:00 O2 Sat by Pulse Oximetry (%) 97 11/18/19 10:35 Constitutional: Yes: No Distress, Calm Cardiovascular: Yes: S1, S2 Respiratory: Yes: Intubated, Mechanically Ventilated, Other Gastrointestinal: Yes: Normal Bowel Sounds, Soft Musculoskeletal: Yes: WNL Extremities: Yes: Other Integumentary: Yes: Other Labs: CBC, BMP 11/18/19 06:00 11/18/19 06:00 INR, PTT INR 1.02 (0.83-1.09) 11/17/19 06:00
[2019-11-18 15:53] LABS: BLOOD UREA NITROGEN 32.8 mg/dL (7-18); CALCIUM 8.5 mg/dL (8.5-10.1); CREATININE 2.2 mg/dL (0.55-1.3); POTASSIUM 3.1 mmol/L (3.5-5.1)
[2019-11-18] MEDS ORDERED: NOREPINEPHRINE BITARTRATE 4 MG/4 ML ML IV ONE (16:24)
[2019-11-18] MEDS ORDERED: DEXTROSE 5%-WATER - 50 ML IVPB ONE (16:35)
[2019-11-18] MEDS ORDERED: cefTRIAXone SODIUM 1 GM VIAL ONE (16:35)
[2019-11-18] MEDS: CEFTRIAXONE 1 GM in DEXTROSE 5%-WATER - 50 ML IVPB SCH (16:38)
[2019-11-18] MEDS: NOREPINEPHRINE BITARTRATE 4,000 MCG in SODIUM CHLORIDE 496 ML IV SCH ×2 (16:40→20:30)
[2019-11-18] MEDS ORDERED: PT OWN MED DRAWER 7, Y5N ONE (19:47)
--- NOTE | 2019-11-18 20:06 | PN ---
Progress Note, Physician History of Present Illness: Pt seen and examined at bedside. He remains in the ICU. He tolerated HD. - Current Medication List Current Medications: Active Medications Albuterol Sulfate (Ventolin 0.083% Nebulizer Soln -) 1 amp NEB Q4H PRN PRN Reason: SHORT OF BREATH/WHEEZING Albuterol/Ipratropium (Duoneb -) 1 amp NEB RQID TED Last Admin: 11/18/19 15:50 Dose: 1 amp Fludrocortisone Acetate (Florinef -) 0.05 mg NGT DAILY TED Last Admin: 11/18/19 11:01 Dose: 0.05 mg Hydrocortisone Sodium Succinate (Solu-Cortef -) 100 mg IVPB Q8H-IV TED Last Admin: 11/18/19 17:48 Dose: 100 mg Propofol (Diprivan -) 1,000,000 mcg in 100 mls @ 2.556 mls/hr IVPB TITR TED; Protocol Last Titration: 11/18/19 09:00 Dose: 0 mcg/kg/min, 0 mls/hr Norepinephrine Bitartrate 4, (000 mcg/ Sodium Chloride) 500 mls @ 37.5 mls/hr IV TITR TED; Protocol Last Admin: 11/18/19 16:40 Dose: 2 mcg/min, 15 mls/hr Sodium Chloride (Normal Saline -) 250 mls @ 3,000 mls/hr IV PRN PRN PRN Reason: Hypotension during Dialysis Stop: 11/19/19 10:51 Sodium Chloride (Normal Saline -) 250 mls @ 3,000 mls/hr IV PRN PRN PRN Reason: Hypotension during Dialysis Stop: 11/19/19 10:52 Ceftriaxone Sodium 1 gm/ (Dextrose) 50 mls @ 100 mls/hr IVPB DAILY TED; Protocol Last Admin: 11/18/19 16:38 Dose: 100 mls/hr Insulin Aspart (Novolog Vial Sliding Scale -) 1 vial SQ ACHS TED; Protocol Last Admin: 11/18/19 17:00 Dose: 2 units Mupirocin (Bactroban 2% Cream -) 1 applic TP BID [facility] - Objective Vital Signs: Vital Signs Temperature 98 F 11/18/19 18:00 Pulse Rate 62 11/18/19 18:00 Respiratory Rate 18 11/18/19 18:00 Blood Pressure 98/46 L 11/18/19 18:00 O2 Sat by Pulse Oximetry (%) 100 11/18/19 19:13 Constitutional: Yes: Calm Eyes: Yes: Conjunctiva Clear HENT: Yes: Atraumatic Neck: Yes: Supple Cardiovascular: Yes: S1, S2 Respiratory: Yes: Mechanically Ventilated Gastrointestinal: Yes: Normal Bowel Sounds, Soft Genitourinary: Yes: WNL Musculoskeletal: Yes: WNL Edema: No Neurological: Yes: Lethargy Labs: CBC, BMP 11/18/19 06:00 11/18/19 14:45 INR, PTT INR 1.02 (0.83-1.09) 11/17/19 06:00 Assessment/Plan Current Medications Generic Name Dose Route Start Last Admin Trade Name Freq PRN Reason Stop Dose Admin Albuterol Sulfate 1 amp 11/14/19 03:54 Ventolin 0.083% Nebulizer Soln - NEB Q4H PRN SHORT OF BREATH/WHEEZING Albuterol/Ipratropium 1 amp 11/14/19 08:00 11/18/19 15:50 Duoneb - NEB 1 amp RQID TED Administration Fludrocortisone Acetate 0.05 mg 11/15/19 10:00 11/18/19 11:01 Florinef - NGT 0.05 mg DAILY TED Administration Hydrocortisone Sodium Succinate 100 mg 11/14/19 12:00 11/18/19 17:48 Solu-Cortef - IVPB 100 mg Q8H-IV TED Administration Propofol 1,000,000 mcg in 100 mls @ 2.556 mls/hr 11/13/19 22:15 11/18/19 09: 00 Diprivan - IVPB 0 mcg/kg/min TITR TED 0 mls/hr Titration Protocol 5 MCG/KG/MIN Norepinephrine Bitartrate 4, 500 mls @ 37.5 mls/hr 11/17/19 11:15 11/18/19 16 :40 000 mcg/ Sodium Chloride IV 2 mcg/min TITR TED 15 mls/hr Administration Protocol 5 MCG/MIN Sodium Chloride 250 mls @ 3,000 mls/hr 11/18/19 10:52 Normal Saline - IV 11/19/19 10:51 PRN PRN Hypotension during Dialysis Sodium Chloride 250 mls @ 3,000 mls/hr 11/18/19 10:53 Normal Saline - IV 11/19/19 10:52 PRN PRN Hypotension during Dialysis Ceftriaxone Sodium 1 gm/ 50 mls @ 100 mls/hr 11/18/19 13:15 11/18/19 16:38 Dextrose IVPB 100 mls/hr DAILY TED Administration Protocol Insulin Aspart 1 vial 11/14/19 16:30 11/18/19 17:00 Novolog Vial Sliding Scale - SQ 2 units ACHS TED Administration Protocol Mupirocin 1 applic 11/18/19 22:00 Bactroban 2% Cream - TP BID TED Impression 1. ESRD 2. resp failure 3. PNA 4. copd 5. chf 6. sepsis 7. pulm effusion 8. hyponatremia Plan - HD today - monitor bp - pt remains hypotensive on pressors - cont abx - vent support - pressors to map of 65 - follow cultures - prognosis guarded - HD: TTS f180 3:30 DW 87 kg 2 k bath 2.5 ca, zyg408, na 137, access PC right chest
[2019-11-18] MEDS: MUPIROCIN CA 2% TOPICAL CREAM 15 GM TUBE TP SCH (22:00)
[2019-11-18 22:12] LABS: BLOOD UREA NITROGEN 48.9 mg/dL (7-18); CALCIUM 8.2 mg/dL (8.5-10.1); POTASSIUM 3.3 mmol/L (3.5-5.1)
[2019-11-19] MEDS: HYDROCORTISONE SOD SUCCINATE 100 MG/2 ML VIAL IVPB SCH ×3 (03:57→18:30)
[2019-11-19] MEDS ORDERED: SODIUM CHLORIDE 250 ML IV STA (04:28)
[2019-11-19 06:15] LABS: BASO % 0.3 % (0-2.0); HEMATOCRIT 34.1 % (35.4-49); LYMPH % 1.1 % (8-40); MCH 31.8 pg (25.7-33.7); MCHC 32.3 g/dl (32.0-35.9); MEAN CELL VOLUME 98.5 fl (80-96); MEAN PLT VOLUME 9.1 fl (7.5-11.1); MONO % 2.5 % (3.8-10.2); NEUT % 96.1 % (42.8-82.8); PLATELET COUNT 112 K/MM3 (134-434); RBC 3.46 M/mm3 (4.00-5.60); RDW 20.4 % (11.9-15.9); WHITE BLOOD COUNT 19.9 K/mm3 (4.0-10.0)
[2019-11-19 06:40] LABS: ALBUMIN 2.3 g/dl (3.4-5.0); BILIRUBIN,TOTAL 0.9 mg/dL (0.2-1); BLOOD UREA NITROGEN 51.2 mg/dL (7-18); CALCIUM 8.2 mg/dL (8.5-10.1); CREATININE 3.2 mg/dL (0.55-1.3); PHOSPHOROUS 3.4 mg/dL (2.5-4.9); POTASSIUM 3.2 mmol/L (3.5-5.1)
[2019-11-19] MEDS: INSULIN SLIDING SCALE (NOVOLOG) 1 VIAL SQ SCH ×4 (06:43→21:05)
[2019-11-19] MEDS ORDERED: POTASSIUM CHLORIDE 20 MEQ PREMIX IVPB 100 ML IVPB SCH (07:00)
[2019-11-19] MEDS: ALBUTEROL SO4 2.5/IPRATROPIUM 0.5 INH SOL 3 ML VIAL.NEB. NEB SCH ×4 (08:15→20:30)
[2019-11-19] MEDS ORDERED: cefTRIAXone SODIUM 1 GM VIAL ONE (09:11)
[2019-11-19] MEDS ORDERED: NOREPINEPHRINE BITARTRATE 4 MG/4 ML ML IV ONE ×2 (09:11→23:44)
[2019-11-19] MEDS ORDERED: DEXTROSE 5%-WATER - 50 ML IVPB ONE (09:12)
--- NOTE | 2019-11-19 09:21 | PN ---
Teaching Attending Note Name of Resident: Titi Olivas ATTENDING PHYSICIAN STATEMENT I saw and evaluated the patient. I reviewed the resident's note and discussed the case with the resident. I agree with the resident's findings and plan as documented. SUBJECTIVE: Patient seen and examined in the ICU. Sedated on AC Mode of vent, 40% FiO2. 10 mcq NE for hemodynamic support. WBC increasing. Intake & Output 11/16/19 11/17/19 11/18/19 11/19/19 23:59 23:59 23:59 23:59 Intake Total 2915.8 909 1781 1129 Output Total 3400 3000 Balance -484.2 909 -1219 1129 Weight 180 lb 184 lb 14.4 oz 183 lb 14.4 oz 179 lb 6.4 oz Last Vital Signs Temp Pulse Resp BP Pulse Ox 98.1 F 60 18 113/44 L 99 11/19/19 01:00 11/19/19 06:53 11/19/19 06:00 11/19/19 06:53 11/19/19 04:49 Active Medications Albuterol Sulfate (Ventolin 0.083% Nebulizer Soln -) 1 amp NEB Q4H PRN PRN Reason: SHORT OF BREATH/WHEEZING Albuterol/Ipratropium (Duoneb -) 1 amp NEB RQID TED Last Admin: 11/18/19 20:15 Dose: 1 amp Hydrocortisone Sodium Succinate (Solu-Cortef -) 50 mg IVPB Q8H-IV TED Propofol (Diprivan -) 1,000,000 mcg in 100 mls @ 2.556 mls/hr IVPB TITR TED; Protocol Last Titration: 11/18/19 20:00 Dose: 0 mcg/kg/min, 0 mls/hr Norepinephrine Bitartrate 4, (000 mcg/ Sodium Chloride) 500 mls @ 37.5 mls/hr IV TITR TED; Protocol Last Titration: 11/19/19 06:53 Dose: 10 mcg/min, 75 mls/hr Sodium Chloride (Normal Saline -) 250 mls @ 3,000 mls/hr IV PRN PRN PRN Reason: Hypotension during Dialysis Stop: 11/19/19 10:51 Sodium Chloride (Normal Saline -) 250 mls @ 3,000 mls/hr IV PRN PRN PRN Reason: Hypotension during Dialysis Stop: 11/19/19 10:52 Ceftriaxone Sodium 1 gm/ (Dextrose) 50 mls @ 100 mls/hr IVPB DAILY [facility]; Protocol Last Admin: 11/18/19 16:38 Dose: 100 mls/hr Potassium Chloride (Potassium Chloride 10 Meq Premix Ivpb -) 10 meq in 100 mls @ 100 mls/hr IVPB Q60M TED Stop: 11/19/19 12:14 Insulin Aspart (Novolog Vial Sliding Scale -) 1 vial SQ ACHS [facility]; Protocol Last Admin: 11/19/19 06:43 Dose: 4 units Mupirocin (Bactroban 2% Cream -) 1 applic TP BID TED Last Admin: 11/18/19 22:00 Dose: 1 applic Pantoprazole Sodium (Protonix Iv) 40 mg IVPUSH DAILY [facility] GENERAL: Intubated, sedated HEAD: Normal with no signs of trauma. EYES: (-) Icterus (-) Pallor EARS, NOSE, THROAT: ET Tube in place. LUNGS: Vented, bilateral coarse rhonchi, no wheeze. HEART: S1S2 ABDOMEN: Increased distention, more tense. No fluid wave shift. Hypoactive bowel sounds. UPPER EXTREMITIES: 2+ pulses, warm, well-perfused. No cyanosis. No clubbing. LOWER EXTREMITIES: Right BKA. Left foot cool to touch. Left heel has non purulent wound. No discharge noted. NEUROLOGICAL: Sleepy, non-focal SKIN:Chronic venous stasis changes in the left lower leg. Laboratory Results - last 24 hr 11/18/19 11/18/19 11/18/19 06:00 11:42 14:45 WBC RBC Hgb Hct MCV MCH MCHC RDW Plt Count MPV Absolute Neuts (auto) Neutrophils % Neutrophils % (Manual) 99.0 H Band Neutrophils % 0.0 Lymphocytes % Lymphocytes % (Manual) 0.0 L Monocytes % Monocytes % (Manual) 0 L D Eosinophils % Eosinophils % (Manual) 0.0 Basophils % Basophils % (Manual) 0.0 Myelocytes % (Man) 1 D Promyelocytes % (Man) 0 Blast Cells % (Manual) 0 Nucleated RBC % Metamyelocytes 0 Hypochromia 0 Platelet Estimate Decreased Polychromasia 1+ Anisocytosis 1+ Microcytosis 0 Macrocytosis 0 [place] Cells 1+ Fragmented RBCs 1+ Sodium 134 L Potassium 3.1 L Chloride 96 L Carbon Dioxide 29 Anion Gap 8 BUN 32.8 H Creatinine 2.2 H Est GFR (CKD-EPI)AfAm 32.29 Est GFR (CKD-EPI)NonAf 27.86 POC Glucometer 219 Random Glucose 145 H Calcium 8.5 Phosphorus Magnesium Total Bilirubin AST ALT Alkaline Phosphatase Total Protein Albumin 11/18/19 11/18/19 11/18/19 17:35 20:18 21:08 WBC RBC Hgb Hct MCV MCH MCHC RDW Plt Count MPV Absolute Neuts (auto) Neutrophils % Neutrophils % (Manual) Band Neutrophils % Lymphocytes % Lymphocytes % (Manual) Monocytes % Monocytes % (Manual) Eosinophils % Eosinophils % (Manual) Basophils % Basophils % (Manual) Myelocytes % (Man) Promyelocytes % (Man) Blast Cells % (Manual) Nucleated RBC % Metamyelocytes Hypochromia Platelet Estimate Polychromasia Anisocytosis Microcytosis Macrocytosis [place] Cells Fragmented RBCs Sodium 132 L Potassium 3.3 L Chloride 95 L Carbon Dioxide 26 Anion Gap 11 BUN 48.9 H Creatinine 3.0 H Est GFR (CKD-EPI)AfAm 22.19 Est GFR (CKD-EPI)NonAf 19.15 POC Glucometer 186 213 Random Glucose 205 H Calcium 8.2 L Phosphorus Magnesium Total Bilirubin AST ALT Alkaline Phosphatase Total Protein Albumin 11/19/19 11/19/19 11/19/19 05:40 05:44 06:00 WBC 19.9 H RBC 3.46 L Hgb 11.0 L Hct 34.1 L MCV 98.5 H MCH 31.8 MCHC 32.3 RDW 20.4 H Plt Count 112 L D MPV 9.1 Absolute Neuts (auto) 19.1 H Neutrophils % 96.1 H Neutrophils % (Manual) Band Neutrophils % Lymphocytes % 1.1 L D Lymphocytes % (Manual) Monocytes % 2.5 L Monocytes % (Manual) Eosinophils % 0.0 D Eosinophils % (Manual) Basophils % 0.3 Basophils % (Manual) Myelocytes % (Man) Promyelocytes % (Man) Blast Cells % (Manual) Nucleated RBC % 0 Metamyelocytes Hypochromia Platelet Estimate Polychromasia Anisocytosis Microcytosis Macrocytosis [place] Cells Fragmented RBCs Sodium 133 L Potassium 3.2 L Chloride 94 L Carbon Dioxide 27 Anion Gap 13 BUN 51.2 H Creatinine 3.2 H Est GFR (CKD-EPI)AfAm 20.53 Est GFR (CKD-EPI)NonAf 17.71 POC Glucometer 211 Random Glucose 210 H Calcium 8.2 L Phosphorus 3.4 Magnesium 2.0 Total Bilirubin 0.9 AST 21 ALT 22 Alkaline Phosphatase 147 H Total Protein 6.0 L Albumin 2.3 L ASSESSMENT/PLAN: Acute Respiratory Acute due to RLL PNA COPD ESRD on HD CHF SAVANA R/O Seizure Septic Shock (?) Cirrhosis PAD Demand Ischemia Chronic loculated RLL effusion Hyponatremia CT Ab/Plevis Follow Sodium level Wean pressors Hydrocortisone & Fludrocortisone Strict I & O ABX per ID HD per Renal BD TX VTE prophylaxis Enteral feeds Wean trials as tolerated Requires ICU monitoring Dr Barnard Critical care time spent in reviewing chart, evaluating patient and formulating plan - 36 minutes.
[2019-11-19] MEDS: NOREPINEPHRINE BITARTRATE 4,000 MCG in SODIUM CHLORIDE 496 ML IV SCH (10:24)
[2019-11-19] MEDS: PANTOPRAZOLE SODIUM 40 MG VIAL IVPUSH SCH (10:27)
[2019-11-19] MEDS: CEFTRIAXONE 1 GM in DEXTROSE 5%-WATER - 50 ML IVPB SCH (10:27)
[2019-11-19] MEDS: KCL 10 MEQ IVPB 10 MEQ/100 ML INFUS.BAG IVPB SCH ×3 (10:28→13:00)
--- NOTE | 2019-11-19 10:32 | PN ---
Progress Note (short form) - Note Progress Note: s: intubated, opens eyes to voice Current Medications Albuterol Sulfate (Ventolin 0.083% Nebulizer Soln -) 1 amp NEB Q4H PRN PRN Reason: SHORT OF BREATH/WHEEZING Albuterol/Ipratropium (Duoneb -) 1 amp NEB RQID TED Last Admin: 11/18/19 20:15 Dose: 1 amp Hydrocortisone Sodium Succinate (Solu-Cortef -) 50 mg IVPB Q8H-IV TED Propofol (Diprivan -) 1,000,000 mcg in 100 mls @ 2.556 mls/hr IVPB TITR TED; Protocol Last Titration: 11/18/19 20:00 Dose: 0 mcg/kg/min, 0 mls/hr Norepinephrine Bitartrate 4, (000 mcg/ Sodium Chloride) 500 mls @ 37.5 mls/hr IV TITR TED; Protocol Last Titration: 11/19/19 06:53 Dose: 10 mcg/min, 75 mls/hr Sodium Chloride (Normal Saline -) 250 mls @ 3,000 mls/hr IV PRN PRN PRN Reason: Hypotension during Dialysis Stop: 11/19/19 10:51 Sodium Chloride (Normal Saline -) 250 mls @ 3,000 mls/hr IV PRN PRN PRN Reason: Hypotension during Dialysis Stop: 11/19/19 10:52 Ceftriaxone Sodium 1 gm/ (Dextrose) 50 mls @ 100 mls/hr IVPB DAILY [facility]; Protocol Last Admin: 11/18/19 16:38 Dose: 100 mls/hr Potassium Chloride (Potassium Chloride 10 Meq Premix Ivpb -) 10 meq in 100 mls @ 100 mls/hr IVPB Q60M [facility] Stop: 11/19/19 12:14 Insulin Aspart (Novolog Vial Sliding Scale -) 1 vial SQ ACHS [facility]; Protocol Last Admin: 11/19/19 06:43 Dose: 4 units Mupirocin (Bactroban 2% Cream -) 1 applic TP BID [facility] Last Admin: 11/18/19 22:00 Dose: 1 applic Pantoprazole Sodium (Protonix Iv) 40 mg IVPUSH DAILY [facility] Vital Signs Period Temp Pulse Resp BP Sys/Armando Pulse Ox Last 24 Hr 97.5 F-98.3 F 60-79 14-28 81-122/44-53 97-100 Constitutional: Yes: Well Nourished, No Distress, Calm Cardiovascular: Yes: Regular Rate and Rhythm, S1, S2. No: Gallop, Murmur Respiratory: Yes: Regular, CTA Bilaterally. No: Accessory Muscle Use, Rales, Wheezes Extremities: No: Cold Edema: No (s/p R AKA) Neurological: Yes: Alert. No: Seizure Psychiatric: No: Agitated no jaundice, diaphoresis Assessment/Plan tele: AF, V-P IMP: Acute respiratory failure secondary to RLL PNA w/loculated pleural effusion Sepsis secondary to above ESRD on HD Hyponatremia Chronic COPD CAD s/p PCI Right sided CHF with severe PHTN, RV dilatation and RV dysfunction (chronic per son report). nl LVEF Pacemaker Underlying AFib/flutter Recent reported GIB (no endoscopic evaluation) REC: - wean pressors as tolerated per critical care for MAP 60mmHg - Vent support, per ICU team - HD/UF per renal - Abx as per PMD, Critical Care and ID - Borderline/flat TnI likely due to demand ischemia/sepsis. - Echo with RV dilatation and RV dysfx, severe PHTN- chronic per son. May be due to chronic COPD, and acutely worsened in setting of PNA/hypoxia. LE venous duplex r/o DVT pending . ?CTEPH - Underlying AF-holding AC in setting recent unexplored GIB/ low platelets ( sepsis/ possible abx effect). Risks> benefits at this time. no tachycardia (V- paced--? PM dependent)
[2019-11-19 10:47] LABS: ANISOCYTOSIS 2+; MACROCYTOSIS 0; OVALOCYTE 1+; PLATELET ESTIMATE DECREASED; TEAR DROP CELLS 1+; TOXIC GRANULATION 1+
--- NOTE | 2019-11-19 10:48 | PN ---
Progress Note (short form) - Note Progress Note: Events noted Pt intubated in ICU failed weaning Vital Signs - 24 hr 11/18/19 11/18/19 11/18/19 11:00 11:25 11:30 Temperature 97.5 F L Pulse Rate 60 60 60 Respiratory 17 22 H 18 Rate Blood Pressure 90/51 L 96/51 L 81/47 L O2 Sat by Pulse 97 Oximetry (%) 11/18/19 11/18/19 11/18/19 11:46 12:00 12:10 Temperature Pulse Rate 60 61 Respiratory 21 H 24 H Rate Blood Pressure 81/47 L 91/49 L O2 Sat by Pulse 100 Oximetry (%) 11/18/19 11/18/19 11/18/19 12:30 13:00 13:30 Temperature Pulse Rate 60 60 60 Respiratory 19 17 19 Rate Blood Pressure 91/49 L 90/51 L 96/51 L O2 Sat by Pulse Oximetry (%) 11/18/19 11/18/19 11/18/19 14:00 14:30 14:35 Temperature 97.8 F Pulse Rate 60 60 60 Respiratory 17 19 20 Rate Blood Pressure 88/49 L 105/51 L 107/53 L O2 Sat by Pulse Oximetry (%) 11/18/19 11/18/19 11/18/19 16:00 16:22 16:23 Temperature Pulse Rate 60 79 Respiratory 18 15 Rate Blood Pressure 94/47 L O2 Sat by Pulse 98 Oximetry (%) 11/18/19 11/18/19 11/18/19 16:40 18:00 19:13 Temperature 98 F Pulse Rate 60 62 Respiratory 18 Rate Blood Pressure 97/47 L 98/46 L O2 Sat by Pulse 100 Oximetry (%) 11/18/19 11/18/19 11/18/19 20:00 20:16 20:20 Temperature 98.2 F 98.0 F Pulse Rate 60 60 60 Respiratory 20 20 16 Rate Blood Pressure 98/49 L O2 Sat by Pulse 98 Oximetry (%) 11/18/19 11/18/19 11/18/19 20:30 21:00 22:00 Temperature 98.3 F Pulse Rate 60 60 60 Respiratory 23 H 25 H Rate Blood Pressure 104/50 L 104/50 L 96/45 L O2 Sat by Pulse 98 Oximetry (%) 11/18/19 11/18/19 11/19/19 22:30 23:00 00:15 Temperature Pulse Rate 60 60 Respiratory 19 18 Rate Blood Pressure 102/47 L 109/51 L O2 Sat by Pulse Oximetry (%) 11/19/19 11/19/19 11/19/19 01:00 03:00 04:00 Temperature 98.1 F Pulse Rate 60 60 60 Respiratory 21 H 15 15 Rate Blood Pressure 115/46 L 117/45 L 118/47 L O2 Sat by Pulse Oximetry (%) 11/19/19 11/19/19 11/19/19 04:15 04:49 05:00 Temperature Pulse Rate 62 60 Respiratory 15 28 H Rate Blood Pressure 121/48 L O2 Sat by Pulse 99 Oximetry (%) 11/19/19 11/19/19 11/19/19 06:00 06:53 08:00 Temperature Pulse Rate 63 60 60 Respiratory 18 14 Rate Blood Pressure 122/52 L 113/44 L 108/45 L O2 Sat by Pulse Oximetry (%) 11/19/19 11/19/19 08:15 10:24 Temperature Pulse Rate 60 60 Respiratory 14 Rate Blood Pressure 104/41 L O2 Sat by Pulse 100 Oximetry (%) Current Medications Generic Name Dose Route Start Last Admin Trade Name Freq PRN Reason Stop Dose Admin Albuterol Sulfate 1 amp 11/14/19 03:54 Ventolin 0.083% Nebulizer Soln - NEB Q4H PRN SHORT OF BREATH/WHEEZING Albuterol/Ipratropium 1 amp 11/14/19 08:00 11/19/19 08:15 Duoneb - NEB 1 amp RQID TED Administration Hydrocortisone Sodium Succinate 50 mg 11/19/19 05:05 11/19/19 10:27 Solu-Cortef - IVPB 50 mg Q8H-IV TED Administration Propofol 1,000,000 mcg in 100 mls @ 2.556 mls/hr 11/13/19 22:15 11/18/19 20: 00 Diprivan - IVPB 0 mcg/kg/min TITR TED 0 mls/hr Titration Protocol 5 MCG/KG/MIN Norepinephrine Bitartrate 4, 500 mls @ 37.5 mls/hr 11/17/19 11:15 11/19/19 10 :24 000 mcg/ Sodium Chloride IV 8 mcg/min TITR TED 60 mls/hr Administration Protocol 5 MCG/MIN Ceftriaxone Sodium 1 gm/ 50 mls @ 100 mls/hr 11/18/19 13:15 11/19/19 10:27 Dextrose IVPB 100 mls/hr DAILY TED Administration Protocol Potassium Chloride 10 meq in 100 mls @ 100 mls/hr 11/19/19 09:15 11/19/19 10: 28 Potassium Chloride 10 Meq Premix Ivpb - IVPB 11/19/19 12:14 100 mls/hr Q60M TED Administration Insulin Aspart 1 vial 11/14/19 16:30 11/19/19 06:43 Novolog Vial Sliding Scale - SQ 4 units ACHS TED Administration Protocol Mupirocin 1 applic 11/18/19 22:00 11/18/19 22:00 Bactroban 2% Cream - TP 1 applic BID TED Administration Pantoprazole Sodium 40 mg 11/19/19 10:00 11/19/19 10:27 Protonix Iv IVPUSH 40 mg DAILY TED Administration Laboratory Results - last 24 hr 11/18/19 11/18/19 11/18/19 11:42 14:45 17:35 WBC RBC Hgb Hct MCV MCH MCHC RDW Plt Count MPV Absolute Neuts (auto) Neutrophils % Lymphocytes % Monocytes % Eosinophils % Basophils % Nucleated RBC % Sodium 134 L Potassium 3.1 L Chloride 96 L Carbon Dioxide 29 Anion Gap 8 BUN 32.8 H Creatinine 2.2 H Est GFR (CKD-EPI)AfAm 32.29 Est GFR (CKD-EPI)NonAf 27.86 POC Glucometer 219 186 Random Glucose 145 H Calcium 8.5 Phosphorus Magnesium Total Bilirubin AST ALT Alkaline Phosphatase Total Protein Albumin 11/18/19 11/18/19 11/19/19 20:18 21:08 05:40 WBC 19.9 H RBC 3.46 L Hgb 11.0 L Hct 34.1 L MCV 98.5 H MCH 31.8 MCHC 32.3 RDW 20.4 H Plt Count 112 L D MPV 9.1 Absolute Neuts (auto) 19.1 H Neutrophils % 96.1 H Lymphocytes % 1.1 L D Monocytes % 2.5 L Eosinophils % 0.0 D Basophils % 0.3 Nucleated RBC % 0 Sodium 132 L Potassium 3.3 L Chloride 95 L Carbon Dioxide 26 Anion Gap 11 BUN 48.9 H Creatinine 3.0 H Est GFR (CKD-EPI)AfAm 22.19 Est GFR (CKD-EPI)NonAf 19.15 POC Glucometer 213 Random Glucose 205 H Calcium 8.2 L Phosphorus Magnesium Total Bilirubin AST ALT Alkaline Phosphatase Total Protein Albumin 11/19/19 11/19/19 05:44 06:00 WBC RBC Hgb Hct MCV MCH MCHC RDW Plt Count MPV Absolute Neuts (auto) Neutrophils % Lymphocytes % Monocytes % Eosinophils % Basophils % Nucleated RBC % Sodium 133 L Potassium 3.2 L Chloride 94 L Carbon Dioxide 27 Anion Gap 13 BUN 51.2 H Creatinine 3.2 H Est GFR (CKD-EPI)AfAm 20.53 Est GFR (CKD-EPI)NonAf 17.71 POC Glucometer 211 Random Glucose 210 H Calcium 8.2 L Phosphorus 3.4 Magnesium 2.0 Total Bilirubin 0.9 AST 21 ALT 22 Alkaline Phosphatase 147 H Total Protein 6.0 L Albumin 2.3 L cxr - No change Physical Constitutional: Yes: Other (Intubated) NGT + Eyes: Yes: Conjunctiva Clear Neck: Yes: Supple. Central line + Cardiovascular: Yes: Regular Rate and Rhythm Respiratory: Yes: Diminished Gastrointestinal: Yes: Soft, tender ++ Genitourinary: Yes: [place] Removed Extremities: Yes: Amputation (s/p right aka) Edema: No Integumentary: No: Other Wound/Incision: Yes: Other (Left heel ulcer)-- Dressing + Neurological: Yes: Other (sedated) Additional Findings/Remarks: - ....Imaging Chest X-ray: Report Reviewed Cat Scan: Report Reviewed Echo-- Reviewed Assessment/Plan In summary Pt 79yr old gentleman with extensive PMHx of CAD , s/p multivessel PCI (> 1 year ago), CHF , PPM, AF,COPD, ESRD-HD. Has been in and out of hospital since July with COPD/ infections/ CKD and recently had a possible GIB at [place]- no endoscopic evaluation. Transferred from [facility] for short term rehab and was transferred here for resp distress. Admitted to ICU / Intubated for Respiratory failure and Pneumonia. Pt was admitted to [facility] from [facility] Remains critically ill Continue present care Abx Vent support Taper pressors as tolerated ct abd/pelvis ordered spoke with ICU team Surgical eval for abd pain Dialysis yesterday D/W RN also Platelets low--hold off Heparin CC time approx 35 min Problem List - Problems (1) CAD (coronary artery disease) Code(s): I25.10 - ATHSCL HEART DISEASE OF [place] CORONARY ARTERY W/O ANG PCTRS (2) COPD (chronic obstructive pulmonary disease) Code(s): J44.9 - CHRONIC OBSTRUCTIVE PULMONARY DISEASE, UNSPECIFIED Qualifiers: COPD type: unspecified COPD Qualified Code(s): J44.9 - Chronic obstructive pulmonary disease, unspecified (3) Elevated troponin Code(s): R79.89 - OTHER SPECIFIED ABNORMAL FINDINGS OF BLOOD CHEMISTRY (4) PVD (peripheral vascular disease) Code(s): I73.9 - PERIPHERAL VASCULAR DISEASE, UNSPECIFIED (5) Respiratory failure Code(s): J96.90 - RESPIRATORY FAILURE, UNSP, UNSP W HYPOXIA OR HYPERCAPNIA (6) Thrombocytopenia Code(s): D69.6 - THROMBOCYTOPENIA, UNSPECIFIED
--- NOTE | 2019-11-19 11:26 | PN ---
Progress Note, Physician History of Present Illness: Pt seen and examined at bedside. He remains in ICU. He remains intubated. - Current Medication List Current Medications: Active Medications Albuterol Sulfate (Ventolin 0.083% Nebulizer Soln -) 1 amp NEB Q4H PRN PRN Reason: SHORT OF BREATH/WHEEZING Albuterol/Ipratropium (Duoneb -) 1 amp NEB RQID TED Last Admin: 11/19/19 08:15 Dose: 1 amp Hydrocortisone Sodium Succinate (Solu-Cortef -) 50 mg IVPB Q8H-IV TED Last Admin: 11/19/19 10:27 Dose: 50 mg Propofol (Diprivan -) 1,000,000 mcg in 100 mls @ 2.556 mls/hr IVPB TITR [facility]; Protocol Last Titration: 11/18/19 20:00 Dose: 0 mcg/kg/min, 0 mls/hr Norepinephrine Bitartrate 4, (000 mcg/ Sodium Chloride) 500 mls @ 37.5 mls/hr IV TITR TED; Protocol Last Admin: 11/19/19 10:24 Dose: 8 mcg/min, 60 mls/hr Ceftriaxone Sodium 1 gm/ (Dextrose) 50 mls @ 100 mls/hr IVPB DAILY TED; Protocol Last Admin: 11/19/19 10:27 Dose: 100 mls/hr Potassium Chloride (Potassium Chloride 10 Meq Premix Ivpb -) 10 meq in 100 mls @ 100 mls/hr IVPB Q60M TED Stop: 11/19/19 12:14 Last Admin: 11/19/19 10:28 Dose: 100 mls/hr Insulin Aspart (Novolog Vial Sliding Scale -) 1 vial SQ ACHS TED; Protocol Last Admin: 11/19/19 06:43 Dose: 4 units Mupirocin (Bactroban 2% Cream -) 1 applic TP BID TED Last Admin: 11/18/19 22:00 Dose: 1 applic Pantoprazole Sodium (Protonix Iv) 40 mg IVPUSH DAILY TED Last Admin: 11/19/19 10:27 Dose: 40 mg - Objective Vital Signs: Vital Signs Temperature 98.1 F 11/19/19 01:00 Pulse Rate 60 11/19/19 10:24 Respiratory Rate 14 11/19/19 08:15 Blood Pressure 104/41 L 11/19/19 10:24 O2 Sat by Pulse Oximetry (%) 100 11/19/19 08:15 Constitutional: Yes: Calm Eyes: Yes: Conjunctiva Clear HENT: Yes: Atraumatic Neck: Yes: Supple Cardiovascular: Yes: S1, S2 Respiratory: Yes: Mechanically Ventilated Gastrointestinal: Yes: Soft Genitourinary: Yes: Incontinence Extremities: Yes: Other (right bka) Neurological: Yes: Lethargy Labs: CBC, BMP 11/19/19 05:40 11/19/19 06:00 INR, PTT INR 1.02 (0.83-1.09) 11/17/19 06:00 Assessment/Plan Current Medications Generic Name Dose Route Start Last Admin Trade Name Freq PRN Reason Stop Dose Admin Albuterol Sulfate 1 amp 11/14/19 03:54 Ventolin 0.083% Nebulizer Soln - NEB Q4H PRN SHORT OF BREATH/WHEEZING Albuterol/Ipratropium 1 amp 11/14/19 08:00 11/19/19 08:15 Duoneb - NEB 1 amp RQID TED Administration Hydrocortisone Sodium Succinate 50 mg 11/19/19 05:05 11/19/19 10:27 Solu-Cortef - IVPB 50 mg Q8H-IV TED Administration Propofol 1,000,000 mcg in 100 mls @ 2.556 mls/hr 11/13/19 22:15 11/18/19 20: 00 Diprivan - IVPB 0 mcg/kg/min TITR TED 0 mls/hr Titration Protocol 5 MCG/KG/MIN Norepinephrine Bitartrate 4, 500 mls @ 37.5 mls/hr 11/17/19 11:15 11/19/19 10 :24 000 mcg/ Sodium Chloride IV 8 mcg/min TITR TED 60 mls/hr Administration Protocol 5 MCG/MIN Ceftriaxone Sodium 1 gm/ 50 mls @ 100 mls/hr 11/18/19 13:15 11/19/19 10:27 Dextrose IVPB 100 mls/hr DAILY TED Administration Protocol Potassium Chloride 10 meq in 100 mls @ 100 mls/hr 11/19/19 09:15 11/19/19 10: 28 Potassium Chloride 10 Meq Premix Ivpb - IVPB 11/19/19 12:14 100 mls/hr Q60M TED Administration Insulin Aspart 1 vial 11/14/19 16:30 11/19/19 06:43 Novolog Vial Sliding Scale - SQ 4 units ACHS TED Administration Protocol Mupirocin 1 applic 11/18/19 22:00 11/18/19 22:00 Bactroban 2% Cream - TP 1 applic BID TED Administration Pantoprazole Sodium 40 mg 11/19/19 10:00 11/19/19 10:27 Protonix Iv IVPUSH 40 mg DAILY TED Administration Impression 1. ESRD 2. resp failure 3. PNA 4. copd 5. chf 6. sepsis 7. pulm effusion 8. hyponatremia Plan - HD tomorrow - monitor lytes - vent support - pressors to map of 65 - prognosis guarded - HD: TTS f180 3:30 DW 87 kg 2 k bath 2.5 ca, [id number], na 137, access PC right chest
[2019-11-19] MEDS: MUPIROCIN CA 2% TOPICAL CREAM 15 GM TUBE TP SCH ×2 (12:00→21:06)
--- NOTE | 2019-11-19 12:14 | PN ---
Progress Note, Physician - Current Medication List Current Medications: Active Medications Albumin Human (Albumin Human 25%) 12.5 gm IVPB Q30M TED Albuterol Sulfate (Ventolin 0.083% Nebulizer Soln -) 1 amp NEB Q4H PRN PRN Reason: SHORT OF BREATH/WHEEZING Albuterol/Ipratropium (Duoneb -) 1 amp NEB RQID TED Last Admin: 11/19/19 08:15 Dose: 1 amp Hydrocortisone Sodium Succinate (Solu-Cortef -) 50 mg IVPB Q8H-IV TED Last Admin: 11/19/19 10:27 Dose: 50 mg Propofol (Diprivan -) 1,000,000 mcg in 100 mls @ 2.556 mls/hr IVPB TITR TED; Protocol Last Titration: 11/18/19 20:00 Dose: 0 mcg/kg/min, 0 mls/hr Norepinephrine Bitartrate 4, (000 mcg/ Sodium Chloride) 500 mls @ 37.5 mls/hr IV TITR TED; Protocol Last Admin: 11/19/19 10:24 Dose: 8 mcg/min, 60 mls/hr Ceftriaxone Sodium 1 gm/ (Dextrose) 50 mls @ 100 mls/hr IVPB DAILY TED; Protocol Last Admin: 11/19/19 10:27 Dose: 100 mls/hr Sodium Chloride (Normal Saline -) 250 mls @ 3,000 mls/hr IV PRN PRN PRN Reason: Hypotension during Dialysis Stop: 11/20/19 11:26 Insulin Aspart (Novolog Vial Sliding Scale -) 1 vial SQ ACHS TED; Protocol Last Admin: 11/19/19 06:43 Dose: 4 units Mupirocin (Bactroban 2% Cream -) 1 applic TP BID TED Last Admin: 11/18/19 22:00 Dose: 1 applic Pantoprazole Sodium (Protonix Iv) 40 mg IVPUSH DAILY TED Last Admin: 11/19/19 10:27 Dose: 40 mg - Objective Vital Signs: Vital Signs Temperature 98.1 F 11/19/19 01:00 Pulse Rate 60 11/19/19 10:24 Respiratory Rate 14 11/19/19 08:15 Blood Pressure 104/41 L 11/19/19 10:24 O2 Sat by Pulse Oximetry (%) 100 11/19/19 08:15 Labs: CBC, BMP 11/19/19 05:40 11/19/19 06:00 INR, PTT INR 1.02 (0.83-1.09) 11/17/19 06:00
--- NOTE | 2019-11-19 12:55 | CONSULT ---
Consult Consult Specialty:: surgery Reason for Consultation:: Abdominal pain - History of Present Illness History of Present Illness: 79yr old gentleman with extensive PMHx of CAD , s/p multivessel PCI (> 1 year ago), CHF , PPM, AF,COPD, ESRD-HD. Has been in and out of hospital since July with COPD/ infections/ CKD and recently had a possible GIB at [place]- no endoscopic evaluation. Transferred from rehab and was transferred here for resp distress. Admitted to ICU / Intubated for Respiratory failure and Pneumonia. Over the last 24 horus has developed Abdominal pain and elevated WBC - Past Medical History Cardio/Vascular: Yes: HTN, Other (ASHD) Pulmonary: Yes: COPD, Sleep Apnea Gastrointestinal: Yes: GERD, Other (recent GIB) Renal/: Yes: Renal Failure, Hemodialysis Dermatology: Yes: Other (Pressure Ulcer- L- Heel) - Alcohol/Substance Use Hx Alcohol Use: No - Smoking History Smoking history: Unknown if ever smoked Have you smoked in the past 12 months: No - Social History Usual Living Arrangement: With Spouse History of Recent Travel: No Home Medications - Allergies Allergies/Adverse Reactions: Allergies Allergy/AdvReac Type Severity Reaction Status Date / Time No Known Allergies Allergy Verified 11/13/19 22:17 - Home Medications Home Medications: Ambulatory Orders Aspirin 81 mg PO 11/14/19 Budesonide/Formeterol Fumarate [SYMBICORT 160/4.5mcg -] 1 puff IH BID 11/14/19 Calcitriol [Rocaltrol -] 0.25 mcg PO DAILY 11/14/19 Docusate Sodium [Colace] 100 mg PO BID PRN 11/14/19 Furosemide [Lasix] 40 mg PO DAILY 11/14/19 Glipizide 5 mg PO DAILY 11/14/19 Iron Polysaccharide Complex [Polysaccharide Iron] 150 mg PO DAILY 11/14/19 Iron Ps Complex/B12/Folic Acid [Ferrex 150 Forte Capsule] 150 mg PO DAILY Lisinopril 10 mg PO DAILY 11/14/19 Metoprolol Tartrate 25 mg PO DAILY 11/14/19 Mirabegron [Myrbetriq] 50 mg PO DAILY 11/14/19 Nitroglycerin [Nitrostat] 0.4 mg SL PRN PRN 11/14/19 Omeprazole Magnesium [Prilosec Otc] 20 mg PO DAILY 11/14/19 Oxybutynin Chloride [Ditropan Xl] 5 mg PO DAILY 11/14/19 Simvastatin 40 mg PO HS 11/14/19 Physical Exam Vital Signs: Vital Signs Temperature 98.1 F 11/19/19 01:00 Pulse Rate 60 11/19/19 10:24 Respiratory Rate 14 11/19/19 08:15 Blood Pressure 104/41 L 11/19/19 10:24 O2 Sat by Pulse Oximetry (%) 100 11/19/19 08:15 Gastrointestinal: Yes: Other (soft , mildly distended, with a chronically incarcerated umbilical hernia, bilateral lower quadrant tenderness with some grimacing, minimal guarding) Labs: CBC, BMP 11/19/19 05:40 11/19/19 06:00 Problem List - Problems (1) CAD (coronary artery disease) Code(s): I25.10 - ATHSCL HEART DISEASE OF [place] CORONARY ARTERY W/O ANG PCTRS (2) PVD (peripheral vascular disease) Code(s): I73.9 - PERIPHERAL VASCULAR DISEASE, UNSPECIFIED (3) Respiratory failure Code(s): J96.90 - RESPIRATORY FAILURE, UNSP, UNSP W HYPOXIA OR HYPERCAPNIA (4) Thrombocytopenia Code(s): D69.6 - THROMBOCYTOPENIA, UNSPECIFIED Assessment/Plan 79 yr old with multiple med problems including CAD ESRD,afib respiratory failure with new onset of abdominal pain and rising WBC Agree with imaging CT . Concerned for ischemia, please order lactate and will follow up on results of CT
--- NOTE | 2019-11-19 16:02 | PN ---
Physical Exam: SUBJECTIVE: Patient seen and examined in the morning. Patient began returning brown fluid on NGT suction overnight. Patient sedated and intubated. OBJECTIVE: Vital Signs Period Temp Pulse Resp BP Sys/Armando Pulse Ox Last 24 Hr 98 F-98.3 F 60-79 12 94-122/41-53 98-100 GENERAL: The patient is sedated and intubated. HEAD: Normal with no signs of trauma. ET tube in place. EYES: PERRLA NECK: Central line in place, left side. LUNGS: Breath sounds equal, clear to auscultation bilaterally, no wheezes, no crackles, no accessory muscle use. HEART: Regular rate and rhythm, S1, S2 without murmur, rub or gallop. ABDOMEN: Soft, nontender to palpation on sedation. Hypoactive bowel sounds. EXTREMITIES: Left leg has venous stasis changes, right leg aka. Edema present. Weeping arms. NEUROLOGICAL: Sedated. Laboratory Results - last 24 hr 11/18/19 11/18/19 11/18/19 17:35 20:18 21:08 WBC RBC Hgb Hct MCV MCH MCHC RDW Plt Count MPV Absolute Neuts (auto) Neutrophils % Neutrophils % (Manual) Band Neutrophils % Lymphocytes % Lymphocytes % (Manual) Monocytes % Monocytes % (Manual) Eosinophils % Eosinophils % (Manual) Basophils % Basophils % (Manual) Myelocytes % (Man) Promyelocytes % (Man) Blast Cells % (Manual) Nucleated RBC % Metamyelocytes Hypochromia Toxic Granulation Platelet Estimate Polychromasia Poikilocytosis Anisocytosis Microcytosis Macrocytosis Spherocytes Tear Drop Cells Ovalocytes [place] Cells Schistocytes Sodium 132 L Potassium 3.3 L Chloride 95 L Carbon Dioxide 26 Anion Gap 11 BUN 48.9 H Creatinine 3.0 H Est GFR (CKD-EPI)AfAm 22.19 Est GFR (CKD-EPI)NonAf 19.15 POC Glucometer 186 213 Random Glucose 205 H Calcium 8.2 L Phosphorus Magnesium Total Bilirubin AST ALT Alkaline Phosphatase Total Protein Albumin 11/19/19 11/19/19 11/19/19 05:40 05:44 06:00 WBC 19.9 H RBC 3.46 L Hgb 11.0 L Hct 34.1 L MCV 98.5 H MCH 31.8 MCHC 32.3 RDW 20.4 H Plt Count 112 L D MPV 9.1 Absolute Neuts (auto) 19.1 H Neutrophils % 96.1 H Neutrophils % (Manual) 95.0 H Band Neutrophils % 0.0 Lymphocytes % 1.1 L D Lymphocytes % (Manual) 0.0 L Monocytes % 2.5 L Monocytes % (Manual) 4 D Eosinophils % 0.0 D Eosinophils % (Manual) 0.0 Basophils % 0.3 Basophils % (Manual) 0.0 Myelocytes % (Man) 0 D Promyelocytes % (Man) 0 Blast Cells % (Manual) 0 Nucleated RBC % 0 Metamyelocytes 0 Hypochromia 0 Toxic Granulation 1+ Platelet Estimate Decreased Polychromasia 1+ Poikilocytosis 1+ Anisocytosis 2+ Microcytosis 1+ Macrocytosis 0 Spherocytes 1+ Tear Drop Cells 1+ Ovalocytes 1+ [place] Cells 1+ Schistocytes 1+ Sodium 133 L Potassium 3.2 L Chloride 94 L Carbon Dioxide 27 Anion Gap 13 BUN 51.2 H Creatinine 3.2 H Est GFR (CKD-EPI)AfAm 20.53 Est GFR (CKD-EPI)NonAf 17.71 POC Glucometer 211 Random Glucose 210 H Calcium 8.2 L Phosphorus 3.4 Magnesium 2.0 Total Bilirubin 0.9 AST 21 ALT 22 Alkaline Phosphatase 147 H Total Protein 6.0 L Albumin 2.3 L 11/19/19 14:18 WBC RBC Hgb Hct MCV MCH MCHC RDW Plt Count MPV Absolute Neuts (auto) Neutrophils % Neutrophils % (Manual) Band Neutrophils % Lymphocytes % Lymphocytes % (Manual) Monocytes % Monocytes % (Manual) Eosinophils % Eosinophils % (Manual) Basophils % Basophils % (Manual) Myelocytes % (Man) Promyelocytes % (Man) Blast Cells % (Manual) Nucleated RBC % Metamyelocytes Hypochromia Toxic Granulation Platelet Estimate Polychromasia Poikilocytosis Anisocytosis Microcytosis Macrocytosis Spherocytes Tear Drop Cells Ovalocytes [place] Cells Schistocytes Sodium Potassium Chloride Carbon Dioxide Anion Gap BUN Creatinine Est GFR (CKD-EPI)AfAm Est GFR (CKD-EPI)NonAf POC Glucometer 306 Random Glucose Calcium Phosphorus Magnesium Total Bilirubin AST ALT Alkaline Phosphatase Total Protein Albumin Active Medications Generic Name Dose Route Start Last Admin Trade Name Freq PRN Reason Stop Dose Admin Albumin Human 12.5 gm 11/20/19 11:30 Albumin Human 25% IVPB Q30M TED Albuterol Sulfate 1 amp 11/14/19 03:54 Ventolin 0.083% Nebulizer Soln - NEB Q4H PRN SHORT OF BREATH/WHEEZING Albuterol/Ipratropium 1 amp 11/14/19 08:00 11/19/19 12:00 Duoneb - NEB 1 amp RQID TED Administration Hydrocortisone Sodium Succinate 50 mg 11/19/19 05:05 11/19/19 10:27 Solu-Cortef - IVPB 50 mg Q8H-IV TED Administration Propofol 1,000,000 mcg in 100 mls @ 2.556 mls/hr 11/13/19 22:15 11/18/19 20: 00 Diprivan - IVPB 0 mcg/kg/min TITR TED 0 mls/hr Titration Protocol 5 MCG/KG/MIN Norepinephrine Bitartrate 4, 500 mls @ 37.5 mls/hr 11/17/19 11:15 11/19/19 10 :24 000 mcg/ Sodium Chloride IV 8 mcg/min TITR TED 60 mls/hr Administration Protocol 5 MCG/MIN Ceftriaxone Sodium 1 gm/ 50 mls @ 100 mls/hr 11/18/19 13:15 11/19/19 10:27 Dextrose IVPB 100 mls/hr DAILY TED Administration Protocol Sodium Chloride 250 mls @ 3,000 mls/hr 11/19/19 11:26 Normal Saline - IV 11/20/19 11:26 PRN PRN Hypotension during Dialysis Insulin Aspart 1 vial 11/14/19 16:30 11/19/19 06:43 Novolog Vial Sliding Scale - SQ 4 units ACHS TED Administration Protocol Mupirocin 1 applic 11/18/19 22:00 11/18/19 22:00 Bactroban 2% Cream - TP 1 applic BID TED Administration Pantoprazole Sodium 40 mg 11/19/19 10:00 11/19/19 10:27 Protonix Iv IVPUSH 40 mg DAILY TED Administration ASSESSMENT/PLAN: 79M PMH of COPD, ESRD on HD (T,,Sun),CHF s/p pacemaker, DM II, prostate cancer , venous stasis changes, constipation who presented with exacerbation of COPD likely secondary to PNA. [facility] found to be [facility]unded [facility] and was intubated in the ED. Neuro -Patient currently sedated on propofol -Sedation break given. patient was not able to stay on CPAP mode of ventilation for extended period of time -Continue to monitor Cardiovascular -Patient has hx of CHF -Patient was hypotensive refractory to fluid boluses. Will continue with levophed -Echo records obtained from [place]. EF of 70%, mild conc. lVH, diastolic filling pattern, RV mildly enlarged, RV severely imparied, LA dilated, RA mildly enlarged, AO valve sclerosis, aortic insufficiency. -Continous cardiac monitoring -Afib present,holding anticoagulation. -Continue hydro/fludro -Cardiology consulted, appreciate recs Pulmonary -Hx of COPD, SAVANA. -Chest x-ray shows RLL pleural effusions -Duonebs -Albuterol PRN -On vent: Vt: 500, RR: 14, Fio2: 40%, PEEP 5 GI -CT A/P shows ascites, diverticulosis, small umbilical R inguinal hernias -Repeat CT A/P shows: ascites has slightly increased, diverticulosis, small right inguinal hernia, and subcutaneous edema b/l. -Dark brown fluid on NGT suction. -Abd U/S shows mild hepatomegaly with fatty infiltration of the liver.Smallamount of ascites in the 4 abdominal quadrants. No cholelithiasis. Nonspecific diffusely thickned gallbladder wall likely due to hepatocellular disease andthird spacing rather than cholecystitis.Correlate clinically. Diffusely prominent and heterogenous pancreas but no focal lesion probably due to third spacing -Continue to monitor -General surgery consulted, appreciate recs. Renal -Hx of ESRD, HD on T, Th, S. -Dialysis yesterday. -Na of 132 today -D/Cd vasopressin, continue levophed. Switched fluids to NS for zosyn -Nephrology consulted, appreciate recs ID -Continue zoysn -sputum culture growing lactose fermenting GNB -ID consulted, appreciate recs Endocrine -ACHS -ISS DVT: SCDs F: No standing fluids at the moment. E: Monitor Na. N: Nepro Tube feeds Lines: Right sided femoral line 11/14/19. Intubated 11/14/19. Kern in place. Dispo: Continue ICU management. Visit type - Emergency Visit Emergency Visit: Yes ED Registration Date: 11/14/19 Care time: The patient presented to the Emergency Department on the above date and was hospitalized for further evaluation of their emergent condition. - New Patient This patient is new to me today: No - Critical Care Critical Care patient: Yes Total Critical Care Time (in minutes): 45 Critical Care Statement: The care of this patient involved high complexity decision making to prevent further life threatening deterioration of the patient 's condition and/or to evaluate & treat vital organ system(s) failure or risk of failure. ATTENDING PHYSICIAN STATEMENT I saw and evaluated the patient. I reviewed the resident's note and discussed the case with the resident. I agree with the resident's findings and plan as documented. SUBJECTIVE: OBJECTIVE: ASSESSMENT AND PLAN:
[2019-11-20] MEDS: HYDROCORTISONE SOD SUCCINATE 100 MG/2 ML VIAL IVPB SCH ×3 (02:00→17:03)
[2019-11-20] MEDS: NOREPINEPHRINE BITARTRATE 8,000 MCG in SODIUM CHLORIDE 492 ML IV SCH (03:00)
[2019-11-20] MEDS: INSULIN SLIDING SCALE (NOVOLOG) 1 VIAL SQ SCH ×4 (06:20→21:48)
[2019-11-20 06:53] LABS: BASO % 0.2 % (0-2.0); EOS % 0.1 % (0-4.5); HEMATOCRIT 33.2 % (35.4-49); HEMOGLOBIN 10.8 GM/dL (11.7-16.9); LYMPH % 2.2 % (8-40); MCHC 32.6 g/dl (32.0-35.9); MEAN CELL VOLUME 98.1 fl (80-96); MEAN PLT VOLUME 10.4 fl (7.5-11.1); MONO % 4.3 % (3.8-10.2); NEUT % 93.2 % (42.8-82.8); PLATELET COUNT 147 K/MM3 (134-434); RBC 3.39 M/mm3 (4.00-5.60); RDW 20.9 % (11.9-15.9); WHITE BLOOD COUNT 17.3 K/mm3 (4.0-10.0)
[2019-11-20 07:19] LABS: ALBUMIN 2.2 g/dl (3.4-5.0); BILIRUBIN,TOTAL 0.8 mg/dL (0.2-1); BLOOD UREA NITROGEN 67.2 mg/dL (7-18); CREATININE 3.7 mg/dL (0.55-1.3); MAGNESIUM 2.1 mg/dL (1.8-2.4); PHOSPHOROUS 4.6 mg/dL (2.5-4.9); POTASSIUM 3.5 mmol/L (3.5-5.1); TOT PROT 5.7 g/dl (6.4-8.2)
[2019-11-20] MEDS ORDERED: PT OWN MED DRAWER 7, Y5N ONE (08:42)
[2019-11-20] MEDS ORDERED: DEXTROSE 5%-WATER - 50 ML IVPB ONE (08:43)
[2019-11-20] MEDS ORDERED: cefTRIAXone SODIUM 1 GM VIAL ONE (08:43)
--- NOTE | 2019-11-20 09:06 | PN ---
Progress Note (short form) - Note Progress Note: PT intubated and in the ICU. Vital Signs Period Temp Pulse Resp BP Sys/Armando Pulse Ox Last 24 Hr 97.8 F-98.3 F 60-71 12-24 94-126/41-58 100-100 ngt: 700 ml light brown GEN: Intubated and following commands ABD: soft, non-distended. reducible umbilcial hernia Right wrist with AV thrill. Inc c/d/i. CT scan: no pneumoperitoneum, no bowel obstruction. ascites. CBC, BMP 11/20/19 05:30 11/20/19 05:30 Laboratory Tests 11/19/19 15:00 Lactic Acid 1.0 Microbiology 11/14/19 16:20 Blood - Diamante Cath Blood Culture - Final NO GROWTH AFTER 5 DAYS INCUBATION 11/14/19 16:20 Blood - Diamante Cath Blood Culture - Final NO GROWTH AFTER 5 DAYS INCUBATION 11/14/19 05:00 Urine For Antigen Detection Legionella Antigen - Final 11/14/19 05:00 Urine For Antigen Detection Streptococcus pneumoniae Antigen (M - Final 11/14/19 05:00 Sputum - Endotrachea Suction/Ventilator Gram Stain - Final 11/14/19 05:00 Sputum - Endotrachea Suction/Ventilator Sputum Culture - Final Morganella Morganii 11/13/19 23:50 Urine - Urine Kern Urine Culture - Final NO GROWTH OBTAINED 11/13/19 22:13 Blood - Peripheral Venous Blood Culture - Final NO GROWTH AFTER 5 DAYS INCUBATION 11/13/19 00:05 Blood - Peripheral Venous Blood Culture - Final NO GROWTH AFTER 5 DAYS INCUBATION A/p: 79 yo male elevated wbc, admitted for respiratory distress CT scan negative for pneumoperitoneum, bowel obstruction. Lactic acid level 1. Abdomen benign. Dw Dr. Manuel, continue ngt to L[facility]. No evidence of acute abdomen.
[2019-11-20] MEDS: PANTOPRAZOLE SODIUM 40 MG VIAL IVPUSH SCH (09:24)
[2019-11-20] MEDS: CEFTRIAXONE 1 GM in DEXTROSE 5%-WATER - 50 ML IVPB SCH (09:24)
[2019-11-20] MEDS: MUPIROCIN CA 2% TOPICAL CREAM 15 GM TUBE TP SCH ×2 (09:24→21:51)
[2019-11-20] MEDS: ALBUTEROL SO4 2.5/IPRATROPIUM 0.5 INH SOL 3 ML VIAL.NEB. NEB SCH ×4 (09:41→20:47)
[2019-11-20] MEDS ORDERED: FLUDROCORTISONE ACETATE 0.1 MG TABLET (FP) PO SCH (10:00)
[2019-11-20] MEDS ORDERED: SODIUM CHLORIDE 250 ML IV PRN (10:45)
--- NOTE | 2019-11-20 11:11 | PN ---
Progress Note (short form) - Note Progress Note: Events noted Pt intubated in ICU failed weaning Vital Signs - 24 hr 11/19/19 11/19/19 11/19/19 12:00 13:00 14:00 Temperature Pulse Rate 60 60 71 Respiratory 14 16 12 Rate Blood Pressure 114/50 L 108/49 L 113/53 L O2 Sat by Pulse Oximetry (%) 11/19/19 11/19/19 11/19/19 16:00 16:30 18:00 Temperature 98.0 F 98.2 F Pulse Rate 60 60 Respiratory 14 14 14 Rate Blood Pressure 121/52 L 115/51 L O2 Sat by Pulse Oximetry (%) 11/19/19 11/19/19 11/19/19 20:00 20:21 20:22 Temperature 98.2 F Pulse Rate 60 Respiratory 14 14 Rate Blood Pressure 115/53 L O2 Sat by Pulse 100 100 Oximetry (%) 11/19/19 11/19/19 11/20/19 21:00 22:00 00:00 Temperature 98 F Pulse Rate 60 60 60 Respiratory 15 14 14 Rate Blood Pressure 114/51 L 124/58 L O2 Sat by Pulse 100 Oximetry (%) 11/20/19 11/20/19 11/20/19 01:00 02:00 04:00 Temperature 98.3 F Pulse Rate 60 60 Respiratory 18 14 14 Rate Blood Pressure 126/58 L 106/53 L O2 Sat by Pulse Oximetry (%) 11/20/19 11/20/19 11/20/19 05:00 06:00 07:00 Temperature Pulse Rate 60 Respiratory 15 14 Rate Blood Pressure 122/57 L 114/57 L O2 Sat by Pulse Oximetry (%) 11/20/19 11/20/19 11/20/19 07:50 08:00 08:20 Temperature Pulse Rate 60 60 Respiratory 15 14 14 Rate Blood Pressure 114/56 L O2 Sat by Pulse 95 100 Oximetry (%) 11/20/19 11/20/19 11/20/19 08:31 09:00 09:21 Temperature Pulse Rate 60 Respiratory 14 14 Rate Blood Pressure 115/55 L O2 Sat by Pulse 100 Oximetry (%) 11/20/19 11/20/19 11/20/19 09:36 09:50 10:00 Temperature 97.8 F 97.6 F Pulse Rate 60 60 Respiratory 18 18 Rate Blood Pressure 108/54 L 117/54 L O2 Sat by Pulse 100 Oximetry (%) 11/20/19 10:30 Temperature Pulse Rate 60 Respiratory 18 Rate Blood Pressure 102/50 L O2 Sat by Pulse Oximetry (%) Current Medications Generic Name Dose Route Start Last Admin Trade Name Freq PRN Reason Stop Dose Admin Albumin Human 12.5 gm 11/20/19 10:00 Albumin Human 25% IVPB 11/20/19 11:31 Q30M TED Albuterol Sulfate 1 amp 11/14/19 03:54 Ventolin 0.083% Nebulizer Soln - NEB Q4H PRN SHORT OF BREATH/WHEEZING Albuterol/Ipratropium 1 amp 11/14/19 08:00 11/20/19 09:41 Duoneb - NEB 1 amp RQID TED Administration Fludrocortisone Acetate 0.05 mg 11/20/19 10:00 11/20/19 09:33 Florinef - PO Not Given DAILY TED Hydrocortisone Sodium Succinate 50 mg 11/19/19 05:05 11/20/19 09:25 Solu-Cortef - IVPB 50 mg Q8H-IV TED Administration Propofol 1,000,000 mcg in 100 mls @ 2.556 mls/hr 11/13/19 22:15 11/18/19 20: 00 Diprivan - IVPB 0 mcg/kg/min TITR TED 0 mls/hr Titration Protocol 5 MCG/KG/MIN Ceftriaxone Sodium 1 gm/ 50 mls @ 100 mls/hr 11/18/19 13:15 11/20/19 09:24 Dextrose IVPB 100 mls/hr DAILY TED Administration Protocol Norepinephrine Bitartrate 8, 500 mls @ 18.75 mls/hr 11/19/19 22:30 11/20/19 03:00 000 mcg/ Sodium Chloride IV 8 mcg/min TITR TED 30 mls/hr Administration Protocol 5 MCG/MIN Insulin Aspart 1 vial 11/14/19 16:30 11/20/19 06:20 Novolog Vial Sliding Scale - SQ 4 units ACHS TED Administration Protocol Mupirocin 1 applic 11/18/19 22:00 11/20/19 09:24 Bactroban 2% Cream - TP 1 applic BID TED Administration Pantoprazole Sodium 40 mg 11/19/19 10:00 11/20/19 09:24 Protonix Iv IVPUSH 40 mg DAILY TED Administration Laboratory Results - last 24 hr 11/19/19 11/19/19 11/19/19 05:40 14:18 15:00 WBC RBC Hgb Hct MCV MCH MCHC RDW Plt Count MPV Absolute Neuts (auto) Neutrophils % Neutrophils % (Manual) 95.0 H Band Neutrophils % 0.0 Lymphocytes % Lymphocytes % (Manual) 0.0 L Monocytes % Monocytes % (Manual) 4 D Eosinophils % Eosinophils % (Manual) 0.0 Basophils % Basophils % (Manual) 0.0 Myelocytes % (Man) 0 D Promyelocytes % (Man) 0 Blast Cells % (Manual) 0 Nucleated RBC % 0 Metamyelocytes 0 Hypochromia 0 Toxic Granulation 1+ Platelet Estimate Decreased Polychromasia 1+ Poikilocytosis 1+ Anisocytosis 2+ Microcytosis 1+ Macrocytosis 0 Spherocytes 1+ Tear Drop Cells 1+ Ovalocytes 1+ [place] Cells 1+ Schistocytes 1+ Sodium Potassium Chloride Carbon Dioxide Anion Gap BUN Creatinine Est GFR (CKD-EPI)AfAm Est GFR (CKD-EPI)NonAf POC Glucometer 306 Random Glucose Lactic Acid 1.0 Calcium Phosphorus Magnesium Total Bilirubin AST ALT Alkaline Phosphatase Total Protein Albumin 11/19/19 11/19/19 11/20/19 18:02 20:57 05:30 WBC 17.3 H RBC 3.39 L Hgb 10.8 L Hct 33.2 L MCV 98.1 H MCH 32.0 MCHC 32.6 RDW 20.9 H Plt Count 147 D MPV 10.4 D Absolute Neuts (auto) 16.1 H Neutrophils % 93.2 H Neutrophils % (Manual) Band Neutrophils % Lymphocytes % 2.2 L D Lymphocytes % (Manual) Monocytes % 4.3 Monocytes % (Manual) Eosinophils % 0.1 D Eosinophils % (Manual) Basophils % 0.2 Basophils % (Manual) Myelocytes % (Man) Promyelocytes % (Man) Blast Cells % (Manual) Nucleated RBC % 0 Metamyelocytes Hypochromia Toxic Granulation Platelet Estimate Polychromasia Poikilocytosis Anisocytosis Microcytosis Macrocytosis Spherocytes Tear Drop Cells Ovalocytes [place] Cells Schistocytes Sodium Potassium Chloride Carbon Dioxide Anion Gap BUN Creatinine Est GFR (CKD-EPI)AfAm Est GFR (CKD-EPI)NonAf POC Glucometer 287 214 Random Glucose Lactic Acid Calcium Phosphorus Magnesium Total Bilirubin AST ALT Alkaline Phosphatase Total Protein Albumin 11/20/19 11/20/19 05:30 06:13 WBC RBC Hgb Hct MCV MCH MCHC RDW Plt Count MPV Absolute Neuts (auto) Neutrophils % Neutrophils % (Manual) Band Neutrophils % Lymphocytes % Lymphocytes % (Manual) Monocytes % Monocytes % (Manual) Eosinophils % Eosinophils % (Manual) Basophils % Basophils % (Manual) Myelocytes % (Man) Promyelocytes % (Man) Blast Cells % (Manual) Nucleated RBC % Metamyelocytes Hypochromia Toxic Granulation Platelet Estimate Polychromasia Poikilocytosis Anisocytosis Microcytosis Macrocytosis Spherocytes Tear Drop Cells Ovalocytes [place] Cells Schistocytes Sodium 130 L Potassium 3.5 Chloride 93 L Carbon Dioxide 22 Anion Gap 14 BUN 67.2 H Creatinine 3.7 H Est GFR (CKD-EPI)AfAm 17.22 Est GFR (CKD-EPI)NonAf 14.86 POC Glucometer 205 Random Glucose 180 H Lactic Acid Calcium 8.0 L Phosphorus 4.6 Magnesium 2.1 Total Bilirubin 0.8 AST 16 ALT 19 Alkaline Phosphatase 135 H Total Protein 5.7 L Albumin 2.2 L cxr - No change Physical Constitutional: Yes: Other (Intubated) NGT + Eyes: Yes: Conjunctiva Clear Neck: Yes: Supple. Central line + Cardiovascular: Yes: Regular Rate and Rhythm Respiratory: Yes: Diminished Gastrointestinal: Yes: Soft, tender ++ Genitourinary: Yes: Kern Removed Extremities: Yes: Amputation (s/p right aka) Edema: No Integumentary: No: Other Wound/Incision: Yes: Other (Left heel ulcer)-- Dressing + Neurological: Yes: Other (sedated) Additional Findings/Remarks: - ....Imaging Chest X-ray: Report Reviewed Cat Scan: Report Reviewed Echo-- Reviewed Assessment/Plan In summary Pt 79yr old gentleman with extensive PMHx of CAD , s/p multivessel PCI (> 1 year ago), CHF , PPM, AF,COPD, ESRD-HD. Has been in and out of hospital since July with COPD/ infections/ CKD and recently had a possible GIB at [place]- no endoscopic evaluation. Transferred from [facility] for short term rehab and was transferred here for resp distress. Admitted to ICU / Intubated for Respiratory failure and Pneumonia. Pt was admitted to [facility] from [facility] Remains critically ill Continue present care Abx Vent support Taper pressors as tolerated ct abd/pelvis -->CT A/P shows ascites, diverticulosis, small umbilical R inguinal hernias -Repeat CT A/P shows: ascites has slightly increased, diverticulosis, small right inguinal hernia, and subcutaneous edema b/l. spoke with ICU team Surgical eval for abd pain noted 'resume GT feeds Dialysis yesterday D/W RN also Platelets low--hold off Heparin CC time approx 35 min Problem List - Problems (1) CAD (coronary artery disease) Code(s): I25.10 - ATHSCL HEART DISEASE OF [place] CORONARY ARTERY W/O ANG PCTRS (2) COPD (chronic obstructive pulmonary disease) Code(s): J44.9 - CHRONIC OBSTRUCTIVE PULMONARY DISEASE, UNSPECIFIED Qualifiers: COPD type: unspecified COPD Qualified Code(s): J44.9 - Chronic obstructive pulmonary disease, unspecified (3) Elevated troponin Code(s): R79.89 - OTHER SPECIFIED ABNORMAL FINDINGS OF BLOOD CHEMISTRY (4) PVD (peripheral vascular disease) Code(s): I73.9 - PERIPHERAL VASCULAR DISEASE, UNSPECIFIED (5) Respiratory failure Code(s): J96.90 - RESPIRATORY FAILURE, UNSP, UNSP W HYPOXIA OR HYPERCAPNIA (6) Thrombocytopenia Code(s): D69.6 - THROMBOCYTOPENIA, UNSPECIFIED
--- NOTE | 2019-11-20 11:18 | PN ---
Progress Note (short form) - Note Progress Note: s: intubated, opens eyes to voice Current Medications Generic Name Dose Route Start Last Admin Trade Name Freq PRN Reason Stop Dose Admin Albumin Human 12.5 gm 11/20/19 10:00 Albumin Human 25% IVPB 11/20/19 11:31 Q30M TED Albuterol Sulfate 1 amp 11/14/19 03:54 Ventolin 0.083% Nebulizer Soln - NEB Q4H PRN SHORT OF BREATH/WHEEZING Albuterol/Ipratropium 1 amp 11/14/19 08:00 11/20/19 09:41 Duoneb - NEB 1 amp RQID TED Administration Fludrocortisone Acetate 0.05 mg 11/20/19 11:14 Florinef - GT DAILY TED Hydrocortisone Sodium Succinate 50 mg 11/19/19 05:05 11/20/19 09:25 Solu-Cortef - IVPB 50 mg Q8H-IV TED Administration Propofol 1,000,000 mcg in 100 mls @ 2.556 mls/hr 11/13/19 22:15 11/18/19 20: 00 Diprivan - IVPB 0 mcg/kg/min TITR TED 0 mls/hr Titration Protocol 5 MCG/KG/MIN Ceftriaxone Sodium 1 gm/ 50 mls @ 100 mls/hr 11/18/19 13:15 11/20/19 09:24 Dextrose IVPB 100 mls/hr DAILY TED Administration Protocol Norepinephrine Bitartrate 8, 500 mls @ 18.75 mls/hr 11/19/19 22:30 11/20/19 03:00 000 mcg/ Sodium Chloride IV 8 mcg/min TITR TED 30 mls/hr Administration Protocol 5 MCG/MIN Insulin Aspart 1 vial 11/14/19 16:30 11/20/19 06:20 Novolog Vial Sliding Scale - SQ 4 units ACHS TED Administration Protocol Mupirocin 1 applic 11/18/19 22:00 11/20/19 09:24 Bactroban 2% Cream - TP 1 applic BID TED Administration Pantoprazole Sodium 40 mg 11/19/19 10:00 11/20/19 09:24 Protonix Iv IVPUSH 40 mg DAILY TED Administration Vital Signs Temp 97.6 F 11/20/19 10:00 Pulse 60 11/20/19 10:30 Resp 18 11/20/19 10:30 BP 102/50 L 11/20/19 10:30 Pulse Ox 100 11/20/19 09:36 Intake & Output 11/19/19 11/19/19 11/20/19 11:59 23:59 11:59 Intake Total 1129 1993 410 Output Total 700 Balance 1129 1993 - Weight 179 lb 6.4 oz 178 lb 8 oz Intake: IV 1029 1044 210 DIPRIVAN - 1,000,000 mcg 0 In 100 ml @ 5 MCG/KG/MIN 2.556 mls/hr IVPB TITR TED Rx#:[id number] Levophed - 4,000 Mcg In 779 1044 210 Normal Saline - 496 ml @ 5 MCG/MIN 37.5 mls/hr IV TITR TED Rx#:[id number] Normal Saline - 250 ml @ 250 250 mls/hr IV ASDIR STA Rx#:[id number] IVPB 100 450 200 Tube Feeding 0 0 Tube Irrigant 500 0 Output: Gastric Drainage 700 Other: Voiding Method Diaper Diaper Diaper # Unmeasured Voids [place] 0 0 Bowel Movement Yes Yes Yes Body Mass Index (BMI) 25.7 Weight Measurement Method Built in [facility] Built in [facility] Constitutional: Yes: Well Nourished, No Distress, Calm Cardiovascular: Yes: Regular Rate and Rhythm, S1, S2. No: Gallop, Murmur Respiratory: Yes: Regular, CTA Bilaterally. vented Extremities: No: Cold Edema: No (s/p R AKA) Neurological: No: Seizure Psychiatric: No: Agitated no jaundice, diaphoresis Laboratory Last Values WBC 17.3 K/mm3 (4.0-10.0) H 11/20/19 05:30 RBC 3.39 M/mm3 (4.00-5.60) L 11/20/19 05:30 Hgb 10.8 GM/dL (11.7-16.9) L 11/20/19 05:30 Hct 33.2 % (35.4-49) L 11/20/19 05:30 MCV 98.1 fl (80-96) H 11/20/19 05:30 MCH 32.0 pg (25.7-33.7) 11/20/19 05:30 MCHC 32.6 g/dl (32.0-35.9) 11/20/19 05:30 RDW 20.9 % (11.9-15.9) H 11/20/19 05:30 Plt Count 147 K/MM3 (134-434) D 11/20/19 05:30 MPV 10.4 fl (7.5-11.1) D 11/20/19 05:30 Absolute Neuts (auto) 16.1 K/mm3 (1.5-8.0) H 11/20/19 05:30 Total Counted 100 11/15/19 06:00 Neutrophils % 93.2 % (42.8-82.8) H 11/20/19 05:30 Neutrophils % (Manual) 95.0 % (42.8-82.8) H 11/19/19 05:40 Band Neutrophils % 0.0 % 11/19/19 05:40 Lymphocytes % 2.2 % (8-40) L D 11/20/19 05:30 Lymphocytes % (Manual) 0.0 % (8-40) L 11/19/19 05:40 Monocytes % 4.3 % (3.8-10.2) 11/20/19 05:30 Monocytes % (Manual) 4 % (3.8-10.2) D 11/19/19 05:40 Eosinophils % 0.1 % (0-4.5) D 11/20/19 05:30 Eosinophils % (Manual) 0.0 % (0-4.5) 11/19/19 05:40 Basophils % 0.2 % (0-2.0) 11/20/19 05:30 Basophils % (Manual) 0.0 % (0-2.0) 11/19/19 05:40 Myelocytes % (Man) 0 % (0-2) D 11/19/19 05:40 Promyelocytes % (Man) 0 % (0-2) 11/19/19 05:40 Blast Cells % (Manual) 0 % (0-0) 11/19/19 05:40 Nucleated RBC % 0 % (0-0) 11/20/19 05:30 Metamyelocytes 0 % (0-2) 11/19/19 05:40 Hypochromia 0 11/19/19 05:40 Toxic Granulation 1+ 11/19/19 05:40 Platelet Estimate Decreased 11/19/19 05:40 Platelet Comment Giant platelets 11/15/19 06:00 Platelet Comment Large platelets 11/15/19 06:00 Polychromasia 1+ 11/19/19 05:40 Poikilocytosis 1+ 11/19/19 05:40 Anisocytosis 2+ 11/19/19 05:40 Microcytosis 1+ 11/19/19 05:40 Macrocytosis 0 11/19/19 05:40 Spherocytes 1+ 11/19/19 05:40 Target Cells 1+ 11/15/19 06:00 Tear Drop Cells 1+ 11/19/19 05:40 Ovalocytes 1+ 11/19/19 05:40 Israel Cells 1+ 11/19/19 05:40 Fragmented RBCs 1+ 11/18/19 06:00 Schistocytes 1+ 11/19/19 05:40 PT with INR 12.00 SEC (9.7-13.0) 11/17/19 06:00 INR 1.02 (0.83-1.09) 11/17/19 06:00 PTT (Actin FS) 31.4 SECONDS (25.2-36.5) 11/17/19 06:00 Anticoagulation Therapy No Result Required. 11/14/19 07:15 Puncture Site Right radial 11/14/19 07:15 ABG pH 7.32 (7.35-7.45) L 11/14/19 07:15 ABG pCO2 at Pt Temp 37.6 mmHg (35-45) 11/14/19 07:15 ABG pO2 at Pt Temp 66.9 mmHg (80-100) L 11/14/19 07:15 ABG HCO3 18.8 mmol/L (22-27) L 11/14/19 07:15 ABG O2 Sat (Measured) 87.7 % (95-98) L 11/14/19 07:15 ABG O2 Content No Result Required. 11/14/19 07:15 ABG Base Excess -6.2 meq/l (-2-2) L 11/14/19 07:15 Albert Test Positive 11/14/19 07:15 Carboxyhemoglobin < 0.5 % (0-2) 11/13/19 23:50 Methemoglobin < 1.0 % (0-2) 11/13/19 23:50 O2 Delivery Device Vent 11/14/19 07:15 Oxygen Flow Rate 40% 11/14/19 07:15 Vent Mode A/c 11/14/19 07:15 Vent Rate 14 11/14/19 07:15 Mechanical Rate No Result Required. 11/14/19 07:15 PEEP 5.0 cmH2O 11/14/19 07:15 Pressure Support Vent 500 11/14/19 07:15 Sodium 130 mmol/L (136-145) L 11/20/19 05:30 Potassium 3.5 mmol/L (3.5-5.1) 11/20/19 05:30 Chloride 93 mmol/L (98-107) L 11/20/19 05:30 Carbon Dioxide 22 mmol/L (21-32) 11/20/19 05:30 Anion Gap 14 MMOL/L (8-16) 11/20/19 05:30 BUN 67.2 mg/dL (7-18) H 11/20/19 05:30 Creatinine 3.7 mg/dL (0.55-1.3) H 11/20/19 05:30 Est GFR (CKD-EPI)AfAm 17.22 11/20/19 05:30 Est GFR (CKD-EPI)NonAf 14.86 11/20/19 05:30 POC Glucometer 205 UNITS (80-120) 11/20/19 06:13 Random Glucose 180 mg/dL (74-106) H 11/20/19 05:30 Lactic Acid 1.0 mmol/L (0.4-2.0) 11/19/19 15:00 Calcium 8.0 mg/dL (8.5-10.1) L 11/20/19 05:30 Phosphorus 4.6 mg/dL (2.5-4.9) 11/20/19 05:30 Magnesium 2.1 mg/dL (1.8-2.4) 11/20/19 05:30 Total Bilirubin 0.8 mg/dL (0.2-1) 11/20/19 05:30 Direct Bilirubin 0.5 mg/dL (0.0-0.2) H 11/17/19 06:00 AST 16 U/L (15-37) 11/20/19 05:30 ALT 19 U/L (13-61) 11/20/19 05:30 Alkaline Phosphatase 135 U/L (45-117) H 11/20/19 05:30 Ammonia 64.60 umol/L (11-32) H 11/14/19 03:30 Troponin I 0.84 ng/ml (0.00-0.05) H* 11/14/19 11:40 Total Protein 5.7 g/dl (6.4-8.2) L 11/20/19 05:30 Albumin 2.2 g/dl (3.4-5.0) L 11/20/19 05:30 Vitamin B12 3654 pg/ml (193-986) H 11/14/19 05:30 Folate >1619 ng/mL (>498) 11/14/19 09:15 Folate Hemolysate >620.0 ng/mL (Not Estab.) 11/14/19 09:15 Urine Color Dk yellow 11/13/19 23:50 Urine Appearance Turbid 11/13/19 23:50 Urine pH 5.0 (5.0-8.0) 11/13/19 23:50 Ur Specific [place] 1.020 (1.010-1.035) 11/13/19 23:50 Urine Protein Trace (NEGATIVE) 11/13/19 23:50 Urine Glucose (UA) Trace (NEGATIVE) 11/13/19 23:50 Urine Ketones Negative (NEGATIVE) 11/13/19 23:50 Urine Blood Negative (NEGATIVE) 11/13/19 23:50 Urine Nitrite Positive (NEGATIVE) H 11/13/19 23:50 Urine Bilirubin 1+ (NEGATIVE) H 11/13/19 23:50 Urine Urobilinogen 0.2 mg/dL (0.2-1.0) 11/13/19 23:50 Ur Leukocyte Esterase 2+ (NEGATIVE) H 11/13/19 23:50 Urine WBC (Auto) 3 /hpf (0-5) 11/13/19 23:50 Urine Casts (Auto) 25 /lpf (0-8) 11/13/19 23:50 U Epithel Cells (Auto) 2.1 /HPF (0-5/HPF) 11/13/19 23:50 Urine Bacteria (Auto) 0.8 /hpf (NEGATIVE) 11/13/19 23:50 Ur Random Creatinine 118.0 mg/dL (30-150) 11/14/19 18:15 U Random Total Protein 233.7 mg/dL (0-11.9) H 11/14/19 18:15 Ur Random Sodium 28 MMOL/L (40-220) L 11/14/19 18:15 Urine Creatinine 118.0 mg/dL (30-150) 11/14/19 18:15 Protein/Creatinin Ratio 2.0 mg/dL 11/14/19 18:15 Random Vancomycin 13.4 ug/ml (18-26) L 11/14/19 05:30 Hep Bs Antigen Negative (Negative) 11/16/19 06:00 Hep C Ab Diagnostic <0.1 s/co ratio (0.0-0.9) 11/16/19 06:00 Blood Type B POSITIVE 11/14/19 02:16 Antibody Screen Positive 11/14/19 02:16 Antibody Identification Anti- k 11/14/19 02:16 Antigen Identification K Antigen - NEGATIVE 11/14/19 02:16 tele: AF, V-P cxr no sig change est cct 35 mins IMP: Acute respiratory failure secondary to RLL PNA w/loculated pleural effusion Sepsis secondary to above ESRD on HD Hyponatremia Chronic COPD CAD s/p PCI Right sided CHF with severe PHTN, RV dilatation and RV dysfunction (chronic per son report). nl LVEF Pacemaker Underlying AFib/flutter Recent reported GIB (no endoscopic evaluation) REC: - remains on levo, wean pressors as tolerated for MAP 60mmHg - Vent support, per ICU team - HD/UF per renal - Abx as per PMD, Critical Care and ID - Borderline/flat TnI likely due to demand ischemia/sepsis. - Echo with RV dilatation and RV dysfx, severe PHTN- chronic per son. May be due to chronic COPD, and acutely worsened in setting of PNA/hypoxia. - Underlying AF-holding AC in setting recent unexplored GIB/ low platelets ( sepsis/ possible abx effect). Risks> benefits at this time. no tachycardia (V- paced--? PM dependent)
[2019-11-20 11:26] LABS: ANISOCYTOSIS 2+; MACROCYTOSIS 0; OVALOCYTE 1+; PLATELET ESTIMATE DECREASED; TEAR DROP CELLS 1+; TOXIC GRANULATION 1+
[2019-11-20] MEDS: ALBUMIN HUMAN 25% 12.5 GM/50 ML VIAL IVPB SCH ×3 (11:47→12:43)
--- NOTE | 2019-11-20 12:23 | PN ---
Teaching Attending Note Name of Resident: Faviola Mckeon ATTENDING PHYSICIAN STATEMENT I saw and evaluated the patient. I reviewed the resident's note and discussed the case with the resident. I agree with the resident's findings and plan as documented. SUBJECTIVE: Patient seen and examined in the ICU. Lightly sedated on AC Mode of vent, 40% FiO2. 6 mcq NE for hemodynamic support. CT: unrevealing to source of infection Intake & Output 11/17/19 11/18/19 11/19/19 11/20/19 23:59 23:59 23:59 23:59 Intake Total 909 1781 3123 410 Output Total 3000 700 Balance 909 -1219 3123 -290 Weight 184 lb 14.4 oz 183 lb 14.4 oz 179 lb 6.4 oz 178 lb 8 oz Last Vital Signs Temp Pulse Resp BP Pulse Ox 97.6 F 60 14 98/50 L 100 11/20/19 10:00 11/20/19 11:40 11/20/19 11:40 11/20/19 11:40 11/20/19 09:36 Active Medications Albuterol Sulfate (Ventolin 0.083% Nebulizer Soln -) 1 amp NEB Q4H PRN PRN Reason: SHORT OF BREATH/WHEEZING Albuterol/Ipratropium (Duoneb -) 1 amp NEB RQID TED Last Admin: 11/20/19 09:41 Dose: 1 amp Fludrocortisone Acetate (Florinef -) 0.05 mg GT DAILY TED Hydrocortisone Sodium Succinate (Solu-Cortef -) 50 mg IVPB Q8H-IV TED Last Admin: 11/20/19 09:25 Dose: 50 mg Propofol (Diprivan -) 1,000,000 mcg in 100 mls @ 2.556 mls/hr IVPB TITR TED; Protocol Last Titration: 11/18/19 20:00 Dose: 0 mcg/kg/min, 0 mls/hr Ceftriaxone Sodium 1 gm/ (Dextrose) 50 mls @ 100 mls/hr IVPB DAILY TED; Protocol Last Admin: 11/20/19 09:24 Dose: 100 mls/hr Norepinephrine Bitartrate 8, (000 mcg/ Sodium Chloride) 500 mls @ 18.75 mls/hr IV TITR TED; Protocol Last Admin: 11/20/19 03:00 Dose: 8 mcg/min, 30 mls/hr Insulin Aspart (Novolog Vial Sliding Scale -) 1 vial SQ ACHS [facility]; Protocol Last Admin: 11/20/19 11:28 Dose: Not Given Mupirocin (Bactroban 2% Cream -) 1 applic TP BID [facility] Last Admin: 11/20/19 09:24 Dose: 1 applic Pantoprazole Sodium (Protonix Iv) 40 mg IVPUSH DAILY [facility] Last Admin: 11/20/19 09:24 Dose: 40 mg GENERAL: Intubated, lightly sedated HEAD: Normal with no signs of trauma. EYES: (-) Icterus (-) Pallor EARS, NOSE, THROAT: ET Tube in place. LUNGS: Vented, bilateral coarse rhonchi, no wheeze. HEART: S1S2 ABDOMEN: Increased distention, more tense. No fluid wave shift. Hypoactive bowel sounds. UPPER EXTREMITIES: 2+ pulses, warm, well-perfused. No cyanosis. No clubbing. LOWER EXTREMITIES: Right BKA. Left foot cool to touch. Left heel has non purulent wound. No discharge noted. NEUROLOGICAL: Sleepy, non-focal SKIN:Chronic venous stasis changes in the left lower leg. Laboratory Results - last 24 hr 11/19/19 11/19/19 11/19/19 14:18 15:00 18:02 WBC RBC Hgb Hct MCV MCH MCHC RDW Plt Count MPV Absolute Neuts (auto) Neutrophils % Neutrophils % (Manual) Band Neutrophils % Lymphocytes % Lymphocytes % (Manual) Monocytes % Monocytes % (Manual) Eosinophils % Eosinophils % (Manual) Basophils % Basophils % (Manual) Myelocytes % (Man) Promyelocytes % (Man) Blast Cells % (Manual) Nucleated RBC % Metamyelocytes Hypochromia Toxic Granulation Platelet Estimate Platelet Comment Polychromasia Poikilocytosis Anisocytosis Microcytosis Macrocytosis Tear Drop Cells Ovalocytes [place] Cells Sodium Potassium Chloride Carbon Dioxide Anion Gap BUN Creatinine Est GFR (CKD-EPI)AfAm Est GFR (CKD-EPI)NonAf POC Glucometer 306 287 Random Glucose Lactic Acid 1.0 Calcium Phosphorus Magnesium Total Bilirubin AST ALT Alkaline Phosphatase Total Protein Albumin 11/19/19 11/20/19 11/20/19 20:57 05:30 05:30 WBC 17.3 H RBC 3.39 L Hgb 10.8 L Hct 33.2 L MCV 98.1 H MCH 32.0 MCHC 32.6 RDW 20.9 H Plt Count 147 D MPV 10.4 D Absolute Neuts (auto) 16.1 H Neutrophils % 93.2 H Neutrophils % (Manual) 70.0 D Band Neutrophils % 1.0 Lymphocytes % 2.2 L D Lymphocytes % (Manual) 1.0 L D Monocytes % 4.3 Monocytes % (Manual) 4 Eosinophils % 0.1 D Eosinophils % (Manual) 22.0 H D Basophils % 0.2 Basophils % (Manual) 0.0 Myelocytes % (Man) 1 D Promyelocytes % (Man) 0 Blast Cells % (Manual) 0 Nucleated RBC % 0 Metamyelocytes 0 Hypochromia 0 Toxic Granulation 1+ Platelet Estimate Decreased Platelet Comment Present Polychromasia 1+ Poikilocytosis 2+ Anisocytosis 2+ Microcytosis 2+ Macrocytosis 0 Tear Drop Cells 1+ Ovalocytes 1+ Firth Cells 1+ Sodium 130 L Potassium 3.5 Chloride 93 L Carbon Dioxide 22 Anion Gap 14 BUN 67.2 H Creatinine 3.7 H Est GFR (CKD-EPI)AfAm 17.22 Est GFR (CKD-EPI)NonAf 14.86 POC Glucometer 214 Random Glucose 180 H Lactic Acid Calcium 8.0 L Phosphorus 4.6 Magnesium 2.1 Total Bilirubin 0.8 AST 16 ALT 19 Alkaline Phosphatase 135 H Total Protein 5.7 L Albumin 2.2 L 11/20/19 11/20/19 06:13 11:26 WBC RBC Hgb Hct MCV MCH MCHC RDW Plt Count MPV Absolute Neuts (auto) Neutrophils % Neutrophils % (Manual) Band Neutrophils % Lymphocytes % Lymphocytes % (Manual) Monocytes % Monocytes % (Manual) Eosinophils % Eosinophils % (Manual) Basophils % Basophils % (Manual) Myelocytes % (Man) Promyelocytes % (Man) Blast Cells % (Manual) Nucleated RBC % Metamyelocytes Hypochromia Toxic Granulation Platelet Estimate Platelet Comment Polychromasia Poikilocytosis Anisocytosis Microcytosis Macrocytosis Tear Drop Cells Ovalocytes [place] Cells Sodium Potassium Chloride Carbon Dioxide Anion Gap BUN Creatinine Est GFR (CKD-EPI)AfAm Est GFR (CKD-EPI)NonAf POC Glucometer 205 125 Random Glucose Lactic Acid Calcium Phosphorus Magnesium Total Bilirubin AST ALT Alkaline Phosphatase Total Protein Albumin ASSESSMENT/PLAN: Acute Respiratory Acute due to RLL PNA COPD ESRD on HD CHF SAVANA R/O Seizure Septic Shock (?) Cirrhosis PAD Demand Ischemia Chronic loculated RLL effusion Hyponatremia Follow Sodium level Wean pressors Hydrocortisone & Fludrocortisone Strict I & O ABX per ID HD per Renal BD TX VTE prophylaxis Enteral feeds Wean trials as tolerated Requires ICU monitoring Dr Barnard Critical care time spent in reviewing chart, evaluating patient and formulating plan - 36 minutes.
--- NOTE | 2019-11-20 14:02 | PN ---
Physical Exam: SUBJECTIVE: Patient seen and examined. off sedation and intubated. OBJECTIVE: Vital Signs Period Temp Pulse Resp BP Sys/Armando Pulse Ox Last 24 Hr 97.6 F-98.3 F 60-62 14-18 86-126/44-58 95-100 General: off sedation and intubated HEAD: Normal with no signs of trauma. ET tube in place. EYES: PERRLA LUNGS: Breath sounds equal, clear to auscultation bilaterally but reduced at the bases with crackles, HEART: Regular rate and rhythm, S1, S2 without murmur, rub or gallop. ABDOMEN: Soft, nontender to palpation . Hypoactive bowel sounds. EXTREMITIES: Left leg has venous stasis changes, right leg aka. Edema present. Laboratory Results - last 24 hr 11/19/19 11/19/19 11/19/19 14:18 15:00 18:02 WBC RBC Hgb Hct MCV MCH MCHC RDW Plt Count MPV Absolute Neuts (auto) Neutrophils % Neutrophils % (Manual) Band Neutrophils % Lymphocytes % Lymphocytes % (Manual) Monocytes % Monocytes % (Manual) Eosinophils % Eosinophils % (Manual) Basophils % Basophils % (Manual) Myelocytes % (Man) Promyelocytes % (Man) Blast Cells % (Manual) Nucleated RBC % Metamyelocytes Hypochromia Toxic Granulation Platelet Estimate Platelet Comment Polychromasia Poikilocytosis Anisocytosis Microcytosis Macrocytosis Tear Drop Cells Ovalocytes Curtis Cells Sodium Potassium Chloride Carbon Dioxide Anion Gap BUN Creatinine Est GFR (CKD-EPI)AfAm Est GFR (CKD-EPI)NonAf POC Glucometer 306 287 Random Glucose Lactic Acid 1.0 Calcium Phosphorus Magnesium Total Bilirubin AST ALT Alkaline Phosphatase Total Protein Albumin 11/19/19 11/20/19 11/20/19 20:57 05:30 05:30 WBC 17.3 H RBC 3.39 L Hgb 10.8 L Hct 33.2 L MCV 98.1 H MCH 32.0 MCHC 32.6 RDW 20.9 H Plt Count 147 D MPV 10.4 D Absolute Neuts (auto) 16.1 H Neutrophils % 93.2 H Neutrophils % (Manual) 70.0 D Band Neutrophils % 1.0 Lymphocytes % 2.2 L D Lymphocytes % (Manual) 1.0 L D Monocytes % 4.3 Monocytes % (Manual) 4 Eosinophils % 0.1 D Eosinophils % (Manual) 22.0 H D Basophils % 0.2 Basophils % (Manual) 0.0 Myelocytes % (Man) 1 D Promyelocytes % (Man) 0 Blast Cells % (Manual) 0 Nucleated RBC % 0 Metamyelocytes 0 Hypochromia 0 Toxic Granulation 1+ Platelet Estimate Decreased Platelet Comment Present Polychromasia 1+ Poikilocytosis 2+ Anisocytosis 2+ Microcytosis 2+ Macrocytosis 0 Tear Drop Cells 1+ Ovalocytes 1+ Curtis Cells 1+ Sodium 130 L Potassium 3.5 Chloride 93 L Carbon Dioxide 22 Anion Gap 14 BUN 67.2 H Creatinine 3.7 H Est GFR (CKD-EPI)AfAm 17.22 Est GFR (CKD-EPI)NonAf 14.86 POC Glucometer 214 Random Glucose 180 H Lactic Acid Calcium 8.0 L Phosphorus 4.6 Magnesium 2.1 Total Bilirubin 0.8 AST 16 ALT 19 Alkaline Phosphatase 135 H Total Protein 5.7 L Albumin 2.2 L 11/20/19 11/20/19 06:13 11:26 WBC RBC Hgb Hct MCV MCH MCHC RDW Plt Count MPV Absolute Neuts (auto) Neutrophils % Neutrophils % (Manual) Band Neutrophils % Lymphocytes % Lymphocytes % (Manual) Monocytes % Monocytes % (Manual) Eosinophils % Eosinophils % (Manual) Basophils % Basophils % (Manual) Myelocytes % (Man) Promyelocytes % (Man) Blast Cells % (Manual) Nucleated RBC % Metamyelocytes Hypochromia Toxic Granulation Platelet Estimate Platelet Comment Polychromasia Poikilocytosis Anisocytosis Microcytosis Macrocytosis Tear Drop Cells Ovalocytes [place] Cells Sodium Potassium Chloride Carbon Dioxide Anion Gap BUN Creatinine Est GFR (CKD-EPI)AfAm Est GFR (CKD-EPI)NonAf POC Glucometer 205 125 Random Glucose Lactic Acid Calcium Phosphorus Magnesium Total Bilirubin AST ALT Alkaline Phosphatase Total Protein Albumin Active Medications Generic Name Dose Route Start Last Admin Trade Name Freq PRN Reason Stop Dose Admin Albuterol Sulfate 1 amp 11/14/19 03:54 Ventolin 0.083% Nebulizer Soln - NEB Q4H PRN SHORT OF BREATH/WHEEZING Albuterol/Ipratropium 1 amp 11/14/19 08:00 11/20/19 09:41 Duoneb - NEB 1 amp RQID TED Administration Fludrocortisone Acetate 0.05 mg 11/20/19 11:14 Florinef - GT DAILY TED Hydrocortisone Sodium Succinate 50 mg 11/19/19 05:05 11/20/19 09:25 Solu-Cortef - IVPB 50 mg Q8H-IV TED Administration Propofol 1,000,000 mcg in 100 mls @ 2.556 mls/hr 11/13/19 22:15 11/18/19 20: 00 Diprivan - IVPB 0 mcg/kg/min TITR TED 0 mls/hr Titration Protocol 5 MCG/KG/MIN Ceftriaxone Sodium 1 gm/ 50 mls @ 100 mls/hr 11/18/19 13:15 11/20/19 09:24 Dextrose IVPB 100 mls/hr DAILY TED Administration Protocol Norepinephrine Bitartrate 8, 500 mls @ 18.75 mls/hr 11/19/19 22:30 11/20/19 03:00 000 mcg/ Sodium Chloride IV 8 mcg/min TITR TED 30 mls/hr Administration Protocol 5 MCG/MIN Insulin Aspart 1 vial 11/14/19 16:30 11/20/19 11:28 Novolog Vial Sliding Scale - SQ Not Given ACHS TED Protocol Mupirocin 1 applic 11/18/19 22:00 11/20/19 09:24 Bactroban 2% Cream - TP 1 applic BID TED Administration Pantoprazole Sodium 40 mg 11/19/19 10:00 11/20/19 09:24 Protonix Iv IVPUSH 40 mg DAILY TED Administration ASSESSMENT/PLAN: 79M PMH of COPD, ESRD on HD (T,Th,Sat),CHF s/p pacemaker, DM II, prostate cancer , venous stasis changes, constipation who presented with exacerbation of COPD likely secondary to PNA. Was found to be obtunded in the care home and was intubated in the ED. Neuro -Patient currently off sedation and mentaning well. denies any pain at this time -Continue to monitor Cardiovascular -Patient has hx of CHF -pt off vaso only on levo at 6 from 8 yesterday and tolerating. will cont to try weaning. -Echo records obtained from [facility]. EF of 70%, mild conc. lVH, diastolic filling pattern, RV mildly enlarged, RV severely imparied, LA dilated, RA mildly enlarged, AO valve sclerosis, aortic insufficiency. -Continous cardiac monitoring -Afib present,holding anticoagulation. -Continue hydro/fludro -Cardiology consulted, appreciate recs Pulmonary -Hx of COPD, ASVANA. -Chest x-ray shows RLL infiltrate and effusion. persistent but improved. -Duonebs -Albuterol PRN -On vent: Vt: 500, RR: 14, Fio2: 40%, PEEP 5 GI -no abdominal pain per patient -CT A/P shows ascites, diverticulosis, small umbilical R inguinal hernias -Repeat CT A/P shows: ascites has slightly increased, diverticulosis, small right inguinal hernia, and subcutaneous edema b/l. -Dark brown fluid on NGT suction. -Abd U/S shows mild hepatomegaly with fatty infiltration of the liver.Smallamount of ascites in the 4 abdominal quadrants. No cholelithiasis. Nonspecific diffusely thickned gallbladder wall likely due to hepatocellular disease andthird spacing rather than cholecystitis.Correlate clinically. Diffusely prominent and heterogenous pancreas but no focal lesion probably due to third spacing -Continue to monitor -General surgery consulted, appreciate recs. Renal -Hx of ESRD, HD on T, , S. -Pt s/p HD today. 3Kg of fluid removed -Na of 130 today. will continue to monitor -Switched fluids to NS for zosyn -Nephrology consulted, appreciate recs ID -Continue zoysn -sputum culture growing Morganella Morgani -ID consulted, appreciate recs Endocrine -ACHS -ISS DVT: SCDs F: No standing fluids at the moment. E: Monitor Na. N: Nepro Tube feeds Lines: Intubated 11/14/19. [place] in place. rectal tube in place. Left central line 11/14/2019 Dispo: Continue ICU management. Visit type - Emergency Visit Emergency Visit: Yes ED Registration Date: 11/14/19 Care time: The patient presented to the Emergency Department on the above date and was hospitalized for further evaluation of their emergent condition. - New Patient This patient is new to me today: No - Critical Care Critical Care patient: Yes Total Critical Care Time (in minutes): 36 Critical Care Statement: The care of this patient involved high complexity decision making to prevent further life threatening deterioration of the patient 's condition and/or to evaluate & treat vital organ system(s) failure or risk of failure. ATTENDING PHYSICIAN STATEMENT I saw and evaluated the patient. I reviewed the resident's note and discussed the case with the resident. I agree with the resident's findings and plan as documented. SUBJECTIVE: OBJECTIVE: ASSESSMENT AND PLAN:
--- NOTE | 2019-11-20 15:43 | PN ---
Progress Note, Physician History of Present Illness: Pt seen and examined at bedside. He is awake and more interactive. He remains in the ICU. - Current Medication List Current Medications: Active Medications Albuterol Sulfate (Ventolin 0.083% Nebulizer Soln -) 1 amp NEB Q4H PRN PRN Reason: SHORT OF BREATH/WHEEZING Albuterol/Ipratropium (Duoneb -) 1 amp NEB RQID TED Last Admin: 11/20/19 14:35 Dose: 1 amp Fludrocortisone Acetate (Florinef -) 0.05 mg GT DAILY TED Hydrocortisone Sodium Succinate (Solu-Cortef -) 50 mg IVPB Q8H-IV TED Last Admin: 11/20/19 09:25 Dose: 50 mg Propofol (Diprivan -) 1,000,000 mcg in 100 mls @ 2.556 mls/hr IVPB TITR TED; Protocol Last Titration: 11/18/19 20:00 Dose: 0 mcg/kg/min, 0 mls/hr Ceftriaxone Sodium 1 gm/ (Dextrose) 50 mls @ 100 mls/hr IVPB DAILY TED; Protocol Last Admin: 11/20/19 09:24 Dose: 100 mls/hr Norepinephrine Bitartrate 8, (000 mcg/ Sodium Chloride) 500 mls @ 18.75 mls/hr IV TITR TED; Protocol Last Admin: 11/20/19 03:00 Dose: 8 mcg/min, 30 mls/hr Insulin Aspart (Novolog Vial Sliding Scale -) 1 vial SQ ACHS TED; Protocol Last Admin: 11/20/19 11:28 Dose: Not Given Mupirocin (Bactroban 2% Cream -) 1 applic TP BID TED Last Admin: 11/20/19 09:24 Dose: 1 applic Pantoprazole Sodium (Protonix Iv) 40 mg IVPUSH DAILY TED Last Admin: 11/20/19 09:24 Dose: 40 mg - Objective Vital Signs: Vital Signs Temperature 97.6 F 11/20/19 14:00 Pulse Rate 60 11/20/19 14:00 Respiratory Rate 28 H 11/20/19 14:00 Blood Pressure 112/47 L 11/20/19 14:00 O2 Sat by Pulse Oximetry (%) 100 11/20/19 09:36 Constitutional: Yes: Calm Eyes: Yes: Conjunctiva Clear HENT: Yes: Atraumatic Neck: Yes: Supple Cardiovascular: Yes: S1, S2 Respiratory: Yes: Mechanically Ventilated Gastrointestinal: Yes: Soft Genitourinary: Yes: WNL Musculoskeletal: Yes: Muscle Weakness Edema: Yes Edema: LUE: Trace, RUE: Trace Neurological: Yes: Other (awake) Labs: CBC, BMP 11/20/19 05:30 11/20/19 05:30 INR, PTT INR 1.02 (0.83-1.09) 11/17/19 06:00 - ....Imaging Chest X-ray: Report Reviewed Assessment/Plan Current Medications Generic Name Dose Route Start Last Admin Trade Name Freq PRN Reason Stop Dose Admin Albuterol Sulfate 1 amp 11/14/19 03:54 Ventolin 0.083% Nebulizer Soln - NEB Q4H PRN SHORT OF BREATH/WHEEZING Albuterol/Ipratropium 1 amp 11/14/19 08:00 11/20/19 14:35 Duoneb - NEB 1 amp RQID TED Administration Fludrocortisone Acetate 0.05 mg 11/20/19 11:14 Florinef - GT DAILY TED Hydrocortisone Sodium Succinate 50 mg 11/19/19 05:05 11/20/19 09:25 Solu-Cortef - IVPB 50 mg Q8H-IV TED Administration Propofol 1,000,000 mcg in 100 mls @ 2.556 mls/hr 11/13/19 22:15 11/18/19 20: 00 Diprivan - IVPB 0 mcg/kg/min TITR TED 0 mls/hr Titration Protocol 5 MCG/KG/MIN Ceftriaxone Sodium 1 gm/ 50 mls @ 100 mls/hr 11/18/19 13:15 11/20/19 09:24 Dextrose IVPB 100 mls/hr DAILY TED Administration Protocol Norepinephrine Bitartrate 8, 500 mls @ 18.75 mls/hr 11/19/19 22:30 11/20/19 03:00 000 mcg/ Sodium Chloride IV 8 mcg/min TITR TED 30 mls/hr Administration Protocol 5 MCG/MIN Insulin Aspart 1 vial 11/14/19 16:30 11/20/19 11:28 Novolog Vial Sliding Scale - SQ Not Given ACHS TED Protocol Mupirocin 1 applic 11/18/19 22:00 11/20/19 09:24 Bactroban 2% Cream - TP 1 applic BID TED Administration Pantoprazole Sodium 40 mg 11/19/19 10:00 11/20/19 09:24 Protonix Iv IVPUSH 40 mg DAILY TED Administration Impression 1. ESRD 2. resp failure 3. PNA 4. copd 5. chf 6. sepsis 7. pulm effusion 8. hyponatremia Plan - HD today - cont vent support - pt more awake - monitor lytes - discussed with ICU - HD: TTS f180 3:30 DW 87 kg 2 k bath 2.5 ca, gcc191, na 137, access PC right chest
[2019-11-21] MEDS: NOREPINEPHRINE BITARTRATE 8,000 MCG in SODIUM CHLORIDE 492 ML IV SCH ×2 (01:57→13:28)
[2019-11-21] MEDS: HYDROCORTISONE SOD SUCCINATE 100 MG/2 ML VIAL IVPB SCH ×3 (01:58→17:00)
[2019-11-21] MEDS: INSULIN SLIDING SCALE (NOVOLOG) 1 VIAL SQ SCH ×4 (06:35→22:36)
[2019-11-21 07:05] LABS: BASO % 0.2 % (0-2.0); EOS % 0.3 % (0-4.5); HEMOGLOBIN 10.6 GM/dL (11.7-16.9); LYMPH % 3.3 % (8-40); MCH 31.8 pg (25.7-33.7); MCHC 32.2 g/dl (32.0-35.9); MEAN CELL VOLUME 98.7 fl (80-96); MEAN PLT VOLUME 9.1 fl (7.5-11.1); MONO % 7.6 % (3.8-10.2); NEUT % 88.6 % (42.8-82.8); PLATELET COUNT 177 K/MM3 (134-434); RBC 3.35 M/mm3 (4.00-5.60); RDW 21.2 % (11.9-15.9); WHITE BLOOD COUNT 12.8 K/mm3 (4.0-10.0)
[2019-11-21] MEDS: ALBUTEROL SO4 2.5/IPRATROPIUM 0.5 INH SOL 3 ML VIAL.NEB. NEB SCH ×4 (07:35→20:50)
[2019-11-21 07:38] LABS: BILIRUBIN,TOTAL 1.1 mg/dL (0.2-1); BLOOD UREA NITROGEN 49.8 mg/dL (7-18); CALCIUM 8.4 mg/dL (8.5-10.1); CREATININE 3.1 mg/dL (0.55-1.3); POTASSIUM 3.2 mmol/L (3.5-5.1); TOT PROT 5.4 g/dl (6.4-8.2)
[2019-11-21] MEDS ORDERED: cefTRIAXone SODIUM 1 GM VIAL ONE (10:23)
[2019-11-21] MEDS ORDERED: DEXTROSE 5%-WATER - 50 ML IVPB ONE (10:23)
[2019-11-21] MEDS: MUPIROCIN CA 2% TOPICAL CREAM 15 GM TUBE TP SCH ×2 (10:30→22:36)
[2019-11-21] MEDS: KCL 10 MEQ IVPB 10 MEQ/100 ML INFUS.BAG IVPB SCH ×3 (10:30→16:58)
[2019-11-21] MEDS: PANTOPRAZOLE SODIUM 40 MG VIAL IVPUSH SCH (10:31)
[2019-11-21] MEDS: FLUDROCORTISONE ACETATE 0.1 MG TABLET (FP) GT SCH (10:31)
[2019-11-21] MEDS: CEFTRIAXONE 1 GM in DEXTROSE 5%-WATER - 50 ML IVPB SCH (10:31)
--- NOTE | 2019-11-21 10:57 | PN ---
Teaching Attending Note Name of Resident: Titi Olivas ATTENDING PHYSICIAN STATEMENT I saw and evaluated the patient. I reviewed the resident's note and discussed the case with the resident. I agree with the resident's findings and plan as documented. SUBJECTIVE: Patient seen and examined in the ICU. Sleepy but easily arousable on CPAP Mode of vent, 40% FiO2. 4 mcq NE for hemodynamic support. CXR: no gross change Intake & Output 11/18/19 11/19/19 11/20/19 11/21/19 23:59 23:59 23:59 23:59 Intake Total 1781 3123 1208 670 Output Total 3000 4100 Balance -1219 3123 -2892 670 Weight 183 lb 14.4 oz 179 lb 6.4 oz 178 lb 8 oz 174 lb 3.2 oz Last Vital Signs Temp Pulse Resp BP Pulse Ox 97.7 F 60 15 135/50 L 100 11/21/19 06:00 11/21/19 09:24 11/21/19 08:20 11/21/19 09:24 11/20/19 21:00 Active Medications Albuterol Sulfate (Ventolin 0.083% Nebulizer Soln -) 1 amp NEB Q4H PRN PRN Reason: SHORT OF BREATH/WHEEZING Albuterol/Ipratropium (Duoneb -) 1 amp NEB RQID TED Last Admin: 11/21/19 07:35 Dose: 1 amp Fludrocortisone Acetate (Florinef -) 0.05 mg GT DAILY TED Last Admin: 11/21/19 10:31 Dose: 0.05 mg Hydrocortisone Sodium Succinate (Solu-Cortef -) 50 mg IVPB Q8H-IV TED Last Admin: 11/21/19 10:32 Dose: 50 mg Propofol (Diprivan -) 1,000,000 mcg in 100 mls @ 2.556 mls/hr IVPB TITR TED; Protocol Last Titration: 11/18/19 20:00 Dose: 0 mcg/kg/min, 0 mls/hr Ceftriaxone Sodium 1 gm/ (Dextrose) 50 mls @ 100 mls/hr IVPB DAILY TED; Protocol Last Admin: 11/21/19 10:31 Dose: 100 mls/hr Norepinephrine Bitartrate 8, (000 mcg/ Sodium Chloride) 500 mls @ 18.75 mls/hr IV TITR TED; Protocol Last Titration: 11/21/19 09:24 Dose: 4 mcg/min, 15 mls/hr Potassium Chloride (Potassium Chloride 10 Meq Premix Ivpb -) 10 meq in 100 mls @ 100 mls/hr IVPB Q60M [facility] Stop: 11/21/19 11:59 Last Admin: 11/21/19 10:30 Dose: 100 mls/hr Insulin Aspart (Novolog Vial Sliding Scale -) 1 vial SQ ACHS [facility]; Protocol Last Admin: 11/21/19 06:35 Dose: 2 units Mupirocin (Bactroban 2% Cream -) 1 applic TP BID TED Last Admin: 11/21/19 10:30 Dose: 1 applic Pantoprazole Sodium (Protonix Iv) 40 mg IVPUSH DAILY [facility] Last Admin: 11/21/19 10:31 Dose: 40 mg GENERAL: Intubated, lightly sedated HEAD: Normal with no signs of trauma. EYES: (-) Icterus (-) Pallor EARS, NOSE, THROAT: ET Tube in place. LUNGS: Vented, bilateral coarse rhonchi, no wheeze. HEART: S1S2 ABDOMEN: Increased distention, more tense. No fluid wave shift. Hypoactive bowel sounds. UPPER EXTREMITIES: 2+ pulses, warm, well-perfused. No cyanosis. No clubbing. LOWER EXTREMITIES: Right BKA. Left foot cool to touch. Left heel has non purulent wound. No discharge noted. NEUROLOGICAL: Sleepy, non-focal SKIN:Chronic venous stasis changes in the left lower leg. Laboratory Results - last 24 hr 11/20/19 11/20/19 11/20/19 05:30 11:26 16:21 WBC RBC Hgb Hct MCV MCH MCHC RDW Plt Count MPV Absolute Neuts (auto) Neutrophils % Neutrophils % (Manual) 70.0 D Band Neutrophils % 1.0 Lymphocytes % Lymphocytes % (Manual) 1.0 L D Monocytes % Monocytes % (Manual) 4 Eosinophils % Eosinophils % (Manual) 22.0 H D Basophils % Basophils % (Manual) 0.0 Myelocytes % (Man) 1 D Promyelocytes % (Man) 0 Blast Cells % (Manual) 0 Nucleated RBC % 0 Metamyelocytes 0 Hypochromia 0 Toxic Granulation 1+ Platelet Estimate Decreased Platelet Comment Present Polychromasia 1+ Poikilocytosis 2+ Anisocytosis 2+ Microcytosis 2+ Macrocytosis 0 Tear Drop Cells 1+ Ovalocytes 1+ [place] Cells 1+ Sodium Potassium Chloride Carbon Dioxide Anion Gap BUN Creatinine Est GFR (CKD-EPI)AfAm Est GFR (CKD-EPI)NonAf POC Glucometer 125 183 Random Glucose Calcium Phosphorus Magnesium Total Bilirubin AST ALT Alkaline Phosphatase Total Protein Albumin 11/20/19 11/21/19 11/21/19 21:40 06:00 06:00 WBC 12.8 H RBC 3.35 L Hgb 10.6 L Hct 33.0 L MCV 98.7 H MCH 31.8 MCHC 32.2 RDW 21.2 H Plt Count 177 D MPV 9.1 D Absolute Neuts (auto) 11.4 H Neutrophils % 88.6 H Neutrophils % (Manual) Band Neutrophils % Lymphocytes % 3.3 L D Lymphocytes % (Manual) Monocytes % 7.6 Monocytes % (Manual) Eosinophils % 0.3 D Eosinophils % (Manual) Basophils % 0.2 Basophils % (Manual) Myelocytes % (Man) Promyelocytes % (Man) Blast Cells % (Manual) Nucleated RBC % 0 Metamyelocytes Hypochromia Toxic Granulation Platelet Estimate Platelet Comment Polychromasia Poikilocytosis Anisocytosis Microcytosis Macrocytosis Tear Drop Cells Ovalocytes [place] Cells Sodium 139 Potassium 3.2 L Chloride 100 Carbon Dioxide 26 Anion Gap 13 BUN 49.8 H Creatinine 3.1 H Est GFR (CKD-EPI)AfAm 21.33 Est GFR (CKD-EPI)NonAf 18.40 POC Glucometer 194 Random Glucose 236 H Calcium 8.4 L Phosphorus 4.0 Magnesium 2.0 Total Bilirubin 1.1 H AST 13 L ALT 18 Alkaline Phosphatase 114 Total Protein 5.4 L Albumin 2.0 L 11/21/19 06:30 WBC RBC Hgb Hct MCV MCH MCHC RDW Plt Count MPV Absolute Neuts (auto) Neutrophils % Neutrophils % (Manual) Band Neutrophils % Lymphocytes % Lymphocytes % (Manual) Monocytes % Monocytes % (Manual) Eosinophils % Eosinophils % (Manual) Basophils % Basophils % (Manual) Myelocytes % (Man) Promyelocytes % (Man) Blast Cells % (Manual) Nucleated RBC % Metamyelocytes Hypochromia Toxic Granulation Platelet Estimate Platelet Comment Polychromasia Poikilocytosis Anisocytosis Microcytosis Macrocytosis Tear Drop Cells Ovalocytes [place] Cells Sodium Potassium Chloride Carbon Dioxide Anion Gap BUN Creatinine Est GFR (CKD-EPI)AfAm Est GFR (CKD-EPI)NonAf POC Glucometer 191 Random Glucose Calcium Phosphorus Magnesium Total Bilirubin AST ALT Alkaline Phosphatase Total Protein Albumin ASSESSMENT/PLAN: Acute Respiratory Failure due to RLL PNA COPD ESRD on HD CHF SAVANA R/O Seizure Septic Shock (?) Cirrhosis PAD Demand Ischemia Chronic loculated RLL effusion Hyponatremia Follow Sodium level Wean pressors Hydrocortisone & Fludrocortisone Strict I & O ABX per ID HD per Renal BD TX VTE prophylaxis Enteral feeds Wean trials as tolerated to extubate Requires ICU monitoring Dr Barnard Critical care time spent in reviewing chart, evaluating patient and formulating plan - 36 minutes.
--- NOTE | 2019-11-21 11:56 | PN ---
Progress Note, Physician History of Present Illness: patient more awake abusable on cpap still intubated - Current Medication List Current Medications: Active Medications Albuterol Sulfate (Ventolin 0.083% Nebulizer Soln -) 1 amp NEB Q4H PRN PRN Reason: SHORT OF BREATH/WHEEZING Albuterol/Ipratropium (Duoneb -) 1 amp NEB RQID [facility] Last Admin: 11/21/19 11:15 Dose: 1 amp Fludrocortisone Acetate (Florinef -) 0.05 mg GT DAILY [facility] Last Admin: 11/21/19 10:31 Dose: 0.05 mg Hydrocortisone Sodium Succinate (Solu-Cortef -) 50 mg IVPB Q8H-IV TED Last Admin: 11/21/19 10:32 Dose: 50 mg Propofol (Diprivan -) 1,000,000 mcg in 100 mls @ 2.556 mls/hr IVPB TITR [facility]; Protocol Last Titration: 11/18/19 20:00 Dose: 0 mcg/kg/min, 0 mls/hr Ceftriaxone Sodium 1 gm/ (Dextrose) 50 mls @ 100 mls/hr IVPB DAILY TED; Protocol Last Admin: 11/21/19 10:31 Dose: 100 mls/hr Norepinephrine Bitartrate 8, (000 mcg/ Sodium Chloride) 500 mls @ 18.75 mls/hr IV TITR [facility]; Protocol Last Titration: 11/21/19 09:24 Dose: 4 mcg/min, 15 mls/hr Potassium Chloride (Potassium Chloride 10 Meq Premix Ivpb -) 10 meq in 100 mls @ 100 mls/hr IVPB Q60M [facility] Stop: 11/21/19 11:59 Last Admin: 11/21/19 10:30 Dose: 100 mls/hr Insulin Aspart (Novolog Vial Sliding Scale -) 1 vial SQ ACHS [facility]; Protocol Last Admin: 11/21/19 06:35 Dose: 2 units Mupirocin (Bactroban 2% Cream -) 1 applic TP BID [facility] Last Admin: 11/21/19 10:30 Dose: 1 applic Pantoprazole Sodium (Protonix Iv) 40 mg IVPUSH DAILY [facility] Last Admin: 11/21/19 10:31 Dose: 40 mg - Objective Vital Signs: Vital Signs Temperature 97.7 F 11/21/19 06:00 Pulse Rate 60 11/21/19 09:24 Respiratory Rate 15 11/21/19 11:53 Blood Pressure 135/50 L 11/21/19 09:24 O2 Sat by Pulse Oximetry (%) 100 11/20/19 21:00 Constitutional: Yes: No Distress, Calm Cardiovascular: Yes: S1, S2 Respiratory: Yes: Intubated, Mechanically Ventilated Gastrointestinal: Yes: Normal Bowel Sounds, Soft Musculoskeletal: Yes: WNL Extremities: Yes: WNL Neurological: Yes: Alert Psychiatric: Yes: Alert Labs: CBC, BMP 11/21/19 06:00 11/21/19 06:00 INR, PTT INR 1.02 (0.83-1.09) 11/17/19 06:00 Assessment/Plan Acute Respiratory Acute due to RLL PNA COPD, ESRD on HD CHF SAVANA R/O Seizure Septic Shock PAD Demand Ischemia Chronic loculated RLL effusion plan abx sputum cx noted as per icu wean as tolerated vent support close watch nutrition rest as per the team cc 40 min l
--- NOTE | 2019-11-21 11:57 | PN ---
Progress Note, Physician History of Present Illness: weaning trials failed stable mental status ok - Current Medication List Current Medications: Active Medications Albuterol Sulfate (Ventolin 0.083% Nebulizer Soln -) 1 amp NEB Q4H PRN PRN Reason: SHORT OF BREATH/WHEEZING Albuterol/Ipratropium (Duoneb -) 1 amp NEB RQID [facility] Last Admin: 11/21/19 11:15 Dose: 1 amp Fludrocortisone Acetate (Florinef -) 0.05 mg GT DAILY T[facility] Last Admin: 11/21/19 10:31 Dose: 0.05 mg Hydrocortisone Sodium Succinate (Solu-Cortef -) 50 mg IVPB Q8H-IV T[facility] Last Admin: 11/21/19 10:32 Dose: 50 mg Propofol (Diprivan -) 1,000,000 mcg in 100 mls @ 2.556 mls/hr IVPB TITR T[facility]; Protocol Last Titration: 11/18/19 20:00 Dose: 0 mcg/kg/min, 0 mls/hr Ceftriaxone Sodium 1 gm/ (Dextrose) 50 mls @ 100 mls/hr IVPB DAILY [facility]; Protocol Last Admin: 11/21/19 10:31 Dose: 100 mls/hr Norepinephrine Bitartrate 8, (000 mcg/ Sodium Chloride) 500 mls @ 18.75 mls/hr IV TITR TED; Protocol Last Titration: 11/21/19 09:24 Dose: 4 mcg/min, 15 mls/hr Potassium Chloride (Potassium Chloride 10 Meq Premix Ivpb -) 10 meq in 100 mls @ 100 mls/hr IVPB Q60M [facility] Stop: 11/21/19 11:59 Last Admin: 11/21/19 10:30 Dose: 100 mls/hr Insulin Aspart (Novolog Vial Sliding Scale -) 1 vial SQ ACHS [facility]; Protocol Last Admin: 11/21/19 06:35 Dose: 2 units Mupirocin (Bactroban 2% Cream -) 1 applic TP BID [facility] Last Admin: 11/21/19 10:30 Dose: 1 applic Pantoprazole Sodium (Protonix Iv) 40 mg IVPUSH DAILY [facility] Last Admin: 11/21/19 10:31 Dose: 40 mg - Objective Vital Signs: Vital Signs Temperature 97.7 F 11/21/19 06:00 Pulse Rate 60 01/31/20 09:24 Respiratory Rate 15 11/21/19 11:53 Blood Pressure 135/50 L 11/21/19 09:24 O2 Sat by Pulse Oximetry (%) 100 11/20/19 21:00 Constitutional: Yes: No Distress, Calm Cardiovascular: Yes: S1, S2 Respiratory: Yes: Intubated, Mechanically Ventilated Gastrointestinal: Yes: Normal Bowel Sounds, Soft Musculoskeletal: Yes: WNL Extremities: Yes: WNL Neurological: Yes: Alert Psychiatric: Yes: Alert Labs: CBC, BMP 11/21/19 06:00 11/21/19 06:00 INR, PTT INR 1.02 (0.83-1.09) 11/17/19 06:00 Assessment/Plan Acute Respiratory Acute due to RLL PNA COPD, ESRD on HD CHF SAVANA R/O Seizure Septic Shock PAD Demand Ischemia Chronic loculated RLL effusion plan abx sputum cx noted as per icu wean as tolerated vent support close watch nutrition rest as per the team cc 40 min l
--- NOTE | 2019-11-21 12:44 | PN ---
Progress Note (short form) - Note Progress Note: pt seen/ examined in icu today chart reviewed all f/u noted arousable answers simple questions by turning head denies pain remains Intubated On pressor Vital Signs Temp 97.7 F 11/21/19 06:00 Pulse 60 11/21/19 09:24 Resp 15 11/21/19 11:53 BP 135/50 L 11/21/19 09:24 Pulse Ox 100 11/20/19 21:00 Intake & Output 11/20/19 11/21/19 11/21/19 23:59 11:59 23:59 Intake Total 798 670 Output Total 3400 Balance -2602 670 Weight 174 lb 3.2 oz Intake: IV 258 270 Levophed - 8,000 Mcg In 258 270 Normal Saline - 492 ml @ 5 MCG/MIN 18.75 mls/hr IV TITR TED Rx#:[id number] IVPB 300 Tube Feeding 240 400 Output: Fluid Removed, 3400 Hemodialysis Other: Voiding Method Diaper Bowel Movement Yes Yes Weight Measurement Method Built in [facility] Active Medications Albuterol Sulfate (Ventolin 0.083% Nebulizer Soln -) 1 amp NEB Q4H PRN PRN Reason: SHORT OF BREATH/WHEEZING Albuterol/Ipratropium (Duoneb -) 1 amp NEB RQID T[facility] Last Admin: 11/21/19 11:15 Dose: 1 amp Fludrocortisone Acetate (Florinef -) 0.05 mg GT DAILY T[facility] Last Admin: 11/21/19 10:31 Dose: 0.05 mg Hydrocortisone Sodium Succinate (Solu-Cortef -) 50 mg IVPB Q8H-IV TED Last Admin: 11/21/19 10:32 Dose: 50 mg Propofol (Diprivan -) 1,000,000 mcg in 100 mls @ 2.556 mls/hr IVPB TITR [facility]; Protocol Last Titration: 11/18/19 20:00 Dose: 0 mcg/kg/min, 0 mls/hr Ceftriaxone Sodium 1 gm/ (Dextrose) 50 mls @ 100 mls/hr IVPB DAILY [facility]; Protocol Last Admin: 11/21/19 10:31 Dose: 100 mls/hr Norepinephrine Bitartrate 8, (000 mcg/ Sodium Chloride) 500 mls @ 18.75 mls/hr IV TITR TED; Protocol Last Titration: 11/21/19 09:24 Dose: 4 mcg/min, 15 mls/hr Insulin Aspart (Novolog Vial Sliding Scale -) 1 vial SQ ACHS [facility]; Protocol Last Admin: 11/21/19 06:35 Dose: 2 units Mupirocin (Bactroban 2% Cream -) 1 applic TP BID [facility] Last Admin: 11/21/19 10:30 Dose: 1 applic Pantoprazole Sodium (Protonix Iv) 40 mg IVPUSH DAILY [facility] Last Admin: 11/21/19 10:31 Dose: 40 mg CBC, BMP 11/21/19 06:00 11/21/19 06:00 cxr- no change ABG Results ABG pH 7.32 (7.35-7.45) L 11/14/19 07:15 ABG pCO2 at Pt Temp 37.6 mmHg (35-45) 11/14/19 07:15 ABG pO2 at Pt Temp 66.9 mmHg (80-100) L 11/14/19 07:15 ABG HCO3 18.8 mmol/L (22-27) L 11/14/19 07:15 ABG O2 Sat (Measured) 87.7 % (95-98) L 11/14/19 07:15 ABG O2 Content No Result Required. 11/14/19 07:15 ABG Base Excess -6.2 meq/l (-2-2) L 11/14/19 07:15 Physical Constitutional: Yes: Other (Intubated) NGT + Eyes: Yes: Conjunctiva Clear Neck: Yes: Supple. Central line + Cardiovascular: Yes: Regular Rate and Rhythm Respiratory: Yes: Diminished Gastrointestinal: Yes: Soft, Genitourinary: Yes: [place] Removed Extremities: Yes: Amputation (s/p right aka) Edema: No Integumentary: No: Other Wound/Incision: Yes: Other (Left heel ulcer)-- Dressing + Neurological: Yes: Other (sedated) Additional Findings/Remarks: - ....Imaging Chest X-ray: Report Reviewed Cat Scan: Report Reviewed Echo-- Reviewed Assessment/Plan In summary Pt 79yr old gentleman with extensive PMHx of CAD , s/p multivessel PCI (> 1 year ago), CHF , PPM, AF,COPD, ESRD-HD. Has been in and out of hospital since July with COPD/ infections/ CKD and recently had a possible GIB at [facility]- no endoscopic evaluation. Transferred from [facility] for short term rehab and was transferred here for resp distress. Admitted to ICU / Intubated for Respiratory failure and Pneumonia. Pt was admitted to [facility] from [facility] Multiple problems as listed. Clinically better but Remains critically ill Continue present care Abx Vent support Taper pressors as tolerated ct abd/pelvis -->CT A/P shows ascites, diverticulosis, small umbilical R inguinal hernias -Repeat CT A/P shows: ascites has slightly increased, diverticulosis, small right inguinal hernia, and subcutaneous edema b/l. spoke with ICU team also today as well as RN 'resume GT feeds Dialysis yesterday D/W RN also Platelets low--hold off Heparin CC time approx 35 min Will follow Problem List - Problems (1) Respiratory failure Code(s): J96.90 - RESPIRATORY FAILURE, UNSP, UNSP W HYPOXIA OR HYPERCAPNIA (2) CAD (coronary artery disease) Code(s): I25.10 - ATHSCL HEART DISEASE OF [place] CORONARY ARTERY W/O ANG PCTRS (3) PVD (peripheral vascular disease) Code(s): I73.9 - PERIPHERAL VASCULAR DISEASE, UNSPECIFIED (4) Elevated troponin Code(s): R79.89 - OTHER SPECIFIED ABNORMAL FINDINGS OF BLOOD CHEMISTRY (5) Thrombocytopenia Code(s): D69.6 - THROMBOCYTOPENIA, UNSPECIFIED
--- NOTE | 2019-11-21 14:44 | PN ---
Physical Exam: SUBJECTIVE: Patient seen and examined in the morning. No acute events overnight. Patient was extubated over the day. OBJECTIVE: Vital Signs Period Temp Pulse Resp BP Sys/Armando Pulse Ox Last 24 Hr 97.7 F-97.9 F 60-62 14-21 102-135/42-50 100 GENERAL: The patient is responsive. HEAD: Normal with no signs of trauma. High flow oxygen in place. EYES: PERRLA NECK: Central line in place, right side. LUNGS: Breath sounds equal, clear to auscultation bilaterally, no wheezes, no crackles, no accessory muscle use. HEART: Regular rate and rhythm, S1, S2 without murmur, rub or gallop. ABDOMEN: Soft, nontender to palpation on sedation. Hypoactive bowel sounds. EXTREMITIES: Left leg has venous stasis changes, right leg aka. Edema present. Weeping arms. NEUROLOGICAL: Responsive to commands, CN II- intact. Laboratory Results - last 24 hr 11/20/19 11/20/19 11/21/19 16:21 21:40 06:00 WBC 12.8 H RBC 3.35 L Hgb 10.6 L Hct 33.0 L MCV 98.7 H MCH 31.8 MCHC 32.2 RDW 21.2 H Plt Count 177 D MPV 9.1 D Absolute Neuts (auto) 11.4 H Neutrophils % 88.6 H Lymphocytes % 3.3 L D Monocytes % 7.6 Eosinophils % 0.3 D Basophils % 0.2 Nucleated RBC % 0 Sodium Potassium Chloride Carbon Dioxide Anion Gap BUN Creatinine Est GFR (CKD-EPI)AfAm Est GFR (CKD-EPI)NonAf POC Glucometer 183 194 Random Glucose Calcium Phosphorus Magnesium Total Bilirubin AST ALT Alkaline Phosphatase Total Protein Albumin 11/21/19 11/21/19 11/21/19 06:00 06:30 13:34 WBC RBC Hgb Hct MCV MCH MCHC RDW Plt Count MPV Absolute Neuts (auto) Neutrophils % Lymphocytes % Monocytes % Eosinophils % Basophils % Nucleated RBC % Sodium 139 Potassium 3.2 L Chloride 100 Carbon Dioxide 26 Anion Gap 13 BUN 49.8 H Creatinine 3.1 H Est GFR (CKD-EPI)AfAm 21.33 Est GFR (CKD-EPI)NonAf 18.40 POC Glucometer 191 267 Random Glucose 236 H Calcium 8.4 L Phosphorus 4.0 Magnesium 2.0 Total Bilirubin 1.1 H AST 13 L ALT 18 Alkaline Phosphatase 114 Total Protein 5.4 L Albumin 2.0 L Active Medications Generic Name Dose Route Start Last Admin Trade Name Shira PRN Reason Stop Dose Admin Albuterol Sulfate 1 amp 11/14/19 03:54 Ventolin 0.083% Nebulizer Soln - NEB Q4H PRN SHORT OF BREATH/WHEEZING Albuterol/Ipratropium 1 amp 11/14/19 08:00 11/21/19 11:15 Duoneb - NEB 1 amp RQID TED Administration Fludrocortisone Acetate 0.05 mg 11/20/19 11:14 11/21/19 10:31 Florinef - GT 0.05 mg DAILY TED Administration Hydrocortisone Sodium Succinate 50 mg 11/19/19 05:05 11/21/19 10:32 Solu-Cortef - IVPB 50 mg Q8H-IV TED Administration Propofol 1,000,000 mcg in 100 mls @ 2.556 mls/hr 11/13/19 22:15 11/18/19 20: 00 Diprivan - IVPB 0 mcg/kg/min TITR TED 0 mls/hr Titration Protocol 5 MCG/KG/MIN Ceftriaxone Sodium 1 gm/ 50 mls @ 100 mls/hr 11/18/19 13:15 11/21/19 10:31 Dextrose IVPB 100 mls/hr DAILY TED Administration Protocol Norepinephrine Bitartrate 8, 500 mls @ 18.75 mls/hr 11/19/19 22:30 11/21/19 13:28 000 mcg/ Sodium Chloride IV 4 mcg/min TITR TED 15 mls/hr Administration Protocol 5 MCG/MIN Insulin Aspart 1 vial 11/14/19 16:30 11/21/19 13:48 Novolog Vial Sliding Scale - SQ 6 units ACHS TED Administration Protocol Mupirocin 1 applic 11/18/19 22:00 11/21/19 10:30 Bactroban 2% Cream - TP 1 applic BID TED Administration Pantoprazole Sodium 40 mg 11/19/19 10:00 11/21/19 10:31 Protonix Iv IVPUSH 40 mg DAILY TED Administration ASSESSMENT/PLAN: 79M PMH of COPD, ESRD on HD (T,Th,Sat),CHF s/p pacemaker, DM II, prostate cancer , venous stasis changes, constipation who presented with exacerbation of COPD likely secondary to PNA. Was found to be obtunded in the residential and was intubated in the ED. Neuro -Patient is alert to self, responsive and following command. -Continue to monitor Cardiovascular -Patient has hx of CHF -Patient was hypotensive refractory to fluid boluses. Will continue with levophed -Echo records obtained from [place]. EF of 70%, mild conc. lVH, diastolic filling pattern, RV mildly enlarged, RV severely imparied, LA dilated, RA mildly enlarged, AO valve sclerosis, aortic insufficiency. -Continous cardiac monitoring -Afib present,holding anticoagulation. -Cardiology consulted, appreciate recs Pulmonary -Hx of COPD, SAVANA. -Chest x-ray shows RLL pleural effusions -Duonebs -Albuterol PRN -On high flow 50/50 -extubated earlier today. GI -CT A/P shows ascites, diverticulosis, small umbilical R inguinal hernias -Repeat CT A/P shows: ascites has slightly increased, diverticulosis, small right inguinal hernia, and subcutaneous edema b/l. -Dark brown fluid on NGT suction. -Abd U/S shows mild hepatomegaly with fatty infiltration of the liver.Smallamount of ascites in the 4 abdominal quadrants. No cholelithiasis. Nonspecific diffusely thickned gallbladder wall likely due to hepatocellular disease andthird spacing rather than cholecystitis.Correlate clinically. Diffusely prominent and heterogenous pancreas but no focal lesion probably due to third spacing -Continue to monitor -General surgery consulted, appreciate recs. Renal -Hx of ESRD, HD on T, Th, S. -Dialysis yesterday. -D/Cd vasopressin, continue levophed. Switched fluids to NS for zosyn -Nephrology consulted, appreciate recs ID -Continue zoysn -sputum culture growing lactose fermenting GNB -ID consulted, appreciate recs Endocrine -ACHS -ISS DVT: SCDs F: No standing fluids at the moment. E: Monitor Na. N: Nepro Tube feeds Lines: LEft sided femoral line 11/21/19. Intubated 11/14/19. [place] in place. Dispo: Continue ICU management. Visit type - Emergency Visit Emergency Visit: Yes ED Registration Date: 11/14/19 Care time: The patient presented to the Emergency Department on the above date and was hospitalized for further evaluation of their emergent condition. - New Patient This patient is new to me today: No - Critical Care Critical Care patient: Yes Total Critical Care Time (in minutes): 45 Critical Care Statement: The care of this patient involved high complexity decision making to prevent further life threatening deterioration of the patient 's condition and/or to evaluate & treat vital organ system(s) failure or risk of failure. ATTENDING PHYSICIAN STATEMENT I saw and evaluated the patient. I reviewed the resident's note and discussed the case with the resident. I agree with the resident's findings and plan as documented. SUBJECTIVE: OBJECTIVE: ASSESSMENT AND PLAN:
--- NOTE | 2019-11-21 14:50 | PN ---
Progress Note (short form) - Note Progress Note: s: extubated, remains on pressors, lethargic Current Medications Generic Name Dose Route Start Last Admin Trade Name Freq PRN Reason Stop Dose Admin Albuterol Sulfate 1 amp 11/14/19 03:54 Ventolin 0.083% Nebulizer Soln - NEB Q4H PRN SHORT OF BREATH/WHEEZING Albuterol/Ipratropium 1 amp 11/14/19 08:00 11/21/19 11:15 Duoneb - NEB 1 amp RQID TED Administration Fludrocortisone Acetate 0.05 mg 11/20/19 11:14 11/21/19 10:31 Florinef - GT 0.05 mg DAILY TED Administration Hydrocortisone Sodium Succinate 50 mg 11/19/19 05:05 11/21/19 10:32 Solu-Cortef - IVPB 50 mg Q8H-IV TED Administration Propofol 1,000,000 mcg in 100 mls @ 2.556 mls/hr 11/13/19 22:15 11/18/19 20: 00 Diprivan - IVPB 0 mcg/kg/min TITR TED 0 mls/hr Titration Protocol 5 MCG/KG/MIN Ceftriaxone Sodium 1 gm/ 50 mls @ 100 mls/hr 11/18/19 13:15 11/21/19 10:31 Dextrose IVPB 100 mls/hr DAILY TED Administration Protocol Norepinephrine Bitartrate 8, 500 mls @ 18.75 mls/hr 11/19/19 22:30 11/21/19 13:28 000 mcg/ Sodium Chloride IV 4 mcg/min TITR TED 15 mls/hr Administration Protocol 5 MCG/MIN Insulin Aspart 1 vial 11/14/19 16:30 11/21/19 13:48 Novolog Vial Sliding Scale - SQ 6 units ACHS TED Administration Protocol Mupirocin 1 applic 11/18/19 22:00 11/21/19 10:30 Bactroban 2% Cream - TP 1 applic BID TED Administration Pantoprazole Sodium 40 mg 11/19/19 10:00 11/21/19 10:31 Protonix Iv IVPUSH 40 mg DAILY TED Administration Vital Signs Temp 97.7 F 11/21/19 06:00 Pulse 62 11/21/19 13:28 Resp 15 11/21/19 11:53 BP 126/47 L 11/21/19 13:28 Pulse Ox 100 11/20/19 21:00 Intake & Output 11/20/19 11/21/19 11/21/19 23:59 11:59 23:59 Intake Total 798 670 Output Total 3400 Balance -2602 670 Weight 174 lb 3.2 oz Intake: IV 258 270 Levophed - 8,000 Mcg In 258 270 Normal Saline - 492 ml @ 5 MCG/MIN 18.75 mls/hr IV TITR TED Rx#:[id number] IVPB 300 Tube Feeding 240 400 Output: Fluid Removed, 3400 Hemodialysis Other: Voiding Method Diaper Bowel Movement Yes Yes Weight Measurement Method Built in [facility] Constitutional: Yes: Well Nourished, No Distress, Calm Cardiovascular: Yes: Regular Rate and Rhythm, S1, S2. No: Gallop, Murmur Respiratory: Yes: Regular, CTA Bilaterally, poor eff Extremities: No: Cold Edema: No (s/p R AKA) Neurological: No: Seizure Psychiatric: No: Agitated no jaundice, diaphoresis Laboratory Last Values WBC 12.8 K/mm3 (4.0-10.0) H 11/21/19 06:00 RBC 3.35 M/mm3 (4.00-5.60) L 11/21/19 06:00 Hgb 10.6 GM/dL (11.7-16.9) L 11/21/19 06:00 Hct 33.0 % (35.4-49) L 11/21/19 06:00 MCV 98.7 fl (80-96) H 11/21/19 06:00 MCH 31.8 pg (25.7-33.7) 11/21/19 06:00 MCHC 32.2 g/dl (32.0-35.9) 11/21/19 06:00 RDW 21.2 % (11.9-15.9) H 11/21/19 06:00 Plt Count 177 K/MM3 (134-434) D 11/21/19 06:00 MPV 9.1 fl (7.5-11.1) D 11/21/19 06:00 Absolute Neuts (auto) 11.4 K/mm3 (1.5-8.0) H 11/21/19 06:00 Total Counted 100 11/15/19 06:00 Neutrophils % 88.6 % (42.8-82.8) H 11/21/19 06:00 Neutrophils % (Manual) 70.0 % (42.8-82.8) D 11/20/19 05:30 Band Neutrophils % 1.0 % 11/20/19 05:30 Lymphocytes % 3.3 % (8-40) L D 11/21/19 06:00 Lymphocytes % (Manual) 1.0 % (8-40) L D 11/20/19 05:30 Monocytes % 7.6 % (3.8-10.2) 11/21/19 06:00 Monocytes % (Manual) 4 % (3.8-10.2) 11/20/19 05:30 Eosinophils % 0.3 % (0-4.5) D 11/21/19 06:00 Eosinophils % (Manual) 22.0 % (0-4.5) H D 11/20/19 05:30 Basophils % 0.2 % (0-2.0) 11/21/19 06:00 Basophils % (Manual) 0.0 % (0-2.0) 11/20/19 05:30 Myelocytes % (Man) 1 % (0-2) D 11/20/19 05:30 Promyelocytes % (Man) 0 % (0-2) 11/20/19 05:30 Blast Cells % (Manual) 0 % (0-0) 11/20/19 05:30 Nucleated RBC % 0 % (0-0) 11/21/19 06:00 Metamyelocytes 0 % (0-2) 11/20/19 05:30 Hypochromia 0 11/20/19 05:30 Toxic Granulation 1+ 11/20/19 05:30 Platelet Estimate Decreased 11/20/19 05:30 Platelet Comment Present 11/20/19 05:30 Platelet Comment Large platelets 11/15/19 06:00 Polychromasia 1+ 11/20/19 05:30 Poikilocytosis 2+ 11/20/19 05:30 Anisocytosis 2+ 11/20/19 05:30 Microcytosis 2+ 11/20/19 05:30 Macrocytosis 0 11/20/19 05:30 Spherocytes 1+ 11/19/19 05:40 Target Cells 1+ 11/15/19 06:00 Tear Drop Cells 1+ 11/20/19 05:30 Ovalocytes 1+ 11/20/19 05:30 Israel Cells 1+ 11/20/19 05:30 Fragmented RBCs 1+ 11/18/19 06:00 Schistocytes 1+ 11/19/19 05:40 PT with INR 12.00 SEC (9.7-13.0) 11/17/19 06:00 INR 1.02 (0.83-1.09) 11/17/19 06:00 PTT (Actin FS) 31.4 SECONDS (25.2-36.5) 11/17/19 06:00 Anticoagulation Therapy No Result Required. 11/14/19 07:15 Puncture Site Right radial 11/14/19 07:15 ABG pH 7.32 (7.35-7.45) L 11/14/19 07:15 ABG pCO2 at Pt Temp 37.6 mmHg (35-45) 11/14/19 07:15 ABG pO2 at Pt Temp 66.9 mmHg (80-100) L 11/14/19 07:15 ABG HCO3 18.8 mmol/L (22-27) L 11/14/19 07:15 ABG O2 Sat (Measured) 87.7 % (95-98) L 11/14/19 07:15 ABG O2 Content No Result Required. 11/14/19 07:15 ABG Base Excess -6.2 meq/l (-2-2) L 11/14/19 07:15 Albert Test Positive 11/14/19 07:15 Carboxyhemoglobin < 0.5 % (0-2) 11/13/19 23:50 Methemoglobin < 1.0 % (0-2) 11/13/19 23:50 O2 Delivery Device Vent 11/14/19 07:15 Oxygen Flow Rate 40% 11/14/19 07:15 Vent Mode A/c 11/14/19 07:15 Vent Rate 14 11/14/19 07:15 Mechanical Rate No Result Required. 11/14/19 07:15 PEEP 5.0 cmH2O 11/14/19 07:15 Pressure Support Vent 500 11/14/19 07:15 Sodium 139 mmol/L (136-145) 11/21/19 06:00 Potassium 3.2 mmol/L (3.5-5.1) L 11/21/19 06:00 Chloride 100 mmol/L (98-107) 11/21/19 06:00 Carbon Dioxide 26 mmol/L (21-32) 11/21/19 06:00 Anion Gap 13 MMOL/L (8-16) 11/21/19 06:00 BUN 49.8 mg/dL (7-18) H 11/21/19 06:00 Creatinine 3.1 mg/dL (0.55-1.3) H 11/21/19 06:00 Est GFR (CKD-EPI)AfAm 21.33 11/21/19 06:00 Est GFR (CKD-EPI)NonAf 18.40 11/21/19 06:00 POC Glucometer 267 UNITS (80-120) 11/21/19 13:34 Random Glucose 236 mg/dL (74-106) H 11/21/19 06:00 Lactic Acid 1.0 mmol/L (0.4-2.0) 11/19/19 15:00 Calcium 8.4 mg/dL (8.5-10.1) L 11/21/19 06:00 Phosphorus 4.0 mg/dL (2.5-4.9) 11/21/19 06:00 Magnesium 2.0 mg/dL (1.8-2.4) 11/21/19 06:00 Total Bilirubin 1.1 mg/dL (0.2-1) H 11/21/19 06:00 Direct Bilirubin 0.5 mg/dL (0.0-0.2) H 11/17/19 06:00 AST 13 U/L (15-37) L 11/21/19 06:00 ALT 18 U/L (13-61) 11/21/19 06:00 Alkaline Phosphatase 114 U/L (45-117) 11/21/19 06:00 Ammonia 64.60 umol/L (11-32) H 11/14/19 03:30 Troponin I 0.84 ng/ml (0.00-0.05) H* 11/14/19 11:40 Total Protein 5.4 g/dl (6.4-8.2) L 11/21/19 06:00 Albumin 2.0 g/dl (3.4-5.0) L 11/21/19 06:00 Vitamin B12 3654 pg/ml (193-986) H 11/14/19 05:30 Folate >1619 ng/mL (>498) 11/14/19 09:15 Folate Hemolysate >620.0 ng/mL (Not Estab.) 11/14/19 09:15 Urine Color Dk yellow 11/13/19 23:50 Urine Appearance Turbid 11/13/19 23:50 Urine pH 5.0 (5.0-8.0) 11/13/19 23:50 Ur Specific Ray 1.020 (1.010-1.035) 11/13/19 23:50 Urine Protein Trace (NEGATIVE) 11/13/19 23:50 Urine Glucose (UA) Trace (NEGATIVE) 11/13/19 23:50 Urine Ketones Negative (NEGATIVE) 11/13/19 23:50 Urine Blood Negative (NEGATIVE) 11/13/19 23:50 Urine Nitrite Positive (NEGATIVE) H 11/13/19 23:50 Urine Bilirubin 1+ (NEGATIVE) H 11/13/19 23:50 Urine Urobilinogen 0.2 mg/dL (0.2-1.0) 11/13/19 23:50 Ur Leukocyte Esterase 2+ (NEGATIVE) H 11/13/19 23:50 Urine WBC (Auto) 3 /hpf (0-5) 11/13/19 23:50 Urine Casts (Auto) 25 /lpf (0-8) 11/13/19 23:50 U Epithel Cells (Auto) 2.1 /HPF (0-5/HPF) 11/13/19 23:50 Urine Bacteria (Auto) 0.8 /hpf (NEGATIVE) 11/13/19 23:50 Ur Random Creatinine 118.0 mg/dL (30-150) 11/14/19 18:15 U Random Total Protein 233.7 mg/dL (0-11.9) H 11/14/19 18:15 Ur Random Sodium 28 MMOL/L (40-220) L 11/14/19 18:15 Urine Creatinine 118.0 mg/dL (30-150) 11/14/19 18:15 Protein/Creatinin Ratio 2.0 mg/dL 11/14/19 18:15 Random Vancomycin 13.4 ug/ml (18-26) L 11/14/19 05:30 Hep Bs Antigen Negative (Negative) 11/16/19 06:00 Hep C Ab Diagnostic <0.1 s/co ratio (0.0-0.9) 11/16/19 06:00 Blood Type B POSITIVE 11/14/19 02:16 Antibody Screen Positive 11/14/19 02:16 Antibody Identification Anti- k 11/14/19 02:16 Antigen Identification K Antigen - NEGATIVE 11/14/19 02:16 tele: AF, V-P cxr no sig change est cct 35 mins IMP: Acute respiratory failure secondary to RLL PNA w/loculated pleural effusion Sepsis secondary to above ESRD on HD Hyponatremia Chronic COPD CAD s/p PCI Right sided CHF with severe PHTN, RV dilatation and RV dysfunction (chronic per son report). nl LVEF Pacemaker Underlying AFib/flutter Recent reported GIB (no endoscopic evaluation) REC: - rate has been decreased but still remains on levo, wean as tolerated for MAP 60mmHg - HD/UF per renal - Abx as per PMD, Critical Care and ID - Borderline/flat TnI likely due to demand ischemia/sepsis. - Echo with RV dilatation and RV dysfx, severe PHTN- chronic per son. May be due to chronic COPD, and acutely worsened in setting of PNA/hypoxia. - Underlying AF-holding AC in setting recent unexplored GIB/ low platelets ( sepsis/ possible abx effect). Risks> benefits at this time. no tachycardia (V- paced--? PM dependent)
--- NOTE | 2019-11-21 17:22 | PN ---
Progress Note, Physician History of Present Illness: Pt seen and examined at bedside. He remains in the ICU. He is on a weaning trial. - Current Medication List Current Medications: Active Medications Albuterol Sulfate (Ventolin 0.083% Nebulizer Soln -) 1 amp NEB Q4H PRN PRN Reason: SHORT OF BREATH/WHEEZING Albuterol/Ipratropium (Duoneb -) 1 amp NEB RQID TED Last Admin: 11/21/19 15:55 Dose: 1 amp Fludrocortisone Acetate (Florinef -) 0.05 mg GT DAILY TED Last Admin: 11/21/19 10:31 Dose: 0.05 mg Hydrocortisone Sodium Succinate (Solu-Cortef -) 50 mg IVPB Q8H-IV TED Last Admin: 11/21/19 17:00 Dose: 50 mg Propofol (Diprivan -) 1,000,000 mcg in 100 mls @ 2.556 mls/hr IVPB TITR TED; Protocol Last Titration: 11/18/19 20:00 Dose: 0 mcg/kg/min, 0 mls/hr Ceftriaxone Sodium 1 gm/ (Dextrose) 50 mls @ 100 mls/hr IVPB DAILY TED; Protocol Last Admin: 11/21/19 10:31 Dose: 100 mls/hr Norepinephrine Bitartrate 8, (000 mcg/ Sodium Chloride) 500 mls @ 18.75 mls/hr IV TITR TED; Protocol Last Titration: 11/21/19 17:01 Dose: 3 mcg/min, 11.25 mls/hr Insulin Aspart (Novolog Vial Sliding Scale -) 1 vial SQ ACHS TED; Protocol Last Admin: 11/21/19 17:03 Dose: 6 units Mupirocin (Bactroban 2% Cream -) 1 applic TP BID TED Last Admin: 11/21/19 10:30 Dose: 1 applic Pantoprazole Sodium (Protonix Iv) 40 mg IVPUSH DAILY TED Last Admin: 11/21/19 10: Dose: 40 mg - Objective Vital Signs: Vital Signs Temperature 98.1 F 11/21/19 12:00 Pulse Rate 60 11/21/19 17:01 Respiratory Rate 25 H 11/21/19 15:00 Blood Pressure 116/52 L 11/21/19 17:01 O2 Sat by Pulse Oximetry (%) 100 01/30/20 21:00 Constitutional: Yes: Calm Eyes: Yes: Conjunctiva Clear HENT: Yes: Atraumatic Neck: Yes: Supple Cardiovascular: Yes: S1, S2 Respiratory: Yes: Mechanically Ventilated Gastrointestinal: Yes: Soft Genitourinary: Yes: Incontinence Musculoskeletal: Yes: Other (right bka) Neurological: Yes: Other (awake) Labs: CBC, BMP 11/21/19 06:00 11/21/19 06:00 INR, PTT INR 1.02 (0.83-1.09) 11/17/19 06:00 Assessment/Plan Current Medications Generic Name Dose Route Start Last Admin Trade Name Freq PRN Reason Stop Dose Admin Albuterol Sulfate 1 amp 11/14/19 03:54 Ventolin 0.083% Nebulizer Soln - NEB Q4H PRN SHORT OF BREATH/WHEEZING Albuterol/Ipratropium 1 amp 11/14/19 08:00 11/21/19 15:55 Duoneb - NEB 1 amp RQID TED Administration Fludrocortisone Acetate 0.05 mg 11/20/19 11:14 11/21/19 10:31 Florinef - GT 0.05 mg DAILY TED Administration Hydrocortisone Sodium Succinate 50 mg 11/19/19 05:05 11/21/19 17:00 Solu-Cortef - IVPB 50 mg Q8H-IV TED Administration Propofol 1,000,000 mcg in 100 mls @ 2.556 mls/hr 11/13/19 22:15 11/18/19 20: 00 Diprivan - IVPB 0 mcg/kg/min TITR TED 0 mls/hr Titration Protocol 5 MCG/KG/MIN Ceftriaxone Sodium 1 gm/ 50 mls @ 100 mls/hr 11/18/19 13:15 11/21/19 10:31 Dextrose IVPB 100 mls/hr DAILY TED Administration Protocol Norepinephrine Bitartrate 8, 500 mls @ 18.75 mls/hr 11/19/19 22:30 11/21/19 17:01 000 mcg/ Sodium Chloride IV 3 mcg/min TITR TED 11.25 mls/hr Titration Protocol 5 MCG/MIN Insulin Aspart 1 vial 11/14/19 16:30 11/21/19 17:03 Novolog Vial Sliding Scale - SQ 6 units ACHS TED Administration Protocol Mupirocin 1 applic 11/18/19 22:00 11/21/19 10:30 Bactroban 2% Cream - TP 1 applic BID TED Administration Pantoprazole Sodium 40 mg 11/19/19 10:00 11/21/19 10:31 Protonix Iv IVPUSH 40 mg DAILY TED Administration Impression 1. ESRD 2. resp failure 3. PNA 4. copd 5. chf 6. sepsis 7. pulm effusion 8. hyponatremia Plan - HD tomorrow - pt on weaning trial - pressors to map 65 - discussed with family - vent support - HD: TTS f180 3:30 DW 87 kg 2 k bath 2.5 ca, ers569, na 137, access PC right chest
[2019-11-22] MEDS: NOREPINEPHRINE BITARTRATE 8,000 MCG in SODIUM CHLORIDE 492 ML IV SCH (01:23)
[2019-11-22] MEDS: HYDROCORTISONE SOD SUCCINATE 100 MG/2 ML VIAL IVPB SCH ×3 (01:23→17:49)
[2019-11-22] MEDS: INSULIN SLIDING SCALE (NOVOLOG) 1 VIAL SQ SCH ×4 (07:00→23:06)
[2019-11-22 07:17] LABS: BASO % 0.4 % (0-2.0); EOS % 0.1 % (0-4.5); HEMATOCRIT 31.2 % (35.4-49); LYMPH % 3.2 % (8-40); MCH 32.4 pg (25.7-33.7); MCHC 32.1 g/dl (32.0-35.9); MEAN PLT VOLUME 9.7 fl (7.5-11.1); MONO % 4.2 % (3.8-10.2); NEUT % 92.1 % (42.8-82.8); PLATELET COUNT 157 K/MM3 (134-434); RBC 3.08 M/mm3 (4.00-5.60); RDW 21.5 % (11.9-15.9); WHITE BLOOD COUNT 9.4 K/mm3 (4.0-10.0)
[2019-11-22 08:20] LABS: ALBUMIN 2.1 g/dl (3.4-5.0); BILIRUBIN,TOTAL 0.8 mg/dL (0.2-1); BLOOD UREA NITROGEN 60.7 mg/dL (7-18); CALCIUM 8.7 mg/dL (8.5-10.1); CREATININE 3.7 mg/dL (0.55-1.3); MAGNESIUM 2.2 mg/dL (1.8-2.4); PHOSPHOROUS 5.8 mg/dL (2.5-4.9); POTASSIUM 3.8 mmol/L (3.5-5.1); TOT PROT 5.5 g/dl (6.4-8.2)
[2019-11-22] MEDS: ALBUMIN HUMAN 25% 12.5 GM/50 ML VIAL IVPB SCH ×4 (08:30→10:05)
[2019-11-22] MEDS: ALBUTEROL SO4 2.5/IPRATROPIUM 0.5 INH SOL 3 ML VIAL.NEB. NEB SCH ×4 (08:35→21:35)
[2019-11-22] MEDS ORDERED: SODIUM CHLORIDE 250 ML IV PRN ×2 (08:35)
--- NOTE | 2019-11-22 08:36 | PN ---
Progress Note (short form) - Note Progress Note: Renal follow up for ESRD on HD Coverage for Dr. Kramer Seen and examined in the ICU awake on high flow O2 currently getting dialysis BP marginal, goal UF is 3L remains on low dose levophed s/p extubation yesterday he offers no acute complaints denies overt shortness of breath, chest pain, abd pain, fever or chills Vital Signs Temperature 98.4 F 11/22/19 06:00 Pulse Rate 61 11/22/19 08:30 Respiratory Rate 33 H 11/22/19 08:30 Blood Pressure 104/45 L 11/22/19 08:30 O2 Sat by Pulse Oximetry (%) 100 11/21/19 21:00 Intake & Output 11/19/19 11/20/19 11/21/19 11/22/19 23:59 23:59 23:59 23:59 Intake Total 3123 1208 1280 230 Output Total 4100 Balance 3123 -2892 1280 230 Weight 81.374 kg 80.966 kg 79.016 kg 79.832 kg NAD on High flow O2 RRR Dec BS, no wheeze soft NT/ND Right BKA, no LE edema right tunneled HD catheter CBC, BMP 11/22/19 06:00 11/22/19 06:00 Laboratory Tests 11/22/19 06:00 Calcium 8.7 Phosphorus 5.8 H Albumin 2.1 L Current Medications Albumin Human (Albumin Human 25%) 12.5 gm IVPB Q30M TED Albuterol Sulfate (Ventolin 0.083% Nebulizer Soln -) 1 amp NEB Q4H PRN PRN Reason: SHORT OF BREATH/WHEEZING Albuterol/Ipratropium (Duoneb -) 1 amp NEB RQID TED Last Admin: 11/21/19 20:50 Dose: 1 amp Fludrocortisone Acetate (Florinef -) 0.05 mg GT DAILY TED Last Admin: 11/21/19 10:31 Dose: 0.05 mg Hydrocortisone Sodium Succinate (Solu-Cortef -) 50 mg IVPB Q8H-IV TED Last Admin: 11/22/19 01:23 Dose: 50 mg Propofol (Diprivan -) 1,000,000 mcg in 100 mls @ 2.556 mls/hr IVPB TITR TED; Protocol Last Titration: 11/18/19 20:00 Dose: 0 mcg/kg/min, 0 mls/hr Ceftriaxone Sodium 1 gm/ (Dextrose) 50 mls @ 100 mls/hr IVPB DAILY [facility]; Protocol Last Admin: 11/21/19 10:31 Dose: 100 mls/hr Norepinephrine Bitartrate 8, (000 mcg/ Sodium Chloride) 500 mls @ 18.75 mls/hr IV TITR TED; Protocol Last Admin: 11/22/19 01:23 Dose: Not Given Sodium Chloride (Normal Saline -) 250 mls @ 3,000 mls/hr IV PRN PRN PRN Reason: Hypotension during Dialysis Stop: 11/22/19 17:22 Sodium Chloride (Normal Saline -) 250 mls @ 3,000 mls/hr IV PRN PRN PRN Reason: Hypotension during Dialysis Stop: 11/23/19 08:31 Insulin Aspart (Novolog Vial Sliding Scale -) 1 vial SQ ACHS [facility]; Protocol Last Admin: 11/22/19 07:00 Dose: Not Given Mupirocin (Bactroban 2% Cream -) 1 applic TP BID [facility] Last Admin: 11/21/19 22:36 Dose: 1 applic Pantoprazole Sodium (Protonix Iv) 40 mg IVPUSH DAILY [facility] Last Admin: 11/21/19 10:31 Dose: 40 mg Impression 1. ESRD 2. resp failure 3. PNA 4. copd 5. chf 6. sepsis 7. pulm effusion 8. hyponatremia Plan Tolerating dialysis this AM. Goal UF is 3L. will give IV albumin with HD. Remains on Levophed, would maintain during dialysis and up to 4-6 hours after dialysis to allow for redistribution of fluids post HD supplemental O2 as per ICU Continue Abx for Sepsis/PNA Thank you Modesto Amaya DO
[2019-11-22] MEDS ORDERED: cefTRIAXone SODIUM 1 GM VIAL ONE (09:32)
[2019-11-22] MEDS ORDERED: DEXTROSE 5%-WATER - 50 ML IVPB ONE (09:32)
[2019-11-22] MEDS: FLUDROCORTISONE ACETATE 0.1 MG TABLET (FP) GT SCH (09:37)
[2019-11-22] MEDS: CEFTRIAXONE 1 GM in DEXTROSE 5%-WATER - 50 ML IVPB SCH (09:37)
--- NOTE | 2019-11-22 10:12 | PN ---
Progress Note, Physician Chief Complaint: resp failure History of Present Illness: extubated, FM oxygen on. lethargic, opens eyes to name. receiving HD appears comfortable - Current Medication List Current Medications: Active Medications Albuterol Sulfate (Ventolin 0.083% Nebulizer Soln -) 1 amp NEB Q4H PRN PRN Reason: SHORT OF BREATH/WHEEZING Albuterol/Ipratropium (Duoneb -) 1 amp NEB RQID TED Last Admin: 11/22/19 08:35 Dose: 1 amp Fludrocortisone Acetate (Florinef -) 0.05 mg GT DAILY TED Last Admin: 11/22/19 09:37 Dose: 0.05 mg Hydrocortisone Sodium Succinate (Solu-Cortef -) 50 mg IVPB Q8H-IV TED Last Admin: 11/22/19 01:23 Dose: 50 mg Ceftriaxone Sodium 1 gm/ (Dextrose) 50 mls @ 100 mls/hr IVPB DAILY [facility]; Protocol Last Admin: 11/22/19 09:37 Dose: 100 mls/hr Norepinephrine Bitartrate 8, (000 mcg/ Sodium Chloride) 500 mls @ 18.75 mls/hr IV TITR TED; Protocol Last Admin: 11/22/19 01:23 Dose: Not Given Sodium Chloride (Normal Saline -) 250 mls @ 3,000 mls/hr IV PRN PRN PRN Reason: Hypotension during Dialysis Stop: 11/23/19 08:34 Insulin Aspart (Novolog Vial Sliding Scale -) 1 vial SQ ACHS [facility]; Protocol Last Admin: 11/22/19 07:00 Dose: Not Given Mupirocin (Bactroban 2% Cream -) 1 applic TP BID [facility] Last Admin: 11/21/19 22:36 Dose: 1 applic Pantoprazole Sodium (Protonix Iv) 40 mg IVPUSH DAILY [facility] Last Admin: 11/21/19 10:31 Dose: 40 mg - Objective Vital Signs: Vital Signs Temperature 98.4 F 11/22/19 06:00 Pulse Rate 60 11/22/19 10:01 Respiratory Rate 24 H 11/22/19 10:01 Blood Pressure 112/44 L 11/22/19 10:01 O2 Sat by Pulse Oximetry (%) 100 11/21/19 21:00 Constitutional: Yes: Well Nourished, No Distress, Calm Cardiovascular: Yes: Regular Rate and Rhythm, S1, S2. No: Gallop, Murmur Respiratory: Yes: Regular, CTA Bilaterally (anteriorly). No: Accessory Muscle Use, Rales, Wheezes Extremities: No: Cold Edema: No Neurological: Yes: Lethargy. 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 nl LVEF Pacemaker Underlying AFib/flutter Recent reported GIB (no endoscopic evaluation) REC: - pressors as needed to maintain MAP > 60mmHg - HD/UF per renal - Abx as per PMD, Critical Care and ID - Borderline/flat TnI likely due to demand ischemia/sepsis. - Echo with RV dilatation and RV dysfx, severe PHTN- chronic per son. May be due to chronic COPD, and acutely worsened in setting of PNA/hypoxia. - Underlying AF-holding AC in setting recent unexplored GIB/ low platelets ( sepsis/ possible abx effect). Risks> benefits at this time. no tachycardia (V- paced--? PM dependent)
[2019-11-22 10:26] LABS: ANISOCYTOSIS 2+; MACROCYTOSIS 0; OVALOCYTE 1+; PLATELET ESTIMATE DECREASED
[2019-11-22] MEDS: MUPIROCIN CA 2% TOPICAL CREAM 15 GM TUBE TP SCH ×2 (10:50→23:06)
[2019-11-22] MEDS: PANTOPRAZOLE SODIUM 40 MG VIAL IVPUSH SCH (10:50)
--- NOTE | 2019-11-22 11:17 | PN ---
Teaching Attending Note Name of Resident: Kellie Jin ATTENDING PHYSICIAN STATEMENT I saw and evaluated the patient. I reviewed the resident's note and discussed the case with the resident. I agree with the resident's findings and plan as documented. SUBJECTIVE: Pt seen and examined in the ICU. Currently on HD. Remains extubated on HFOT on low dose levophed gtt. OBJECTIVE: Vital Signs Period Temp Pulse Resp BP Sys/Armando Pulse Ox Last 24 Hr 97.7 F-98.6 F 54-73 15-36 97-131/40-54 100-100 Intake & Output 11/19/19 11/20/19 11/21/19 11/22/19 23:59 23:59 23:59 23:59 Intake Total 3123 1208 1280 730 Output Total 4100 3500 Balance 3123 -2892 1280 -2770 Weight 81.374 kg 80.966 kg 79.016 kg 79.832 kg Gen: mildly tachypneic on HFOT Heart: RRR Lung: decreased breath sounds at the bases Abd: soft, nontender Ext: no edema CBC, BMP 11/22/19 06:00 11/22/19 06:00 Active Medications Albuterol Sulfate (Ventolin 0.083% Nebulizer Soln -) 1 amp NEB Q4H PRN PRN Reason: SHORT OF BREATH/WHEEZING Albuterol/Ipratropium (Duoneb -) 1 amp NEB RQID TED Last Admin: 11/22/19 08:35 Dose: 1 amp Fludrocortisone Acetate (Florinef -) 0.05 mg GT DAILY TED Last Admin: 11/22/19 09:37 Dose: 0.05 mg Heparin Sodium (Porcine) (Heparin -) 5,000 unit SQ TID TED Hydrocortisone Sodium Succinate (Solu-Cortef -) 50 mg IVPB Q8H-IV TED Last Admin: 11/22/19 10:50 Dose: 50 mg Ceftriaxone Sodium 1 gm/ (Dextrose) 50 mls @ 100 mls/hr IVPB DAILY [facility]; Protocol Last Admin: 11/22/19 09:37 Dose: 100 mls/hr Norepinephrine Bitartrate 8, (000 mcg/ Sodium Chloride) 500 mls @ 18.75 mls/hr IV TITR TED; Protocol Last Admin: 11/22/19 01:23 Dose: Not Given Sodium Chloride (Normal Saline -) 250 mls @ 3,000 mls/hr IV PRN PRN PRN Reason: Hypotension during Dialysis Stop: 11/23/19 08:34 Insulin Aspart (Novolog Vial Sliding Scale -) 1 vial SQ ACHS [facility]; Protocol Last Admin: 11/22/19 11:10 Dose: Not Given Mupirocin (Bactroban 2% Cream -) 1 applic TP BID [facility] Last Admin: 11/22/19 10:50 Dose: 1 applic Pantoprazole Sodium (Protonix Iv) 40 mg IVPUSH DAILY [facility] Last Admin: 11/22/19 10:50 Dose: 40 mg ASSESSMENT AND PLAN: Acute Hypoxic Respiratory Failure Pneumonia Septic Shock Lactic Acidosis +Troponins likely [place] Ischemia COPD ESRD on HD CAD Pulmonary HTN Atrial Fibrillation s/p PPM h/o GI bleed Anemia - continue antibiotics - HD per renal - titrate pressors to maintain MAP >65 - on stress dose steroids - inhaled bronchodilators - titrate HFOT to keep SpO2 >90% - rate controlled - holding anticoagulation - continue ICU monitoring for vasopressor support critical care time spent in reviewing chart, evaluating patient and formulating plan 35 min
--- NOTE | 2019-11-22 11:18 | PN ---
Progress Note (short form) - Note Progress Note: Events noted extubated on high flow O2 Lethargic but responds to yes and no questions no distress Vital Signs - 24 hr 11/21/19 11/21/19 11/21/19 11:53 12:00 13:00 Temperature 98.1 F Pulse Rate 60 60 Respiratory 15 17 Rate Blood Pressure 119/40 L 126/47 L O2 Sat by Pulse Oximetry (%) 11/21/19 11/21/19 11/21/19 13:28 14:00 15:00 Temperature Pulse Rate 62 60 60 Respiratory 21 H 25 H Rate Blood Pressure 126/47 L 117/45 L 122/47 L O2 Sat by Pulse Oximetry (%) 11/21/19 11/21/19 11/21/19 17:00 17:01 19:00 Temperature Pulse Rate 64 60 61 Respiratory 24 H 26 H Rate Blood Pressure 116/52 L 116/52 L 111/50 L O2 Sat by Pulse Oximetry (%) 11/21/19 11/21/19 11/21/19 20:00 21:00 22:00 Temperature 97.7 F Pulse Rate 64 65 Respiratory 26 H 26 H 21 H Rate Blood Pressure 103/48 L 102/48 L O2 Sat by Pulse 100 Oximetry (%) 11/22/19 11/22/19 11/22/19 01:00 02:00 04:00 Temperature 98.0 F Pulse Rate 66 67 61 Respiratory 16 20 22 H Rate Blood Pressure 119/49 L 131/53 L 124/49 L O2 Sat by Pulse Oximetry (%) 11/22/19 11/22/19 11/22/19 06:00 07:00 07:10 Temperature 98.4 F Pulse Rate 60 54 L 60 Respiratory 29 H 18 36 H Rate Blood Pressure 121/54 L 121/54 L 126/51 L O2 Sat by Pulse Oximetry (%) 11/22/19 11/22/19 11/22/19 07:30 08:00 08:30 Temperature Pulse Rate 60 60 61 Respiratory 27 H 32 H 33 H Rate Blood Pressure 113/47 L 97/46 L 104/45 L O2 Sat by Pulse Oximetry (%) 11/22/19 11/22/19 11/22/19 09:00 09:30 10:00 Temperature 98.6 F Pulse Rate 60 60 60 Respiratory 29 H 24 H 30 H Rate Blood Pressure 108/47 L 102/44 L 112/44 L O2 Sat by Pulse 100 Oximetry (%) 11/22/19 11/22/19 11/22/19 10:01 10:30 10:40 Temperature Pulse Rate 60 60 60 Respiratory 24 H 35 H 22 H Rate Blood Pressure 112/44 L 114/45 L 112/43 L O2 Sat by Pulse Oximetry (%) 11/22/19 10:50 Temperature Pulse Rate 61 Respiratory 32 H Rate Blood Pressure 128/47 L O2 Sat by Pulse Oximetry (%) Current Medications Generic Name Dose Route Start Last Admin Trade Name Freq PRN Reason Stop Dose Admin Albuterol Sulfate 1 amp 11/14/19 03:54 Ventolin 0.083% Nebulizer Soln - NEB Q4H PRN SHORT OF BREATH/WHEEZING Albuterol/Ipratropium 1 amp 11/14/19 08:00 11/22/19 08:35 Duoneb - NEB 1 amp RQID TED Administration Fludrocortisone Acetate 0.05 mg 11/20/19 11:14 11/22/19 09:37 Florinef - GT 0.05 mg DAILY TED Administration Heparin Sodium (Porcine) 5,000 unit 11/22/19 14:00 Heparin - SQ TID TED Hydrocortisone Sodium Succinate 50 mg 11/19/19 05:05 11/22/19 10:50 Solu-Cortef - IVPB 50 mg Q8H-IV TED Administration Ceftriaxone Sodium 1 gm/ 50 mls @ 100 mls/hr 11/18/19 13:15 11/22/19 09:37 Dextrose IVPB 100 mls/hr DAILY TED Administration Protocol Norepinephrine Bitartrate 8, 500 mls @ 18.75 mls/hr 11/19/19 22:30 11/22/19 01:23 000 mcg/ Sodium Chloride IV Not Given TITR TED Protocol 5 MCG/MIN Sodium Chloride 250 mls @ 3,000 mls/hr 11/22/19 08:35 Normal Saline - IV 11/23/19 08:34 PRN PRN Hypotension during Dialysis Insulin Aspart 1 vial 11/14/19 16:30 11/22/19 11:10 Novolog Vial Sliding Scale - SQ Not Given ACHS TED Protocol Mupirocin 1 applic 11/18/19 22:00 11/22/19 10:50 Bactroban 2% Cream - TP 1 applic BID TED Administration Pantoprazole Sodium 40 mg 11/19/19 10:00 11/22/19 10:50 Protonix Iv IVPUSH 40 mg DAILY TED Administration Laboratory Results - last 24 hr 11/21/19 11/21/19 11/21/19 13:34 16:51 22:29 WBC RBC Hgb Hct MCV MCH MCHC RDW Plt Count MPV Absolute Neuts (auto) Neutrophils % Neutrophils % (Manual) Band Neutrophils % Lymphocytes % Lymphocytes % (Manual) Monocytes % Monocytes % (Manual) Eosinophils % Eosinophils % (Manual) Basophils % Basophils % (Manual) Myelocytes % (Man) Promyelocytes % (Man) Blast Cells % (Manual) Nucleated RBC % Metamyelocytes Hypochromia Platelet Estimate Platelet Comment Polychromasia Poikilocytosis Anisocytosis Microcytosis Macrocytosis Spherocytes Ovalocytes [place] Cells Schistocytes Sodium Potassium Chloride Carbon Dioxide Anion Gap BUN Creatinine Est GFR (CKD-EPI)AfAm Est GFR (CKD-EPI)NonAf POC Glucometer 267 255 105 Random Glucose Calcium Phosphorus Magnesium Total Bilirubin AST ALT Alkaline Phosphatase Total Protein Albumin 11/22/19 11/22/19 11/22/19 01:16 06:00 06:00 WBC 9.4 RBC 3.08 L Hgb 10.0 L Hct 31.2 L MCV 101.0 H MCH 32.4 MCHC 32.1 RDW 21.5 H Plt Count 157 MPV 9.7 Absolute Neuts (auto) 8.6 H Neutrophils % 92.1 H Neutrophils % (Manual) 94.8 H D Band Neutrophils % 0.0 Lymphocytes % 3.2 L Lymphocytes % (Manual) 1.0 L Monocytes % 4.2 Monocytes % (Manual) 4 Eosinophils % 0.1 Eosinophils % (Manual) 0.0 D Basophils % 0.4 Basophils % (Manual) 0.0 Myelocytes % (Man) 0 D Promyelocytes % (Man) 0 Blast Cells % (Manual) 0 Nucleated RBC % 0 Metamyelocytes 0 Hypochromia 0 Platelet Estimate Decreased Platelet Comment Present Polychromasia 0 Poikilocytosis 1+ Anisocytosis 2+ Microcytosis 2+ Macrocytosis 0 Spherocytes 1+ Ovalocytes 1+ [place] Cells 2+ Schistocytes 1+ Sodium 138 Potassium 3.8 Chloride 100 Carbon Dioxide 24 Anion Gap 14 BUN 60.7 H Creatinine 3.7 H Est GFR (CKD-EPI)AfAm 17.22 Est GFR (CKD-EPI)NonAf 14.86 POC Glucometer 130 Random Glucose 169 H Calcium 8.7 Phosphorus 5.8 H Magnesium 2.2 Total Bilirubin 0.8 AST 15 ALT 16 Alkaline Phosphatase 109 Total Protein 5.5 L Albumin 2.1 L 11/22/19 11/22/19 06:09 11:01 WBC RBC Hgb Hct MCV MCH MCHC RDW Plt Count MPV Absolute Neuts (auto) Neutrophils % Neutrophils % (Manual) Band Neutrophils % Lymphocytes % Lymphocytes % (Manual) Monocytes % Monocytes % (Manual) Eosinophils % Eosinophils % (Manual) Basophils % Basophils % (Manual) Myelocytes % (Man) Promyelocytes % (Man) Blast Cells % (Manual) Nucleated RBC % Metamyelocytes Hypochromia Platelet Estimate Platelet Comment Polychromasia Poikilocytosis Anisocytosis Microcytosis Macrocytosis Spherocytes Ovalocytes [place] Cells Schistocytes Sodium Potassium Chloride Carbon Dioxide Anion Gap BUN Creatinine Est GFR (CKD-EPI)AfAm Est GFR (CKD-EPI)NonAf POC Glucometer 166 128 Random Glucose Calcium Phosphorus Magnesium Total Bilirubin AST ALT Alkaline Phosphatase Total Protein Albumin Physical Constitutional: Yes: on high flow O2 Eyes: Yes: Conjunctiva Clear Neck: Yes: Supple. Central line + Cardiovascular: Yes: Regular Rate and Rhythm Respiratory: Yes: Diminished Gastrointestinal: Yes: Soft, not tender Genitourinary: Yes: [place] Removed Extremities: Yes: Amputation (s/p right aka) Edema: No Integumentary: No: Other Wound/Incision: Yes: Other (Left heel ulcer)-- Dressing + Neurological: Yes: Other (sedated) Additional Findings/Remarks: - ....Imaging Chest X-ray: Report Reviewed Cat Scan: Report Reviewed Echo-- Reviewed Microbiology 11/14/19 16:20 Blood - Diamante Cath Blood Culture - Final NO GROWTH AFTER 5 DAYS INCUBATION 11/14/19 16:20 Blood - Diamante Cath Blood Culture - Final NO GROWTH AFTER 5 DAYS INCUBATION 11/13/19 00:05 Blood - Peripheral Venous Blood Culture - Final NO GROWTH AFTER 5 DAYS INCUBATION 11/13/19 22:13 Blood - Peripheral Venous Blood Culture - Final NO GROWTH AFTER 5 DAYS INCUBATION 11/14/19 05:00 Sputum - Endotrachea Suction/Ventilator Gram Stain - Final 11/14/19 05:00 Sputum - Endotrachea Suction/Ventilator Sputum Culture - Final Morganella Morganii 11/13/19 23:50 Urine - Urine [place]ern Urine Culture - Final NO GROWTH OBTAINED 11/14/19 05:00 Urine For Antigen Detection Legionella Antigen - Final 11/14/19 05:00 Urine For Antigen Detection Streptococcus pneumoniae Antigen (M - Final Assessment/Plan In summary Pt 79yr old gentleman with extensive PMHx of CAD , s/p multivessel PCI (> 1 year ago), CHF , PPM, AF,COPD, ESRD-HD. Has been in and out of hospital since July with COPD/ infections/ CKD and recently had a possible GIB at [place]- no endoscopic evaluation. Transferred from [facility] for short term rehab and was transferred here for resp distress. Admitted to ICU / Intubated for Respiratory failure and Pneumonia.-- now extubated Abx Taper pressors as tolerated ct abd/pelvis -->CT A/P shows ascites, diverticulosis, small umbilical R inguinal hernias -Repeat CT A/P shows: ascites has slightly increased, diverticulosis, small right inguinal hernia, and subcutaneous edema b/l. Dialysis per renal clinically improving cultures negative Problem List - Problems (1) CAD (coronary artery disease) Code(s): I25.10 - ATHSCL HEART DISEASE OF [place] CORONARY ARTERY W/O ANG PCTRS (2) COPD (chronic obstructive pulmonary disease) Code(s): J44.9 - CHRONIC OBSTRUCTIVE PULMONARY DISEASE, UNSPECIFIED Qualifiers: COPD type: unspecified COPD Qualified Code(s): J44.9 - Chronic obstructive pulmonary disease, unspecified (3) Elevated troponin Code(s): R79.89 - OTHER SPECIFIED ABNORMAL FINDINGS OF BLOOD CHEMISTRY (4) PVD (peripheral vascular disease) Code(s): I73.9 - PERIPHERAL VASCULAR DISEASE, UNSPECIFIED (5) Respiratory failure Code(s): J96.90 - RESPIRATORY FAILURE, UNSP, UNSP W HYPOXIA OR HYPERCAPNIA (6) Thrombocytopenia Code(s): D69.6 - THROMBOCYTOPENIA, UNSPECIFIED
[2019-11-22] MEDS: HEPARIN NA (PORCINE) 5,000 UNITS/ML 1ML VIAL SQ SCH ×2 (13:25→23:06)
--- NOTE | 2019-11-22 14:00 | PN ---
Physical Exam: SUBJECTIVE: Patient seen and examined at bedside. No acute events overnight. Pt was extubated yesterday and placed on high flow, tolerating it well. Pt denies any symptomatic complaints at this time. OBJECTIVE: Vital Signs Period Temp Pulse Resp BP Sys/Armando Pulse Ox Last 24 Hr 97.7 F-98.6 F 54-73 16-36 97-131/43-54 100-100 GENERAL: The patient is responsive. HEAD: Normal with no signs of trauma. High flow oxygen in place. EYES: PERRLA NECK: RIJ central in place. R dialysis cath in place. LUNGS: Breath sounds equal, clear to auscultation bilaterally, no wheezes, no crackles, no accessory muscle use. HEART: Regular rate and rhythm, S1, S2 without murmur, rub or gallop. ABDOMEN: Soft, nontender to palpation on sedation. Hypoactive bowel sounds. EXTREMITIES: Left leg has venous stasis changes, right leg aka. Edema present. Weeping arms. NEUROLOGICAL: Responsive to commands, CN II- intact. CBCD WBC 9.4 K/mm3 (4.0-10.0) 11/22/19 06:00 RBC 3.08 M/mm3 (4.00-5.60) L 11/22/19 06:00 Hgb 10.0 GM/dL (11.7-16.9) L 11/22/19 06:00 Hct 31.2 % (35.4-49) L 11/22/19 06:00 MCV 101.0 fl (80-96) H 11/22/19 06:00 MCHC 32.1 g/dl (32.0-35.9) 11/22/19 06:00 RDW 21.5 % (11.9-15.9) H 11/22/19 06:00 Plt Count 157 K/MM3 (134-434) 11/22/19 06:00 MPV 9.7 fl (7.5-11.1) 11/22/19 06:00 CMP Sodium 138 mmol/L (136-145) 11/22/19 06:00 Potassium 3.8 mmol/L (3.5-5.1) 11/22/19 06:00 Chloride 100 mmol/L (98-107) 11/22/19 06:00 Carbon Dioxide 24 mmol/L (21-32) 11/22/19 06:00 Anion Gap 14 MMOL/L (8-16) 11/22/19 06:00 BUN 60.7 mg/dL (7-18) H 11/22/19 06:00 Creatinine 3.7 mg/dL (0.55-1.3) H 11/22/19 06:00 Calcium 8.7 mg/dL (8.5-10.1) 11/22/19 06:00 Total Bilirubin 0.8 mg/dL (0.2-1) 11/22/19 06:00 AST 15 U/L (15-37) 11/22/19 06:00 ALT 16 U/L (13-61) 11/22/19 06:00 Alkaline Phosphatase 109 U/L (45-117) 11/22/19 06:00 Total Protein 5.5 g/dl (6.4-8.2) L 11/22/19 06:00 Albumin 2.1 g/dl (3.4-5.0) L 11/22/19 06:00 Active Medications Albuterol Sulfate (Ventolin 0.083% Nebulizer Soln -) 1 amp NEB Q4H PRN PRN Reason: SHORT OF BREATH/WHEEZING Albuterol/Ipratropium (Duoneb -) 1 amp NEB RQID TED Last Admin: 11/22/19 08:35 Dose: 1 amp Fludrocortisone Acetate (Florinef -) 0.05 mg GT DAILY TED Last Admin: 11/22/19 09:37 Dose: 0.05 mg Heparin Sodium (Porcine) (Heparin -) 5,000 unit SQ TID TED Hydrocortisone Sodium Succinate (Solu-Cortef -) 50 mg IVPB Q8H-IV TED Last Admin: 11/22/19 10:50 Dose: 50 mg Ceftriaxone Sodium 1 gm/ (Dextrose) 50 mls @ 100 mls/hr IVPB DAILY [facility]; Protocol Last Admin: 11/22/19 09:37 Dose: 100 mls/hr Norepinephrine Bitartrate 8, (000 mcg/ Sodium Chloride) 500 mls @ 18.75 mls/hr IV TITR TED; Protocol Last Admin: 11/22/19 01:23 Dose: Not Given Sodium Chloride (Normal Saline -) 250 mls @ 3,000 mls/hr IV PRN PRN PRN Reason: Hypotension during Dialysis Stop: 11/23/19 08:34 Insulin Aspart (Novolog Vial Sliding Scale -) 1 vial SQ ACHS [facility]; Protocol Last Admin: 11/22/19 11:10 Dose: Not Given Mupirocin (Bactroban 2% Cream -) 1 applic TP BID [facility] Last Admin: 11/22/19 10:50 Dose: 1 applic Pantoprazole Sodium (Protonix Iv) 40 mg IVPUSH DAILY [facility] Last Admin: 11/22/19 10:50 Dose: 40 mg ASSESSMENT/PLAN: 79M PMH of COPD, ESRD on HD (T,Th,Sat),CHF s/p pacemaker, DM II, prostate cancer, venous stasis changes, constipation who presented with exacerbation of COPD likely secondary to PNA. Was found to be obtunded in the longterm and was intubated in the ED. Neuro Acute Metabolic Encephalopathy 2/2 Septic state -AAOx2. Conversing with improvement in mental status -Cont to monitor Cardiovascular Septic Shock Hx of CHF Afib/Aflutter, s/p PPM CAD Troponemia, likely 2/2 demand ischemia -Pt is currently ventricular-paced, rate-controlled -Currently on Levophed 3; titrate accordingly and attempt to wean off pressor -Echo records obtained from [place]. EF of 70%, mild conc. lVH, diastolic filling pattern, RV mildly enlarged, RV severely imparied, LA dilated, RA mildly enlarged, AO valve sclerosis, aortic insufficiency. -Continous cardiac monitoring -Cardio consulted Pulmonary Acute Hypoxic Respiratory Failure RLL Pneumonia COPD SAVANA Pulmonary Hypertension -CT chest remarkable for RLL consolidation may be acute pna, small L pleural effusion, cardiomegaly, ascites, sigmoid diverticulosis w/o diverticulitis, small umbilical and R inguinal hernia -Duonebs/Albuterol -Extubated 11/22, tolerating high flow well; settings 50/60% -Fludro/[place] -Pt has congestion; will do deep nasal suctioning to relieve congestion/mucus GI Ascites -CT A/P shows ascites, diverticulosis, small umbilical R inguinal hernias -Repeat CT A/P shows: ascites has slightly increased, diverticulosis, small right inguinal hernia, and subcutaneous edema b/l. -Abd U/S shows mild hepatomegaly with fatty infiltration of the liver.Smallamount of ascites in the 4 abdominal quadrants. No cholelithiasis. Nonspecific diffusely thickened gallbladder wall likely due to hepatocellular disease andthird spacing rather than cholecystitis.Correlate clinically. Diffusely prominent and heterogenous pancreas but no focal lesion probably due to third spacing -Continue to monitor -General surgery consulted, appreciate recs. -Swallow eval consult Renal ESRD (on HD TThS) -Tolerated dialysis well today -Currently on Levo 3 -Nephrology consulted, appreciate recs ID RLL Pneumonia Lactic Acidosis -Per ID, cont with Ceftriaxone 1 gm (previously on Zosyn) -BCx/UCx neg, Urine Leg neg -Sputum Cx +Morganella Morganii; sensitive to Ceftriaxone -ID consulted, appreciate recs Endocrine -BGM/ISS ACHS Prophylaxis DVT: SQH GI: Protonix 40 F: No standing fluids at the moment E: Monitor Na N: Will attempt bedside swallow eval and trial on diet for now. Lines: Intubated 11/14/19, s/p extubated 11/22. K[place] in place. RIJ in place 11/21 Dispo: Continue ICU management. Visit type - Emergency Visit Emergency Visit: Yes ED Registration Date: 11/14/19 Care time: The patient presented to the Emergency Department on the above date and was hospitalized for further evaluation of their emergent condition. - New Patient This patient is new to me today: No - Critical Care Critical Care patient: No Total Critical Care Time (in minutes): 36 Critical Care Statement: The care of this patient involved high complexity decision making to prevent further life threatening deterioration of the patient's condition and/or to evaluate & treat vital organ system(s) failure or risk of failure. ATTENDING PHYSICIAN STATEMENT I saw and evaluated the patient. I reviewed the resident's note and discussed the case with the resident. I agree with the resident's findings and plan as documented. SUBJECTIVE: OBJECTIVE: ASSESSMENT AND PLAN:
[2019-11-22] MEDS ORDERED: SODIUM CHLORIDE NASAL SPRAY 44 ML BOTTLE NS PRN (19:42)
--- NOTE | 2019-11-22 20:58 | PN ---
Progress Note, Physician History of Present Illness: Pt seen and examined. He is s/p extubation, on high flow O2 and Levophed. Easily arousable answering questions but hard of hearing. No distress noted. - Current Medication List Current Medications: Active Medications Albuterol Sulfate (Ventolin 0.083% Nebulizer Soln -) 1 amp NEB Q4H PRN PRN Reason: SHORT OF BREATH/WHEEZING Albuterol/Ipratropium (Duoneb -) 1 amp NEB RQID TED Last Admin: 11/22/19 17:00 Dose: 1 amp Fludrocortisone Acetate (Florinef -) 0.05 mg GT DAILY TED Last Admin: 11/22/19 09:37 Dose: 0.05 mg Heparin Sodium (Porcine) (Heparin -) 5,000 unit SQ TID TED Last Admin: 11/22/19 13:25 Dose: 5,000 unit Hydrocortisone Sodium Succinate (Solu-Cortef -) 50 mg IVPB Q8H-IV TED Last Admin: 11/22/19 17:49 Dose: 50 mg Ceftriaxone Sodium 1 gm/ (Dextrose) 50 mls @ 100 mls/hr IVPB DAILY TED; Protocol Last Admin: 11/22/19 09:37 Dose: 100 mls/hr Norepinephrine Bitartrate 8, (000 mcg/ Sodium Chloride) 500 mls @ 18.75 mls/hr IV TITR TED; Protocol Last Titration: 11/22/19 11:00 Dose: 2 mcg/min, 7.5 mls/hr Sodium Chloride (Normal Saline -) 250 mls @ 3,000 mls/hr IV PRN PRN PRN Reason: Hypotension during Dialysis Stop: 11/23/19 08:34 Insulin Aspart (Novolog Vial Sliding Scale -) 1 vial SQ ACHS TED; Protocol Last Admin: 11/22/19 17:20 Dose: 2 units Mupirocin (Bactroban 2% Cream -) 1 applic TP BID [facility] Last Admin: 11/22/19 10:50 Dose: 1 applic Pantoprazole Sodium (Protonix Iv) 40 mg IVPUSH DAILY [facility] Last Admin: 11/22/19 10:50 Dose: 40 mg Sodium Chloride ([place] Nasal [place] -) 2 spray NS BID PRN PRN Reason: NASAL CONGESTION - Objective Vital Signs: Vital Signs Temperature 98.2 F 11/22/19 18:00 Pulse Rate 74 11/22/19 18:00 Respiratory Rate 19 11/22/19 18:00 Blood Pressure 124/53 L 11/22/19 18:00 O2 Sat by Pulse Oximetry (%) 100 11/22/19 09:00 Constitutional: Yes: No Distress, Calm Eyes: Yes: Conjunctiva Clear Neck: Yes: Supple Cardiovascular: Yes: Regular Rate and Rhythm Respiratory: Yes: Rhonchi Gastrointestinal: Yes: Normal Bowel Sounds, Soft Genitourinary: Yes: [place] Present Extremities: Yes: Amputation (Rt BKA) Neurological: Yes: Alert, Weakness Labs: CBC, BMP 11/22/19 06:00 11/22/19 06:00 INR, PTT INR 1.02 (0.83-1.09) 11/17/19 06:00 Microbiology 11/14/19 16:20 Blood - Diamante Cath Blood Culture - Final NO GROWTH AFTER 5 DAYS INCUBATION 11/14/19 16:20 Blood - Diamante Cath Blood Culture - Final NO GROWTH AFTER 5 DAYS INCUBATION 11/13/19 00:05 Blood - Peripheral Venous Blood Culture - Final NO GROWTH AFTER 5 DAYS INCUBATION 11/13/19 22:13 Blood - Peripheral Venous Blood Culture - Final NO GROWTH AFTER 5 DAYS INCUBATION 11/14/19 05:00 Sputum - Endotrachea Suction/Ventilator Gram Stain - Final 11/14/19 05:00 Sputum - Endotrachea Suction/Ventilator Sputum Culture - Final Morganella Morganii 11/13/19 23:50 Urine - Urine [place] Urine Culture - Final NO GROWTH OBTAINED 11/14/19 05:00 Urine For Antigen Detection Legionella Antigen - Final 11/14/19 05:00 Urine For Antigen Detection Streptococcus pneumoniae Antigen (M - Final - ....Imaging Chest X-ray: Report Reviewed Problem List - Problems (1) CAD (coronary artery disease) Code(s): I25.10 - ATHSCL HEART DISEASE OF [place] CORONARY ARTERY W/O ANG PCTRS (2) COPD (chronic obstructive pulmonary disease) Code(s): J44.9 - CHRONIC OBSTRUCTIVE PULMONARY DISEASE, UNSPECIFIED Qualifiers: COPD type: unspecified COPD Qualified Code(s): J44.9 - Chronic obstructive pulmonary disease, unspecified (3) PVD (peripheral vascular disease) Code(s): I73.9 - PERIPHERAL VASCULAR DISEASE, UNSPECIFIED (4) Respiratory failure Code(s): J96.90 - RESPIRATORY FAILURE, UNSP, UNSP W HYPOXIA OR HYPERCAPNIA Assessment/Plan Acute Respiratory Acute due to RLL PNA COPD, ESRD on HD CHF SAVANA R/O Seizure Septic Shock PAD Demand Ischemia Chronic loculated RLL effusion - extubated, on low dose Norepinephrine - afebrile, wbc now normal - continue Ceftriaxone - blood/urine cx neg, urinary Ag neg, sputum isolate noted - cxr results reviewed - continue close monitoring cc time: 38 min
[2019-11-22] MEDS ORDERED: PT OWN MED DRAWER 7, Y5N ONE (22:02)
[2019-11-23 00:36] LABS: ARTERIAL BLD GAS O2 SATURATION 93.8 % (95-98); ARTERIAL BLOOD GAS BASE EXCESS 2.5 meq/l (-2-2); ARTERIAL BLOOD GAS PCO2 51.5 mmHg (35-45); ARTERIAL BLOOD GAS pH 7.36 (7.35-7.45)
[2019-11-23 00:39] LABS: ARTERIAL BLOOD GAS PO2 84.3 mmHg (80-100)
[2019-11-23 00:40] LABS: ALLENS TEST POSITIVE
[2019-11-23] MEDS: HYDROCORTISONE SOD SUCCINATE 100 MG/2 ML VIAL IVPB SCH ×3 (03:00→17:45)
[2019-11-23] MEDS: HEPARIN NA (PORCINE) 5,000 UNITS/ML 1ML VIAL SQ SCH ×3 (05:39→21:17)
[2019-11-23] MEDS: INSULIN SLIDING SCALE (NOVOLOG) 1 VIAL SQ SCH ×4 (06:45→22:03)
[2019-11-23] MEDS: ALBUTEROL SO4 2.5/IPRATROPIUM 0.5 INH SOL 3 ML VIAL.NEB. NEB SCH ×4 (07:09→21:22)
[2019-11-23 07:25] LABS: BASO % 0.2 % (0-2.0); EOS % 0.1 % (0-4.5); HEMATOCRIT 30.3 % (35.4-49); HEMOGLOBIN 9.7 GM/dL (11.7-16.9); MCH 32.2 pg (25.7-33.7); MCHC 31.9 g/dl (32.0-35.9); MEAN PLT VOLUME 9.3 fl (7.5-11.1); MONO % 4.5 % (3.8-10.2); NEUT % 90.2 % (42.8-82.8); PLATELET COUNT 152 K/MM3 (134-434); RDW 21.5 % (11.9-15.9); WHITE BLOOD COUNT 8.9 K/mm3 (4.0-10.0)
[2019-11-23 08:33] LABS: ALBUMIN 2.8 g/dl (3.4-5.0); BILIRUBIN,TOTAL 0.8 mg/dL (0.2-1); BLOOD UREA NITROGEN 35.1 mg/dL (7-18); CALCIUM 8.9 mg/dL (8.5-10.1); CREATININE 2.6 mg/dL (0.55-1.3); MAGNESIUM 2.2 mg/dL (1.8-2.4); PHOSPHOROUS 4.5 mg/dL (2.5-4.9); POTASSIUM 3.7 mmol/L (3.5-5.1); TOT PROT 5.9 g/dl (6.4-8.2)
[2019-11-23 08:43] LABS: ARTERIAL BLOOD GAS PCO2 51.9 mmHg (35-45); ARTERIAL BLOOD GAS PO2 107 mmHg (80-100); ARTERIAL BLOOD GAS pH 7.31 (7.35-7.45)
[2019-11-23 08:44] LABS: ALLENS TEST POSITIVE; ARTERIAL BLD GAS O2 SATURATION 95.6 % (95-98); ARTERIAL BLOOD GAS BASE EXCESS -0.7 meq/l (-2-2)
--- NOTE | 2019-11-23 08:57 | PN ---
Progress Note (short form) - Note Progress Note: Events noted now on BIPAP-- was not able to tolerate high flow O2 Awake no complaints Vital Signs - 24 hr 11/22/19 11/22/19 11/22/19 09:30 10:00 10:01 Temperature 98.6 F Pulse Rate 60 60 60 Respiratory 24 H 30 H 24 H Rate Blood Pressure 102/44 L 112/44 L 112/44 L O2 Sat by Pulse Oximetry (%) 11/22/19 11/22/19 11/22/19 10:30 10:40 10:50 Temperature Pulse Rate 60 60 61 Respiratory 35 H 22 H 32 H Rate Blood Pressure 114/45 L 112/43 L 128/47 L O2 Sat by Pulse Oximetry (%) 11/22/19 11/22/19 11/22/19 11:00 12:00 14:00 Temperature 98.4 F Pulse Rate 60 61 61 Respiratory 31 H 31 H Rate Blood Pressure 132/49 L 122/44 L 106/46 L O2 Sat by Pulse Oximetry (%) 11/22/19 11/22/19 11/22/19 16:00 18:00 20:00 Temperature 98.2 F 98.3 F Pulse Rate 68 74 61 Respiratory 32 H 19 40 H Rate Blood Pressure 116/49 L 124/53 L 125/51 L O2 Sat by Pulse Oximetry (%) 11/22/19 11/22/19 11/22/19 21:00 22:00 23:45 Temperature Pulse Rate 61 Respiratory 31 H 45 H Rate Blood Pressure 122/48 L O2 Sat by Pulse 93 L 98 Oximetry (%) 11/23/19 11/23/19 11/23/19 00:00 02:00 04:00 Temperature 97.7 F Pulse Rate 60 60 60 Respiratory 38 H 34 H 34 H Rate Blood Pressure 130/51 L 122/53 L 125/50 L O2 Sat by Pulse 96 Oximetry (%) 11/23/19 11/23/19 11/23/19 06:00 07:03 08:00 Temperature Pulse Rate 66 60 Respiratory 40 H 29 H Rate Blood Pressure 126/51 L 124/55 L O2 Sat by Pulse 97 Oximetry (%) Current Medications Generic Name Dose Route Start Last Admin Trade Name Freq PRN Reason Stop Dose Admin Albuterol Sulfate 1 amp 11/14/19 03:54 Ventolin 0.083% Nebulizer Soln - NEB Q4H PRN SHORT OF BREATH/WHEEZING Albuterol/Ipratropium 1 amp 11/14/19 08:00 11/23/19 07:09 Duoneb - NEB 1 amp RQID TED Administration Fludrocortisone Acetate 0.05 mg 11/20/19 11:14 11/22/19 09:37 Florinef - GT 0.05 mg DAILY TED Administration Heparin Sodium (Porcine) 5,000 unit 11/22/19 14:00 11/23/19 05:39 Heparin - SQ 5,000 unit TID TED Administration Hydrocortisone Sodium Succinate 50 mg 11/19/19 05:05 11/23/19 03:00 Solu-Cortef - IVPB 50 mg Q8H-IV TED Administration Ceftriaxone Sodium 1 gm/ 50 mls @ 100 mls/hr 11/18/19 13:15 11/22/19 09:37 Dextrose IVPB 100 mls/hr DAILY TED Administration Protocol Norepinephrine Bitartrate 8, 500 mls @ 18.75 mls/hr 11/19/19 22:30 11/22/19 11:00 000 mcg/ Sodium Chloride IV 2 mcg/min TITR TED 7.5 mls/hr Titration Protocol 5 MCG/MIN Potassium Chloride 10 meq in 100 mls @ 100 mls/hr 11/23/19 09:15 Potassium Chloride 10 Meq Premix Ivpb - IVPB 11/23/19 12:14 Q60M [facility] Insulin Aspart 1 vial 11/14/19 16:30 11/23/19 06:45 Novolog Vial Sliding Scale - SQ Not Given ACHS [facility] Protocol Mupirocin 1 applic 11/18/19 22:00 11/22/19 23:06 Bactroban 2% Cream - TP 1 applic BID TED Administration Pantoprazole Sodium 40 mg 11/19/19 10:00 11/22/19 10:50 Protonix Iv IVPUSH 40 mg DAILY TED Administration Sodium Chloride 2 spray 11/22/19 19:42 [place] Nasal [place] - NS BID PRN NASAL CONGESTION Laboratory Results - last 24 hr 11/22/19 11/22/19 11/22/19 06:00 11:01 17:11 WBC RBC Hgb Hct MCV MCH MCHC RDW Plt Count MPV Absolute Neuts (auto) Neutrophils % Neutrophils % (Manual) 94.8 H D Band Neutrophils % 0.0 Lymphocytes % Lymphocytes % (Manual) 1.0 L Monocytes % Monocytes % (Manual) 4 Eosinophils % Eosinophils % (Manual) 0.0 D Basophils % Basophils % (Manual) 0.0 Myelocytes % (Man) 0 D Promyelocytes % (Man) 0 Blast Cells % (Manual) 0 Nucleated RBC % 0 Metamyelocytes 0 Hypochromia 0 Platelet Estimate Decreased Platelet Comment Present Polychromasia 0 Poikilocytosis 1+ Anisocytosis 2+ Microcytosis 2+ Macrocytosis 0 Spherocytes 1+ Ovalocytes 1+ [place] Cells 2+ Schistocytes 1+ Anticoagulation Therapy Puncture Site ABG pH ABG pCO2 at Pt Temp ABG pO2 at Pt Temp ABG HCO3 ABG O2 Sat (Measured) ABG O2 Content ABG Base Excess Albert Test O2 Delivery Device Oxygen Flow Rate Vent Mode Vent Rate Mechanical Rate Pressure Support Vent Sodium Potassium Chloride Carbon Dioxide Anion Gap BUN Creatinine Est GFR (CKD-EPI)AfAm Est GFR (CKD-EPI)NonAf POC Glucometer 128 158 Random Glucose Calcium Phosphorus Magnesium Total Bilirubin AST ALT Alkaline Phosphatase Total Protein Albumin 11/22/19 11/23/19 11/23/19 21:59 00:20 05:20 WBC 8.9 RBC 3.00 L Hgb 9.7 L Hct 30.3 L MCV 101.0 H MCH 32.2 MCHC 31.9 L RDW 21.5 H Plt Count 152 MPV 9.3 Absolute Neuts (auto) 8.1 H Neutrophils % 90.2 H Neutrophils % (Manual) Band Neutrophils % Lymphocytes % 5.0 L D Lymphocytes % (Manual) Monocytes % 4.5 Monocytes % (Manual) Eosinophils % 0.1 Eosinophils % (Manual) Basophils % 0.2 Basophils % (Manual) Myelocytes % (Man) Promyelocytes % (Man) Blast Cells % (Manual) Nucleated RBC % 0 Metamyelocytes Hypochromia Platelet Estimate Platelet Comment Polychromasia Poikilocytosis Anisocytosis Microcytosis Macrocytosis Spherocytes Ovalocytes [place] Cells Schistocytes Anticoagulation Therapy No Result Required. Puncture Site Left radial ABG pH 7.36 ABG pCO2 at Pt Temp 51.5 H ABG pO2 at Pt Temp 84.3 ABG HCO3 28.1 H ABG O2 Sat (Measured) 93.8 L ABG O2 Content 93.8 ABG Base Excess 2.5 H Albert Test Positive O2 Delivery Device No Result Required. Oxygen Flow Rate 50% Vent Mode No Result Required. Vent Rate No Result Required. Mechanical Rate No Result Required. Pressure Support Vent No Result Required. Sodium Potassium Chloride Carbon Dioxide Anion Gap BUN Creatinine Est GFR (CKD-EPI)AfAm Est GFR (CKD-EPI)NonAf POC Glucometer 130 Random Glucose Calcium Phosphorus Magnesium Total Bilirubin AST ALT Alkaline Phosphatase Total Protein Albumin 11/23/19 11/23/19 11/23/19 05:20 05:37 07:55 WBC RBC Hgb Hct MCV MCH MCHC RDW Plt Count MPV Absolute Neuts (auto) Neutrophils % Neutrophils % (Manual) Band Neutrophils % Lymphocytes % Lymphocytes % (Manual) Monocytes % Monocytes % (Manual) Eosinophils % Eosinophils % (Manual) Basophils % Basophils % (Manual) Myelocytes % (Man) Promyelocytes % (Man) Blast Cells % (Manual) Nucleated RBC % Metamyelocytes Hypochromia Platelet Estimate Platelet Comment Polychromasia Poikilocytosis Anisocytosis Microcytosis Macrocytosis Spherocytes Ovalocytes [place] Cells Schistocytes Anticoagulation Therapy No Result Required. Puncture Site Left radial ABG pH 7.31 L ABG pCO2 at Pt Temp 51.9 H ABG pO2 at Pt Temp 107 H ABG HCO3 25.4 ABG O2 Sat (Measured) 95.6 ABG O2 Content No Result Required. ABG Base Excess -0.7 Albert Test Positive O2 Delivery Device No Result Required. Oxygen Flow Rate 40 Vent Mode No Result Required. Vent Rate 18 Mechanical Rate No Result Required. Pressure Support Vent 12/6 Sodium 138 Potassium 3.7 Chloride 99 Carbon Dioxide 25 Anion Gap 14 BUN 35.1 H Creatinine 2.6 H Est GFR (CKD-EPI)AfAm 26.39 Est GFR (CKD-EPI)NonAf 22.77 POC Glucometer 138 Random Glucose 140 H Calcium 8.9 Phosphorus 4.5 Magnesium 2.2 Total Bilirubin 0.8 AST 12 L ALT 15 Alkaline Phosphatase 93 Total Protein 5.9 L Albumin 2.8 L Physical Constitutional: Yes: on BIPAP Eyes: Yes: Conjunctiva Clear Neck: Yes: Supple. Central line + Cardiovascular: Yes: Regular Rate and Rhythm Respiratory: Yes: Diminished on left Gastrointestinal: Yes: Soft, not tender Genitourinary: Yes: [place]ern Removed Extremities: Yes: Amputation (s/p right aka) Edema: No Integumentary: No: Other Wound/Incision: Yes: Other (Left heel ulcer)-- Dressing + Neurological: Yes: Other (sedated) Additional Findings/Remarks: - ....Imaging Chest X-ray: Report Reviewed Cat Scan: Report Reviewed Echo-- Reviewed Microbiology 11/14/19 16:20 Blood - Diamante Cath Blood Culture - Final NO GROWTH AFTER 5 DAYS INCUBATION 11/14/19 16:20 Blood - Diamante Cath Blood Culture - Final NO GROWTH AFTER 5 DAYS INCUBATION 11/13/19 00:05 Blood - Peripheral Venous Blood Culture - Final NO GROWTH AFTER 5 DAYS INCUBATION 11/13/19 22:13 Blood - Peripheral Venous Blood Culture - Final NO GROWTH AFTER 5 DAYS INCUBATION 11/14/19 05:00 Sputum - Endotrachea Suction/Ventilator Gram Stain - Final 11/14/19 05:00 Sputum - Endotrachea Suction/Ventilator Sputum Culture - Final Morganella Morganii 11/13/19 23:50 Urine - Urine [place]ern Urine Culture - Final NO GROWTH OBTAINED 11/14/19 05:00 Urine For Antigen Detection Legionella Antigen - Final 11/14/19 05:00 Urine For Antigen Detection Streptococcus pneumoniae Antigen (M - Final Assessment/Plan In summary Pt 79yr old gentleman with extensive PMHx of CAD , s/p multivessel PCI (> 1 year ago), CHF , PPM, AF,COPD, ESRD-HD. Has been in and out of hospital since July with COPD/ infections/ CKD and recently had a possible GIB at [facility]- no endoscopic evaluation. Transferred from [facility] for short term rehab and was transferred here for resp distress. Admitted to ICU / Intubated for Respiratory failure and Pneumonia.-- now on bipap Abx Taper pressors as tolerated ct abd/pelvis -->CT A/P shows ascites, diverticulosis, small umbilical R inguinal hernias -Repeat CT A/P shows: ascites has slightly increased, diverticulosis, small right inguinal hernia, and subcutaneous edema b/l. Dialysis per renal needs swallow eval -- keep NPO for now had attempted yesterday bedside as per RN CXR -- worsening congestion/infiltrates in left Problem List - Problems (1) CAD (coronary artery disease) Code(s): I25.10 - ATHSCL HEART DISEASE OF [place] CORONARY ARTERY W/O ANG PCTRS (2) COPD (chronic obstructive pulmonary disease) Code(s): J44.9 - CHRONIC OBSTRUCTIVE PULMONARY DISEASE, UNSPECIFIED Qualifiers: COPD type: unspecified COPD Qualified Code(s): J44.9 - Chronic obstructive pulmonary disease, unspecified (3) Elevated troponin Code(s): R79.89 - OTHER SPECIFIED ABNORMAL FINDINGS OF BLOOD CHEMISTRY (4) PVD (peripheral vascular disease) Code(s): I73.9 - PERIPHERAL VASCULAR DISEASE, UNSPECIFIED (5) Respiratory failure Code(s): J96.90 - RESPIRATORY FAILURE, UNSP, UNSP W HYPOXIA OR HYPERCAPNIA (6) Thrombocytopenia Code(s): D69.6 - THROMBOCYTOPENIA, UNSPECIFIED
--- NOTE | 2019-11-23 09:05 | PN ---
Physical Exam: SUBJECTIVE: Patient seen and examined this AM. Remains Extubated however became tachypneic overnight requiring Bilevel support. Remains on levo 2mcg. OBJECTIVE: Vital Signs Period Temp Pulse Resp BP Sys/Armando Pulse Ox Last 24 Hr 97.7 F-98.6 F 60-74 19-45 102-132/43-53 93-98 GENERAL: Awake, Alert, NAD HEAD: NCAT EYES: PERRL, EOMI ENT: Moist mucous membranes NECK: Supple. RIJ In place, Dressing CDI. LUNGS: CTAB, no wheezes, no crackles HEART: Regular rate and rhythm, S1, S2 without murmur ABDOMEN: Soft, nontender, nondistended, + bowel sounds, no guarding EXTREMITIES: RLE AKA, LLE trace edema. NEUROLOGICAL: Awake, Alert, responsive to commands SKIN: Warm, dry Laboratory Results - last 24 hr 11/22/19 11/22/19 11/22/19 06:00 11:01 17:11 WBC RBC Hgb Hct MCV MCH MCHC RDW Plt Count MPV Absolute Neuts (auto) Neutrophils % Neutrophils % (Manual) 94.8 H D Band Neutrophils % 0.0 Lymphocytes % Lymphocytes % (Manual) 1.0 L Monocytes % Monocytes % (Manual) 4 Eosinophils % Eosinophils % (Manual) 0.0 D Basophils % Basophils % (Manual) 0.0 Myelocytes % (Man) 0 D Promyelocytes % (Man) 0 Blast Cells % (Manual) 0 Nucleated RBC % 0 Metamyelocytes 0 Hypochromia 0 Platelet Estimate Decreased Platelet Comment Present Polychromasia 0 Poikilocytosis 1+ Anisocytosis 2+ Microcytosis 2+ Macrocytosis 0 Spherocytes 1+ Ovalocytes 1+ [place] Cells 2+ Schistocytes 1+ Anticoagulation Therapy Puncture Site ABG pH ABG pCO2 at Pt Temp ABG pO2 at Pt Temp ABG HCO3 ABG O2 Sat (Measured) ABG O2 Content ABG Base Excess Albert Test O2 Delivery Device Oxygen Flow Rate Vent Mode Vent Rate Mechanical Rate Pressure Support Vent Sodium Potassium Chloride Carbon Dioxide Anion Gap BUN Creatinine Est GFR (CKD-EPI)AfAm Est GFR (CKD-EPI)NonAf POC Glucometer 128 158 Random Glucose Calcium Phosphorus Magnesium Total Bilirubin AST ALT Alkaline Phosphatase Total Protein Albumin 11/22/19 11/23/19 11/23/19 21:59 00:20 05:20 WBC 8.9 RBC 3.00 L Hgb 9.7 L Hct 30.3 L MCV 101.0 H MCH 32.2 MCHC 31.9 L RDW 21.5 H Plt Count 152 MPV 9.3 Absolute Neuts (auto) 8.1 H Neutrophils % 90.2 H Neutrophils % (Manual) Band Neutrophils % Lymphocytes % 5.0 L D Lymphocytes % (Manual) Monocytes % 4.5 Monocytes % (Manual) Eosinophils % 0.1 Eosinophils % (Manual) Basophils % 0.2 Basophils % (Manual) Myelocytes % (Man) Promyelocytes % (Man) Blast Cells % (Manual) Nucleated RBC % 0 Metamyelocytes Hypochromia Platelet Estimate Platelet Comment Polychromasia Poikilocytosis Anisocytosis Microcytosis Macrocytosis Spherocytes Ovalocytes [place] Cells Schistocytes Anticoagulation Therapy No Result Required. Puncture Site Left radial ABG pH 7.36 ABG pCO2 at Pt Temp 51.5 H ABG pO2 at Pt Temp 84.3 ABG HCO3 28.1 H ABG O2 Sat (Measured) 93.8 L ABG O2 Content 93.8 ABG Base Excess 2.5 H Albert Test Positive O2 Delivery Device No Result Required. Oxygen Flow Rate 50% Vent Mode No Result Required. Vent Rate No Result Required. Mechanical Rate No Result Required. Pressure Support Vent No Result Required. Sodium Potassium Chloride Carbon Dioxide Anion Gap BUN Creatinine Est GFR (CKD-EPI)AfAm Est GFR (CKD-EPI)NonAf POC Glucometer 130 Random Glucose Calcium Phosphorus Magnesium Total Bilirubin AST ALT Alkaline Phosphatase Total Protein Albumin 11/23/19 11/23/19 11/23/19 05:20 05:37 07:55 WBC RBC Hgb Hct MCV MCH MCHC RDW Plt Count MPV Absolute Neuts (auto) Neutrophils % Neutrophils % (Manual) Band Neutrophils % Lymphocytes % Lymphocytes % (Manual) Monocytes % Monocytes % (Manual) Eosinophils % Eosinophils % (Manual) Basophils % Basophils % (Manual) Myelocytes % (Man) Promyelocytes % (Man) Blast Cells % (Manual) Nucleated RBC % Metamyelocytes Hypochromia Platelet Estimate Platelet Comment Polychromasia Poikilocytosis Anisocytosis Microcytosis Macrocytosis Spherocytes Ovalocytes [place] Cells Schistocytes Anticoagulation Therapy No Result Required. Puncture Site Left radial ABG pH 7.31 L ABG pCO2 at Pt Temp 51.9 H ABG pO2 at Pt Temp 107 H ABG HCO3 25.4 ABG O2 Sat (Measured) 95.6 ABG O2 Content No Result Required. ABG Base Excess -0.7 Albert Test Positive O2 Delivery Device No Result Required. Oxygen Flow Rate 40 Vent Mode No Result Required. Vent Rate 18 Mechanical Rate No Result Required. Pressure Support Vent 12/6 Sodium 138 Potassium 3.7 Chloride 99 Carbon Dioxide 25 Anion Gap 14 BUN 35.1 H Creatinine 2.6 H Est GFR (CKD-EPI)AfAm 26.39 Est GFR (CKD-EPI)NonAf 22.77 POC Glucometer 138 Random Glucose 140 H Calcium 8.9 Phosphorus 4.5 Magnesium 2.2 Total Bilirubin 0.8 AST 12 L ALT 15 Alkaline Phosphatase 93 Total Protein 5.9 L Albumin 2.8 L Microbiology 11/14/19 16:20 Blood - Diamante Cath Blood Culture - Final NO GROWTH AFTER 5 DAYS INCUBATION 11/14/19 16:20 Blood - Diamante Cath Blood Culture - Final NO GROWTH AFTER 5 DAYS INCUBATION 11/13/19 00:05 Blood - Peripheral Venous Blood Culture - Final NO GROWTH AFTER 5 DAYS INCUBATION 11/13/19 22:13 Blood - Peripheral Venous Blood Culture - Final NO GROWTH AFTER 5 DAYS INCUBATION 11/14/19 05:00 Sputum - Endotrachea Suction/Ventilator Gram Stain - Final 11/14/19 05:00 Sputum - Endotrachea Suction/Ventilator Sputum Culture - Final Morganella Morganii 11/13/19 23:50 Urine - Urine [place] Urine Culture - Final NO GROWTH OBTAINED 11/14/19 05:00 Urine For Antigen Detection Legionella Antigen - Final 11/14/19 05:00 Urine For Antigen Detection Streptococcus pneumoniae Antigen (M - Final Active Medications Albuterol Sulfate (Ventolin 0.083% Nebulizer Soln -) 1 amp NEB Q4H PRN PRN Reason: SHORT OF BREATH/WHEEZING Albuterol/Ipratropium (Duoneb -) 1 amp NEB RQID [facility] Last Admin: 11/23/19 07:09 Dose: 1 amp Fludrocortisone Acetate (Florinef -) 0.05 mg GT DAILY [facility] Last Admin: 11/22/19 09:37 Dose: 0.05 mg Heparin Sodium (Porcine) (Heparin -) 5,000 unit SQ TID [facility] Last Admin: 11/23/19 05:39 Dose: 5,000 unit Hydrocortisone Sodium Succinate (Solu-Cortef -) 50 mg IVPB Q8H-IV TED Last Admin: 11/23/19 03:00 Dose: 50 mg Ceftriaxone Sodium 1 gm/ (Dextrose) 50 mls @ 100 mls/hr IVPB DAILY [facility]; Protocol Last Admin: 11/22/19 09:37 Dose: 100 mls/hr Norepinephrine Bitartrate 8, (000 mcg/ Sodium Chloride) 500 mls @ 18.75 mls/hr IV TITR TED; Protocol Last Titration: 11/22/19 11:00 Dose: 2 mcg/min, 7.5 mls/hr Potassium Chloride (Potassium Chloride 10 Meq Premix Ivpb -) 10 meq in 100 mls @ 100 mls/hr IVPB Q60M TED Stop: 11/23/19 12:14 Insulin Aspart (Novolog Vial Sliding Scale -) 1 vial SQ ACHS [facility]; Protocol Last Admin: 11/23/19 06:45 Dose: Not Given Mupirocin (Bactroban 2% Cream -) 1 applic TP BID [facility] Last Admin: 11/22/19 23:06 Dose: 1 applic Pantoprazole Sodium (Protonix Iv) 40 mg IVPUSH DAILY [facility] Last Admin: 11/22/19 10:50 Dose: 40 mg Sodium Chloride ([place] Nasal [place] -) 2 spray NS BID PRN PRN Reason: NASAL CONGESTION ASSESSMENT/PLAN: 79 y/o M PMHx COPD, ESRD (on HD TuThSa), CHF s/p pacemaker, DMII, Prostate Ca, Venous stasis changes, Constipation who presented with COPD exacerbation likely due to PNA, admitted to the ICU s/p intubation after being found obtunded in the care home. #Neuro Acute Metabolic Encephalopathy 2/2 Sepsis -Awake, Alert, Mental status improving #Cardiovascular Hx of CHF, Afib/Aflutter s/p PPM, CAD Elevated Troponin I in the setting of sepsis likely due to demand ischemia -Stable, currently ventricular-paced and rate-controlled -AC held in the setting of GI Bleed -Continous cardiac monitoring -Cardio consulted, appreciate rec's #Pulm Acute Hypoxic Respiratory Failure Hx of COPD, SAVANA, Pulmonary HTN -Now Extubated (on 11/22), satting well on [place], required Bilevel support overngiht -Bronchodilation via Duonebs/Albuterol -Supplemental O2 to maintain SpO2 88-92% -CXR with increased atelectasis or infiltrate at left base #GI GI Bleed Ascites (seen on imaging) -H&H Stable, Continue to monitor for signs of active bleeding -General surgery consulted, appreciate recs #Renal ESRD (on HD TuThSa) -Nephrology consulted, appreciate recs #ID Septic Shock 2/2 RLL Pneumonia Lactic Acidosis in the setting of sepsis, Resolved -Remains Afebrile, Leukocytosis improving -Continue Ceftriaxone -Blood and Urine Cx NGTD, Urine Legionella neg -ID consulted, appreciate recs -Remains on Levophed 3; titrate to maintain MAP > 65 however attempt to wean down -Continue Fludro/[place] #Endocrine -BGM/ISS ACHS #PPx -DVT: Heparin -GI: PPI #FEN -No standing fluids -Replete Lytes PRN -Keep NPO #LTD -RIJ in place 11/21 Dispo: Continue ICU management. Visit type - Emergency Visit Emergency Visit: Yes ED Registration Date: 11/14/19 Care time: The patient presented to the Emergency Department on the above date and was hospitalized for further evaluation of their emergent condition. - New Patient This patient is new to me today: No - Critical Care Critical Care patient: Yes Total Critical Care Time (in minutes): 36 Critical Care Statement: The care of this patient involved high complexity decision making to prevent further life threatening deterioration of the patient's condition and/or to evaluate & treat vital organ system(s) failure or risk of failure. ATTENDING PHYSICIAN STATEMENT I saw and evaluated the patient. I reviewed the resident's note and discussed the case with the resident. I agree with the resident's findings and plan as documented. SUBJECTIVE: OBJECTIVE: ASSESSMENT AND PLAN:
--- NOTE | 2019-11-23 09:07 | PN ---
Progress Note (short form) - Note Progress Note: Renal follow up for ESRD on HD Coverage for Dr. Kramer Seen and examined in the ICU awake on on BIPAP s/p dialysis yesterday with 3L UF remains on low dose levophed he offers no acute complaints denies overt shortness of breath, chest pain, abd pain, fever or chills Vital Signs Temperature 97.7 F 11/23/19 04:00 Pulse Rate 66 11/23/19 06:00 Respiratory Rate 40 H 11/23/19 06:00 Blood Pressure 126/51 L 11/23/19 06:00 O2 Sat by Pulse Oximetry (%) 97 11/23/19 07:03 Intake & Output 11/20/19 11/21/19 11/22/19 11/23/19 23:59 23:59 23:59 23:59 Intake Total 1208 1280 730 355 Output Total 4100 3500 Balance -2892 1280 -2770 355 Weight 80.966 kg 79.016 kg 79.832 kg 75.16 kg NAD on CPAP/BIPAP RRR Dec BS, no wheeze soft NT/ND Right BKA, no LE edema + sacral edema right tunneled HD catheter CBC, BMP 11/23/19 05:20 11/23/19 05:20 Current Medications Albuterol Sulfate (Ventolin 0.083% Nebulizer Soln -) 1 amp NEB Q4H PRN PRN Reason: SHORT OF BREATH/WHEEZING Albuterol/Ipratropium (Duoneb -) 1 amp NEB RQID TED Last Admin: 11/23/19 07:09 Dose: 1 amp Fludrocortisone Acetate (Florinef -) 0.05 mg GT DAILY TED Last Admin: 11/22/19 09:37 Dose: 0.05 mg Heparin Sodium (Porcine) (Heparin -) 5,000 unit SQ TID TED Last Admin: 11/23/19 05:39 Dose: 5,000 unit Hydrocortisone Sodium Succinate (Solu-Cortef -) 50 mg IVPB Q8H-IV TED Last Admin: 11/23/19 03:00 Dose: 50 mg Ceftriaxone Sodium 1 gm/ (Dextrose) 50 mls @ 100 mls/hr IVPB DAILY [facility]; Protocol Last Admin: 11/22/19 09:37 Dose: 100 mls/hr Norepinephrine Bitartrate 8, (000 mcg/ Sodium Chloride) 500 mls @ 18.75 mls/hr IV TITR [facility]; Protocol Last Titration: 11/22/19 11:00 Dose: 2 mcg/min, 7.5 mls/hr Potassium Chloride (Potassium Chloride 10 Meq Premix Ivpb -) 10 meq in 100 mls @ 100 mls/hr IVPB Q60M [facility] Stop: 11/23/19 12:14 Insulin Aspart (Novolog Vial Sliding Scale -) 1 vial SQ ACHS [facility]; Protocol Last Admin: 11/23/19 06:45 Dose: Not Given Mupirocin (Bactroban 2% Cream -) 1 applic TP BID [facility] Last Admin: 11/22/19 23:06 Dose: 1 applic Pantoprazole Sodium (Protonix Iv) 40 mg IVPUSH DAILY [facility] Last Admin: 11/22/19 10:50 Dose: 40 mg Sodium Chloride ([place] Nasal [place] -) 2 spray NS BID PRN PRN Reason: NASAL CONGESTION Impression 1. ESRD 2. resp failure 3. PNA 4. copd 5. chf 6. sepsis 7. pulm effusion 8. hyponatremia Plan s/p dialysis yesterday. No acute need for SENIOR ENGINEER today. CXR noted, still with signs of congestion. If respiratory status not improved can consider UF tomorrow. Remains on Levophed, titrate as per ICU supplemental O2 as per ICU Continue Abx for Sepsis/PNA Thank you Modesto Amaya DO
--- NOTE | 2019-11-23 10:04 | PN ---
Progress Note, Physician Chief Complaint: resp failure History of Present Illness: bipap on. alert, lethargic--not communicating - Current Medication List Current Medications: Active Medications Albuterol Sulfate (Ventolin 0.083% Nebulizer Soln -) 1 amp NEB Q4H PRN PRN Reason: SHORT OF BREATH/WHEEZING Albuterol/Ipratropium (Duoneb -) 1 amp NEB RQID TED Last Admin: 11/23/19 07:09 Dose: 1 amp Fludrocortisone Acetate (Florinef -) 0.05 mg GT DAILY [facility] Last Admin: 11/22/19 09:37 Dose: 0.05 mg Heparin Sodium (Porcine) (Heparin -) 5,000 unit SQ TID TED Last Admin: 11/23/19 05:39 Dose: 5,000 unit Hydrocortisone Sodium Succinate (Solu-Cortef -) 50 mg IVPB Q8H-IV TED Last Admin: 11/23/19 03:00 Dose: 50 mg Ceftriaxone Sodium 1 gm/ (Dextrose) 50 mls @ 100 mls/hr IVPB DAILY [facility]; Protocol Last Admin: 11/22/19 09:37 Dose: 100 mls/hr Norepinephrine Bitartrate 8, (000 mcg/ Sodium Chloride) 500 mls @ 18.75 mls/hr IV TITR [facility]; Protocol Last Titration: 11/22/19 11:00 Dose: 2 mcg/min, 7.5 mls/hr Potassium Chloride (Potassium Chloride 10 Meq Premix Ivpb -) 10 meq in 100 mls @ 100 mls/hr IVPB Q60M [facility] Stop: 11/23/19 12:14 Insulin Aspart (Novolog Vial Sliding Scale -) 1 vial SQ ACHS [facility]; Protocol Last Admin: 11/23/19 06:45 Dose: Not Given Mupirocin (Bactroban 2% Cream -) 1 applic TP BID [facility] Last Admin: 11/22/19 23:06 Dose: 1 applic Pantoprazole Sodium (Protonix Iv) 40 mg IVPUSH DAILY [facility] Last Admin: 11/22/19 10:50 Dose: 40 mg Sodium Chloride ([place] Nasal [place] -) 2 spray NS BID PRN PRN Reason: NASAL CONGESTION - Objective Vital Signs: Vital Signs Temperature 97.7 F 11/23/19 04:00 Pulse Rate 60 11/23/19 08:00 Respiratory Rate 29 H 11/23/19 08:00 Blood Pressure 124/55 L 11/23/19 08:00 O2 Sat by Pulse Oximetry (%) 97 11/23/19 09:00 Constitutional: Yes: Well Nourished, No Distress, Calm Cardiovascular: Yes: Pulse Irregular, S1, S2. No: JVD (tds exam), Gallop, Murmur Respiratory: Yes: Regular, CTA Bilaterally (anteirorly). No: Accessory Muscle Use Extremities: No: Cold Edema: No Neurological: Yes: Alert. 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 nl LVEF Pacemaker Underlying AFib/flutter Recent reported GIB (no endoscopic evaluation) REC: - pressors as needed to maintain MAP > 60mmHg - HD/UF per renal - Abx as per PMD, Critical Care and ID - Borderline/flat TnI likely due to demand ischemia/sepsis. - Echo with RV dilatation and RV dysfx, severe PHTN- chronic per son. May be due to chronic COPD, and acutely worsened in setting of PNA/hypoxia. - Underlying AF-holding AC in setting recent unexplored GIB/ low platelets ( sepsis/ possible abx effect). Risks> benefits at this time. no tachycardia (V- paced--? PM dependent)
[2019-11-23] MEDS ORDERED: cefTRIAXone SODIUM 1 GM VIAL ONE (10:18)
[2019-11-23] MEDS ORDERED: DEXTROSE 5%-WATER - 50 ML IVPB ONE (10:18)
[2019-11-23] MEDS: CEFTRIAXONE 1 GM in DEXTROSE 5%-WATER - 50 ML IVPB SCH (10:22)
[2019-11-23] MEDS: FLUDROCORTISONE ACETATE 0.1 MG TABLET (FP) GT SCH (10:25)
[2019-11-23] MEDS: PANTOPRAZOLE SODIUM 40 MG VIAL IVPUSH SCH (10:26)
[2019-11-23] MEDS: MUPIROCIN CA 2% TOPICAL CREAM 15 GM TUBE TP SCH ×2 (10:26→21:17)
--- NOTE | 2019-11-23 10:27 | PN ---
Teaching Attending Note Name of Resident: Emy Benítez ATTENDING PHYSICIAN STATEMENT I saw and evaluated the patient. I reviewed the resident's note and discussed the case with the resident. I agree with the resident's findings and plan as documented. SUBJECTIVE: Pt seen and examined in the ICU. On BiPAP overnight. On low dose levophed gtt. More alert, awake today. OBJECTIVE: Vital Signs Period Temp Pulse Resp BP Sys/Armando Pulse Ox Last 24 Hr 97.7 F-98.4 F 60-74 19-45 106-132/43-55 93-98 Intake & Output 11/20/19 11/21/19 11/22/19 11/23/19 23:59 23:59 23:59 23:59 Intake Total 1208 1280 730 355 Output Total 4100 3500 Balance -2892 1280 -2770 355 Weight 80.966 kg 79.016 kg 79.832 kg 75.16 kg Gen: more alert, mildly tachypneic on BiPAP Heart: RRR Lung: scattered rhonchi Abd: soft, nontender Ext: no edema CBC, BMP 11/23/19 05:20 11/23/19 05:20 Active Medications Albuterol Sulfate (Ventolin 0.083% Nebulizer Soln -) 1 amp NEB Q4H PRN PRN Reason: SHORT OF BREATH/WHEEZING Albuterol/Ipratropium (Duoneb -) 1 amp NEB RQID TED Last Admin: 11/23/19 07:09 Dose: 1 amp Fludrocortisone Acetate (Florinef -) 0.05 mg GT DAILY TED Last Admin: 11/22/19 09:37 Dose: 0.05 mg Heparin Sodium (Porcine) (Heparin -) 5,000 unit SQ TID TED Last Admin: 11/23/19 05:39 Dose: 5,000 unit Hydrocortisone Sodium Succinate (Solu-Cortef -) 50 mg IVPB Q8H-IV TED Last Admin: 11/23/19 03:00 Dose: 50 mg Ceftriaxone Sodium 1 gm/ (Dextrose) 50 mls @ 100 mls/hr IVPB DAILY [facility]; Protocol Last Admin: 11/22/19 09:37 Dose: 100 mls/hr Norepinephrine Bitartrate 8, (000 mcg/ Sodium Chloride) 500 mls @ 18.75 mls/hr IV TITR [facility]; Protocol Last Titration: 11/22/19 11:00 Dose: 2 mcg/min, 7.5 mls/hr Potassium Chloride (Potassium Chloride 10 Meq Premix Ivpb -) 10 meq in 100 mls @ 100 mls/hr IVPB Q60M [facility] Stop: 11/23/19 12:14 Insulin Aspart (Novolog Vial Sliding Scale -) 1 vial SQ ACHS [facility]; Protocol Last Admin: 11/23/19 06:45 Dose: Not Given Mupirocin (Bactroban 2% Cream -) 1 applic TP BID [facility] Last Admin: 11/22/19 23:06 Dose: 1 applic Pantoprazole Sodium (Protonix Iv) 40 mg IVPUSH DAILY [facility] Last Admin: 11/22/19 10:50 Dose: 40 mg Sodium Chloride ([place] Nasal [place] -) 2 spray NS BID PRN PRN Reason: NASAL CONGESTION ASSESSMENT AND PLAN: Acute Hypoxic Respiratory Failure Pneumonia Septic Shock Lactic Acidosis +Troponins likely [place] Ischemia COPD ESRD on HD CAD Pulmonary HTN Atrial Fibrillation s/p PPM h/o GI bleed Anemia - continue antibiotics - HD per renal - titrate pressors to maintain MAP >65 - on stress dose steroids - inhaled bronchodilators - titrate HFOT to keep SpO2 >90% - BiPAP as needed - rate controlled - holding anticoagulation - continue ICU monitoring for vasopressor support critical care time spent in reviewing chart, evaluating patient and formulating plan 35 min
[2019-11-23] MEDS: KCL 10 MEQ IVPB 10 MEQ/100 ML INFUS.BAG IVPB SCH ×3 (11:21→12:39)
[2019-11-23] MEDS: NOREPINEPHRINE BITARTRATE 8,000 MCG in SODIUM CHLORIDE 492 ML IV SCH (19:06)
--- NOTE | 2019-11-23 19:59 | PN ---
Progress Note, Physician History of Present Illness: Pt is alert, without acute distress on BIPAP. Remains afebrile. Now off Levophed , BP stable. - Current Medication List Current Medications: Active Medications Albuterol Sulfate (Ventolin 0.083% Nebulizer Soln -) 1 amp NEB Q4H PRN PRN Reason: SHORT OF BREATH/WHEEZING Albuterol/Ipratropium (Duoneb -) 1 amp NEB RQID TED Last Admin: 11/23/19 11:30 Dose: 1 amp Fludrocortisone Acetate (Florinef -) 0.05 mg GT DAILY TED Last Admin: 11/23/19 10:25 Dose: 0.05 mg Heparin Sodium (Porcine) (Heparin -) 5,000 unit SQ TID TED Last Admin: 11/23/19 15:15 Dose: 5,000 unit Hydrocortisone Sodium Succinate (Solu-Cortef -) 50 mg IVPB Q8H-IV TED Last Admin: 11/23/19 17:45 Dose: 50 mg Ceftriaxone Sodium 1 gm/ (Dextrose) 50 mls @ 100 mls/hr IVPB DAILY [facility]; Protocol Last Admin: 11/23/19 10:22 Dose: 100 mls/hr Norepinephrine Bitartrate 8, (000 mcg/ Sodium Chloride) 500 mls @ 18.75 mls/hr IV TITR [facility]; Protocol Last Admin: 11/23/19 19:06 Dose: Not Given Insulin Aspart (Novolog Vial Sliding Scale -) 1 vial SQ ACHS [facility]; Protocol Last Admin: 11/23/19 16:24 Dose: Not Given Mupirocin (Bactroban 2% Cream -) 1 applic TP BID [facility] Last Admin: 11/23/19 10:26 Dose: 1 applic Pantoprazole Sodium (Protonix Iv) 40 mg IVPUSH DAILY [facility] Last Admin: 11/23/19 10:26 Dose: 40 mg Sodium Chloride ([place] Nasal [place] -) 2 spray NS BID PRN PRN Reason: NASAL CONGESTION - Objective Vital Signs: Vital Signs Temperature 97.8 F 11/23/19 18:00 Pulse Rate 65 11/23/19 18:00 Respiratory Rate 17 11/23/19 18:00 Blood Pressure 116/56 L 11/23/19 18:00 O2 Sat by Pulse Oximetry (%) 100 11/23/19 15:51 Constitutional: Yes: No Distress Eyes: Yes: Conjunctiva Clear Neck: Yes: Supple Cardiovascular: Yes: Regular Rate and Rhythm Respiratory: Yes: On BiPap, Rhonchi Gastrointestinal: Yes: Normal Bowel Sounds, Soft Musculoskeletal: Yes: WNL Extremities: Yes: Amputation (Rt BKA) Peripheral Pulses WNL: Yes Integumentary: Yes: WNL Neurological: Yes: Alert, Weakness Labs: CBC, BMP 11/23/19 05:20 11/23/19 05:20 INR, PTT INR 1.02 (0.83-1.09) 11/17/19 06:00 - ....Imaging Chest X-ray: Report Reviewed Problem List - Problems (1) CAD (coronary artery disease) Code(s): I25.10 - ATHSCL HEART DISEASE OF [place] CORONARY ARTERY W/O ANG PCTRS (2) COPD (chronic obstructive pulmonary disease) Code(s): J44.9 - CHRONIC OBSTRUCTIVE PULMONARY DISEASE, UNSPECIFIED Qualifiers: COPD type: unspecified COPD Qualified Code(s): J44.9 - Chronic obstructive pulmonary disease, unspecified (3) PVD (peripheral vascular disease) Code(s): I73.9 - PERIPHERAL VASCULAR DISEASE, UNSPECIFIED (4) Respiratory failure Code(s): J96.90 - RESPIRATORY FAILURE, UNSP, UNSP W HYPOXIA OR HYPERCAPNIA Assessment/Plan Acute Respiratory Acute due to RLL PNA COPD ESRD on HD CHF [place] R/O Seizure Septic Shock PAD Demand Ischemia Chronic loculated RLL effusion -- on BIPAP, now off pressors - afebrile, wbc now - continue Ceftriaxone - blood/urine cx neg, urinary Ag neg - cxr results reviewed - continue close monitoring cc time: 38 min
[2019-11-24] MEDS: NOREPINEPHRINE BITARTRATE 8,000 MCG in SODIUM CHLORIDE 492 ML IV SCH (04:37)
[2019-11-24] MEDS: HYDROCORTISONE SOD SUCCINATE 100 MG/2 ML VIAL IVPB SCH ×3 (04:37→23:15)
[2019-11-24] MEDS: INSULIN SLIDING SCALE (NOVOLOG) 1 VIAL SQ SCH ×4 (06:10→23:15)
[2019-11-24] MEDS: HEPARIN NA (PORCINE) 5,000 UNITS/ML 1ML VIAL SQ SCH ×3 (06:10→23:15)
[2019-11-24 06:59] LABS: BASO % 0.2 % (0-2.0); HEMATOCRIT 29.5 % (35.4-49); HEMOGLOBIN 9.5 GM/dL (11.7-16.9); LYMPH % 5.9 % (8-40); MCH 32.5 pg (25.7-33.7); MCHC 32.2 g/dl (32.0-35.9); MEAN CELL VOLUME 100.9 fl (80-96); MEAN PLT VOLUME 8.8 fl (7.5-11.1); MONO % 4.3 % (3.8-10.2); NEUT % 89.6 % (42.8-82.8); PLATELET COUNT 120 K/MM3 (134-434); RBC 2.93 M/mm3 (4.00-5.60); RDW 20.7 % (11.9-15.9); WHITE BLOOD COUNT 5.4 K/mm3 (4.0-10.0)
[2019-11-24 07:26] LABS: ALBUMIN 2.4 g/dl (3.4-5.0); BILIRUBIN,TOTAL 0.7 mg/dL (0.2-1); BLOOD UREA NITROGEN 48.7 mg/dL (7-18); CALCIUM 8.7 mg/dL (8.5-10.1); CREATININE 3.2 mg/dL (0.55-1.3); MAGNESIUM 2.3 mg/dL (1.8-2.4); PHOSPHOROUS 6.2 mg/dL (2.5-4.9); TOT PROT 5.6 g/dl (6.4-8.2)
[2019-11-24] MEDS: ALBUTEROL SO4 2.5/IPRATROPIUM 0.5 INH SOL 3 ML VIAL.NEB. NEB SCH ×4 (07:30→20:46)
[2019-11-24] MEDS ORDERED: cefTRIAXone SODIUM 1 GM VIAL ONE (08:09)
[2019-11-24] MEDS ORDERED: DEXTROSE 5%-WATER - 50 ML IVPB ONE (08:10)
[2019-11-24] MEDS: CEFTRIAXONE 1 GM in DEXTROSE 5%-WATER - 50 ML IVPB SCH (09:56)
[2019-11-24] MEDS: FLUDROCORTISONE ACETATE 0.1 MG TABLET (FP) GT SCH ×2 (09:57→14:13)
[2019-11-24] MEDS: PANTOPRAZOLE SODIUM 40 MG VIAL IVPUSH SCH (09:58)
[2019-11-24] MEDS: MUPIROCIN CA 2% TOPICAL CREAM 15 GM TUBE TP SCH (09:59)
--- NOTE | 2019-11-24 09:59 | CONSULT ---
Admitting History and Physical - Primary Care Physician PCP: Leeanne Rucker - Admission History of Present Illness: 79yr old gentleman with extensive PMHx of CAD , s/p multivessel PCI (> 1 year ago), CHF , PPM, AF,COPD, ESRD-HD. Has been in and out of hospital since July with COPD/ infections/ CKD and recently had a possible GIB at [facility]. Sent to [facility], transferred here 11/14 for resp distress and admitted to ICU / Intubated for Respiratory failure and Pneumonia Extubated 11/22, on high flow O2. Soft diet /thin liquids ordered on 11/22 after screened by staff for swallowing difficulty. Pt was unable to tolerate diet, per nursing notes. Family requested po diet, stating pt "coughs at home while eating". Made NPO 11/23, pending swallowing evaluation. Pt seen bedside, on Hi-Sudheer, confused, impaired insight, thinks he is in rehab, unaware of recent intubation, but oriented to Nov 2019. History Source: Medical Record, Transfer Record Limitations to Obtaining History: Clinical Condition - Past Medical History Cardiovascular: Yes: HTN, Other (ASHD) Pulmonary: Yes: COPD, Sleep Apnea Gastrointestinal: Yes: GERD, Other (recent GIB) Renal/: Yes: Renal Failure, Hemodialysis Dermatology: Yes: Other (Pressure Ulcer- L- Heel) - Smoking History Smoking history: Unknown if ever smoked Have you smoked in the past 12 months: No - Alcohol/Substance Use Hx Alcohol Use: No - Social History History of Recent Travel: No History - Admission Reason For Visit: ELEVATED TROPONIN LEVEL, CHRONIC OBSTRUCTIVE - Diagnostics X-ray: Report Reviewed CT Scan: Report Reviewed (head/chest reviewed) - General Mental Status: Awake and Alert, Able to Follow Commands, Forgetful, Intermittently Confused Attention: Distractible, Mild Impairment Ability to Follow Directions: Good Head/Neck Control: Good - Hearing Hearing: Normal Speech Evaluation - Communication Primary Language: [place] Communication: Yes: Within Normal Limits Oral Expression Ability: Yes: No Impairment - Speech Production Able to Make Needs Known: Yes: WNL Intelligibility: Yes: WNL - Speech Characteristics Voice Loudness: Normal Voice Pitch: Yes: Normal Voice Phonatory-based Quality: Yes: Normal Speech Pattern: Normal Speech Clarity: < 100% Nasal Resonance: Normal Articulation: Yes: Precise - Language/Auditory Comprehension Follows: Yes: 1 Stage Simple Commands Observation: Able to respond to yes/no queries: Yes, Yes/No Confusion: No, Comprehends Conversational Speech: Yes - Language/Verbal Expression Able to Respond to Simple Queries: Yes: WNL Able to Communicate Wants and Needs: Yes: WNL Functional Communication Status: Yes: WNL - Swallow Evaluation/Bedside Assessment Current Nutritional Intake: NPO Oral Secretions: Yes: WFL Dentition: Yes: Adequate Facial Symmetry at Rest: Facial Droop Left (slight at rest.) Facial Symmetry on Retraction: Symmetrical Facial Movement: Controlled Sensation: Normal Against Resistance Opening: Normal Against Resistance Closing: Normal Pucker Lips: Normal Smile: Normal Lingual Movement: Normal, Symmetric Lingual Speed of Movement: Normal Lingual Movement Strgth Against Opposition: Normal Lingual Movement Characteristics: Normal Velopharyngeal Movement: Normal Laryngeal Movement: Reduced Excursion, Labored,delay initiation, Reduced Velocity Rate of Intake: WFL Bolus Size: WFL Labial Seal: WFL Pocketing: None Coughing/Throat Clear: Yes (weak cough response with water.5 scab chunks - mucous plug-like ) Change in Voice: Yes (weak with cough) Recommendations - Speech Evaluation, Impression/Plan Impression: With intake of sips of water, weak cough response, expectorated mucous plug-like chunks from his pharynx. Oral exam -scrupulously clean. Swallow seems reduced in laryngeal excursion and rate. Verbal but confused, forgetful, impaired insight.
--- NOTE | 2019-11-24 10:35 | PN ---
Progress Note, Physician Chief Complaint: resp failure History of Present Illness: much more alert (normal sensorium today) denies sob, cp, palp, swelling nasal NIPPV in place - Current Medication List Current Medications: Active Medications Albuterol Sulfate (Ventolin 0.083% Nebulizer Soln -) 1 amp NEB Q4H PRN PRN Reason: SHORT OF BREATH/WHEEZING Albuterol/Ipratropium (Duoneb -) 1 amp NEB RQID TED Last Admin: 11/24/19 07:30 Dose: 1 amp Fludrocortisone Acetate (Florinef -) 0.05 mg GT DAILY [facility] Last Admin: 11/24/19 09:57 Dose: 0.05 mg Heparin Sodium (Porcine) (Heparin -) 5,000 unit SQ TID TED Last Admin: 11/24/19 06:10 Dose: 5,000 unit Hydrocortisone Sodium Succinate (Solu-Cortef -) 50 mg IVPB Q8H-IV [facility] Last Admin: 11/24/19 09:55 Dose: 50 mg Ceftriaxone Sodium 1 gm/ (Dextrose) 50 mls @ 100 mls/hr IVPB DAILY [facility]; Protocol Last Admin: 11/24/19 09:56 Dose: 100 mls/hr Norepinephrine Bitartrate 8, (000 mcg/ Sodium Chloride) 500 mls @ 18.75 mls/hr IV TITR [facility]; Protocol Last Admin: 11/24/19 04:37 Dose: Not Given Insulin Aspart (Novolog Vial Sliding Scale -) 1 vial SQ ACHS [facility]; Protocol Last Admin: 11/24/19 06:10 Dose: Not Given Mupirocin (Bactroban 2% Cream -) 1 applic TP BID [facility] Last Admin: 11/24/19 09:59 Dose: 1 applic Pantoprazole Sodium (Protonix Iv) 40 mg IVPUSH DAILY [facility] Last Admin: 11/24/19 09:58 Dose: 40 mg Sodium Chloride ([place] Nasal [place] -) 2 spray NS BID PRN PRN Reason: NASAL CONGESTION - Objective Vital Signs: Vital Signs Temperature 97.9 F 11/24/19 00:00 Pulse Rate 63 11/24/19 08:33 Respiratory Rate 20 11/24/19 06:00 Blood Pressure 115/53 L 11/24/19 06:00 O2 Sat by Pulse Oximetry (%) 93 L 11/24/19 08:33 Constitutional: Yes: Well Nourished, No Distress, Calm Cardiovascular: Yes: Regular Rate and Rhythm, JVD (?), S1, S2. No: Gallop, Murmur Respiratory: Yes: Regular, CTA Bilaterally (anteriorly). No: Accessory Muscle Use, Wheezes Extremities: No: Cold Edema: No (RLE amputation) Neurological: Yes: Alert. No: Seizure Psychiatric: No: Agitated Labs: CBC, BMP 11/24/19 05:00 11/24/19 05:00 INR, PTT INR 1.02 (0.83-1.09) 11/17/19 06:00 Assessment/Plan tele: AF/AFL, Respiratory Therapy Aide IMP: Acute respiratory failure secondary to RLL PNA w/loculated pleural effusion Sepsis secondary to above ESRD on HD Hyponatremia Chronic COPD CAD s/p PCI Right sided CHF with severe PHTN, RV dilatation and RV dysfunction (chronic per son report). nl LVEF Pacemaker Underlying AFib/flutter Recent reported GIB (no endoscopic evaluation) REC: - pressors as needed to maintain MAP > 60mmHg - HD/UF per renal - Abx as per PMD, Critical Care and ID - Borderline/flat TnI likely due to demand ischemia/sepsis. - Echo with RV dilatation and RV dysfx, severe PHTN- chronic per son. May be due to chronic COPD, and acutely worsened in setting of PNA/hypoxia. - Underlying AF-holding AC in setting recent unexplored GIB/ low platelets ( sepsis/ possible abx effect). Risks> benefits at this time. no tachycardia (V- paced--? PM dependent)
[2019-11-24 10:40] LABS: ANISOCYTOSIS 1+; MACROCYTOSIS 1+; OVALOCYTE 1+; PLATELET ESTIMATE DECREASED; TARGET CELLS 1+
--- NOTE | 2019-11-24 11:38 | PN ---
Progress Note, Physician History of Present Illness: Pt seen/ examined in icu chart is reviewed awake/ comfortable looks better On high Flow oxygen - Tolerating denies pain Off pressors - Current Medication List Current Medications: Active Medications Albuterol Sulfate (Ventolin 0.083% Nebulizer Soln -) 1 amp NEB Q4H PRN PRN Reason: SHORT OF BREATH/WHEEZING Albuterol/Ipratropium (Duoneb -) 1 amp NEB RQID TED Last Admin: 11/24/19 07:30 Dose: 1 amp Fludrocortisone Acetate (Florinef -) 0.05 mg GT DAILY [facility] Last Admin: 11/24/19 09:57 Dose: 0.05 mg Heparin Sodium (Porcine) (Heparin -) 5,000 unit SQ TID TED Last Admin: 11/24/19 06:10 Dose: 5,000 unit Hydrocortisone Sodium Succinate (Solu-Cortef -) 50 mg IVPB Q8H-IV TED Last Admin: 11/24/19 09:55 Dose: 50 mg Ceftriaxone Sodium 1 gm/ (Dextrose) 50 mls @ 100 mls/hr IVPB DAILY [facility]; Protocol Last Admin: 11/24/19 09:56 Dose: 100 mls/hr Norepinephrine Bitartrate 8, (000 mcg/ Sodium Chloride) 500 mls @ 18.75 mls/hr IV TITR [facility]; Protocol Last Admin: 11/24/19 04:37 Dose: Not Given Insulin Aspart (Novolog Vial Sliding Scale -) 1 vial SQ ACHS [facility]; Protocol Last Admin: 11/24/19 06:10 Dose: Not Given Mupirocin (Bactroban 2% Cream -) 1 applic TP BID [facility] Last Admin: 11/24/19 09:59 Dose: 1 applic Pantoprazole Sodium (Protonix Iv) 40 mg IVPUSH DAILY [facility] Last Admin: 11/24/19 09:58 Dose: 40 mg Sodium Chloride ([place] Nasal [place] -) 2 spray NS BID PRN PRN Reason: NASAL CONGESTION - Objective Vital Signs: Vital Signs Temperature 97.9 F 11/24/19 00:00 Pulse Rate 60 11/24/19 10:00 Respiratory Rate 22 H 11/24/19 10:00 Blood Pressure 117/63 11/24/19 10:00 O2 Sat by Pulse Oximetry (%) 93 L 11/24/19 09:00 Constitutional: Yes: No Distress, Calm Eyes: Yes: Conjunctiva Clear Neck: Yes: Supple Cardiovascular: Yes: Regular Rate and Rhythm Respiratory: Yes: Diminished Gastrointestinal: Yes: Soft Extremities: Yes: Amputation (s/p right BKA) Edema: No Wound/Incision: Yes: Dressing Dry and Intact (Left heel) Neurological: Yes: Alert Labs: CBC, BMP 11/24/19 05:00 11/24/19 05:00 INR, PTT INR 1.02 (0.83-1.09) 11/17/19 06:00 Problem List - Problems (1) Respiratory failure Code(s): J96.90 - RESPIRATORY FAILURE, UNSP, UNSP W HYPOXIA OR HYPERCAPNIA (2) CAD (coronary artery disease) Code(s): I25.10 - ATHSCL HEART DISEASE OF [place] CORONARY ARTERY W/O ANG PCTRS (3) PVD (peripheral vascular disease) Code(s): I73.9 - PERIPHERAL VASCULAR DISEASE, UNSPECIFIED (4) Elevated troponin Code(s): R79.89 - OTHER SPECIFIED ABNORMAL FINDINGS OF BLOOD CHEMISTRY (5) Thrombocytopenia Code(s): D69.6 - THROMBOCYTOPENIA, UNSPECIFIED Assessment/Plan Acute Hypoxic Respiratory Failure Pneumonia Septic Shock Lactic Acidosis +Troponins--- likely Demand Ischemia COPD ESRD on HD CAD Pulmonary HTN Atrial Fibrillation s/p PPM h/o GI bleed Thrombocytepenia Anemia s/p right BKA Left heel ulcer Meds reviewed Continue present care abx overall better Will continue to monitor closely D/W Rn also cc time approx 35 min.
--- NOTE | 2019-11-24 12:02 | PN ---
Teaching Attending Note Name of Resident: Titi Olivas ATTENDING PHYSICIAN STATEMENT I saw and evaluated the patient. I reviewed the resident's note and discussed the case with the resident. I agree with the resident's findings and plan as documented. SUBJECTIVE: Pt seen and examined in the ICU. More alert, awake. Off pressors. Voice stronger. 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 CBC, BMP 11/24/19 05:00 11/24/19 05:00 Active Medications Albuterol Sulfate (Ventolin 0.083% Nebulizer Soln -) 1 amp NEB Q4H PRN PRN Reason: SHORT OF BREATH/WHEEZING Albuterol/Ipratropium (Duoneb -) 1 amp NEB RQID TED Last Admin: 11/24/19 11:49 Dose: 1 amp Fludrocortisone Acetate (Florinef -) 0.05 mg GT DAILY TED Last Admin: 11/24/19 09:57 Dose: 0.05 mg Heparin Sodium (Porcine) (Heparin -) 5,000 unit SQ TID TED Last Admin: 11/24/19 06:10 Dose: 5,000 unit Hydrocortisone Sodium Succinate (Solu-Cortef -) 50 mg IVPB Q8H-IV TED Last Admin: 11/24/19 09:55 Dose: 50 mg Ceftriaxone Sodium 1 gm/ (Dextrose) 50 mls @ 100 mls/hr IVPB DAILY TED; Protocol Last Admin: 11/24/19 09:56 Dose: 100 mls/hr Norepinephrine Bitartrate 8, (000 mcg/ Sodium Chloride) 500 mls @ 18.75 mls/hr IV TITR TED; Protocol Last Admin: 11/24/19 04:37 Dose: Not Given Insulin Aspart (Novolog Vial Sliding Scale -) 1 vial SQ ACHS [facility]; Protocol Last Admin: 11/24/19 06:10 Dose: Not Given Mupirocin (Bactroban 2% Cream -) 1 applic TP BID [facility] Last Admin: 11/24/19 09:59 Dose: 1 applic Pantoprazole Sodium (Protonix Iv) 40 mg IVPUSH DAILY [facility] Last Admin: 11/24/19 09:58 Dose: 40 mg Sodium Chloride ([place] Nasal [place] -) 2 spray NS BID PRN PRN Reason: NASAL CONGESTION ASSESSMENT AND PLAN: Acute Hypoxic Respiratory Failure Pneumonia Septic Shock improving Lactic Acidosis improved +Troponins likely [place] Ischemia COPD ESRD on HD CAD Pulmonary HTN Atrial Fibrillation s/p PPM h/o GI bleed Anemia - continue antibiotics - HD per renal - titrate pressors to maintain MAP >65 - taper stress dose steroids - inhaled bronchodilators - titrate HFOT to keep SpO2 >90%, transition to nasal cannula - BiPAP as needed - rate controlled - holding anticoagulation - can monitor on telemetry critical care time spent in reviewing chart, evaluating patient and formulating plan 35 min
--- NOTE | 2019-11-24 15:56 | PN ---
Physical Exam: SUBJECTIVE: Patient seen and examined in the morning. Voice has dramatically improved. Denies chest pain, shortness of breath, abdominal pain, nausea, vomiting,diarrhea, subjective fevers. OBJECTIVE: Vital Signs Period Temp Pulse Resp BP Sys/Armando Pulse Ox Last 24 Hr 97.8 F-98.9 F 60-72 15-24 99-119/48-63 93-100 GENERAL: The patient is awake, alert and oriented to person, place and time, but with waxing and waning mental status mid exam. HEAD: Normal with no signs of trauma. High flow oxygen in place. EYES: PERRLA NECK: Central line in place, right side. LUNGS: Breath sounds equal, clear to auscultation bilaterally, no wheezes, no crackles, no accessory muscle use. HEART: Regular rate and rhythm, S1, S2 without murmur, rub or gallop. ABDOMEN: Soft, nontender to palpation on sedation. Hypoactive bowel sounds. EXTREMITIES: Left leg has venous stasis changes, right leg aka. Edema present. Weeping arms. NEUROLOGICAL: Responsive to commands, CN II- intact. Laboratory Results - last 24 hr 11/23/19 11/23/19 11/24/19 16:10 21:18 05:00 WBC 5.4 RBC 2.93 L Hgb 9.5 L Hct 29.5 L MCV 100.9 H MCH 32.5 MCHC 32.2 RDW 20.7 H Plt Count 120 L D MPV 8.8 Absolute Neuts (auto) 4.8 Neutrophils % 89.6 H Lymphocytes % 5.9 L Monocytes % 4.3 Eosinophils % 0.0 D Basophils % 0.2 Nucleated RBC % 0 Hypochromia 1+ Platelet Estimate Decreased Polychromasia 0 Poikilocytosis 1+ Anisocytosis 1+ Microcytosis 0 Macrocytosis 1+ Target Cells 1+ Ovalocytes 1+ Acanthocytes (Spur) 1+ Fragmented RBCs 1+ Sodium Potassium Chloride Carbon Dioxide Anion Gap BUN Creatinine Est GFR (CKD-EPI)AfAm Est GFR (CKD-EPI)NonAf POC Glucometer 147 163 Random Glucose Calcium Phosphorus Magnesium Total Bilirubin AST ALT Alkaline Phosphatase Total Protein Albumin 11/24/19 11/24/19 11/24/19 05:00 05:10 12:07 WBC RBC Hgb Hct MCV MCH MCHC RDW Plt Count MPV Absolute Neuts (auto) Neutrophils % Lymphocytes % Monocytes % Eosinophils % Basophils % Nucleated RBC % Hypochromia Platelet Estimate Polychromasia Poikilocytosis Anisocytosis Microcytosis Macrocytosis Target Cells Ovalocytes Acanthocytes (Spur) Fragmented RBCs Sodium 140 Potassium 4.0 Chloride 102 Carbon Dioxide 28 Anion Gap 10 BUN 48.7 H Creatinine 3.2 H Est GFR (CKD-EPI)AfAm 20.53 Est GFR (CKD-EPI)NonAf 17.71 POC Glucometer 108 141 Random Glucose 100 Calcium 8.7 Phosphorus 6.2 H Magnesium 2.3 Total Bilirubin 0.7 AST 11 L ALT 14 Alkaline Phosphatase 79 Total Protein 5.6 L Albumin 2.4 L Active Medications Generic Name Dose Route Start Last Admin Trade Name Freq PRN Reason Stop Dose Admin Albuterol Sulfate 1 amp 11/14/19 03:54 Ventolin 0.083% Nebulizer Soln - NEB Q4H PRN SHORT OF BREATH/WHEEZING Albuterol/Ipratropium 1 amp 11/14/19 08:00 11/24/19 11:49 Duoneb - NEB 1 amp RQID TED Administration Fludrocortisone Acetate 0.05 mg 11/20/19 11:14 11/24/19 14:13 Florinef - GT Not Given DAILY TED Heparin Sodium (Porcine) 5,000 unit 11/22/19 14:00 11/24/19 14:10 Heparin - SQ 5,000 unit TID TED Administration Hydrocortisone Sodium Succinate 50 mg 11/24/19 22:00 Solu-Cortef - IVPB BID TED Ceftriaxone Sodium 1 gm/ 50 mls @ 100 mls/hr 11/18/19 13:15 11/24/19 09:56 Dextrose IVPB 100 mls/hr DAILY TED Administration Protocol Insulin Aspart 1 vial 11/14/19 16:30 11/24/19 12:00 Novolog Vial Sliding Scale - SQ Not Given ACHS TED Protocol Mupirocin 1 applic 11/18/19 22:00 11/24/19 09:59 Bactroban 2% Cream - TP 1 applic BID TED Administration Pantoprazole Sodium 40 mg 11/19/19 10:00 11/24/19 09:58 Protonix Iv IVPUSH 40 mg DAILY TED Administration Sodium Chloride 2 spray 11/22/19 19:42 [place] Nasal [place] - NS BID PRN NASAL CONGESTION ASSESSMENT/PLAN: 79M PMH of COPD, ESRD on HD (,,Sat),CHF s/p pacemaker, DM II, prostate cancer, venous stasis changes, constipation who presented with exacerbation of COPD likely secondary to PNA. Was found to be obtunded in the [place] [facility] and was intubated in the ED. Neuro -Patient is alert to person place and time but has waxing and waning status. Will flashback to earlier times and think he is still working or outside of hospital. -Continue to monitor Cardiovascular -Patient has hx of CHF -Patient was hypotensive refractory to fluid boluses. Able to maintain MAPs. D/c levophed. -Echo records obtained from [facility]. EF of 70%, mild conc. lVH, diastolic filling pattern, RV mildly enlarged, RV severely imparied, LA dilated, RA mildly enlarged, AO valve sclerosis, aortic insufficiency. -Continous cardiac monitoring -Afib present,holding anticoagulation. -Cardiology consulted, appreciate recs Pulmonary -Hx of COPD, SAVANA. -Chest x-ray shows RLL pleural effusions -Duonebs -Albuterol PRN -On high flow 40/30, will trial Nonrebreather and NC throughout day. GI -CT A/P shows ascites, diverticulosis, small umbilical R inguinal hernias -Repeat CT A/P shows: ascites has slightly increased, diverticulosis, small right inguinal hernia, and subcutaneous edema b/l. -Dark brown fluid on NGT suction. -Abd U/S shows mild hepatomegaly with fatty infiltration of the liver.Smallamount of ascites in the 4 abdominal quadrants. No cholelithiasis. Nonspecific diffusely thickned gallbladder wall likely due to hepatocellular disease andthird spacing rather than cholecystitis.Correlate clinically. Diffusely prominent and heterogenous pancreas but no focal lesion probably due to third spacing -Barium swallow shows stasis and high risk of aspiration. Recommend NG tube for meds and tube feeds. -General surgery consulted, appreciate recs. Renal -Hx of ESRD, HD on , , S. -Dialysis tomorrow. -D/Cd vasopressin, d/cd levophed. -Nephrology consulted, appreciate recs ID -Continue ceftriaxone -sputum culture claudine oliveira -ID consulted, appreciate recs Endocrine -ACHS -ISS DVT: Heparin SQ TID F: No standing fluids at the moment. E: Monitor Na. N: Nepro Tube feeds Lines: Left sided femoral line 11/21/19. Intubated 11/14/19. Kern in place. Dispo: Transfer to telemetry unit. Visit type - Emergency Visit Emergency Visit: Yes ED Registration Date: 11/14/19 Care time: The patient presented to the Emergency Department on the above date and was hospitalized for further evaluation of their emergent condition. - New Patient This patient is new to me today: No - Critical Care Critical Care patient: Yes Total Critical Care Time (in minutes): 35 Critical Care Statement: The care of this patient involved high complexity decision making to prevent further life threatening deterioration of the patient's condition and/or to evaluate & treat vital organ system(s) failure or risk of failure. ATTENDING PHYSICIAN STATEMENT I saw and evaluated the patient. I reviewed the resident's note and discussed the case with the resident. I agree with the resident's findings and plan as documented. SUBJECTIVE: OBJECTIVE: ASSESSMENT AND PLAN:
--- NOTE | 2019-11-24 17:07 | PN ---
Progress Note, Physician - Current Medication List Current Medications: Active Medications Albuterol Sulfate (Ventolin 0.083% Nebulizer Soln -) 1 amp NEB Q4H PRN PRN Reason: SHORT OF BREATH/WHEEZING Albuterol/Ipratropium (Duoneb -) 1 amp NEB RQID [facility] Last Admin: 11/24/19 15:50 Dose: 1 amp Fludrocortisone Acetate (Florinef -) 0.05 mg GT DAILY [facility] Last Admin: 11/24/19 14:13 Dose: Not Given Heparin Sodium (Porcine) (Heparin -) 5,000 unit SQ TID [facility] Last Admin: 11/24/19 14:10 Dose: 5,000 unit Hydrocortisone Sodium Succinate (Solu-Cortef -) 50 mg IVPB BID [facility] Ceftriaxone Sodium 1 gm/ (Dextrose) 50 mls @ 100 mls/hr IVPB DAILY [facility]; Protocol Last Admin: 11/24/19 09:56 Dose: 100 mls/hr Insulin Aspart (Novolog Vial Sliding Scale -) 1 vial SQ ACHS [facility]; Protocol Last Admin: 11/24/19 12:00 Dose: Not Given Mupirocin (Bactroban 2% Cream -) 1 applic TP BID [facility] Last Admin: 11/24/19 09:59 Dose: 1 applic Pantoprazole Sodium (Protonix Iv) 40 mg IVPUSH DAILY [facility] Last Admin: 11/24/19 09:58 Dose: 40 mg Sodium Chloride ([place] Nasal [place] -) 2 spray NS BID PRN PRN Reason: NASAL CONGESTION - Objective Vital Signs: Vital Signs Temperature 98.9 F 11/24/19 14:00 Pulse Rate 72 11/24/19 14:00 Respiratory Rate 23 H 11/24/19 14:00 Blood Pressure 99/54 L 11/24/19 14:00 O2 Sat by Pulse Oximetry (%) 100 11/24/19 15:49 Labs: CBC, BMP 11/24/19 05:00 11/24/19 05:00 INR, PTT INR 1.02 (0.83-1.09) 11/17/19 06:00
--- NOTE | 2019-11-24 18:11 | PN ---
Progress Note, Physician History of Present Illness: Pt seen and examined at bedside. He remains in the ICU. He remains extubated. - Current Medication List Current Medications: Active Medications Albuterol Sulfate (Ventolin 0.083% Nebulizer Soln -) 1 amp NEB Q4H PRN PRN Reason: SHORT OF BREATH/WHEEZING Albuterol/Ipratropium (Duoneb -) 1 amp NEB RQID [facility] Last Admin: 11/24/19 15:50 Dose: 1 amp Fludrocortisone Acetate (Florinef -) 0.05 mg GT DAILY [facility] Last Admin: 11/24/19 14:13 Dose: Not Given Heparin Sodium (Porcine) (Heparin -) 5,000 unit SQ TID [facility] Last Admin: 11/24/19 14:10 Dose: 5,000 unit Hydrocortisone Sodium Succinate (Solu-Cortef -) 50 mg IVPB BID [facility] Ceftriaxone Sodium 1 gm/ (Dextrose) 50 mls @ 100 mls/hr IVPB DAILY [facility]; Protocol Last Admin: 11/24/19 09:56 Dose: 100 mls/hr Insulin Aspart (Novolog Vial Sliding Scale -) 1 vial SQ ACHS [facility]; Protocol Last Admin: 11/24/19 12:00 Dose: Not Given Mupirocin (Bactroban 2% Cream -) 1 applic TP BID [facility] Last Admin: 11/24/19 09:59 Dose: 1 applic Pantoprazole Sodium (Protonix Iv) 40 mg IVPUSH DAILY [facility] Last Admin: 11/24/19 09:58 Dose: 40 mg Sodium Chloride ([place] Nasal [place] -) 2 spray NS BID PRN PRN Reason: NASAL CONGESTION - Objective Vital Signs: Vital Signs Temperature 98.9 F 11/24/19 14:00 Pulse Rate 72 11/24/19 14:00 Respiratory Rate 23 H 11/24/19 14:00 Blood Pressure 99/54 L 11/24/19 14:00 O2 Sat by Pulse Oximetry (%) 100 11/24/19 15:49 Constitutional: Yes: Calm Eyes: Yes: Conjunctiva Clear HENT: Yes: Atraumatic Neck: Yes: Supple Cardiovascular: Yes: S1, S2 Respiratory: Yes: On Nasal O2, Wheezes Gastrointestinal: Yes: Soft Genitourinary: Yes: Incontinence Musculoskeletal: Yes: Muscle Weakness Edema: No Integumentary: Yes: WNL Neurological: Yes: Oriented Labs: CBC, BMP 11/24/19 05:00 11/24/19 05:00 INR, PTT INR 1.02 (0.83-1.09) 11/17/19 06:00 Assessment/Plan Current Medications Generic Name Dose Route Start Last Admin Trade Name Freq PRN Reason Stop Dose Admin Albuterol Sulfate 1 amp 11/14/19 03:54 Ventolin 0.083% Nebulizer Soln - NEB Q4H PRN SHORT OF BREATH/WHEEZING Albuterol/Ipratropium 1 amp 11/14/19 08:00 11/24/19 15:50 Duoneb - NEB 1 amp RQID TED Administration Fludrocortisone Acetate 0.05 mg 11/20/19 11:14 11/24/19 14:13 Florinef - GT Not Given DAILY TED Heparin Sodium (Porcine) 5,000 unit 11/22/19 14:00 11/24/19 14:10 Heparin - SQ 5,000 unit TID TED Administration Hydrocortisone Sodium Succinate 50 mg 11/24/19 22:00 Solu-Cortef - IVPB BID TED Ceftriaxone Sodium 1 gm/ 50 mls @ 100 mls/hr 11/18/19 13:15 11/24/19 09:56 Dextrose IVPB 100 mls/hr DAILY TED Administration Protocol Insulin Aspart 1 vial 11/14/19 16:30 11/24/19 12:00 Novolog Vial Sliding Scale - SQ Not Given ACHS TED Protocol Mupirocin 1 applic 11/18/19 22:00 11/24/19 09:59 Bactroban 2% Cream - TP 1 applic BID TED Administration Pantoprazole Sodium 40 mg 11/19/19 10:00 11/24/19 09:58 Protonix Iv IVPUSH 40 mg DAILY TED Administration Sodium Chloride 2 spray 11/22/19 19:42 [place] Nasal [place] - NS BID PRN NASAL CONGESTION Impression 1. ESRD 2. resp failure 3. PNA 4. copd 5. chf 6. sepsis 7. pulm effusion 8. hyponatremia Plan - HD tomorrow, will arrange - pt now extubated - consider midodrine if bp does not improve - discussed with family - HD: TTS f180 3:30 DW 87 kg 2 k bath 2.5 ca, [id number], na 137, access PC right chest
[2019-11-24] MEDS ORDERED: EPOETIN ALFA 3,000 UNIT/1 ML ML IVPUSH ONE (18:56)
[2019-11-24] MEDS ORDERED: SODIUM CHLORIDE NASAL SPRAY 44 ML BOTTLE NS PRN (18:56)
[2019-11-24] MEDS ORDERED: ALBUTEROL SO4 0.083% IH SOL 2.5 MG/3 ML VIAL.NEB. NEB PRN (18:56)
[2019-11-24] MEDS: MIDODRINE HCL 2.5 MG TABLET PO SCH (23:15)
[2019-11-25 07:01] LABS: ALBUMIN 2.7 g/dl (3.4-5.0); BILIRUBIN,TOTAL 0.8 mg/dL (0.2-1); BLOOD UREA NITROGEN 60.6 mg/dL (7-18); CALCIUM 8.5 mg/dL (8.5-10.1); MAGNESIUM 2.2 mg/dL (1.8-2.4); PHOSPHOROUS 7.4 mg/dL (2.5-4.9); POTASSIUM 4.4 mmol/L (3.5-5.1); TOT PROT 5.8 g/dl (6.4-8.2)
[2019-11-25 07:03] LABS: BASO % 0.1 % (0-2.0); EOS % 0.1 % (0-4.5); HEMATOCRIT 31.1 % (35.4-49); HEMOGLOBIN 9.9 GM/dL (11.7-16.9); LYMPH % 4.5 % (8-40); MCH 32.3 pg (25.7-33.7); MCHC 31.7 g/dl (32.0-35.9); MEAN CELL VOLUME 101.9 fl (80-96); MEAN PLT VOLUME 9.4 fl (7.5-11.1); MONO % 3.3 % (3.8-10.2); PLATELET COUNT 124 K/MM3 (134-434); RBC 3.05 M/mm3 (4.00-5.60); WHITE BLOOD COUNT 7.8 K/mm3 (4.0-10.0)
[2019-11-25] MEDS: INSULIN SLIDING SCALE (NOVOLOG) 1 VIAL SQ SCH ×4 (07:11→23:55)
[2019-11-25] MEDS: HEPARIN NA (PORCINE) 5,000 UNITS/ML 1ML VIAL SQ SCH ×3 (07:11→23:54)
[2019-11-25] MEDS: ALBUTEROL SO4 2.5/IPRATROPIUM 0.5 INH SOL 3 ML VIAL.NEB. NEB SCH ×4 (07:25→20:36)
[2019-11-25] MEDS: ALBUMIN HUMAN 25% 12.5 GM/50 ML VIAL IVPB SCH ×4 (07:30→09:45)
[2019-11-25] MEDS ORDERED: SODIUM CHLORIDE 250 ML IV PRN (08:00)
[2019-11-25] MEDS ORDERED: CEFTRIAXONE 1 GM in DEXTROSE 5%-WATER - 50 ML IVPB SCH (10:00)
[2019-11-25 10:19] LABS: ANISOCYTOSIS 2+; MACROCYTOSIS 0; OVALOCYTE 1+; PLATELET ESTIMATE DECREASED; TEAR DROP CELLS 1+
[2019-11-25] MEDS: FLUDROCORTISONE ACETATE 0.1 MG TABLET (FP) GT SCH (10:41)
[2019-11-25] MEDS: MIDODRINE HCL 2.5 MG TABLET PO SCH ×3 (10:41→18:17)
[2019-11-25] MEDS: PANTOPRAZOLE SODIUM 40 MG VIAL IVPUSH SCH (10:59)
--- NOTE | 2019-11-25 11:44 | PN ---
Progress Note, [employer]TY CLAIM AD[employer]ER - Note Progress Note: Selected Entries 11/24/19 11/24/19 11/24/19 00:00 10:00 14:00 Breakfast NPO Temperature 97.9 F 98 F 98.9 F 11/24/19 11/24/19 11/25/19 18:00 22:00 02:00 Breakfast NPO Temperature 98.4 F 97 F L 11/25/19 11/25/19 07:10 10:00 Breakfast Temperature 98.1 F 98 F Laboratory Tests 11/24/19 11/25/19 05:00 06:03 WBC 5.4 7.8 MBS revealed impaired swallowing function with indication for NPO/TF Pt refused NGT placement. Pt's eyes closed throughout visit at bedside with family Participated with PMD, Dr. Rucker,on educating pt's daughter and regarding swallowing function, risk of aspiration, dehydration, malnutrition and options for TF. I believe swallowing will improve and pt has potential for safe PO intake. Plan is for repeat MBS as out pt from [facility] to wean from PEG,, once indicated.
--- NOTE | 2019-11-25 11:46 | PN ---
Progress Note (short form) - Note Progress Note: Events noted 4liters O2-- 96% was on BIPAP earlier Awake confused kept NPO failed swallow eval -MBS family at bedside Vital Signs - 24 hr 11/24/19 11/24/19 11/24/19 12:00 14:00 15:49 Temperature 98.9 F Pulse Rate 67 72 Respiratory 21 H 23 H Rate Blood Pressure 116/59 L 99/54 L O2 Sat by Pulse 97 100 Oximetry (%) 11/24/19 11/24/19 11/24/19 16:00 18:00 21:00 Temperature 98.4 F Pulse Rate 60 60 Respiratory 22 H 21 H Rate Blood Pressure 104/47 L 105/42 L O2 Sat by Pulse 92 L Oximetry (%) 11/24/19 11/24/19 11/25/19 21:01 22:00 00:16 Temperature Pulse Rate 60 Respiratory 20 Rate Blood Pressure 101/45 L O2 Sat by Pulse 97 99 Oximetry (%) 11/25/19 11/25/19 11/25/19 02:00 04:30 06:00 Temperature 97 F L Pulse Rate 61 Respiratory 20 Rate Blood Pressure 95/47 L 114/41 L O2 Sat by Pulse 97 Oximetry (%) 11/25/19 11/25/19 11/25/19 07:10 07:15 07:25 Temperature 98.1 F Pulse Rate 60 60 Respiratory 20 19 Rate Blood Pressure 101/57 L 103/61 O2 Sat by Pulse 100 Oximetry (%) 11/25/19 11/25/19 11/25/19 07:45 08:15 08:45 Temperature Pulse Rate 65 60 55 L Respiratory 18 18 18 Rate Blood Pressure 95/46 L 91/42 L 84/41 L O2 Sat by Pulse Oximetry (%) 11/25/19 11/25/19 11/25/19 09:15 09:45 10:00 Temperature 98 F Pulse Rate 60 85 60 Respiratory 18 18 20 Rate Blood Pressure 90/43 L 98/40 L 106/50 L O2 Sat by Pulse Oximetry (%) 11/25/19 11/25/19 11/25/19 10:15 10:45 10:50 Temperature Pulse Rate 60 60 61 Respiratory 18 18 18 Rate Blood Pressure 91/47 L 94/55 L 96/59 L O2 Sat by Pulse Oximetry (%) Current Medications Generic Name Dose Route Start Last Admin Trade Name Freq PRN Reason Stop Dose Admin Albuterol Sulfate 1 amp 11/24/19 18:56 Ventolin 0.083% Nebulizer Soln - NEB Q4H PRN SHORT OF BREATH/WHEEZING Albuterol/Ipratropium 1 amp 11/24/19 20:00 11/25/19 07:25 Duoneb - NEB 1 amp RQID TED Administration Fludrocortisone Acetate 0.05 mg 11/25/19 10:00 11/25/19 10:41 Florinef - GT Not Given DAILY TED Heparin Sodium (Porcine) 5,000 unit 11/24/19 22:00 11/25/19 07:11 Heparin - SQ 5,000 unit TID TED Administration Hydrocortisone Sodium Succinate 50 mg 11/24/19 22:00 11/24/19 23:15 Solu-Cortef - IVPB 50 mg BID TED Administration Sodium Chloride 250 mls @ 3,000 mls/hr 11/25/19 08:00 Normal Saline - IV 11/26/19 07:59 PRN PRN Hypotension during Dialysis Ceftriaxone Sodium 1 gm/ 50 mls @ 100 mls/hr 11/25/19 10:00 Dextrose IVPB DAILY [facility] Protocol Insulin Aspart 1 vial 11/24/19 22:00 11/25/19 07:11 Novolog Vial Sliding Scale - SQ Not Given ACHS [facility] Protocol Midodrine 2.5 mg 11/24/19 19:00 11/25/19 10:41 Proamatine - PO Not Given TID-MID TED Pantoprazole Sodium 40 mg 11/25/19 10:00 11/25/19 10:59 Protonix Iv IVPUSH 40 mg DAILY TED Administration Sodium Chloride 2 spray 11/24/19 18:56 [place] Nasal [place] - NS BID PRN NASAL CONGESTION Laboratory Results - last 24 hr 11/24/19 11/24/19 11/24/19 12:07 18:09 22:41 WBC RBC Hgb Hct MCV MCH MCHC RDW Plt Count MPV Absolute Neuts (auto) Neutrophils % Neutrophils % (Manual) Band Neutrophils % Lymphocytes % Lymphocytes % (Manual) Monocytes % Monocytes % (Manual) Eosinophils % Eosinophils % (Manual) Basophils % Basophils % (Manual) Myelocytes % (Man) Promyelocytes % (Man) Blast Cells % (Manual) Nucleated RBC % Metamyelocytes Hypochromia Platelet Estimate Polychromasia Poikilocytosis Anisocytosis Microcytosis Macrocytosis Tear Drop Cells Ovalocytes [place] Cells Acanthocytes (Spur) Sodium Potassium Chloride Carbon Dioxide Anion Gap BUN Creatinine Est GFR (CKD-EPI)AfAm Est GFR (CKD-EPI)NonAf POC Glucometer 141 166 149 Random Glucose Calcium Phosphorus Magnesium Total Bilirubin AST ALT Alkaline Phosphatase Total Protein Albumin 11/25/19 11/25/19 11/25/19 06:03 06:03 07:10 WBC 7.8 RBC 3.05 L Hgb 9.9 L Hct 31.1 L MCV 101.9 H MCH 32.3 MCHC 31.7 L RDW 21.0 H Plt Count 124 L MPV 9.4 Absolute Neuts (auto) 7.2 Neutrophils % 92.0 H Neutrophils % (Manual) 93.0 H Band Neutrophils % 1.0 Lymphocytes % 4.5 L D Lymphocytes % (Manual) 2.0 L D Monocytes % 3.3 L Monocytes % (Manual) 3 L Eosinophils % 0.1 D Eosinophils % (Manual) 0.0 Basophils % 0.1 Basophils % (Manual) 0.0 Myelocytes % (Man) 0 Promyelocytes % (Man) 0 Blast Cells % (Manual) 0 Nucleated RBC % 0 Metamyelocytes 0 Hypochromia 0 Platelet Estimate Decreased Polychromasia 0 Poikilocytosis 1+ Anisocytosis 2+ Microcytosis 1+ Macrocytosis 0 Tear Drop Cells 1+ Ovalocytes 1+ [place] Cells 1+ Acanthocytes (Spur) 1+ Sodium 139 Potassium 4.4 Chloride 101 Carbon Dioxide 23 Anion Gap 15 BUN 60.6 H Creatinine 4.0 H Est GFR (CKD-EPI)AfAm 15.67 Est GFR (CKD-EPI)NonAf 13.52 POC Glucometer 152 Random Glucose 152 H Calcium 8.5 Phosphorus 7.4 H Magnesium 2.2 Total Bilirubin 0.8 AST 10 L ALT 14 Alkaline Phosphatase 91 Total Protein 5.8 L Albumin 2.7 L 11/25/19 11:34 WBC RBC Hgb Hct MCV MCH MCHC RDW Plt Count MPV Absolute Neuts (auto) Neutrophils % Neutrophils % (Manual) Band Neutrophils % Lymphocytes % Lymphocytes % (Manual) Monocytes % Monocytes % (Manual) Eosinophils % Eosinophils % (Manual) Basophils % Basophils % (Manual) Myelocytes % (Man) Promyelocytes % (Man) Blast Cells % (Manual) Nucleated RBC % Metamyelocytes Hypochromia Platelet Estimate Polychromasia Poikilocytosis Anisocytosis Microcytosis Macrocytosis Tear Drop Cells Ovalocytes [place] Cells Acanthocytes (Spur) Sodium Potassium Chloride Carbon Dioxide Anion Gap BUN Creatinine Est GFR (CKD-EPI)AfAm Est GFR (CKD-EPI)NonAf POC Glucometer 142 Random Glucose Calcium Phosphorus Magnesium Total Bilirubin AST ALT Alkaline Phosphatase Total Protein Albumin Physical Constitutional: Yes: on BIPAP Eyes: Yes: Conjunctiva Clear Neck: Yes: Supple. Central line + Cardiovascular: Yes: Regular Rate and Rhythm Respiratory: Yes: Diminished on left Gastrointestinal: Yes: Soft, not tender Genitourinary: Yes: [place] Removed Extremities: Yes: Amputation (s/p right aka) Edema: No Integumentary: No: Other Wound/Incision: Yes: Other (Left heel ulcer)-- Dressing + Neurological: Yes: Other (sedated) Additional Findings/Remarks: - ....Imaging Chest X-ray: Report Reviewed-->same congestion, infiltrates Cat Scan: Report Reviewed Echo-- Reviewed Assessment/Plan In summary Pt 79yr old gentleman with extensive PMHx of CAD , s/p multivessel PCI (> 1 year ago), CHF , PPM, AF,COPD, ESRD-HD. Has been in and out of hospital since July with COPD/ infections/ CKD and recently had a possible GIB at [facility]- no endoscopic evaluation. Transferred from [facility] for short term rehab and was transferred here for resp distress. Admitted to ICU / Intubated for Respiratory failure and Pneumonia.-- now on bipap , 4liters o2 IV antibiotics ct abd/pelvis -->CT A/P shows ascites, diverticulosis, small umbilical R inguinal hernias -Repeat CT A/P shows: ascites has slightly increased, diverticulosis, small right inguinal hernia, and subcutaneous edema b/l. Dialysis per renal spoke with family in detail -- they are concerned about feeding-- will consult GI no po meds continue BGM monitoring Problem List - Problems (1) CAD (coronary artery disease) Code(s): I25.10 - ATHSCL HEART DISEASE OF [place] CORONARY ARTERY W/O ANG PCTRS (2) COPD (chronic obstructive pulmonary disease) Code(s): J44.9 - CHRONIC OBSTRUCTIVE PULMONARY DISEASE, UNSPECIFIED Qualifiers: COPD type: unspecified COPD Qualified Code(s): J44.9 - Chronic obstructive pulmonary disease, unspecified (3) Elevated troponin Code(s): R79.89 - OTHER SPECIFIED ABNORMAL FINDINGS OF BLOOD CHEMISTRY (4) PVD (peripheral vascular disease) Code(s): I73.9 - PERIPHERAL VASCULAR DISEASE, UNSPECIFIED (5) Respiratory failure Code(s): J96.90 - RESPIRATORY FAILURE, UNSP, UNSP W HYPOXIA OR HYPERCAPNIA (6) Thrombocytopenia Code(s): D69.6 - THROMBOCYTOPENIA, UNSPECIFIED
--- NOTE | 2019-11-25 11:50 | PN ---
Progress Note (short form) - Note Progress Note: s: no chest pain, palps, dizziness, dyspnea Current Medications Albuterol Sulfate (Ventolin 0.083% Nebulizer Soln -) 1 amp NEB Q4H PRN PRN Reason: SHORT OF BREATH/WHEEZING Albuterol/Ipratropium (Duoneb -) [address] [facility] Last Admin: 11/25/19 07:25 Dose: 1 amp Fludrocortisone Acetate (Florinef -) 0.[address] [facility] Last Admin: 11/25/19 10:41 Dose: Not Given Heparin Sodium (Porcine) (Heparin -) 5,[address] [facility] Last Admin: 11/25/19 07:11 Dose: 5,000 unit Hydrocortisone Sodium Succinate (Solu-Cortef -) [address] [facility] Last Admin: 11/24/19 23:15 Dose: 50 mg Sodium Chloride (Normal Saline -) 250 mls @ 3,000 mls/hr IV PRN PRN PRN Reason: Hypotension during Dialysis Stop: 11/26/19 07:59 Ceftriaxone Sodium 1 gm/ (Dextrose) 50 mls @ 100 mls/hr IVPB DAILY [facility]; Protocol Insulin Aspart (Novolog Vial Sliding Scale -) [address] [facility]; Protocol Last Admin: 11/25/19 07:11 Dose: Not Given Midodrine (Proamatine -) 2.5 [address] PO TID-MID [facility] Last Admin: 11/25/19 10:41 Dose: Not Given Pantoprazole Sodium (Protonix Iv) [address] [facility] Last Admin: 11/25/19 10:59 Dose: 40 mg Sodium Chloride ([place] Nasal [place] -) 2 spray NS BID PRN PRN Reason: NASAL CONGESTION Vital Signs Period Temp Pulse Resp BP Sys/Armando Pulse Ox Last 24 Hr 97 F-98.9 F 55-85 18-23 84-116/40-61 92-100 Constitutional: Yes: Well Nourished, No Distress, Calm Cardiovascular: Yes: Regular Rate and Rhythm, JVD (?), S1, S2. No: Gallop, Murmur Respiratory: Yes: Regular, CTA Bilaterally (anteriorly). No: Accessory Muscle Use, Wheezes Extremities: No: Cold Edema: No (RLE amputation) Neurological: Yes: Alert. 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 nl LVEF Pacemaker Underlying AFib/flutter Recent reported GIB (no endoscopic evaluation) REC: - HD/UF per renal - Abx as per PMD and ID - Borderline/flat TnI likely due to demand ischemia/sepsis. - Echo with RV dilatation and RV dysfx, severe PHTN- chronic per son. May be due to chronic COPD, and acutely worsened in setting of PNA/hypoxia. - Underlying AF-holding AC in setting recent unexplored GIB/ low platelets ( sepsis/ possible abx effect). Risks> benefits at this time. no tachycardia (V- paced--? PM dependent)
[2019-11-25] MEDS ORDERED: cefTRIAXone SODIUM 1 GM VIAL ONE (12:01)
[2019-11-25] MEDS ORDERED: DEXTROSE 5%-WATER - 50 ML IVPB ONE (12:01)
[2019-11-25] MEDS: HYDROCORTISONE SOD SUCCINATE 100 MG/2 ML VIAL IVPB SCH ×2 (12:17→23:54)
--- NOTE | 2019-11-25 14:29 | PN ---
Progress Note (short form) - Note Progress Note: Has been tolerating [place] O2. Used NIPPV support earlier. No acute events overnight. Intake & Output 11/22/19 11/23/19 11/24/19 11/25/19 23:59 23:59 23:59 23:59 Intake Total 730 435 200 500 Output Total 3500 0 2300 Balance -2770 435 200 -1800 Weight 176 lb 165 lb 11.2 oz 162 lb 4.8 oz Last Vital Signs Temp Pulse Resp BP Pulse Ox 98 F 61 18 96/59 L 100 11/25/19 10:00 11/25/19 10:50 11/25/19 10:50 11/25/19 10:50 11/25/19 11:57 Active Medications Albuterol Sulfate (Ventolin 0.083% Nebulizer Soln -) 1 amp NEB Q4H PRN PRN Reason: SHORT OF BREATH/WHEEZING Albuterol/Ipratropium (Duoneb -) 1 amp NEB RQID [facility] Last Admin: 11/25/19 11:59 Dose: 1 amp Fludrocortisone Acetate (Florinef -) 0.05 mg GT DAILY [facility] Last Admin: 11/25/19 10:41 Dose: Not Given Heparin Sodium (Porcine) (Heparin -) 5,000 unit SQ TID [facility] Last Admin: 11/25/19 07:11 Dose: 5,000 unit Hydrocortisone Sodium Succinate (Solu-Cortef -) 50 mg IVPB BID [facility] Last Admin: 11/25/19 12:17 Dose: 50 mg Sodium Chloride (Normal Saline -) 250 mls @ 3,000 mls/hr IV PRN PRN PRN Reason: Hypotension during Dialysis Stop: 11/26/19 07:59 Ceftriaxone Sodium 1 gm/ (Dextrose) 50 mls @ 100 mls/hr IVPB DAILY [facility]; Protocol Last Admin: 11/25/19 12:06 Dose: 100 mls/hr Insulin Aspart (Novolog Vial Sliding Scale -) 1 vial SQ ACHS [facility]; Protocol Last Admin: 11/25/19 12:19 Dose: Not Given Midodrine (Proamatine -) 2.5 mg PO TID-MID [facility] Last Admin: 11/25/19 10:41 Dose: Not Given Pantoprazole Sodium (Protonix Iv) 40 mg IVPUSH DAILY [facility] Last Admin: 11/25/19 10:59 Dose: 40 mg Sodium Chloride ([place] Nasal [place] -) 2 spray NS BID PRN PRN Reason: NASAL CONGESTION Gen: awake and alert, NAD Heart: RRR Lung: decreased breath sounds at the bases Abd: soft, nontender Ext: R BKA, 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 Laboratory Results - last 24 hr 11/24/19 11/24/19 11/25/19 18:09 22:41 06:03 WBC 7.8 RBC 3.05 L Hgb 9.9 L Hct 31.1 L MCV 101.9 H MCH 32.3 MCHC 31.7 L RDW 21.0 H Plt Count 124 L MPV 9.4 Absolute Neuts (auto) 7.2 Neutrophils % 92.0 H Neutrophils % (Manual) 93.0 H Band Neutrophils % 1.0 Lymphocytes % 4.5 L D Lymphocytes % (Manual) 2.0 L D Monocytes % 3.3 L Monocytes % (Manual) 3 L Eosinophils % 0.1 D Eosinophils % (Manual) 0.0 Basophils % 0.1 Basophils % (Manual) 0.0 Myelocytes % (Man) 0 Promyelocytes % (Man) 0 Blast Cells % (Manual) 0 Nucleated RBC % 0 Metamyelocytes 0 Hypochromia 0 Platelet Estimate Decreased Polychromasia 0 Poikilocytosis 1+ Anisocytosis 2+ Microcytosis 1+ Macrocytosis 0 Tear Drop Cells 1+ Ovalocytes 1+ [place] Cells 1+ Acanthocytes (Spur) 1+ Sodium Potassium Chloride Carbon Dioxide Anion Gap BUN Creatinine Est GFR (CKD-EPI)AfAm Est GFR (CKD-EPI)NonAf POC Glucometer 166 149 Random Glucose Calcium Phosphorus Magnesium Total Bilirubin AST ALT Alkaline Phosphatase Total Protein Albumin 11/25/19 11/25/19 11/25/19 06:03 07:10 11:34 WBC RBC Hgb Hct MCV MCH MCHC RDW Plt Count MPV Absolute Neuts (auto) Neutrophils % Neutrophils % (Manual) Band Neutrophils % Lymphocytes % Lymphocytes % (Manual) Monocytes % Monocytes % (Manual) Eosinophils % Eosinophils % (Manual) Basophils % Basophils % (Manual) Myelocytes % (Man) Promyelocytes % (Man) Blast Cells % (Manual) Nucleated RBC % Metamyelocytes Hypochromia Platelet Estimate Polychromasia Poikilocytosis Anisocytosis Microcytosis Macrocytosis Tear Drop Cells Ovalocytes [place] Cells Acanthocytes (Spur) Sodium 139 Potassium 4.4 Chloride 101 Carbon Dioxide 23 Anion Gap 15 BUN 60.6 H Creatinine 4.0 H Est GFR (CKD-EPI)AfAm 15.67 Est GFR (CKD-EPI)NonAf 13.52 POC Glucometer 152 142 Random Glucose 152 H Calcium 8.5 Phosphorus 7.4 H Magnesium 2.2 Total Bilirubin 0.8 AST 10 L ALT 14 Alkaline Phosphatase 91 Total Protein 5.8 L Albumin 2.7 L ASSESSMENT AND PLAN: Acute Hypoxic Respiratory Failure Pneumonia Septic Shock improving Lactic Acidosis improved +Troponins likely Demand Ischemia COPD ESRD on HD CAD Pulmonary HTN Atrial Fibrillation s/p PPM h/o GI bleed Anemia - ABX - HD per renal - taper stress dose steroids - inhaled bronchodilators - NC O2 as tolerated alternating with NIPPV support as needed - rate controlled - holding anticoagulation - Cardiac Telemetry monitoring Dr Barnard
--- NOTE | 2019-11-25 14:41 | PN ---
Progress Note, Physician History of Present Illness: more awake and alert family in room ng tube in place - Current Medication List Current Medications: Active Medications Albuterol Sulfate (Ventolin 0.083% Nebulizer Soln -) 1 amp NEB Q4H PRN PRN Reason: SHORT OF BREATH/WHEEZING Albuterol/Ipratropium (Duoneb -) 1 amp NEB RQID [facility] Last Admin: 11/25/19 11:59 Dose: 1 amp Fludrocortisone Acetate (Florinef -) 0.05 mg GT DAILY [facility] Last Admin: 11/25/19 10:41 Dose: Not Given Heparin Sodium (Porcine) (Heparin -) 5,000 unit SQ TID [facility] Last Admin: 11/25/19 07:11 Dose: 5,000 unit Hydrocortisone Sodium Succinate (Solu-Cortef -) 50 mg IVPB BID [facility] Last Admin: 11/25/19 12:17 Dose: 50 mg Sodium Chloride (Normal Saline -) 250 mls @ 3,000 mls/hr IV PRN PRN PRN Reason: Hypotension during Dialysis Stop: 11/26/19 07:59 Ceftriaxone Sodium 1 gm/ (Dextrose) 50 mls @ 100 mls/hr IVPB DAILY [facility]; Protocol Last Admin: 11/25/19 12:06 Dose: 100 mls/hr Insulin Aspart (Novolog Vial Sliding Scale -) 1 vial SQ ACHS [facility]; Protocol Last Admin: 11/25/19 12:19 Dose: Not Given Midodrine (Proamatine -) 2.5 mg PO TID-MID [facility] Last Admin: 11/25/19 10:41 Dose: Not Given Pantoprazole Sodium (Protonix Iv) 40 mg IVPUSH DAILY [facility] Last Admin: 11/25/19 10:59 Dose: 40 mg Sodium Chloride ([place] Nasal [place] -) 2 spray NS BID PRN PRN Reason: NASAL CONGESTION - Objective Vital Signs: Vital Signs Temperature 98 F 11/25/19 10:00 Pulse Rate 61 11/25/19 10:50 Respiratory Rate 18 11/25/19 10:50 Blood Pressure 96/59 L 11/25/19 10:50 O2 Sat by Pulse Oximetry (%) 100 11/25/19 11:57 Constitutional: Yes: No Distress, Calm Cardiovascular: Yes: S1, S2 Respiratory: Yes: On Nasal O2, Poor Air Entry, Other Gastrointestinal: Yes: Other (ng in place) Musculoskeletal: Yes: WNL Extremities: Yes: WNL Neurological: Yes: Alert Psychiatric: Yes: Alert Labs: CBC, BMP 11/25/19 06:03 11/25/19 06:03 INR, PTT INR 1.02 (0.83-1.09) 11/17/19 06:00 Assessment/Plan Acute Respiratory Acute due to RLL PNA COPD, ESRD on HD CHF SAVANA R/O Seizure Septic Shock PAD Demand Ischemia Chronic loculated RLL effusion plan will stop abx and monitor resp support rest as per the team
[2019-11-25] MEDS ORDERED: ACETAMINOPHEN 1000 MG/100 ML VIAL (NON FORMULARY) IVPB PRN (14:42)
--- NOTE | 2019-11-25 15:12 | CON.GI ---
Consult Consult Specialty:: GI Referred by:: Dr. Leeanne Rucker Reason for Consultation:: Dysphagia - History of Present Illness Chief Complaint: Dysphagia History of Present Illness: 79M Admitted from [place] 11/13 for resp distress. Intubated, extubated 11/22. Called to evaluate for feeding tube. Per family, patient was refusing NGT. Family now states that he is agreeble. Per nurse, his respiratory status is still tenuous, requiring BiPAP most of the time due to desaturations. Seen by speech and swallow. Advised trial of tube feeds and reevaluation prior to starting PO. - History Source History Provided By: Family Member, Medical Record - Past Medical History Cardio/Vascular: Yes: HTN, Other (ASHD) Pulmonary: Yes: COPD, Sleep Apnea Gastrointestinal: Yes: GERD, Other (recent GIB) Renal/: Yes: Renal Failure, Hemodialysis Dermatology: Yes: Other (Pressure Ulcer- L- Heel) - Alcohol/Substance Use Hx Alcohol Use: No - Smoking History Smoking history: Unknown if ever smoked Have you smoked in the past 12 months: No - Social History Usual Living Arrangement: With Spouse History of Recent Travel: No Home Medications - Allergies Allergies/Adverse Reactions: Allergies Allergy/AdvReac Type Severity Reaction Status Date / Time No Known Allergies Allergy Verified 11/13/19 22:17 - Home Medications Home Medications: Ambulatory Orders Aspirin 81 mg PO 11/14/19 Budesonide/Formeterol Fumarate [SYMBICORT 160/4.5mcg -] 1 puff IH BID 11/14/19 Calcitriol [Rocaltrol -] 0.25 mcg PO DAILY 11/14/19 Docusate Sodium [Colace] 100 mg PO BID PRN 11/14/19 Furosemide [Lasix] 40 mg PO DAILY 11/14/19 Glipizide 5 mg PO DAILY 11/14/19 Iron Polysaccharide Complex [Polysaccharide Iron] 150 mg PO DAILY 11/14/19 Iron Ps Complex/B12/Folic Acid [Ferrex 150 Forte Capsule] 150 mg PO DAILY Lisinopril 10 mg PO DAILY 11/14/19 Metoprolol Tartrate 25 mg PO DAILY 11/14/19 Mirabegron [Myrbetriq] 50 mg PO DAILY 11/14/19 Nitroglycerin [Nitrostat] 0.4 mg SL PRN PRN 01/24/20 Omeprazole Magnesium [Prilosec Otc] 20 mg PO DAILY 11/14/19 Oxybutynin Chloride [Ditropan Xl] 5 mg PO DAILY 11/14/19 Simvastatin 40 mg PO HS 11/14/19 Review of Systems - Review of Systems Respiratory: reports: SOB Gastrointestinal: denies: Abdominal Pain, Vomiting Physical Exam-GI Vital Signs: Vital Signs Temperature 98 F 11/25/19 10:00 Pulse Rate 61 11/25/19 10:50 Respiratory Rate 18 11/25/19 10:50 Blood Pressure 96/59 L 11/25/19 10:50 O2 Sat by Pulse Oximetry (%) 100 11/25/19 11:57 Constitutional: Yes: Calm Eyes: No: Sclera Icterus Cardiovascular: Yes: Regular Rate and Rhythm Respiratory: Yes: Diminished (at bases bilaterally with poor insp effort) Gastrointestinal Inspection: No: Distention, Scars ...Auscultate: Yes: Normoactive Bowel Sounds Edema: No (No LE edema) Neurological: Yes: Alert Labs: CBC, BMP 11/25/19 06:03 11/25/19 06:03 INR, PTT INR 1.02 (0.83-1.09) 11/17/19 06:00 Hepatic Panel Total Bilirubin 0.8 mg/dL (0.2-1) 11/25/19 06:03 Direct Bilirubin 0.5 mg/dL (0.0-0.2) H 11/17/19 06:00 AST 10 U/L (15-37) L 11/25/19 06:03 ALT 14 U/L (13-61) 11/25/19 06:03 Alkaline Phosphatase 91 U/L (45-117) 11/25/19 06:03 Albumin 2.7 g/dl (3.4-5.0) L 11/25/19 06:03 Problem List - Problems (1) Dysphagia Assessment/Plan: Tenuous respiratory status. Would be concerned for sedation for PEG without necessitating potential need for reintubation. Family would like trial of NGT feeds and reassessment of ability to swallow in time. If no improvement, discussed options. Discussed PEG and as above, concerns for respiratory status during procedure. Also discussed other potential risks of the procedure like but not limited to bleeding, perforation requiring surgery tor repair, infection , perotinitis if the tube was prematurely dislodged, aspiration (a risk with any form of G-Tube feeding) all of which could be potentially life threatening. Explained that IR placement of gastrostomy would likely be the safer option for him if it came down to him needing one. For now: NGT feeds Aspiration precautions: keep head of bed elevated 35 degrees S/S reevaluation when appropriate Placement of IR consult for feeding tube when appropriate Code(s): R13.10 - DYSPHAGIA, UNSPECIFIED
--- NOTE | 2019-11-25 15:22 | PN ---
Progress Note, Physician History of Present Illness: Pt seen and examined at bedside. He tolerated HD. Family are at bedside. - Current Medication List Current Medications: Active Medications Acetaminophen (Ofirmev Injection -) 1,000 mg IVPB Q6H PRN PRN Reason: PAIN LEVEL 4-6 Stop: 11/26/19 14:42 Albuterol Sulfate (Ventolin 0.083% Nebulizer Soln -) 1 amp NEB Q4H PRN PRN Reason: SHORT OF BREATH/WHEEZING Albuterol/Ipratropium (Duoneb -) 1 amp NEB RQID [facility] Last Admin: 11/25/19 11:59 Dose: 1 amp Fludrocortisone Acetate (Florinef -) 0.05 mg GT DAILY [facility] Last Admin: 11/25/19 10:41 Dose: Not Given Heparin Sodium (Porcine) (Heparin -) 5,000 unit SQ TID [facility] Last Admin: 11/25/19 07:11 Dose: 5,000 unit Hydrocortisone Sodium Succinate (Solu-Cortef -) 50 mg IVPB BID [facility] Last Admin: 11/25/19 12:17 Dose: 50 mg Sodium Chloride (Normal Saline -) 250 mls @ 3,000 mls/hr IV PRN PRN PRN Reason: Hypotension during Dialysis Stop: 11/26/19 07:59 Insulin Aspart (Novolog Vial Sliding Scale -) 1 vial SQ ACHS [facility]; Protocol Last Admin: 11/25/19 12:19 Dose: Not Given Midodrine (Proamatine -) 2.5 mg PO TID-MID [facility] Last Admin: 11/25/19 14:46 Dose: Not Given Pantoprazole Sodium (Protonix Iv) 40 mg IVPUSH DAILY [facility] Last Admin: 11/25/19 10:59 Dose: 40 mg Sodium Chloride ([place] Nasal [place] -) 2 spray NS BID PRN PRN Reason: NASAL CONGESTION - Objective Vital Signs: Vital Signs Temperature 98 F 11/25/19 10:00 Pulse Rate 61 11/25/19 10:50 Respiratory Rate 18 11/25/19 10:50 Blood Pressure 96/59 L 11/25/19 10:50 O2 Sat by Pulse Oximetry (%) 100 11/25/19 11:57 Constitutional: Yes: Calm Eyes: Yes: Conjunctiva Clear HENT: Yes: Atraumatic Neck: Yes: Supple Cardiovascular: Yes: S1, S2 Respiratory: Yes: On Nasal O2 Gastrointestinal: Yes: Soft Genitourinary: Yes: Incontinence Musculoskeletal: Yes: Other (right arm fistula) Edema: No Neurological: Yes: Oriented Labs: CBC, BMP 11/25/19 06:03 11/25/19 06:03 INR, PTT INR 1.02 (0.83-1.09) 11/17/19 06:00 Assessment/Plan Current Medications Generic Name Dose Route Start Last Admin Trade Name Freq PRN Reason Stop Dose Admin Acetaminophen 1,000 mg 11/25/19 14:42 Ofirmev Injection - IVPB 11/26/19 14:42 Q6H PRN PAIN LEVEL 4-6 Albuterol Sulfate 1 amp 11/24/19 18:56 Ventolin 0.083% Nebulizer Soln - NEB Q4H PRN SHORT OF BREATH/WHEEZING Albuterol/Ipratropium 1 amp 11/24/19 20:00 11/25/19 11:59 Duoneb - NEB 1 amp RQID [facility] Administration Fludrocortisone Acetate 0.05 mg 11/25/19 10:00 11/25/19 10:41 Florinef - GT Not Given DAILY [facility] Heparin Sodium (Porcine) 5,000 unit 11/24/19 22:00 11/25/19 07:11 Heparin - SQ 5,000 unit TID [facility] Administration Hydrocortisone Sodium Succinate 50 mg 11/24/19 22:00 11/25/19 12:17 Solu-Cortef - IVPB 50 mg BID [facility] Administration Sodium Chloride 250 mls @ 3,000 mls/hr 11/25/19 08:00 Normal Saline - IV 11/26/19 07:59 PRN PRN Hypotension during Dialysis Insulin Aspart 1 vial 11/24/19 22:00 11/25/19 12:19 Novolog Vial Sliding Scale - SQ Not Given ACHS [facility] Protocol Midodrine 2.5 mg 11/24/19 19:00 11/25/19 14:46 Proamatine - PO Not Given TID-MID [facility] Pantoprazole Sodium 40 mg 11/25/19 10:00 11/25/19 10:59 Protonix Iv IVPUSH 40 mg DAILY [facility] Administration Sodium Chloride 2 spray 11/24/19 18:56 [place] Nasal [place] - NS BID PRN NASAL CONGESTION Impression 1. ESRD 2. resp failure 3. PNA 4. copd 5. chf 6. sepsis 7. pulm effusion 8. hyponatremia Plan - HD today - renal diet - cont midodrine - monitor bp - discussed with family - HD: TTS f180 3:30 DW 87 kg 2 k bath 2.5 ca, [id number], na 137, access PC right chest
[2019-11-25] MEDS ORDERED: PT OWN MED DRAWER 7, Y5N ONE (18:17)
[2019-11-25 23:05] VITALS: BMI 23.2
[2019-11-26] MEDS: HEPARIN NA (PORCINE) 5,000 UNITS/ML 1ML VIAL SQ SCH ×3 (06:36→22:03)
[2019-11-26] MEDS: INSULIN SLIDING SCALE (NOVOLOG) 1 VIAL SQ SCH ×5 (06:37→22:03)
[2019-11-26] MEDS: ALBUTEROL SO4 2.5/IPRATROPIUM 0.5 INH SOL 3 ML VIAL.NEB. NEB SCH ×4 (07:30→20:12)
--- NOTE | 2019-11-26 09:08 | PN ---
Progress Note (short form) - Note Progress Note: Resting in NAD. Has been tolerating [place] O2. No acute events overnight. Intake & Output 11/23/19 11/24/19 11/25/19 11/26/19 23:59 23:59 23:59 23:59 Intake Total 435 200 715 150 Output Total 0 2300 Balance 435 200 -1585 150 Weight 165 lb 11.2 oz 162 lb 4.8 oz Last Vital Signs Temp Pulse Resp BP Pulse Ox 98 F 61 20 113/52 L 99 11/26/19 02:00 11/26/19 02:00 11/26/19 02:00 11/26/19 06:00 11/25/19 23:14 Active Medications Acetaminophen (Ofirmev Injection -) 1,000 mg IVPB Q6H PRN PRN Reason: PAIN LEVEL 4-6 Stop: 11/26/19 14:42 Last Admin: 11/25/19 15:18 Dose: 1,000 mg Albuterol Sulfate (Ventolin 0.083% Nebulizer Soln -) 1 amp NEB Q4H PRN PRN Reason: SHORT OF BREATH/WHEEZING Albuterol/Ipratropium (Duoneb -) 1 amp NEB RQID [facility] Last Admin: 11/25/19 20:36 Dose: 1 amp Fludrocortisone Acetate (Florinef -) 0.05 mg GT DAILY [facility] Last Admin: 11/25/19 10:41 Dose: Not Given Heparin Sodium (Porcine) (Heparin -) 5,000 unit SQ TID [facility] Last Admin: 11/26/19 06:36 Dose: 5,000 unit Hydrocortisone Sodium Succinate (Solu-Cortef -) 50 mg IVPB BID [facility] Last Admin: 11/25/19 23:54 Dose: 50 mg Insulin Aspart (Novolog Vial Sliding Scale -) 1 vial SQ ACHS [facility]; Protocol Last Admin: 11/26/19 06:53 Dose: 4 units Midodrine (Proamatine -) 2.5 mg PO TID-MID [facility] Last Admin: 11/25/19 18:17 Dose: 2.5 mg Pantoprazole Sodium (Protonix Iv) 40 mg IVPUSH DAILY [facility] Last Admin: 11/25/19 10:59 Dose: 40 mg Sodium Chloride ([place] Nasal [place] -) 2 spray NS BID PRN PRN Reason: NASAL CONGESTION Gen: awake and alert, NAD Heart: RRR Lung: decreased breath sounds at the bases Abd: soft, nontender Ext: R BKA, no edema Laboratory Results - last 24 hr 11/25/19 11/25/19 11/25/19 06:03 11:34 18:08 Neutrophils % (Manual) 93.0 H Band Neutrophils % 1.0 Lymphocytes % (Manual) 2.0 L D Monocytes % (Manual) 3 L Eosinophils % (Manual) 0.0 Basophils % (Manual) 0.0 Myelocytes % (Man) 0 Promyelocytes % (Man) 0 Blast Cells % (Manual) 0 Nucleated RBC % 0 Metamyelocytes 0 Hypochromia 0 Platelet Estimate Decreased Polychromasia 0 Poikilocytosis 1+ Anisocytosis 2+ Microcytosis 1+ Macrocytosis 0 Tear Drop Cells 1+ Ovalocytes 1+ [place] Cells 1+ Acanthocytes (Spur) 1+ POC Glucometer 142 152 11/25/19 11/26/19 23:37 06:33 Neutrophils % (Manual) Band Neutrophils % Lymphocytes % (Manual) Monocytes % (Manual) Eosinophils % (Manual) Basophils % (Manual) Myelocytes % (Man) Promyelocytes % (Man) Blast Cells % (Manual) Nucleated RBC % Metamyelocytes Hypochromia Platelet Estimate Polychromasia Poikilocytosis Anisocytosis Microcytosis Macrocytosis Tear Drop Cells Ovalocytes [place] Cells Acanthocytes (Spur) POC Glucometer 170 229 ASSESSMENT AND PLAN: Acute Hypoxic Respiratory Failure Pneumonia Septic Shock improving Lactic Acidosis improved +Troponins likely Demand Ischemia COPD ESRD on HD CAD Pulmonary HTN Atrial Fibrillation s/p PPM h/o GI bleed Anemia - ABX - HD per renal - taper stress dose steroids - inhaled bronchodilators - [place] O2 as tolerated alternating with NIPPV support as needed - rate controlled - holding anticoagulation - Cardiac Telemetry monitoring Dr Barnard
[2019-11-26] MEDS ORDERED: PT OWN MED DRAWER 7, Y5N ONE (09:22)
--- NOTE | 2019-11-26 09:26 | PN ---
Progress Note, LOCK TENDER CHIEF OPERATOR - Note Progress Note: Selected Entries 11/25/19 11/25/19 11/25/19 02:00 06:00 07:10 Supper Temperature 97 F L 98.1 F Blood Pressure 95/47 L 114/41 L 101/57 L 11/25/19 11/25/19 11/25/19 07:15 07:45 08:15 Supper Temperature Blood Pressure 103/61 95/46 L 91/42 L 11/25/19 11/25/19 11/25/19 08:45 09:15 09:45 Supper Temperature Blood Pressure 84/41 L 90/43 L 98/40 L 11/25/19 11/25/19 11/25/19 10:00 10:15 10:45 Supper Temperature 98 F Blood Pressure 106/50 L 91/47 L 94/55 L 11/25/19 11/25/19 11/25/19 10:50 16:17 19:38 Supper Temperature 98.6 F 97.8 F Blood Pressure 96/59 L 112/46 L 101/42 L 11/25/19 11/25/19 11/26/19 21:50 23:00 02:00 Supper NPO Temperature 98 F Blood Pressure 136/86 111/49 L 11/26/19 06:00 Supper Temperature Blood Pressure 113/52 L Laboratory Tests 11/25/19 06:03 WBC 7.8 Pt now with NGT, HOB elevated, sleepy but arousable. Calm, reports he is comfortable. Suggest -Continue NGT feedings for now. When stronger and medically stable, repeat MBS to initiate PO. (Sunday vs Sunday ?). I will be on vacation. Kentrell Choudhary,LOCK TENDER CHIEF OPERATOR, will be covering me.
[2019-11-26] MEDS: PANTOPRAZOLE SODIUM 40 MG VIAL IVPUSH SCH (09:32)
[2019-11-26] MEDS: FLUDROCORTISONE ACETATE 0.1 MG TABLET (FP) GT SCH (09:33)
[2019-11-26] MEDS: MIDODRINE HCL 2.5 MG TABLET PO SCH ×3 (09:33→18:00)
[2019-11-26] MEDS: HYDROCORTISONE SOD SUCCINATE 100 MG/2 ML VIAL IVPB SCH ×2 (09:33→22:19)
--- NOTE | 2019-11-26 09:40 | PN.GI ---
GI Progress Note Subjective: Pt seen/examined at bedside, NG placed yesterday, tolerating at 20cc/hr. Rectal tube in place. Denies abdominal pain, nausea or vomiting. - Objective Vital Signs: Vital Signs Temperature 98 F 11/26/19 02:00 Pulse Rate 61 11/26/19 02:00 Respiratory Rate 20 11/26/19 02:00 Blood Pressure 113/52 L 11/26/19 06:00 O2 Sat by Pulse Oximetry (%) 99 11/25/19 23:14 Constitutional: No Distress, Calm Cardiovascular: Yes: WNL, Regular Rate and Rhythm Respiratory: Yes: Regular, Diminished ...Palpate: Yes: Other (Abd soft, nt, nd +rectal tube in place with small amount of greenish brown stool) Labs: CBC, BMP 11/25/19 06:03 11/25/19 06:03 INR, PTT INR 1.02 (0.83-1.09) 11/17/19 06:00 Problem List - Problems (1) Dysphagia Assessment/Plan: 79yo male with respiratory failure s/p extubation with poor po tolerance, now with NG in place. Discussed with QI SPECIALIST, possible that swallow may recover. -Continue NG feeds, titrate to goal as tolerated -Formula per grades 1 thru 6 visiting teacher -QI SPECIALIST re-evaluation later in week as discussed -May not require PEG, however pending course and if still without improvement, would advise IR placement for gastrostomy if in lines with goals of care Discussed with QI SPECIALIST Code(s): R13.10 - DYSPHAGIA, UNSPECIFIED
--- NOTE | 2019-11-26 11:12 | PN ---
Progress Note (short form) - Note Progress Note: Events noted 4 liters O2-- 96% now on NG tube feeding-- he is calm awake, weak appearance answering questions appropriately Vital Signs - 24 hr 11/25/19 11/25/19 11/25/19 11:57 16:14 16:17 Temperature 98.6 F Pulse Rate 116 H Respiratory 22 H Rate Blood Pressure 112/46 L O2 Sat by Pulse 100 98 Oximetry (%) 11/25/19 11/25/19 11/25/19 19:38 20:37 20:55 Temperature 97.8 F Pulse Rate 64 Respiratory 20 Rate Blood Pressure 101/42 L O2 Sat by Pulse 99 100 Oximetry (%) 11/25/19 11/25/19 11/26/19 23:00 23:14 02:00 Temperature 98 F Pulse Rate 61 Respiratory 20 Rate Blood Pressure 136/86 111/49 L O2 Sat by Pulse 99 Oximetry (%) 11/26/19 11/26/19 11/26/19 06:00 07:30 09:00 Temperature Pulse Rate Respiratory 22 H Rate Blood Pressure 113/52 L O2 Sat by Pulse 93 L 94 L Oximetry (%) 11/26/19 10:00 Temperature 97.0 F L Pulse Rate 60 Respiratory 22 H Rate Blood Pressure 119/54 L O2 Sat by Pulse Oximetry (%) Current Medications Generic Name Dose Route Start Last Admin Trade Name Freq PRN Reason Stop Dose Admin Acetaminophen 1,000 mg 11/25/19 14:42 11/25/19 15:18 Ofirmev Injection - IVPB 11/26/19 14:42 1,000 mg Q6H PRN Administration PAIN LEVEL 4-6 Albuterol Sulfate 1 amp 11/24/19 18:56 Ventolin 0.083% Nebulizer Soln - NEB Q4H PRN SHORT OF BREATH/WHEEZING Albuterol/Ipratropium 1 amp 11/24/19 20:00 11/26/19 07:30 Duoneb - NEB 1 amp RQID TED Administration Fludrocortisone Acetate 0.05 mg 11/25/19 10:00 11/26/19 09:33 Florinef - GT 0.05 mg DAILY TED Administration Heparin Sodium (Porcine) 5,000 unit 11/24/19 22:00 11/26/19 06:36 Heparin - SQ 5,000 unit TID TED Administration Hydrocortisone Sodium Succinate 50 mg 02/03/20 22:00 11/26/19 09:33 Solu-Cortef - IVPB 50 mg BID TED Administration Insulin Aspart 1 vial 11/24/19 22:00 11/26/19 06:53 Novolog Vial Sliding Scale - SQ 4 units ACHS TED Administration Protocol Midodrine 2.5 mg 11/24/19 19:00 11/26/19 09:33 Proamatine - PO 2.5 mg TID-MID TED Administration Pantoprazole Sodium 40 mg 11/25/19 10:00 11/26/19 09:32 Protonix Iv IVPUSH 40 mg DAILY TED Administration Sodium Chloride 2 spray 11/24/19 18:56 [place] Nasal [place] - NS BID PRN NASAL CONGESTION Laboratory Results - last 24 hr 11/25/19 11/25/19 11/25/19 11:34 18:08 23:37 POC Glucometer 142 152 170 11/26/19 06:33 POC Glucometer 229 Physical Constitutional: Yes: on BIPAP Eyes: Yes: Conjunctiva Clear Neck: Yes: Supple. Cardiovascular: Yes: Regular Rate and Rhythm Respiratory: Yes: Diminished on left Gastrointestinal: Yes: Soft, not tender Genitourinary: Yes: [place] Removed Extremities: Yes: Amputation (s/p right aka) Edema: No Integumentary: No: Other Wound/Incision: Yes: Other (Left heel ulcer)-- Dressing + Neurological: Yes: Other (sedated) Additional Findings/Remarks: - ....Imaging Chest X-ray: Report Reviewed-->same congestion, infiltrates Cat Scan: Report Reviewed Echo-- Reviewed Assessment/Plan In summary Pt 79yr old gentleman with extensive PMHx of CAD , s/p multivessel PCI (> 1 year ago), CHF , PPM, AF,COPD, ESRD-HD. Has been in and out of hospital since July with COPD/ infections/ CKD and recently had a possible GIB at [place]- no endoscopic evaluation. Transferred from [facility] for short term rehab and was transferred here for resp distress. plan - IV antibiotics ct abd/pelvis -->CT A/P shows ascites, diverticulosis, small umbilical R inguinal hernias -Repeat CT A/P shows: ascites has slightly increased, diverticulosis, small right inguinal hernia, and subcutaneous edema b/l. Dialysis per renal feeding-- continue with NG feeds for now -- add MVI and prosource -- Swallow eval daily-- will need repeat MBS later-- hopefully this Sunday -- GI otoniel noted no po meds continue BGM monitoring Problem List - Problems (1) CAD (coronary artery disease) Code(s): I25.10 - ATHSCL HEART DISEASE OF [place] CORONARY ARTERY W/O ANG PCTRS (2) COPD (chronic obstructive pulmonary disease) Code(s): J44.9 - CHRONIC OBSTRUCTIVE PULMONARY DISEASE, UNSPECIFIED Qualifiers: COPD type: unspecified COPD Qualified Code(s): J44.9 - Chronic obstructive pulmonary disease, unspecified (3) Elevated troponin Code(s): R79.89 - OTHER SPECIFIED ABNORMAL FINDINGS OF BLOOD CHEMISTRY (4) PVD (peripheral vascular disease) Code(s): I73.9 - PERIPHERAL VASCULAR DISEASE, UNSPECIFIED (5) Respiratory failure Code(s): J96.90 - RESPIRATORY FAILURE, UNSP, UNSP W HYPOXIA OR HYPERCAPNIA (6) Thrombocytopenia Code(s): D69.6 - THROMBOCYTOPENIA, UNSPECIFIED
--- NOTE | 2019-11-26 12:31 | PN ---
Progress Note (short form) - Note Progress Note: s: no chest pain, palps, dizziness, dyspnea Current Medications Acetaminophen (Ofirmev Injection -) 1,000 mg IVPB Q6H PRN PRN Reason: PAIN LEVEL 4-6 Stop: 11/26/19 14:42 Last Admin: 11/25/19 15:18 Dose: 1,000 mg Albuterol Sulfate (Ventolin 0.083% Nebulizer Soln -) 1 amp NEB Q4H PRN PRN Reason: SHORT OF BREATH/WHEEZING Albuterol/Ipratropium (Duoneb -) 1 amp NEB RQID [facility] Last Admin: 11/26/19 07:30 Dose: 1 amp Amino Acids (Prosource No Carb Liquid Pkt) 30 ml PO DAILY [facility] Fludrocortisone Acetate (Florinef -) 0.05 mg GT DAILY [facility] Last Admin: 11/26/19 09:33 Dose: 0.05 mg Heparin Sodium (Porcine) (Heparin -) 5,000 unit SQ TID [facility] Last Admin: 11/26/19 06:36 Dose: 5,000 unit Hydrocortisone Sodium Succinate (Solu-Cortef -) 50 mg IVPB BID [facility] Last Admin: 11/26/19 09:33 Dose: 50 mg Insulin Aspart (Novolog Vial Sliding Scale -) 1 vial SQ ACHS [facility]; Protocol Last Admin: 11/26/19 06:53 Dose: 4 units Midodrine (Proamatine -) 2.5 mg PO TID-MID [facility] Last Admin: 11/26/19 09:33 Dose: 2.5 mg Multivit/Ca Carb/B Cmplx/FA/Prenat (Nephro-Malachi -) 1 tablet PO DAILY [facility] Pantoprazole Sodium (Protonix Iv) 40 mg IVPUSH DAILY [facility] Last Admin: 11/26/19 09:32 Dose: 40 mg Sodium Chloride ([place] Nasal [place] -) 2 spray NS BID PRN PRN Reason: NASAL CONGESTION Vital Signs Period Temp Pulse Resp BP Sys/Armando Pulse Ox Last 24 Hr 97.0 F-98.6 F 60-116 20-22 101-136/42-86 93-100 Constitutional: Yes: Well Nourished, No Distress, Calm Cardiovascular: Yes: Regular Rate and Rhythm, JVD (?), S1, S2. No: Gallop, Murmur Respiratory: Yes: Regular, CTA Bilaterally (anteriorly). No: Accessory Muscle Use, Wheezes Extremities: No: Cold Edema: No (RLE amputation) Neurological: Yes: Alert. 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 nl LVEF Pacemaker Underlying AFib/flutter Recent reported GIB (no endoscopic evaluation) REC: - HD/UF per renal - Abx as per primary and ID - Borderline/flat TnI likely due to demand ischemia/sepsis. - Echo with RV dilatation and RV dysfx, severe PHTN- chronic per son. May be due to chronic COPD, and acutely worsened in setting of PNA/hypoxia. - Underlying AF-holding AC in setting recent unexplored GIB/ low platelets ( sepsis/ possible abx effect). Risks> benefits at this time. no tachycardia (V- paced--? PM dependent)
--- NOTE | 2019-11-26 12:48 | PN ---
Progress Note, Physician History of Present Illness: Pt seen and examined at bedside. He appears comfortable. He is tolerating feeds. - Current Medication List Current Medications: Active Medications Acetaminophen (Ofirmev Injection -) 1,000 mg IVPB Q6H PRN PRN Reason: PAIN LEVEL 4-6 Stop: 11/26/19 14:42 Last Admin: 11/25/19 15:18 Dose: 1,000 mg Albuterol Sulfate (Ventolin 0.083% Nebulizer Soln -) 1 amp NEB Q4H PRN PRN Reason: SHORT OF BREATH/WHEEZING Albuterol/Ipratropium (Duoneb -) 1 amp NEB RQID [facility] Last Admin: 11/26/19 12:32 Dose: 1 amp Amino Acids (Prosource No Carb Liquid Pkt) 30 ml PO DAILY [facility] Fludrocortisone Acetate (Florinef -) 0.05 mg GT DAILY [facility] Last Admin: 11/26/19 09:33 Dose: 0.05 mg Heparin Sodium (Porcine) (Heparin -) 5,000 unit SQ TID [facility] Last Admin: 11/26/19 06:36 Dose: 5,000 unit Hydrocortisone Sodium Succinate (Solu-Cortef -) 50 mg IVPB BID [facility] Last Admin: 11/26/19 09:33 Dose: 50 mg Insulin Aspart (Novolog Vial Sliding Scale -) 1 vial SQ ACHS [facility]; Protocol Last Admin: 11/26/19 06:53 Dose: 4 units Midodrine (Proamatine -) 2.5 mg PO TID-MID [facility] Last Admin: 11/26/19 09:33 Dose: 2.5 mg Multivit/Ca Carb/B Cmplx/FA/Prenat (Nephro-Malachi -) 1 tablet PO DAILY [facility] Pantoprazole Sodium (Protonix Iv) 40 mg IVPUSH DAILY [facility] Last Admin: 11/26/19 09:32 Dose: 40 mg Sodium Chloride ([place] Nasal [place] -) 2 spray NS BID PRN PRN Reason: NASAL CONGESTION - Objective Vital Signs: Vital Signs Temperature 97.0 F L 11/26/19 10:00 Pulse Rate 60 11/26/19 10:00 Respiratory Rate 22 H 11/26/19 10:00 Blood Pressure 119/54 L 11/26/19 10:00 O2 Sat by Pulse Oximetry (%) 99 11/26/19 12:31 Constitutional: Yes: Calm Eyes: Yes: Conjunctiva Clear HENT: Yes: Atraumatic Neck: Yes: Supple Cardiovascular: Yes: S1, S2 Respiratory: Yes: On Nasal O2 Gastrointestinal: Yes: Normal Bowel Sounds, Soft Genitourinary: Yes: Incontinence Musculoskeletal: Yes: Muscle Weakness Extremities: Yes: Other (right arm fistula with thrill and bruit) Edema: LUE: Trace, RUE: Trace Neurological: Yes: Other (awake) Labs: CBC, BMP 11/25/19 06:03 11/25/19 06:03 INR, PTT INR 1.02 (0.83-1.09) 11/17/19 06:00 Assessment/Plan Current Medications Generic Name Dose Route Start Last Admin Trade Name Freq PRN Reason Stop Dose Admin Acetaminophen 1,000 mg 11/25/19 14:42 11/25/19 15:18 Ofirmev Injection - IVPB 11/26/19 14:42 1,000 mg Q6H PRN Administration PAIN LEVEL 4-6 Albuterol Sulfate 1 amp 11/24/19 18:56 Ventolin 0.083% Nebulizer Soln - NEB Q4H PRN SHORT OF BREATH/WHEEZING Albuterol/Ipratropium 1 amp 11/24/19 20:00 11/26/19 12:32 Duoneb - NEB 1 amp RQID TED Administration Amino Acids 30 ml 11/26/19 11:45 Prosource No Carb Liquid Pkt PO DAILY TED Fludrocortisone Acetate 0.05 mg 11/25/19 10:00 11/26/19 09:33 Florinef - GT 0.05 mg DAILY TED Administration Heparin Sodium (Porcine) 5,000 unit 11/24/19 22:00 11/26/19 06:36 Heparin - SQ 5,000 unit TID TED Administration Hydrocortisone Sodium Succinate 50 mg 11/24/19 22:00 11/26/19 09:33 Solu-Cortef - IVPB 50 mg BID TED Administration Insulin Aspart 1 vial 11/24/19 22:00 11/26/19 06:53 Novolog Vial Sliding Scale - SQ 4 units ACHS TED Administration Protocol Midodrine 2.5 mg 11/24/19 19:00 11/26/19 09:33 Proamatine - PO 2.5 mg TID-MID TED Administration Multivit/Ca Carb/B Cmplx/FA/Prenat 1 tablet 11/26/19 11:45 Nephro-Malachi - PO DAILY TED Pantoprazole Sodium 40 mg 11/25/19 10:00 11/26/19 09:32 Protonix Iv IVPUSH 40 mg DAILY TED Administration Sodium Chloride 2 spray 11/24/19 18:56 [place] Nasal [place] - NS BID PRN NASAL CONGESTION Impression 1. ESRD 2. resp failure 3. PNA 4. copd 5. chf 6. sepsis 7. pulm effusion 8. hyponatremia Plan - next HD tomorrow - pt tolerating feeds - monitor bp - HD: TTS f180 3:30 DW 87 kg 2 k bath 2.5 ca, [id number], na 137, access PC right chest
[2019-11-26] MEDS ORDERED: SODIUM CHLORIDE 250 ML IV PRN (12:52)
[2019-11-26] MEDS: VITAMIN B COMP W-C 1 EA TABLET PO SCH (13:07)
[2019-11-26] MEDS: AMINO ACIDS/PROTEIN HYDROLYS 30 ML LIQUID.PKT PO SCH (13:08)
--- NOTE | 2019-11-26 13:30 | PN ---
Progress Note, Physician History of Present Illness: stable feels better still weak - Current Medication List Current Medications: Active Medications Acetaminophen (Ofirmev Injection -) 1,000 mg IVPB Q6H PRN PRN Reason: PAIN LEVEL 4-6 Stop: 11/26/19 14:42 Last Admin: 11/25/19 15:18 Dose: 1,000 mg Albumin Human (Albumin Human 25%) 12.5 gm IVPB Q30M [facility] Albuterol Sulfate (Ventolin 0.083% Nebulizer Soln -) 1 amp NEB Q4H PRN PRN Reason: SHORT OF BREATH/WHEEZING Albuterol/Ipratropium (Duoneb -) 1 amp NEB RQID [facility] Last Admin: 11/26/19 12:32 Dose: 1 amp Amino Acids (Prosource No Carb Liquid Pkt) 30 ml PO DAILY [facility] Last Admin: 11/26/19 13:08 Dose: 30 ml Epoetin Severo (Procrit -) 4,000 unit IVPUSH ONCE ONE Stop: 11/27/19 12:50 Fludrocortisone Acetate (Florinef -) 0.05 mg GT DAILY [facility] Last Admin: 11/26/19 09:33 Dose: 0.05 mg Heparin Sodium (Porcine) (Heparin -) 5,000 unit SQ TID [facility] Last Admin: 11/26/19 13:07 Dose: 5,000 unit Hydrocortisone Sodium Succinate (Solu-Cortef -) 50 mg IVPB BID [facility] Last Admin: 11/26/19 09:33 Dose: 50 mg Sodium Chloride (Normal Saline -) 250 mls @ 3,000 mls/hr IV PRN PRN PRN Reason: Hypotension during Dialysis Stop: 11/27/19 12:49 Sodium Chloride (Normal Saline -) 250 mls @ 3,000 mls/hr IV PRN PRN PRN Reason: Hypotension during Dialysis Stop: 11/27/19 12:52 Insulin Aspart (Novolog Vial Sliding Scale -) 1 vial SQ ACHS [facility]; Protocol Last Admin: 11/26/19 12:50 Dose: 2 units Midodrine (Proamatine -) 2.5 mg PO TID-MID [facility] Last Admin: 11/26/19 13:08 Dose: 2.5 mg Multivit/Ca Carb/B Cmplx/FA/Prenat (Nephro-Malachi -) 1 tablet PO DAILY [facility] Last Admin: 11/26/19 13:07 Dose: 1 tablet Pantoprazole Sodium (Protonix Iv) 40 mg IVPUSH DAILY [facility] Last Admin: 11/26/19 09:32 Dose: 40 mg Sodium Chloride ([place] Nasal [place] -) 2 spray NS BID PRN PRN Reason: NASAL CONGESTION - Objective Vital Signs: Vital Signs Temperature 97.0 F L 11/26/19 10:00 Pulse Rate 60 11/26/19 10:00 Respiratory Rate 22 H 11/26/19 10:00 Blood Pressure 119/54 L 11/26/19 10:00 O2 Sat by Pulse Oximetry (%) 99 11/26/19 12:31 Constitutional: Yes: No Distress, Calm Cardiovascular: Yes: S1, S2 Respiratory: Yes: Regular, On Nasal O2, Poor Air Entry Gastrointestinal: Yes: Normal Bowel Sounds, Soft, Other (ng in place) Musculoskeletal: Yes: WNL Extremities: Yes: WNL Neurological: Yes: Alert Psychiatric: Yes: Alert Labs: CBC, BMP 11/25/19 06:03 11/25/19 06:03 INR, PTT INR 1.02 (0.83-1.09) 11/17/19 06:00 Assessment/Plan Acute Respiratory Acute due to RLL PNA COPD, ESRD on HD CHF SAVANA R/O Seizure Septic Shock PAD Demand Ischemia Chronic loculated RLL effusion plan continue to monitor nutrition rest as per the team
[2019-11-27] MEDS: HEPARIN NA (PORCINE) 5,000 UNITS/ML 1ML VIAL SQ SCH ×3 (06:19→21:57)
[2019-11-27] MEDS: INSULIN SLIDING SCALE (NOVOLOG) 1 VIAL SQ SCH ×4 (06:20→21:57)
[2019-11-27] MEDS ORDERED: SODIUM CHLORIDE 250 ML IV PRN (07:00)
[2019-11-27] MEDS: ALBUTEROL SO4 2.5/IPRATROPIUM 0.5 INH SOL 3 ML VIAL.NEB. NEB SCH ×4 (07:15→20:51)
[2019-11-27] MEDS ORDERED: EPOETIN ALFA-EPBX 2,000 UNIT/ML VIAL IVPUSH ONE (09:00)
[2019-11-27 09:33] LABS: HEMATOCRIT 30.5 % (35.4-49); HEMOGLOBIN 9.6 GM/dL (11.7-16.9); MCH 32.6 pg (25.7-33.7); MCHC 31.3 g/dl (32.0-35.9); MEAN CELL VOLUME 104.2 fl (80-96); MEAN PLT VOLUME 9.7 fl (7.5-11.1); PLATELET COUNT 98 K/MM3 (134-434); RBC 2.93 M/mm3 (4.00-5.60); RDW 21.3 % (11.9-15.9); WHITE BLOOD COUNT 7.6 K/mm3 (4.0-10.0)
[2019-11-27] MEDS: ALBUMIN HUMAN 25% 12.5 GM/50 ML VIAL IVPB SCH ×4 (09:50→11:13)
[2019-11-27 10:11] LABS: BLOOD UREA NITROGEN 45.8 mg/dL (7-18); CALCIUM 8.4 mg/dL (8.5-10.1); CREATININE 3.3 mg/dL (0.55-1.3); POTASSIUM 3.3 mmol/L (3.5-5.1)
--- NOTE | 2019-11-27 11:11 | PN ---
Progress Note (short form) - Note Progress Note: s: no chest pain, palps, dizziness, dyspnea Current Medications Generic Name Dose Route Start Last Admin Trade Name Freq PRN Reason Stop Dose Admin Albumin Human 12.5 gm 11/27/19 10:00 11/27/19 09:52 Albumin Human 25% IVPB 11/27/19 11:31 12.5 gm Q30M TED Administration Albuterol Sulfate 1 amp 11/24/19 18:56 Ventolin 0.083% Nebulizer Soln - NEB Q4H PRN SHORT OF BREATH/WHEEZING Albuterol/Ipratropium 1 amp 11/24/19 20:00 11/26/19 20:12 Duoneb - NEB 1 amp RQID TED Administration Amino Acids 30 ml 11/26/19 11:45 11/26/19 13:08 Prosource No Carb Liquid Pkt PO 30 ml DAILY TED Administration Fludrocortisone Acetate 0.05 mg 11/25/19 10:00 11/26/19 09:33 Florinef - GT 0.05 mg DAILY TED Administration Heparin Sodium (Porcine) 5,000 unit 11/24/19 22:00 11/27/19 06:19 Heparin - SQ 5,000 unit TID TED Administration Hydrocortisone Sodium Succinate 50 mg 11/24/19 22:00 11/26/19 22:19 Solu-Cortef - IVPB 50 mg BID TED Administration Sodium Chloride 250 mls @ 3,000 mls/hr 11/27/19 07:00 Normal Saline - IV 11/28/19 06:59 PRN PRN Hypotension during Dialysis Insulin Aspart 1 vial 11/24/19 22:00 11/27/19 06:20 Novolog Vial Sliding Scale - SQ 8 units ACHS TED Administration Protocol Midodrine 2.5 mg 11/24/19 19:00 11/26/19 18:00 Proamatine - PO 2.5 mg TID-MID TED Administration Multivit/Ca Carb/B Cmplx/FA/Prenat 1 tablet 11/26/19 11:45 11/26/19 13:07 Nephro-Malachi - PO 1 tablet DAILY TED Administration Pantoprazole Sodium 40 mg 11/25/19 10:00 11/26/19 09:32 Protonix Iv IVPUSH 40 mg DAILY TED Administration Sodium Chloride 2 spray 02/03/20 18:56 [place] Nasal [place] - NS BID PRN NASAL CONGESTION Vital Signs Period Temp Pulse Resp BP Sys/Armando Pulse Ox Last 24 Hr 97.3 F-99.5 F 60-68 18-20 90-113/40-53 99-99 Constitutional: Yes: Well Nourished, No Distress, Calm Cardiovascular: Yes: Regular Rate and Rhythm, JVD (?), S1, S2. No: Gallop, Murmur Respiratory: Yes: Regular, CTA Bilaterally (anteriorly). No: Accessory Muscle Use, Wheezes Extremities: No: Cold Edema: No (RLE amputation) Neurological: Yes: Alert. 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 nl LVEF Pacemaker Underlying AFib/flutter Recent reported GIB (no endoscopic evaluation) REC: - HD/UF per renal - Abx as per primary and ID - Borderline/flat TnI likely due to demand ischemia/sepsis. - Echo with RV dilatation and RV dysfx, severe PHTN- chronic per son. May be due to chronic COPD, and acutely worsened in setting of PNA/hypoxia. - Underlying AF-holding AC in setting recent unexplored GIB/ low platelets ( sepsis/ possible abx effect). Risks> benefits at this time. no tachycardia (V- paced--? PM dependent)
--- NOTE | 2019-11-27 11:11 | PN ---
Progress Note (short form) - Note Progress Note: Resting in NAD. Has been tolerating NC O2. No acute events overnight. Intake & Output 11/24/19 11/25/19 11/26/19 11/27/19 23:59 23:59 23:59 23:59 Intake Total 200 248 828 8171 Output Total 0 2300 3000 Balance 200 -1585 330 -1800 Weight 162 lb 4.8 oz Last Vital Signs Temp Pulse Resp BP Pulse Ox 98.2 F 62 18 105/52 L 99 11/27/19 07:00 11/27/19 11:00 11/27/19 11:00 11/27/19 11:00 11/26/19 21:00 Active Medications Albumin Human (Albumin Human 25%) 12.5 gm IVPB Q30M [facility] Stop: 11/27/19 11:31 Last Admin: 11/27/19 09:52 Dose: 12.5 gm Albuterol Sulfate (Ventolin 0.083% Nebulizer Soln -) 1 amp NEB Q4H PRN PRN Reason: SHORT OF BREATH/WHEEZING Albuterol/Ipratropium (Duoneb -) 1 amp NEB RQID [facility] Last Admin: 11/26/19 20:12 Dose: 1 amp Amino Acids (Prosource No Carb Liquid Pkt) 30 ml PO DAILY [facility] Last Admin: 11/26/19 13:08 Dose: 30 ml Fludrocortisone Acetate (Florinef -) 0.05 mg GT DAILY [facility] Last Admin: 11/26/19 09:33 Dose: 0.05 mg Heparin Sodium (Porcine) (Heparin -) 5,000 unit SQ TID [facility] Last Admin: 11/27/19 06:19 Dose: 5,000 unit Hydrocortisone Sodium Succinate (Solu-Cortef -) 50 mg IVPB BID [facility] Last Admin: 11/26/19 22:19 Dose: 50 mg Sodium Chloride (Normal Saline -) 250 mls @ 3,000 mls/hr IV PRN PRN PRN Reason: Hypotension during Dialysis Stop: 11/28/19 06:59 Insulin Aspart (Novolog Vial Sliding Scale -) 1 vial SQ ACHS [facility]; Protocol Last Admin: 11/27/19 06:20 Dose: 8 units Midodrine (Proamatine -) 2.5 mg PO TID-MID [facility] Last Admin: 11/26/19 18:00 Dose: 2.5 mg Multivit/Ca Carb/B Cmplx/FA/Prenat (Nephro-Malachi -) 1 tablet PO DAILY [facility] Last Admin: 11/26/19 13:07 Dose: 1 tablet Pantoprazole Sodium (Protonix Iv) 40 mg IVPUSH DAILY [facility] Last Admin: 11/26/19 09:32 Dose: 40 mg Sodium Chloride ([place] Nasal [place] -) 2 spray NS BID PRN PRN Reason: NASAL CONGESTION Gen: awake and alert, NAD Heart: RRR Lung: decreased breath sounds at the bases Abd: soft, nontender Ext: R BKA, no edema Laboratory Results - last 24 hr 11/26/19 11/26/19 11/26/19 11:34 16:50 21:34 WBC RBC Hgb Hct MCV MCH MCHC RDW Plt Count MPV Sodium Potassium Chloride Carbon Dioxide Anion Gap BUN Creatinine Est GFR (CKD-EPI)AfAm Est GFR (CKD-EPI)NonAf POC Glucometer 195 214 176 Random Glucose Calcium 11/27/19 11/27/19 11/27/19 05:34 07:15 07:15 WBC 7.6 RBC 2.93 L Hgb 9.6 L Hct 30.5 L MCV 104.2 H MCH 32.6 MCHC 31.3 L RDW 21.3 H Plt Count 98 L D MPV 9.7 Sodium 143 Potassium 3.3 L Chloride 103 Carbon Dioxide 29 Anion Gap 10 BUN 45.8 H Creatinine 3.3 H Est GFR (CKD-EPI)AfAm 19.78 Est GFR (CKD-EPI)NonAf 17.06 POC Glucometer 322 Random Glucose 272 H Calcium 8.4 L ASSESSMENT AND PLAN: Acute Hypoxic Respiratory Failure Pneumonia Septic Shock improving Lactic Acidosis improved +Troponins likely Demand Ischemia COPD ESRD on HD CAD Pulmonary HTN Atrial Fibrillation s/p PPM h/o GI bleed Anemia - ABX - HD per renal - taper stress dose steroids - inhaled bronchodilators - NC O2 as tolerated - rate controlled - holding anticoagulation - Cardiac Telemetry monitoring DC NIPPV and HFOT Dr Barnard
[2019-11-27] MEDS: AMINO ACIDS/PROTEIN HYDROLYS 30 ML LIQUID.PKT PO SCH (11:18)
[2019-11-27] MEDS: FLUDROCORTISONE ACETATE 0.1 MG TABLET (FP) GT SCH (11:19)
[2019-11-27] MEDS: VITAMIN B COMP W-C 1 EA TABLET PO SCH (11:19)
[2019-11-27] MEDS: HYDROCORTISONE SOD SUCCINATE 100 MG/2 ML VIAL IVPB SCH ×2 (11:19→21:57)
[2019-11-27] MEDS: PANTOPRAZOLE SODIUM 40 MG VIAL IVPUSH SCH (11:19)
[2019-11-27] MEDS: MIDODRINE HCL 2.5 MG TABLET PO SCH ×3 (11:20→17:56)
--- NOTE | 2019-11-27 13:36 | PN ---
Progress Note (short form) - Note Progress Note: Events noted 3 liters O2-- 96% now on NG tube feeding-- he is calm he is more awake today -- wants to drink water Vital Signs - 24 hr 11/26/19 11/26/19 11/26/19 17:00 20:17 21:00 Temperature 97.3 F L Pulse Rate 60 Respiratory 20 20 Rate Blood Pressure 113/43 L O2 Sat by Pulse 99 99 Oximetry (%) 11/26/19 11/27/19 11/27/19 22:00 01:45 06:00 Temperature 98.8 F 99.5 F 97.9 F Pulse Rate 63 60 65 Respiratory 20 20 20 Rate Blood Pressure 104/45 L 103/47 L 111/47 L O2 Sat by Pulse Oximetry (%) 11/27/19 11/27/19 11/27/19 07:00 07:15 07:45 Temperature 98.2 F Pulse Rate 62 68 66 Respiratory 20 20 20 Rate Blood Pressure 102/42 L 97/47 L 92/45 L O2 Sat by Pulse 98 Oximetry (%) 11/27/19 11/27/19 11/27/19 08:15 08:45 09:00 Temperature Pulse Rate 60 66 Respiratory 20 18 18 Rate Blood Pressure 109/48 L 90/40 L O2 Sat by Pulse 99 Oximetry (%) 11/27/19 11/27/19 11/27/19 09:15 09:45 10:15 Temperature Pulse Rate 64 62 61 Respiratory 18 18 18 Rate Blood Pressure 99/50 L 90/45 L 99/53 L O2 Sat by Pulse Oximetry (%) 11/27/19 11/27/19 10:45 11:00 Temperature Pulse Rate 60 62 Respiratory 18 18 Rate Blood Pressure 102/53 L 105/52 L O2 Sat by Pulse Oximetry (%) Current Medications Generic Name Dose Route Start Last Admin Trade Name Freq PRN Reason Stop Dose Admin Albuterol Sulfate 1 amp 11/24/19 18:56 Ventolin 0.083% Nebulizer Soln - NEB Q4H PRN SHORT OF BREATH/WHEEZING Albuterol/Ipratropium 1 amp 11/24/19 20:00 11/27/19 11:56 Duoneb - NEB 1 amp RQID TED Administration Amino Acids 30 ml 11/26/19 11:45 02/06/20 11:18 Prosource No Carb Liquid Pkt PO 30 ml DAILY TED Administration Fludrocortisone Acetate 0.05 mg 11/25/19 10:00 11/27/19 11:19 Florinef - GT 0.05 mg DAILY TED Administration Heparin Sodium (Porcine) 5,000 unit 11/24/19 22:00 11/27/19 06:19 Heparin - SQ 5,000 unit TID TED Administration Hydrocortisone Sodium Succinate 50 mg 11/24/19 22:00 11/27/19 11:19 Solu-Cortef - IVPB 50 mg BID TED Administration Sodium Chloride 250 mls @ 3,000 mls/hr 11/27/19 07:00 Normal Saline - IV 11/28/19 06:59 PRN PRN Hypotension during Dialysis Insulin Aspart 1 vial 11/24/19 22:00 11/27/19 11:35 Novolog Vial Sliding Scale - SQ 2 units ACHS TED Administration Protocol Midodrine 2.5 mg 11/24/19 19:00 11/27/19 11:20 Proamatine - PO 2.5 mg TID-MID TED Administration Multivit/Ca Carb/B Cmplx/FA/Prenat 1 tablet 11/26/19 11:45 11/27/19 11:19 Nephro-Malachi - PO 1 tablet DAILY TED Administration Pantoprazole Sodium 40 mg 11/25/19 10:00 11/27/19 11:19 Protonix Iv IVPUSH 40 mg DAILY TED Administration Sodium Chloride 2 spray 11/24/19 18:56 [place] Ama Nasal Ama - NS BID PRN NASAL CONGESTION Laboratory Results - last 24 hr 11/26/19 11/26/19 11/27/19 16:50 21:34 05:34 WBC RBC Hgb Hct MCV MCH MCHC RDW Plt Count MPV Sodium Potassium Chloride Carbon Dioxide Anion Gap BUN Creatinine Est GFR (CKD-EPI)AfAm Est GFR (CKD-EPI)NonAf POC Glucometer 214 176 322 Random Glucose Calcium 11/27/19 11/27/19 11/27/19 07:15 07:15 11:33 WBC 7.6 RBC 2.93 L Hgb 9.6 L Hct 30.5 L MCV 104.2 H MCH 32.6 MCHC 31.3 L RDW 21.3 H Plt Count 98 L D MPV 9.7 Sodium 143 Potassium 3.3 L Chloride 103 Carbon Dioxide 29 Anion Gap 10 BUN 45.8 H Creatinine 3.3 H Est GFR (CKD-EPI)AfAm 19.78 Est GFR (CKD-EPI)NonAf 17.06 POC Glucometer 199 Random Glucose 272 H Calcium 8.4 L Physical Constitutional: Yes: on BIPAP Eyes: Yes: Conjunctiva Clear Neck: Yes: Supple. Cardiovascular: Yes: Regular Rate and Rhythm Respiratory: Yes: Diminished on left Gastrointestinal: Yes: Soft, not tender Genitourinary: Yes: [place]ern Removed Extremities: Yes: Amputation (s/p right aka) Edema: No Integumentary: No: Other Wound/Incision: Yes: Other (Left heel ulcer)-- Dressing + Neurological: Yes: Other (sedated) Additional Findings/Remarks: - ....Imaging Chest X-ray: Report Reviewed-->same congestion, infiltrates Cat Scan: Report Reviewed Echo-- Reviewed Assessment/Plan In summary Pt 79yr old gentleman with extensive PMHx of CAD , s/p multivessel PCI (> 1 year ago), CHF , PPM, AF,COPD, ESRD-HD. Has been in and out of hospital since July with COPD/ infections/ CKD and recently had a possible GIB at [place]- no endoscopic evaluation. Transferred from [facility] for short term rehab and was transferred here for resp distress. plan - IV antibiotics ct abd/pelvis -->CT A/P shows ascites, diverticulosis, small umbilical R inguinal hernias -Repeat CT A/P shows: ascites has slightly increased, diverticulosis, small right inguinal hernia, and subcutaneous edema b/l. Dialysis per renal feeding-- continue with NG feeds for now -- add MVI and prosource -- Swallow eval daily-- will need repeat MBS later-- hopefully this Sunday -- GI eval noted -- appears better today no po meds continue BGM monitoring Problem List - Problems (1) CAD (coronary artery disease) Code(s): I25.10 - ATHSCL HEART DISEASE OF [place] CORONARY ARTERY W/O ANG PCTRS (2) COPD (chronic obstructive pulmonary disease) Code(s): J44.9 - CHRONIC OBSTRUCTIVE PULMONARY DISEASE, UNSPECIFIED Qualifiers: COPD type: unspecified COPD Qualified Code(s): J44.9 - Chronic obstructive pulmonary disease, unspecified (3) Elevated troponin Code(s): R79.89 - OTHER SPECIFIED ABNORMAL FINDINGS OF BLOOD CHEMISTRY (4) PVD (peripheral vascular disease) Code(s): I73.9 - PERIPHERAL VASCULAR DISEASE, UNSPECIFIED (5) Respiratory failure Code(s): J96.90 - RESPIRATORY FAILURE, UNSP, UNSP W HYPOXIA OR HYPERCAPNIA (6) Thrombocytopenia Code(s): D69.6 - THROMBOCYTOPENIA, UNSPECIFIED
--- NOTE | 2019-11-27 13:47 | PN ---
Progress Note, Physician History of Present Illness: stable feels better still weak - Current Medication List Current Medications: Active Medications Albuterol Sulfate (Ventolin 0.083% Nebulizer Soln -) 1 amp NEB Q4H PRN PRN Reason: SHORT OF BREATH/WHEEZING Albuterol/Ipratropium (Duoneb -) 1 amp NEB RQID [facility] Last Admin: 11/27/19 11:56 Dose: 1 amp Amino Acids (Prosource No Carb Liquid Pkt) 30 ml PO DAILY [facility] Last Admin: 11/27/19 11:18 Dose: 30 ml Fludrocortisone Acetate (Florinef -) 0.05 mg GT DAILY [facility] Last Admin: 11/27/19 11:19 Dose: 0.05 mg Heparin Sodium (Porcine) (Heparin -) 5,000 unit SQ TID [facility] Last Admin: 11/27/19 06:19 Dose: 5,000 unit Hydrocortisone Sodium Succinate (Solu-Cortef -) 50 mg IVPB BID [facility] Last Admin: 11/27/19 11:19 Dose: 50 mg Sodium Chloride (Normal Saline -) 250 mls @ 3,000 mls/hr IV PRN PRN PRN Reason: Hypotension during Dialysis Stop: 11/28/19 06:59 Insulin Aspart (Novolog Vial Sliding Scale -) 1 vial SQ ACHS [facility]; Protocol Last Admin: 11/27/19 11:35 Dose: 2 units Midodrine (Proamatine -) 2.5 mg PO TID-MID [facility] Last Admin: 11/27/19 11:20 Dose: 2.5 mg Multivit/Ca Carb/B Cmplx/FA/Prenat (Nephro-Malachi -) 1 tablet PO DAILY [facility] Last Admin: 11/27/19 11:19 Dose: 1 tablet Pantoprazole Sodium (Protonix Iv) 40 mg IVPUSH DAILY [facility] Last Admin: 11/27/19 11:19 Dose: 40 mg Sodium Chloride ([place] Nasal [place] -) 2 spray NS BID PRN PRN Reason: NASAL CONGESTION - Objective Vital Signs: Vital Signs Temperature 98.2 F 11/27/19 07:00 Pulse Rate 62 11/27/19 11:00 Respiratory Rate 18 11/27/19 11:00 Blood Pressure 105/52 L 11/27/19 11:00 O2 Sat by Pulse Oximetry (%) 99 11/27/19 09:00 Constitutional: Yes: No Distress, Calm Cardiovascular: Yes: S1, S2 Respiratory: Yes: Regular, CTA Bilaterally Gastrointestinal: Yes: Normal Bowel Sounds, Soft Musculoskeletal: Yes: WNL Extremities: Yes: Other Neurological: Yes: Alert, Oriented Psychiatric: Yes: Alert Labs: CBC, BMP 11/27/19 07:15 11/27/19 07:15 INR, PTT INR 1.02 (0.83-1.09) 11/17/19 06:00 Assessment/Plan Acute Respiratory Acute due to RLL PNA COPD, ESRD on HD CHF [place] R/O Seizure Septic Shock PAD Demand Ischemia Chronic loculated RLL effusion plan continue to monitor nutrition rest as per the team
--- NOTE | 2019-11-27 14:46 | PN ---
Progress Note, NETWORK ANNOUNCER - Note Progress Note: 79 yo seen at bedside for follow up. Pt is alert today and verbal with low volume. Pt currently nourished via NGT but has been asking for water. Dry swallows appears to be WFL. NETWORK ANNOUNCER spoke with lithopone charger and instructed to give good oral care. After oral care pt may have ice chips or small sips of water to hydrate the oral cavity. If pt is eleonora and adequate mental status, repeat MBS tomorrow to determine swallow status and possible po trials.
--- NOTE | 2019-11-27 15:36 | PN ---
Progress Note, Physician History of Present Illness: Pt seen and examined at bedside. He appears comfortable. - Current Medication List Current Medications: Active Medications Albuterol Sulfate (Ventolin 0.083% Nebulizer Soln -) 1 amp NEB Q4H PRN PRN Reason: SHORT OF BREATH/WHEEZING Albuterol/Ipratropium (Duoneb -) 1 amp NEB RQID [facility] Last Admin: 11/27/19 11:56 Dose: 1 amp Amino Acids (Prosource No Carb Liquid Pkt) 30 ml PO DAILY [facility] Last Admin: 11/27/19 11:18 Dose: 30 ml Fludrocortisone Acetate (Florinef -) 0.05 mg GT DAILY [facility] Last Admin: 11/27/19 11:19 Dose: 0.05 mg Heparin Sodium (Porcine) (Heparin -) 5,000 unit SQ TID [facility] Last Admin: 11/27/19 14:16 Dose: 5,000 unit Hydrocortisone Sodium Succinate (Solu-Cortef -) 50 mg IVPB BID [facility] Last Admin: 11/27/19 11:19 Dose: 50 mg Sodium Chloride (Normal Saline -) 250 mls @ 3,000 mls/hr IV PRN PRN PRN Reason: Hypotension during Dialysis Stop: 11/28/19 06:59 Insulin Aspart (Novolog Vial Sliding Scale -) 1 vial SQ ACHS [facility]; Protocol Last Admin: 11/27/19 11:35 Dose: 2 units Midodrine (Proamatine -) 2.5 mg PO TID-MID [facility] Last Admin: 11/27/19 14:17 Dose: 2.5 mg Multivit/Ca Carb/B Cmplx/FA/Prenat (Nephro-Malachi -) 1 tablet PO DAILY [facility] Last Admin: 11/27/19 11:19 Dose: 1 tablet Pantoprazole Sodium (Protonix Iv) 40 mg IVPUSH DAILY [facility] Last Admin: 11/27/19 11:19 Dose: 40 mg Sodium Chloride ([place] Nasal [place] -) 2 spray NS BID PRN PRN Reason: NASAL CONGESTION - Objective Vital Signs: Vital Signs Temperature 98.2 F 11/27/19 07:00 Pulse Rate 62 11/27/19 11:00 Respiratory Rate 18 11/27/19 11:00 Blood Pressure 105/52 L 11/27/19 11:00 O2 Sat by Pulse Oximetry (%) 99 11/27/19 09:00 Constitutional: Yes: Calm Eyes: Yes: Conjunctiva Clear HENT: Yes: Atraumatic Neck: Yes: Supple Cardiovascular: Yes: S1, S2 Respiratory: Yes: CTA Bilaterally Gastrointestinal: Yes: Soft Genitourinary: Yes: Incontinence Musculoskeletal: Yes: Muscle Weakness Extremities: Yes: Other (right arm fistula with thrill and bruit) Neurological: Yes: Oriented Labs: CBC, BMP 11/27/19 07:15 11/27/19 07:15 INR, PTT INR 1.02 (0.83-1.09) 11/17/19 06:00 Assessment/Plan Current Medications Generic Name Dose Route Start Last Admin Trade Name Freq PRN Reason Stop Dose Admin Albuterol Sulfate 1 amp 11/24/19 18:56 Ventolin 0.083% Nebulizer Soln - NEB Q4H PRN SHORT OF BREATH/WHEEZING Albuterol/Ipratropium 1 amp 11/24/19 20:00 11/27/19 11:56 Duoneb - NEB 1 amp RQID TED Administration Amino Acids 30 ml 11/26/19 11:45 11/27/19 11:18 Prosource No Carb Liquid Pkt PO 30 ml DAILY TED Administration Fludrocortisone Acetate 0.05 mg 11/25/19 10:00 11/27/19 11:19 Florinef - GT 0.05 mg DAILY TED Administration Heparin Sodium (Porcine) 5,000 unit 11/24/19 22:00 11/27/19 14:16 Heparin - SQ 5,000 unit TID TED Administration Hydrocortisone Sodium Succinate 50 mg 11/24/19 22:00 11/27/19 11:19 Solu-Cortef - IVPB 50 mg BID TED Administration Sodium Chloride 250 mls @ 3,000 mls/hr 11/27/19 07:00 Normal Saline - IV 11/28/19 06:59 PRN PRN Hypotension during Dialysis Insulin Aspart 1 vial 11/24/19 22:00 11/27/19 11:35 Novolog Vial Sliding Scale - SQ 2 units ACHS TED Administration Protocol Midodrine 2.5 mg 11/24/19 19:00 11/27/19 14:17 Proamatine - PO 2.5 mg TID-MID TED Administration Multivit/Ca Carb/B Cmplx/FA/Prenat 1 tablet 11/26/19 11:45 11/27/19 11:19 Nephro-Malachi - PO 1 tablet DAILY TED Administration Pantoprazole Sodium 40 mg 11/25/19 10:00 11/27/19 11:19 Protonix Iv IVPUSH 40 mg DAILY TED Administration Sodium Chloride 2 spray 11/24/19 18:56 [place] Nasal [place] - NS BID PRN NASAL CONGESTION Impression 1. ESRD 2. resp failure 3. PNA 4. copd 5. chf 6. sepsis 7. pulm effusion 8. hyponatremia Plan - HD today - pt tolerating tube feeds - next HD Sunday - HD: TTS f180 3:30 DW 87 kg 2 k bath 2.5 ca, [id number], na 137, access PC right chest
[2019-11-27] MEDS ORDERED: INSULIN (NOVOLOG) ASPART 100 UNITS/ML 10ML VIAL ONE (21:42)
[2019-11-28] MEDS: HEPARIN NA (PORCINE) 5,000 UNITS/ML 1ML VIAL SQ SCH ×3 (06:23→21:53)
[2019-11-28] MEDS: INSULIN SLIDING SCALE (NOVOLOG) 1 VIAL SQ SCH ×4 (06:23→21:53)
[2019-11-28] MEDS: ALBUTEROL SO4 2.5/IPRATROPIUM 0.5 INH SOL 3 ML VIAL.NEB. NEB SCH ×4 (07:40→20:16)
[2019-11-28] MEDS ORDERED: PT OWN MED DRAWER 7, Y5N ONE ×2 (09:06→13:00)
[2019-11-28] MEDS: VITAMIN B COMP W-C 1 EA TABLET PO SCH (09:46)
[2019-11-28] MEDS: HYDROCORTISONE SOD SUCCINATE 100 MG/2 ML VIAL IVPB SCH ×3 (09:46→21:53)
[2019-11-28] MEDS: PANTOPRAZOLE SODIUM 40 MG VIAL IVPUSH SCH (09:46)
[2019-11-28] MEDS: AMINO ACIDS/PROTEIN HYDROLYS 30 ML LIQUID.PKT PO SCH (09:46)
[2019-11-28] MEDS: MIDODRINE HCL 2.5 MG TABLET PO SCH ×3 (09:46→18:04)
[2019-11-28] MEDS: FLUDROCORTISONE ACETATE 0.1 MG TABLET (FP) GT SCH (09:47)
--- NOTE | 2019-11-28 10:21 | PN ---
Progress Note (short form) - Note Progress Note: Pt seen/ examined comfortable son at bedside all f/u noted no distress Vital Signs Temp 97.5 F L 11/28/19 06:10 Pulse 62 11/28/19 06:10 Resp 20 11/28/19 06:10 BP 118/49 L 11/28/19 06:10 Pulse Ox 99 11/27/19 21:00 Intake & Output 11/27/19 11/27/19 11/28/19 11:59 23:59 11:59 Intake Total 1200 60 10 Output Total 3000 Balance -1800 60 10 Intake: IV 110 10 10 NS 100 saline lock 10 10 10 IVPB 450 50 Tube Feeding 480 Albumin 100 Tube Irrigant 60 Output: Fluid Removed, 3000 Hemodialysis Other: Voiding Method Incontinent Incontinent Incontinent # Unmeasured Voids Kern 2 Bowel Movement Yes Yes: Large soft Yes # Bowel Movements 1 1 Active Medications Albuterol Sulfate (Ventolin 0.083% Nebulizer Soln -) 1 amp NEB Q4H PRN PRN Reason: SHORT OF BREATH/WHEEZING Albuterol/Ipratropium (Duoneb -) 1 amp NEB RQID [facility] Last Admin: 11/28/19 07:40 Dose: 1 amp Amino Acids (Prosource No Carb Liquid Pkt) 30 ml PO DAILY [facility] Last Admin: 11/28/19 09:46 Dose: 30 ml Fludrocortisone Acetate (Florinef -) 0.05 mg GT DAILY [facility] Last Admin: 11/28/19 09:47 Dose: 0.05 mg Heparin Sodium (Porcine) (Heparin -) 5,000 unit SQ TID [facility] Last Admin: 11/28/19 06:23 Dose: 5,000 unit Hydrocortisone Sodium Succinate (Solu-Cortef -) 50 mg IVPB BID [facility] Last Admin: 11/28/19 09:46 Dose: 50 mg Insulin Aspart (Novolog Vial Sliding Scale -) 1 vial SQ ACHS [facility]; Protocol Last Admin: 11/28/19 06:23 Dose: 6 units Midodrine (Proamatine -) 2.5 mg PO TID-MID [facility] Last Admin: 11/28/19 09:46 Dose: 2.5 mg Multivit/Ca Carb/B Cmplx/FA/Prenat (Nephro-Malachi -) 1 tablet PO DAILY [facility] Last Admin: 11/28/19 09:46 Dose: 1 tablet Pantoprazole Sodium (Protonix Iv) 40 mg IVPUSH DAILY [facility] Last Admin: 11/28/19 09:46 Dose: 40 mg Sodium Chloride ([place] Nasal [place] -) 2 spray NS BID PRN PRN Reason: NASAL CONGESTION CBC, BMP 11/27/19 07:15 11/27/19 07:15 Physical Constitutional: comfortable Eyes: Yes: Conjunctiva Clear Neck: Yes: Supple. Cardiovascular: Yes: Regular Rate and Rhythm Respiratory: Yes:Bilateral breath sounds Gastrointestinal: Yes: Soft, not tender. Genitourinary: Yes: [place]ern Removed Extremities: Yes: Amputation (s/p right aka) Edema: No Integumentary: No: Other Wound/Incision: Yes: Other (Left heel ulcer)-- Dressing + Neurological: Yes: Awake Assessment/Plan Acute Hypoxic Respiratory Failure-- Resolving Pneumonia Septic Shock Lactic Acidosis +Troponins--- likely Demand Ischemia COPD ESRD on HD-- Next Dialysis tomorrow CAD Pulmonary HTN Atrial Fibrillation s/p PPM h/o GI bleed Thrombocytepenia Anemia s/p right BKA Left heel ulcer Meds reviewed Continue present care off abx overall better ng feeding Swallow test today D/W Rn also as well as with pts son today will follow f/u labs ordered Problem List - Problems (1) Respiratory failure Code(s): J96.90 - RESPIRATORY FAILURE, UNSP, UNSP W HYPOXIA OR HYPERCAPNIA (2) CAD (coronary artery disease) Code(s): I25.10 - ATHSCL HEART DISEASE OF [place] CORONARY ARTERY W/O ANG PCTRS (3) PVD (peripheral vascular disease) Code(s): I73.9 - PERIPHERAL VASCULAR DISEASE, UNSPECIFIED (4) Elevated troponin Code(s): R79.89 - OTHER SPECIFIED ABNORMAL FINDINGS OF BLOOD CHEMISTRY (5) Thrombocytopenia Code(s): D69.6 - THROMBOCYTOPENIA, UNSPECIFIED
--- NOTE | 2019-11-28 10:34 | PN ---
Progress Note, Physician Chief Complaint: alert denies CP , SOB TELE: Paced, underlying AF - Current Medication List Current Medications: Active Medications Albuterol Sulfate (Ventolin 0.083% Nebulizer Soln -) 1 amp NEB Q4H PRN PRN Reason: SHORT OF BREATH/WHEEZING Albuterol/Ipratropium (Duoneb -) 1 amp NEB RQID [facility] Last Admin: 11/28/19 07:40 Dose: 1 amp Amino Acids (Prosource No Carb Liquid Pkt) 30 ml PO DAILY [facility] Last Admin: 11/28/19 09:46 Dose: 30 ml Fludrocortisone Acetate (Florinef -) 0.05 mg GT DAILY [facility] Last Admin: 11/28/19 09:47 Dose: 0.05 mg Heparin Sodium (Porcine) (Heparin -) 5,000 unit SQ TID [facility] Last Admin: 11/28/19 06:23 Dose: 5,000 unit Hydrocortisone Sodium Succinate (Solu-Cortef -) 50 mg IVPB BID [facility] Last Admin: 11/28/19 09:46 Dose: 50 mg Insulin Aspart (Novolog Vial Sliding Scale -) 1 vial SQ [facility]; Protocol Last Admin: 11/28/19 06:23 Dose: 6 units Midodrine (Proamatine -) 2.5 mg PO TID-MID [facility] Last Admin: 11/28/19 09:46 Dose: 2.5 mg Multivit/Ca Carb/B Cmplx/FA/Prenat (Nephro-Malachi -) 1 tablet PO DAILY [facility] Last Admin: 11/28/19 09:46 Dose: 1 tablet Pantoprazole Sodium (Protonix Iv) 40 mg IVPUSH DAILY [facility] Last Admin: 11/28/19 09:46 Dose: 40 mg Sodium Chloride ([place] Nasal [place] -) 2 spray NS BID PRN PRN Reason: NASAL CONGESTION - Objective Vital Signs: Vital Signs Temperature 97.5 F L 11/28/19 06:10 Pulse Rate 62 11/28/19 06:10 Respiratory Rate 20 11/28/19 06:10 Blood Pressure 118/49 L 11/28/19 06:10 O2 Sat by Pulse Oximetry (%) 99 11/27/19 21:00 Constitutional: Yes: Calm Cardiovascular: Yes: Regular Rate and Rhythm Respiratory: Yes: CTA Bilaterally Gastrointestinal: Yes: Soft Edema: No Neurological: Yes: Alert Labs: CBC, BMP 11/27/19 07:15 11/27/19 07:15 INR, PTT INR 1.02 (0.83-1.09) 11/17/19 06:00 - ....Imaging EKG: Image Reviewed Assessment/Plan Assessment/Plan tele: AF/AFL, [place], rate ok IMP: Acute respiratory failure secondary to RLL PNA w/loculated pleural effusion Sepsis secondary to above ESRD on HD Hyponatremia Chronic COPD CAD s/p PCI Right sided CHF with severe PHTN, RV dilatation and RV dysfunction (chronic per son report). nl LVEF Pacemaker Underlying AFib/flutter Recent reported GIB (no endoscopic evaluation) REC: - HD/UF per renal - Abx as per primary and ID - Borderline/flat TnI likely due to demand ischemia/sepsis. - Echo with RV dilatation and RV dysfx, severe PHTN- chronic per son. May be due to chronic COPD, and acutely worsened in setting of PNA/hypoxia. - Underlying AF-holding AC in setting recent unexplored GIB/ low platelets ( sepsis/ possible abx effect). Risks> benefits at this time. no tachycardia (V- paced--? PM dependent) -If remains HD stable without rhythm issues, d/c tele 11/29/2019
--- NOTE | 2019-11-28 12:49 | PN ---
Progress Note (short form) - Note Progress Note: Resting in NAD. Has been tolerating NC O2. No acute events overnight. Intake & Output 11/25/19 11/26/19 11/27/19 11/28/19 23:59 23:59 23:59 23:59 Intake Total 404 078 0323 10 Output Total 2300 3000 Balance -1585 330 -1740 10 Last Vital Signs Temp Pulse Resp BP Pulse Ox 98.5 F 66 20 105/46 L 97 11/28/19 10:00 11/28/19 10:00 11/28/19 10:00 11/28/19 10:00 11/28/19 11:00 Active Medications Albuterol Sulfate (Ventolin 0.083% Nebulizer Soln -) 1 amp NEB Q4H PRN PRN Reason: SHORT OF BREATH/WHEEZING Albuterol/Ipratropium (Duoneb -) 1 amp NEB RQID [facility] Last Admin: 11/28/19 07:40 Dose: 1 amp Amino Acids (Prosource No Carb Liquid Pkt) 30 ml PO DAILY [facility] Last Admin: 11/28/19 09:46 Dose: 30 ml Fludrocortisone Acetate (Florinef -) 0.05 mg GT DAILY [facility] Last Admin: 11/28/19 09:47 Dose: 0.05 mg Heparin Sodium (Porcine) (Heparin -) 5,000 unit SQ TID [facility] Last Admin: 11/28/19 06:23 Dose: 5,000 unit Hydrocortisone Sodium Succinate (Solu-Cortef -) 50 mg IVPB BID [facility] Last Admin: 11/28/19 09:46 Dose: 50 mg Insulin Aspart (Novolog Vial Sliding Scale -) 1 vial SQ ACHS [facility]; Protocol Last Admin: 11/28/19 06:23 Dose: 6 units Midodrine (Proamatine -) 2.5 mg PO TID-MID [facility] Last Admin: 11/28/19 09:46 Dose: 2.5 mg Multivit/Ca Carb/B Cmplx/FA/Prenat (Nephro-Malachi -) 1 tablet PO DAILY [facility] Last Admin: 11/28/19 09:46 Dose: 1 tablet Pantoprazole Sodium (Protonix Iv) 40 mg IVPUSH DAILY [facility] Last Admin: 11/28/19 09:46 Dose: 40 mg Sodium Chloride ([place] Nasal [place] -) 2 spray NS BID PRN PRN Reason: NASAL CONGESTION Gen: awake and alert, NAD Heart: RRR Lung: decreased breath sounds at the bases Abd: soft, nontender Ext: R BKA, no edema Laboratory Results - last 24 hr 11/27/19 11/27/19 11/28/19 16:59 21:12 05:57 POC Glucometer 208 212 267 ASSESSMENT AND PLAN: Acute Hypoxic Respiratory Failure Pneumonia Septic Shock improving Lactic Acidosis improved +Troponins likely Demand Ischemia COPD ESRD on HD CAD Pulmonary HTN Atrial Fibrillation s/p PPM h/o GI bleed Anemia - ABX - HD per renal - Stress dose steroids tapered - inhaled bronchodilators - NC O2 as tolerated - rate controlled - holding anticoagulation - Cardiac Telemetry monitoring Dr Barnard
--- NOTE | 2019-11-28 14:03 | PN ---
Progress Note, Physician History of Present Illness: stable no new issues - Current Medication List Current Medications: Active Medications Albuterol Sulfate (Ventolin 0.083% Nebulizer Soln -) 1 amp NEB Q4H PRN PRN Reason: SHORT OF BREATH/WHEEZING Albuterol/Ipratropium (Duoneb -) 1 amp NEB RQID [facility] Last Admin: 11/28/19 07:40 Dose: 1 amp Amino Acids (Prosource No Carb Liquid Pkt) 30 ml PO DAILY [facility] Last Admin: 11/28/19 09:46 Dose: 30 ml Fludrocortisone Acetate (Florinef -) 0.05 mg GT DAILY [facility] Last Admin: 11/28/19 09:47 Dose: 0.05 mg Heparin Sodium (Porcine) (Heparin -) 5,000 unit SQ TID [facility] Last Admin: 11/28/19 06:23 Dose: 5,000 unit Hydrocortisone Sodium Succinate (Solu-Cortef -) 25 mg IVPB BID [facility] Insulin Aspart (Novolog Vial Sliding Scale -) 1 vial SQ [facility]; Protocol Last Admin: 11/28/19 06:23 Dose: 6 units Midodrine (Proamatine -) 2.5 mg PO TID-MID [facility] Last Admin: 11/28/19 09:46 Dose: 2.5 mg Multivit/Ca Carb/B Cmplx/FA/Prenat (Nephro-Malachi -) 1 tablet PO DAILY [facility] Last Admin: 11/28/19 09:46 Dose: 1 tablet Pantoprazole Sodium (Protonix Iv) 40 mg IVPUSH DAILY [facility] Last Admin: 11/28/19 09:46 Dose: 40 mg Sodium Chloride ([place] Nasal [place] -) 2 spray NS BID PRN PRN Reason: NASAL CONGESTION - Objective Vital Signs: Vital Signs Temperature 98.5 F 11/28/19 10:00 Pulse Rate 66 11/28/19 10:00 Respiratory Rate 20 11/28/19 10:00 Blood Pressure 105/46 L 11/28/19 10:00 O2 Sat by Pulse Oximetry (%) 97 11/28/19 11:00 Constitutional: Yes: No Distress, Calm Cardiovascular: Yes: S1, S2 Respiratory: Yes: Regular, On Nasal O2, Poor Air Entry (bases) Gastrointestinal: Yes: Normal Bowel Sounds, Soft, Other (ng in place) Musculoskeletal: Yes: WNL Extremities: Yes: Other Neurological: Yes: Alert Psychiatric: Yes: Alert Labs: CBC, BMP 11/27/19 07:15 11/27/19 07:15 INR, PTT INR 1.02 (0.83-1.09) 11/17/19 06:00 Assessment/Plan Acute Respiratory Acute due to RLL PNA COPD, ESRD on HD CHF S[place] R/O Seizure Septic Shock PAD [place]and Ischemia Chronic loculated RLL effusion plan continue to monitor nutrition rest as per the team
--- NOTE | 2019-11-28 14:38 | PN ---
Progress Note, BUCKLE STRAP PUNCHER - Note Progress Note: BUCKLE STRAP PUNCHER spoke with Mr. Stanford's regarding the results of the MBS. After speaking with dietitian (Janet), change mech soft to DYSPHAGIA chopped with nectar thicken liquids. Observe standard aspiration precautions. Provide oral care before and after meal meals. Medication can be given crushed with applesauce. Results given verbally to pharmacist in charge owner and PCP via chart. BUCKLE STRAP PUNCHER to follow up for diet tolerance.
--- NOTE | 2019-11-28 18:57 | PN ---
Progress Note, Physician History of Present Illness: Pt seen and examined at bedside. He is tolerating feeds. - Current Medication List Current Medications: Active Medications Albuterol Sulfate (Ventolin 0.083% Nebulizer Soln -) 1 amp NEB Q4H PRN PRN Reason: SHORT OF BREATH/WHEEZING Albuterol/Ipratropium (Duoneb -) 1 amp NEB RQID [facility] Last Admin: 11/28/19 16:41 Dose: 1 amp Amino Acids (Prosource No Carb Liquid Pkt) 30 ml PO DAILY [facility] Last Admin: 11/28/19 09:46 Dose: 30 ml Fludrocortisone Acetate (Florinef -) 0.05 mg GT DAILY [facility] Last Admin: 11/28/19 09:47 Dose: 0.05 mg Heparin Sodium (Porcine) (Heparin -) 5,000 unit SQ TID [facility] Last Admin: 11/28/19 14:10 Dose: 5,000 unit Hydrocortisone Sodium Succinate (Solu-Cortef -) 25 mg IVPB BID [facility] Last Admin: 11/28/19 18:02 Dose: Not Given Insulin Aspart (Novolog Vial Sliding Scale -) 1 vial SQ [facility]; Protocol Last Admin: 11/28/19 18:03 Dose: 6 units Midodrine (Proamatine -) 2.5 mg PO TID-MID [facility] Last Admin: 11/28/19 18:04 Dose: 2.5 mg Multivit/Ca Carb/B Cmplx/FA/Prenat (Nephro-Malachi -) 1 tablet PO DAILY [facility] Last Admin: 11/28/19 09:46 Dose: 1 tablet Pantoprazole Sodium (Protonix Iv) 40 mg IVPUSH DAILY [facility] Last Admin: 11/28/19 09:46 Dose: 40 mg Sodium Chloride ([place] Nasal [place] -) 2 spray NS BID PRN PRN Reason: NASAL CONGESTION - Objective Vital Signs: Vital Signs Temperature 98.6 F 11/28/19 14:00 Pulse Rate 62 11/28/19 14:00 Respiratory Rate 20 11/28/19 14:00 Blood Pressure 113/48 L 11/28/19 14:00 O2 Sat by Pulse Oximetry (%) 97 11/28/19 11:00 Constitutional: Yes: Calm Eyes: Yes: Conjunctiva Clear HENT: Yes: Atraumatic Cardiovascular: Yes: S1, S2 Respiratory: Yes: On Nasal O2 Gastrointestinal: Yes: Soft Genitourinary: Yes: Incontinence Extremities: Yes: Other (right arm fistula with thrill and bruit) Edema: Yes Neurological: Yes: Other (drowsy) Labs: CBC, BMP 11/27/19 07:15 11/27/19 07:15 INR, PTT INR 1.02 (0.83-1.09) 11/17/19 06:00 Assessment/Plan Current Medications Generic Name Dose Route Start Last Admin Trade Name Freq PRN Reason Stop Dose Admin Albuterol Sulfate 1 amp 11/24/19 18:56 Ventolin 0.083% Nebulizer Soln - NEB Q4H PRN SHORT OF BREATH/WHEEZING Albuterol/Ipratropium 1 amp 11/24/19 20:00 11/28/19 16:41 Duoneb - NEB 1 amp RQID TED Administration Amino Acids 30 ml 11/26/19 11:45 11/28/19 09:46 Prosource No Carb Liquid Pkt PO 30 ml DAILY [facility] Administration Fludrocortisone Acetate 0.05 mg 11/25/19 10:00 11/28/19 09:47 Florinef - GT 0.05 mg DAILY TED Administration Heparin Sodium (Porcine) 5,000 unit 11/24/19 22:00 11/28/19 14:10 Heparin - SQ 5,000 unit TID TED Administration Hydrocortisone Sodium Succinate 25 mg 11/28/19 14:30 11/28/19 18:02 Solu-Cortef - IVPB Not Given BID TED Insulin Aspart 1 vial 11/24/19 22:00 11/28/19 18:03 Novolog Vial Sliding Scale - SQ 6 units ACHS TED Administration Protocol Midodrine 2.5 mg 11/24/19 19:00 11/28/19 18:04 Proamatine - PO 2.5 mg TID-MID TED Administration Multivit/Ca Carb/B Cmplx/FA/Prenat 1 tablet 11/26/19 11:45 11/28/19 09:46 Nephro-Malachi - PO 1 tablet DAILY TED Administration Pantoprazole Sodium 40 mg 11/25/19 10:00 11/28/19 09:46 Protonix Iv IVPUSH 40 mg DAILY TED Administration Sodium Chloride 2 spray 11/24/19 18:56 [place] Nasal [place] - NS BID PRN NASAL CONGESTION Impression 1. ESRD 2. resp failure 3. PNA 4. copd 5. chf 6. sepsis 7. pulm effusion 8. hyponatremia Plan - HD tomorrow - stenosis on ultrasound of fistula - vascular eval called - pt tolerating feeds - HD: TTS f180 3:30 DW 87 kg 2 k bath 2.5 ca, [id number], na 137, access PC right chest
[2019-11-29] MEDS ORDERED: SODIUM CHLORIDE 250 ML IV PRN (06:33)
[2019-11-29] MEDS: INSULIN SLIDING SCALE (NOVOLOG) 1 VIAL SQ SCH ×4 (06:41→21:32)
[2019-11-29] MEDS: HEPARIN NA (PORCINE) 5,000 UNITS/ML 1ML VIAL SQ SCH ×3 (06:42→21:29)
[2019-11-29] MEDS ORDERED: EPOETIN ALFA 10,000 UNIT/1 ML VIAL IVPUSH ONE (06:45)
[2019-11-29] MEDS: ALBUTEROL SO4 2.5/IPRATROPIUM 0.5 INH SOL 3 ML VIAL.NEB. NEB SCH ×3 (07:25→16:08)
[2019-11-29 07:49] LABS: BASO % 0.3 % (0-2.0); EOS % 0.3 % (0-4.5); HEMATOCRIT 29.7 % (35.4-49); HEMOGLOBIN 9.5 GM/dL (11.7-16.9); LYMPH % 4.5 % (8-40); MCHC 31.8 g/dl (32.0-35.9); MEAN CELL VOLUME 103.8 fl (80-96); MEAN PLT VOLUME 9.9 fl (7.5-11.1); MONO % 3.4 % (3.8-10.2); NEUT % 91.5 % (42.8-82.8); PLATELET COUNT 76 K/MM3 (134-434); RBC 2.87 M/mm3 (4.00-5.60); RDW 20.6 % (11.9-15.9); WHITE BLOOD COUNT 7.7 K/mm3 (4.0-10.0)
--- NOTE | 2019-11-29 08:35 | PN ---
Progress Note, Physician History of Present Illness: No CV complaints REceiving HD via right shiley No chest pains no dyspnea Tele: No alarms - Current Medication List Current Medications: Active Medications Albuterol Sulfate (Ventolin 0.083% Nebulizer Soln -) 1 amp NEB Q4H PRN PRN Reason: SHORT OF BREATH/WHEEZING Albuterol/Ipratropium (Duoneb -) 1 amp NEB RQID [facility] Last Admin: 11/28/19 20:16 Dose: Not Given Amino Acids (Prosource No Carb Liquid Pkt) 30 ml PO DAILY [facility] Last Admin: 11/28/19 09:46 Dose: 30 ml Fludrocortisone Acetate (Florinef -) 0.05 mg GT DAILY [facility] Last Admin: 11/28/19 09:47 Dose: 0.05 mg Heparin Sodium (Porcine) (Heparin -) 5,000 unit SQ TID [facility] Last Admin: 11/29/19 06:42 Dose: 5,000 unit Hydrocortisone Sodium Succinate (Solu-Cortef -) 25 mg IVPB BID [facility] Last Admin: 11/28/19 21:53 Dose: 25 mg Insulin Aspart (Novolog Vial Sliding Scale -) 1 vial SQ [facility]; Protocol Last Admin: 11/29/19 06:41 Dose: 2 units Midodrine (Proamatine -) 2.5 mg PO TID-MID [facility] Last Admin: 11/28/19 18:04 Dose: 2.5 mg Multivit/Ca Carb/B Cmplx/FA/Prenat (Nephro-Malachi -) 1 tablet PO DAILY [facility] Last Admin: 11/28/19 09:46 Dose: 1 tablet Pantoprazole Sodium (Protonix Iv) 40 mg IVPUSH DAILY [facility] Last Admin: 11/28/19 09:46 Dose: 40 mg Sodium Chloride ([place] Nasal [place] -) 2 spray NS BID PRN PRN Reason: NASAL CONGESTION - Objective Vital Signs: Vital Signs Temperature 98.2 F 11/29/19 07:15 Pulse Rate 60 11/29/19 07:20 Respiratory Rate 18 11/29/19 07:20 Blood Pressure 121/60 11/29/19 07:20 O2 Sat by Pulse Oximetry (%) 98 11/28/19 21:00 Constitutional: Yes: No Distress, Calm (On HD) Cardiovascular: Yes: Regular Rate and Rhythm Respiratory: Yes: CTA Bilaterally Musculoskeletal: Yes: Other (Right BKA) Edema: No Labs: CBC, BMP 11/29/19 05:18 INR, PTT INR 1.02 (0.83-1.09) 11/17/19 06:00 Assessment/Plan IMP: Acute respiratory failure secondary to RLL PNA w/loculated pleural effusion Sepsis secondary to above ESRD on HD Hyponatremia Chronic COPD CAD s/p PCI Right sided CHF with severe PHTN, RV dilatation and RV dysfunction (chronic per son report). nl LVEF Pacemaker Underlying AFib/flutter Recent reported GIB (no endoscopic evaluation) REC: - HD/UF per renal - Abx as per primary and ID - Borderline/flat TnI likely due to demand ischemia/sepsis. - Echo with RV dilatation and RV dysfx, severe PHTN- chronic per prior notes. May be due to chronic COPD, and acutely worsened in setting of PNA/hypoxia. - Underlying AF-holding AC in setting recent unexplored GIB/ low platelets ( sepsis/ possible abx effect). As per Dr. Peralta: Risks> benefits at this time. -Remains HD stable without rhythm issues, Tele to be discontinued today
[2019-11-29 08:38] LABS: ALBUMIN 2.8 g/dl (3.4-5.0); BILIRUBIN,TOTAL 0.8 mg/dL (0.2-1); BLOOD UREA NITROGEN 56.6 mg/dL (7-18); CALCIUM 8.5 mg/dL (8.5-10.1); CREATININE 3.1 mg/dL (0.55-1.3); TOT PROT 5.6 g/dl (6.4-8.2)
[2019-11-29 09:03] LABS: POTASSIUM 2.6 mmol/L (3.5-5.1)
[2019-11-29] MEDS: ALBUMIN HUMAN 25% 12.5 GM/50 ML VIAL IVPB SCH ×3 (09:29→10:26)
[2019-11-29] MEDS ORDERED: POTASSIUM CHLORIDE ORAL LIQUID 20 MEQ/15 ML NGT ONE (09:31)
[2019-11-29] MEDS: VITAMIN B COMP W-C 1 EA TABLET PO SCH ×2 (10:40→11:00)
[2019-11-29] MEDS: FLUDROCORTISONE ACETATE 0.1 MG TABLET (FP) GT SCH ×2 (10:40→11:30)
[2019-11-29] MEDS: AMINO ACIDS/PROTEIN HYDROLYS 30 ML LIQUID.PKT PO SCH (10:42)
[2019-11-29] MEDS: PANTOPRAZOLE SODIUM 40 MG VIAL IVPUSH SCH (10:42)
[2019-11-29] MEDS: MIDODRINE HCL 2.5 MG TABLET PO SCH ×4 (10:42→17:26)
[2019-11-29] MEDS: HYDROCORTISONE SOD SUCCINATE 100 MG/2 ML VIAL IVPB SCH ×2 (10:44→21:28)
[2019-11-29] MEDS: KCL 10 MEQ IVPB 10 MEQ/100 ML INFUS.BAG IVPB SCH ×5 (10:45→23:38)
--- NOTE | 2019-11-29 11:51 | CONSULT ---
Consult Consult Specialty:: Vascular Surgery - History of Present Illness History of Present Illness: 79 year old man with ESRD on HD states he had right arm fistula creation 2 weeks ago at [facility]. He is receiving HD via right chest Permacath. He has a left sided PPM. - History Source History Provided By: Patient Limitations to Obtaining History: No Limitations - Past Medical History Cardio/Vascular: Yes: HTN, Other (ASHD) Pulmonary: Yes: COPD, Sleep Apnea Gastrointestinal: Yes: GERD, Other (recent GIB) Renal/: Yes: Renal Failure, Hemodialysis Dermatology: Yes: Other (Pressure Ulcer- L- Heel) - Past Surgical History Past Surgical History: Yes: Amputation - Alcohol/Substance Use Hx Alcohol Use: No - Smoking History Smoking history: Unknown if ever smoked Have you smoked in the past 12 months: No - Social History Usual Living Arrangement: With Spouse History of Recent Travel: No Home Medications - Allergies Allergies/Adverse Reactions: Allergies Allergy/AdvReac Type Severity Reaction Status Date / Time No Known Allergies Allergy Verified 11/13/19 22:17 - Home Medications Home Medications: Ambulatory Orders Aspirin 81 mg PO 11/14/19 Budesonide/Formeterol Fumarate [SYMBICORT 160/4.5mcg -] 1 puff IH BID 11/14/19 Calcitriol [Rocaltrol -] 0.25 mcg PO DAILY 11/14/19 Docusate Sodium [Colace] 100 mg PO BID PRN 11/14/19 Furosemide [Lasix] 40 mg PO DAILY 11/14/19 Glipizide 5 mg PO DAILY 11/14/19 Iron Polysaccharide Complex [Polysaccharide Iron] 150 mg PO DAILY 11/14/19 Iron Ps Complex/B12/Folic Acid [Ferrex 150 Forte Capsule] 150 mg PO DAILY Lisinopril 10 mg PO DAILY 11/14/19 Metoprolol Tartrate 25 mg PO DAILY 11/14/19 Mirabegron [Myrbetriq] 50 mg PO DAILY 11/14/19 Nitroglycerin [Nitrostat] 0.4 mg SL PRN PRN 11/14/19 Omeprazole Magnesium [Prilosec Otc] 20 mg PO DAILY 11/14/19 Oxybutynin Chloride [Ditropan Xl] 5 mg PO DAILY 11/14/19 Simvastatin 40 mg PO HS 11/14/19 Physical Exam Vital Signs: Vital Signs Temperature 98.2 F 11/29/19 07:15 Pulse Rate 60 11/29/19 11:00 Respiratory Rate 18 11/29/19 11:00 Blood Pressure 114/57 L 11/29/19 11:00 O2 Sat by Pulse Oximetry (%) 98 11/28/19 21:00 Extremities: Yes: Other (Right radial-cephalic fistula with thrill. Vein small diameter. Incision healing with eschar.) Labs: CBC, BMP 11/29/19 05:18 11/29/19 05:18 Imaging - Results Ultrasound: Report Reviewed (Patent AVF with small diameter.) Problem List - Problems (1) ESRD (end stage renal disease) on dialysis Problems reviewed: Yes Code(s): N18.6 - END STAGE RENAL DISEASE; Z99.2 - DEPENDENCE ON RENAL DIALYSIS (2) Immature arteriovenous fistula Assessment/Plan: Right forearm fistula was created recently and remains patent with small diameter of vein. If the fistula has not enlarged by week 4, trial of balloon- assisted maturation would be appropriate to speed the development and decrease time needed to keep Permacath in place. In general, fistula should be ~ 6 mm in diameter with flow of 600 cc/min to support dialysis. It is currently too soon to start balloon maturation. I would be happy to see the patient in follow-up if he is unable to return to his surgeon in [place]. Problems reviewed: Yes Code(s): I77.0 - ARTERIOVENOUS FISTULA, ACQUIRED
--- NOTE | 2019-11-29 11:51 | PN ---
Progress Note (short form) - Note Progress Note: PULMONARY Resting in NAD. Has been tolerating NC O2. No acute events overnight. HD Completed 2.5 kilos removed VSS/AFEBRILE Gen: resting comfortably Heart: RRR Lung: decreased breath sounds at the bases Abd: soft, nontender Ext: R BKA, no edema Chart reviewed ASSESSMENT AND PLAN: Acute Hypoxic Respiratory Failure Pneumonia Septic Shock improving Lactic Acidosis improved +Troponins likely [place]and Ischemia COPD ESRD on HD CAD Pulmonary HTN Atrial Fibrillation s/p PPM h/o GI bleed Anemia - ABX - HD per renal - Stress dose steroids tapered - inhaled bronchodilators - NC O2 as tolerated - rate controlled - holding anticoagulation - Cardiac Telemetry monitoring Elke LINDSAY MD
--- NOTE | 2019-11-29 12:09 | PN ---
Progress Note (short form) - Note Progress Note: Events noted he started dysphagia puree diet no SOB finished HD Vital Signs - 24 hr 11/28/19 11/28/19 11/28/19 18:00 20:30 21:00 Temperature 98.5 F 98.8 F Pulse Rate 64 64 Respiratory 20 20 Rate Blood Pressure 109/43 L 119/47 L O2 Sat by Pulse 98 Oximetry (%) 11/29/19 11/29/19 11/29/19 02:00 06:00 07:15 Temperature 97.3 F L 97.7 F 98.2 F Pulse Rate 60 62 60 Respiratory 20 20 18 Rate Blood Pressure 107/50 L 112/49 L 120/58 L O2 Sat by Pulse Oximetry (%) 11/29/19 11/29/19 11/29/19 07:20 07:50 08:20 Temperature Pulse Rate 60 60 62 Respiratory 18 18 18 Rate Blood Pressure 121/60 109/49 L 105/52 L O2 Sat by Pulse Oximetry (%) 11/29/19 11/29/19 11/29/19 08:50 09:20 09:50 Temperature Pulse Rate 60 61 62 Respiratory 18 18 18 Rate Blood Pressure 110/54 L 119/52 L 110/53 L O2 Sat by Pulse Oximetry (%) 11/29/19 11/29/19 11/29/19 10:10 10:50 11:00 Temperature Pulse Rate 61 60 60 Respiratory 18 18 18 Rate Blood Pressure 112/53 L 110/56 L 114/57 L O2 Sat by Pulse Oximetry (%) Current Medications Generic Name Dose Route Start Last Admin Trade Name Freq PRN Reason Stop Dose Admin Albuterol Sulfate 1 amp 11/24/19 18:56 Ventolin 0.083% Nebulizer Soln - NEB Q4H PRN SHORT OF BREATH/WHEEZING Albuterol/Ipratropium 1 amp 11/24/19 20:00 11/29/19 11:47 Duoneb - NEB 1 amp RQID TED Administration Amino Acids 30 ml 11/26/19 11:45 11/29/19 10:42 Prosource No Carb Liquid Pkt PO 30 ml DAILY [facility] Administration Fludrocortisone Acetate 0.05 mg 11/25/19 10:00 11/29/19 11:30 Florinef - GT 0.05 mg DAILY [facility] Administration Heparin Sodium (Porcine) 5,000 unit 11/24/19 22:00 11/29/19 14:57 Heparin - SQ 5,000 unit TID [facility]ED Administration Hydrocortisone Sodium Succinate 25 mg 11/28/19 14:30 11/29/19 10:44 Solu-Cortef - IVPB 25 mg BID TED Administration Insulin Aspart 1 vial 11/24/19 22:00 11/29/19 12:15 Novolog Vial Sliding Scale - SQ Not Given ACHS [facility] Protocol Midodrine 2.5 mg 11/24/19 19:00 11/29/19 14:58 Proamatine - PO 2.5 mg TID-MID [facility] Administration Multivit/Ca Carb/B Cmplx/FA/Prenat 1 tablet 11/26/19 11:45 11/29/19 11:00 Nephro-Malachi - PO 1 tablet DAILY [facility] Administration Pantoprazole Sodium 40 mg 11/25/19 10:00 11/29/19 10:42 Protonix Iv IVPUSH 40 mg DAILY [facility] Administration Sodium Chloride 2 spray 11/24/19 18:56 [place] Nasal [place] - NS BID PRN NASAL CONGESTION Laboratory Results - last 24 hr 11/28/19 11/28/19 11/29/19 17:36 21:51 05:18 WBC 7.7 RBC 2.87 L Hgb 9.5 L Hct 29.7 L MCV 103.8 H MCH 33.0 MCHC 31.8 L RDW 20.6 H Plt Count 76 L D MPV 9.9 Absolute Neuts (auto) 7.0 Neutrophils % 91.5 H Neutrophils % (Manual) 90.8 H Band Neutrophils % 0.0 Lymphocytes % 4.5 L Lymphocytes % (Manual) 5.1 L D Monocytes % 3.4 L Monocytes % (Manual) 4 Eosinophils % 0.3 D Eosinophils % (Manual) 0.0 Basophils % 0.3 Basophils % (Manual) 0.0 Myelocytes % (Man) 0 Promyelocytes % (Man) 0 Blast Cells % (Manual) 0 Nucleated RBC % 0 Metamyelocytes 0 Hypochromia 1+ Toxic Granulation 1+ Platelet Estimate Decreased Polychromasia 1+ Poikilocytosis 1+ Anisocytosis 1+ Microcytosis 0 Macrocytosis 1+ Target Cells 0 Tear Drop Cells 1+ Ovalocytes 1+ [place] Cells 0 Acanthocytes (Spur) 1+ Sodium Potassium Chloride Carbon Dioxide Anion Gap BUN Creatinine Est GFR (CKD-EPI)AfAm Est GFR (CKD-EPI)NonAf POC Glucometer 277 188 Random Glucose Calcium Total Bilirubin AST ALT Alkaline Phosphatase Total Protein Albumin 11/29/19 11/29/19 11/29/19 05:18 05:30 11:55 WBC RBC Hgb Hct MCV MCH MCHC RDW Plt Count MPV Absolute Neuts (auto) Neutrophils % Neutrophils % (Manual) Band Neutrophils % Lymphocytes % Lymphocytes % (Manual) Monocytes % Monocytes % (Manual) Eosinophils % Eosinophils % (Manual) Basophils % Basophils % (Manual) Myelocytes % (Man) Promyelocytes % (Man) Blast Cells % (Manual) Nucleated RBC % Metamyelocytes Hypochromia Toxic Granulation Platelet Estimate Polychromasia Poikilocytosis Anisocytosis Microcytosis Macrocytosis Target Cells Tear Drop Cells Ovalocytes Israel Cells Acanthocytes (Spur) Sodium 142 Potassium 2.6 L* Chloride 103 Carbon Dioxide 28 Anion Gap 11 BUN 56.6 H Creatinine 3.1 H Est GFR (CKD-EPI)AfAm 21.33 Est GFR (CKD-EPI)NonAf 18.40 POC Glucometer 187 117 Random Glucose 194 H Calcium 8.5 Total Bilirubin 0.8 AST 13 L ALT 15 Alkaline Phosphatase 100 Total Protein 5.6 L Albumin 2.8 L Physical Constitutional: Yes: on BIPAP Eyes: Yes: Conjunctiva Clear Neck: Yes: Supple. Cardiovascular: Yes: Regular Rate and Rhythm Respiratory: Yes: Diminished on left Gastrointestinal: Yes: Soft, not tender Genitourinary: Yes: [place] Removed Extremities: Yes: Amputation (s/p right aka) Edema: No Integumentary: No: Other Wound/Incision: Yes: Other (Left heel ulcer)-- Dressing + Neurological: Yes: Other (sedated) Additional Findings/Remarks: - ....Imaging Chest X-ray: Report Reviewed-->same congestion, infiltrates Cat Scan: Report Reviewed Echo-- Reviewed Assessment/Plan In summary Pt 79yr old gentleman with extensive PMHx of CAD , s/p multivessel PCI (> 1 year ago), CHF , PPM, AF,COPD, ESRD-HD. Has been in and out of hospital since July with COPD/ infections/ CKD and recently had a possible GIB at [place]- no endoscopic evaluation. Transferred from [facility] for short term rehab and was transferred here for resp distress. plan - IV antibiotics completed Dialysis per renal feeding--aspiration precautions-- on dysphagia puree diet continue with NG feeds for now -- add MVI and prosource --add Nepro no po meds continue BGM monitoring Problem List - Problems (1) CAD (coronary artery disease) Code(s): I25.10 - ATHSCL HEART DISEASE OF [place] CORONARY ARTERY W/O ANG PCTRS (2) COPD (chronic obstructive pulmonary disease) Code(s): J44.9 - CHRONIC OBSTRUCTIVE PULMONARY DISEASE, UNSPECIFIED Qualifiers: COPD type: unspecified COPD Qualified Code(s): J44.9 - Chronic obstructive pulmonary disease, unspecified (3) Elevated troponin Code(s): R79.89 - OTHER SPECIFIED ABNORMAL FINDINGS OF BLOOD CHEMISTRY (4) PVD (peripheral vascular disease) Code(s): I73.9 - PERIPHERAL VASCULAR DISEASE, UNSPECIFIED (5) Respiratory failure Code(s): J96.90 - RESPIRATORY FAILURE, UNSP, UNSP W HYPOXIA OR HYPERCAPNIA (6) Thrombocytopenia Code(s): D69.6 - THROMBOCYTOPENIA, UNSPECIFIED
--- NOTE | 2019-11-29 12:38 | PN ---
Progress Note, Physician - Current Medication List Current Medications: Active Medications Albuterol Sulfate (Ventolin 0.083% Nebulizer Soln -) 1 amp NEB Q4H PRN PRN Reason: SHORT OF BREATH/WHEEZING Albuterol/Ipratropium (Duoneb -) 1 amp NEB RQID [facility] Last Admin: 11/29/19 11:47 Dose: 1 amp Amino Acids (Prosource No Carb Liquid Pkt) 30 ml PO DAILY [facility] Last Admin: 11/29/19 10:42 Dose: 30 ml Fludrocortisone Acetate (Florinef -) 0.05 mg GT DAILY [facility] Last Admin: 11/29/19 11:30 Dose: 0.05 mg Heparin Sodium (Porcine) (Heparin -) 5,000 unit SQ TID [facility] Last Admin: 11/29/19 06:42 Dose: 5,000 unit Hydrocortisone Sodium Succinate (Solu-Cortef -) 25 mg IVPB BID [facility] Last Admin: 11/29/19 10:44 Dose: 25 mg Potassium Chloride (Potassium Chloride 10 Meq Premix Ivpb -) 10 meq in 100 mls @ 100 mls/hr IVPB Q60M [facility] Stop: 11/29/19 12:44 Last Admin: 11/29/19 12:17 Dose: 100 mls/hr Insulin Aspart (Novolog Vial Sliding Scale -) 1 vial SQ ACHS [facility]; Protocol Last Admin: 11/29/19 12:15 Dose: Not Given Midodrine (Proamatine -) 2.5 mg PO TID-MID [facility] Last Admin: 11/29/19 11:29 Dose: 2.5 mg Multivit/Ca Carb/B Cmplx/FA/Prenat (Nephro-Malachi -) 1 tablet PO DAILY [facility] Last Admin: 11/29/19 11:00 Dose: 1 tablet Pantoprazole Sodium (Protonix Iv) 40 mg IVPUSH DAILY [facility] Last Admin: 11/29/19 10:42 Dose: 40 mg Sodium Chloride ([place] Nasal [place] -) 2 spray NS BID PRN PRN Reason: NASAL CONGESTION - Objective Vital Signs: Vital Signs Temperature 98.2 F 11/29/19 07:15 Pulse Rate 60 11/29/19 11:00 Respiratory Rate 18 11/29/19 11:00 Blood Pressure 114/57 L 11/29/19 11:00 O2 Sat by Pulse Oximetry (%) 98 11/28/19 21:00 Labs: CBC, BMP 11/29/19 05:18 11/29/19 05:18 INR, PTT INR 1.02 (0.83-1.09) 11/17/19 06:00
[2019-11-29 13:30] LABS: ANISOCYTOSIS 1+; MACROCYTOSIS 1+; OVALOCYTE 1+; PLATELET ESTIMATE DECREASED; TARGET CELLS 0; TEAR DROP CELLS 1+; TOXIC GRANULATION 1+
--- NOTE | 2019-11-29 18:14 | PN ---
Progress Note, Physician History of Present Illness: Pt seen and examined at bedside. He tolerated HD. He feels well. His mental status is markedly improved. - Current Medication List Current Medications: Active Medications Albuterol Sulfate (Ventolin 0.083% Nebulizer Soln -) 1 amp NEB Q4H PRN PRN Reason: SHORT OF BREATH/WHEEZING Albuterol/Ipratropium (Duoneb -) 1 amp NEB RQID [facility] Last Admin: 11/29/19 16:08 Dose: 1 amp Amino Acids (Prosource No Carb Liquid Pkt) 30 ml PO DAILY [facility] Last Admin: 11/29/19 10:42 Dose: 30 ml Fludrocortisone Acetate (Florinef -) 0.05 mg GT DAILY [facility] Last Admin: 11/29/19 11:30 Dose: 0.05 mg Heparin Sodium (Porcine) (Heparin -) 5,000 unit SQ TID [facility] Last Admin: 11/29/19 14:57 Dose: 5,000 unit Hydrocortisone Sodium Succinate (Solu-Cortef -) 25 mg IVPB BID [facility] Last Admin: 11/29/19 10:44 Dose: 25 mg Insulin Aspart (Novolog Vial Sliding Scale -) 1 vial SQ ACHS [facility]; Protocol Last Admin: 11/29/19 12:15 Dose: Not Given Midodrine (Proamatine -) 2.5 mg PO TID-MID [facility] Last Admin: 11/29/19 17:26 Dose: 2.5 mg Multivit/Ca Carb/B Cmplx/FA/Prenat (Nephro-Malachi -) 1 tablet PO DAILY [facility] Last Admin: 11/29/19 11:00 Dose: 1 tablet Pantoprazole Sodium (Protonix Iv) 40 mg IVPUSH DAILY [facility] Last Admin: 11/29/19 10:42 Dose: 40 mg Sodium Chloride ([place] Nasal [place] -) 2 spray NS BID PRN PRN Reason: NASAL CONGESTION - Objective Vital Signs: Vital Signs Temperature 98.2 F 11/29/19 14:00 Pulse Rate 61 11/29/19 14:00 Respiratory Rate 20 11/29/19 14:00 Blood Pressure 98/44 L 11/29/19 14:00 O2 Sat by Pulse Oximetry (%) 98 11/29/19 09:00 Constitutional: Yes: Calm Eyes: Yes: Conjunctiva Clear HENT: Yes: Atraumatic Neck: Yes: Supple Cardiovascular: Yes: S1, S2 Respiratory: Yes: CTA Bilaterally Gastrointestinal: Yes: Soft Genitourinary: Yes: WNL Extremities: Yes: Other (right arm fistula with thrill and bruit) Neurological: Yes: Oriented Psychiatric: Yes: Oriented Labs: CBC, BMP 11/29/19 05:18 11/29/19 05:18 INR, PTT INR 1.02 (0.83-1.09) 11/17/19 06:00 Assessment/Plan Current Medications Generic Name Dose Route Start Last Admin Trade Name Freq PRN Reason Stop Dose Admin Albuterol Sulfate 1 amp 11/24/19 18:56 Ventolin 0.083% Nebulizer Soln - NEB Q4H PRN SHORT OF BREATH/WHEEZING Albuterol/Ipratropium 1 amp 11/24/19 20:00 11/29/19 16:08 Duoneb - NEB 1 amp RQID [facility] Administration Amino Acids 30 ml 11/26/19 11:45 11/29/19 10:42 Prosource No Carb Liquid Pkt PO 30 ml DAILY [facility] Administration Fludrocortisone Acetate 0.05 mg 11/25/19 10:00 11/29/19 11:30 Florinef - GT 0.05 mg DAILY [facility] Administration Heparin Sodium (Porcine) 5,000 unit 11/24/19 22:00 11/29/19 14:57 Heparin - SQ 5,000 unit TID [facility] Administration Hydrocortisone Sodium Succinate 25 mg 11/28/19 14:30 11/29/19 10:44 Solu-Cortef - IVPB 25 mg BID [facility] Administration Insulin Aspart 1 vial 11/24/19 22:00 11/29/19 12:15 Novolog Vial Sliding Scale - SQ Not Given ACHS [facility] Protocol Midodrine 2.5 mg 11/24/19 19:00 11/29/19 17:26 Proamatine - PO 2.5 mg TID-MID [facility] Administration Multivit/Ca Carb/B Cmplx/FA/Prenat 1 tablet 11/26/19 11:45 11/29/19 11:00 Nephro-Malachi - PO 1 tablet DAILY [facility] Administration Pantoprazole Sodium 40 mg 11/25/19 10:00 11/29/19 10:42 Protonix Iv IVPUSH 40 mg DAILY [facility] Administration Sodium Chloride 2 spray 02/03/20 18:56 [place] Nasal [place] - NS BID PRN NASAL CONGESTION Impression 1. ESRD 2. resp failure 3. PNA 4. copd 5. chf 6. sepsis 7. pulm effusion 8. hyponatremia Plan - HD today - vascular input appreciated - mental status improved - replace potassium - repeat bmp to assess potassium - HD: TTS f180 3:30 DW 87 kg 2 k bath 2.5 ca, [id number], na 137, access PC right chest
[2019-11-29 21:21] LABS: BLOOD UREA NITROGEN 26.9 mg/dL (7-18); CALCIUM 8.2 mg/dL (8.5-10.1); MAGNESIUM 1.8 mg/dL (1.8-2.4)
[2019-11-29 21:40] LABS: POTASSIUM 2.8 mmol/L (3.5-5.1)
[2019-11-29] MEDS ORDERED: POTASSIUM CHLORIDE ORAL LIQUID 20 MEQ/15 ML PO ONE (22:15)
[2019-11-30] MEDS: KCL 10 MEQ IVPB 10 MEQ/100 ML INFUS.BAG IVPB SCH (00:45)
[2019-11-30] MEDS: HEPARIN NA (PORCINE) 5,000 UNITS/ML 1ML VIAL SQ SCH ×3 (06:38→21:27)
[2019-11-30] MEDS: INSULIN SLIDING SCALE (NOVOLOG) 1 VIAL SQ SCH ×4 (06:39→21:48)
[2019-11-30] MEDS ORDERED: PT OWN MED DRAWER 7, Y5N ONE ×2 (08:10→15:21)
[2019-11-30] MEDS: VITAMIN B COMP W-C 1 EA TABLET PO SCH (09:00)
[2019-11-30] MEDS: MIDODRINE HCL 2.5 MG TABLET PO SCH ×3 (09:00→18:01)
[2019-11-30] MEDS: AMINO ACIDS/PROTEIN HYDROLYS 30 ML LIQUID.PKT PO SCH (09:01)
[2019-11-30] MEDS: HYDROCORTISONE SOD SUCCINATE 100 MG/2 ML VIAL IVPB SCH (09:01)
[2019-11-30] MEDS: PANTOPRAZOLE SODIUM 40 MG VIAL IVPUSH SCH (09:01)
[2019-11-30] MEDS: FLUDROCORTISONE ACETATE 0.1 MG TABLET (FP) GT SCH (09:01)
--- NOTE | 2019-11-30 09:28 | PN ---
Progress Note (short form) - Note Progress Note: Events noted he started dysphagia puree diet he is tolerating diet Vital Signs - 24 hr 11/29/19 11/30/19 11/30/19 21:00 06:00 09:00 Temperature 99 F 97.5 F L 98 F Pulse Rate 66 60 60 Respiratory 19 19 19 Rate Blood Pressure 121/50 L 93/55 L 104/62 O2 Sat by Pulse 100 100 Oximetry (%) 11/30/19 11/30/19 14:00 18:00 Temperature 99.8 F H Pulse Rate 61 60 Respiratory 18 18 Rate Blood Pressure 99/44 L 104/55 L O2 Sat by Pulse Oximetry (%) Current Medications Generic Name Dose Route Start Last Admin Trade Name Freq PRN Reason Stop Dose Admin Amino Acids 30 ml 11/26/19 11:45 11/30/19 09:01 Prosource No Carb Liquid Pkt PO 30 ml DAILY TED Administration Fludrocortisone Acetate 0.05 mg 11/25/19 10:00 11/30/19 09:01 Florinef - GT 0.05 mg DAILY TED Administration Heparin Sodium (Porcine) 5,000 unit 11/24/19 22:00 11/30/19 15:08 Heparin - SQ 5,000 unit TID TED Administration Hydrocortisone Sodium Succinate 25 mg 11/28/19 14:30 11/30/19 09:01 Solu-Cortef - IVPB 25 mg BID TED Administration Insulin Aspart 1 vial 11/24/19 22:00 11/30/19 18:00 Novolog Vial Sliding Scale - SQ 4 units ACHS TED Administration Protocol Midodrine 2.5 mg 11/24/19 19:00 11/30/19 18:01 Proamatine - PO 2.5 mg TID-MID TED Administration Multivit/Ca Carb/B Cmplx/FA/Prenat 1 tablet 11/26/19 11:45 11/30/19 09:00 Nephro-Malachi - PO 1 tablet DAILY TED Administration Pantoprazole Sodium 40 mg 11/25/19 10:00 11/30/19 09:01 Protonix Iv IVPUSH 40 mg DAILY TED Administration Sodium Chloride 2 spray 11/24/19 18:56 [place] Nasal [place] - NS BID PRN NASAL CONGESTION Laboratory Results - last 24 hr 11/29/19 11/29/19 11/30/19 20:21 21:26 06:36 Sodium 139 Potassium 2.8 L* Chloride 101 Carbon Dioxide 30 Anion Gap 9 BUN 26.9 H Creatinine 2.0 H Est GFR (CKD-EPI)AfAm 36.24 Est GFR (CKD-EPI)NonAf 31.26 POC Glucometer 169 163 Random Glucose 256 H Calcium 8.2 L Magnesium 1.8 Total Bilirubin AST ALT Alkaline Phosphatase Total Protein Albumin 11/30/19 11/30/19 11/30/19 09:40 10:52 17:55 Sodium 139 Potassium 4.2 Chloride 101 Carbon Dioxide 31 Anion Gap 7 L BUN 35.0 H Creatinine 2.3 H Est GFR (CKD-EPI)AfAm 30.60 Est GFR (CKD-EPI)NonAf 26.40 POC Glucometer 182 221 Random Glucose 134 H Calcium 8.3 L Magnesium Total Bilirubin 0.8 AST 13 L ALT 17 Alkaline Phosphatase 106 Total Protein 6.0 L Albumin 2.9 L Physical Constitutional: Yes: on BIPAP Eyes: Yes: Conjunctiva Clear Neck: Yes: Supple. Cardiovascular: Yes: Regular Rate and Rhythm Respiratory: Yes: Diminished on left Gastrointestinal: Yes: Soft, not tender Genitourinary: Yes: [place] Removed Extremities: Yes: Amputation (s/p right aka) Edema: No Integumentary: No: Other Wound/Incision: Yes: Other (Left heel ulcer)-- Dressing + Neurological: Yes: Other (sedated) Additional Findings/Remarks: - ....Imaging Chest X-ray: Report Reviewed-->same congestion, infiltrates Cat Scan: Report Reviewed Echo-- Reviewed Assessment/Plan In summary Pt 79yr old gentleman with extensive PMHx of CAD , s/p multivessel PCI (> 1 year ago), CHF , PPM, AF,COPD, ESRD-HD. Has been in and out of hospital since July with COPD/ infections/ CKD and recently had a possible GIB at [place]- no endoscopic evaluation. Transferred from [facility] for short term rehab and was transferred here for resp distress. plan - IV antibiotics completed Afib--underlying rhythm --s/p PPM -- off AC due to low platelets, sepsis, GI bleed -- risks >benefits --at this time holding off Dialysis per renal feeding--aspiration precautions-- on dysphagia puree diet continue with NG feeds for now -- add MVI and prosource --add Nepro no po meds continue BGM monitoring PT eval tapering stress steroids clinically improving Problem List - Problems (1) CAD (coronary artery disease) Code(s): I25.10 - ATHSCL HEART DISEASE OF [place] CORONARY ARTERY W/O ANG PCTRS (2) COPD (chronic obstructive pulmonary disease) Code(s): J44.9 - CHRONIC OBSTRUCTIVE PULMONARY DISEASE, UNSPECIFIED Qualifiers: COPD type: unspecified COPD Qualified Code(s): J44.9 - Chronic obstructive pulmonary disease, unspecified (3) Elevated troponin Code(s): R79.89 - OTHER SPECIFIED ABNORMAL FINDINGS OF BLOOD CHEMISTRY (4) PVD (peripheral vascular disease) Code(s): I73.9 - PERIPHERAL VASCULAR DISEASE, UNSPECIFIED (5) Respiratory failure Code(s): J96.90 - RESPIRATORY FAILURE, UNSP, UNSP W HYPOXIA OR HYPERCAPNIA (6) Thrombocytopenia Code(s): D69.6 - THROMBOCYTOPENIA, UNSPECIFIED
--- NOTE | 2019-11-30 09:47 | PN ---
Progress Note, Physician History of Present Illness: No CV complaints No chest pains or dyspnea Tele: None - Current Medication List Current Medications: Active Medications Amino Acids (Prosource No Carb Liquid Pkt) 30 ml PO DAILY [facility] Last Admin: 11/30/19 09:01 Dose: 30 ml Fludrocortisone Acetate (Florinef -) 0.05 mg GT DAILY [facility] Last Admin: 11/30/19 09:01 Dose: 0.05 mg Heparin Sodium (Porcine) (Heparin -) 5,000 unit SQ TID [facility] Last Admin: 11/30/19 06:38 Dose: 5,000 unit Hydrocortisone Sodium Succinate (Solu-Cortef -) 25 mg IVPB BID [facility] Last Admin: 11/30/19 09:01 Dose: 25 mg Insulin Aspart (Novolog Vial Sliding Scale -) 1 vial SQ ACHS [facility]; Protocol Last Admin: 11/30/19 06:39 Dose: 2 units Midodrine (Proamatine -) 2.5 mg PO TID-MID [facility] Last Admin: 11/30/19 09:00 Dose: 2.5 mg Multivit/Ca Carb/B Cmplx/FA/Prenat (Nephro-Malachi -) 1 tablet PO DAILY [facility] Last Admin: 11/30/19 09:00 Dose: 1 tablet Pantoprazole Sodium (Protonix Iv) 40 mg IVPUSH DAILY [facility] Last Admin: 11/30/19 09:01 Dose: 40 mg Sodium Chloride ([place] Nasal [place] -) 2 spray NS BID PRN PRN Reason: NASAL CONGESTION - Objective Vital Signs: Vital Signs Temperature 97.5 F L 11/30/19 06:00 Pulse Rate 60 11/30/19 06:00 Respiratory Rate 19 11/30/19 06:00 Blood Pressure 93/55 L 11/30/19 06:00 O2 Sat by Pulse Oximetry (%) 100 11/29/19 21:00 Constitutional: Yes: No Distress, Calm Cardiovascular: Yes: Regular Rate and Rhythm Respiratory: Yes: CTA Bilaterally Extremities: Yes: Amputation (Right BKA) Edema: No Labs: CBC, BMP 11/29/19 05:18 INR, PTT INR 1.02 (0.83-1.09) 11/17/19 06:00 Assessment/Plan IMP: Acute respiratory failure secondary to RLL PNA w/loculated pleural effusion Sepsis secondary to above ESRD on HD Hyponatremia Chronic COPD CAD s/p PCI Right sided CHF with severe PHTN, RV dilatation and RV dysfunction (chronic per son report). nl LVEF Pacemaker Underlying AFib/flutter Recent reported GIB (no endoscopic evaluation) REC: - HD/UF per renal - Abx as per primary and ID - Borderline/flat TnI likely due to demand ischemia/sepsis. - Echo with RV dilatation and RV dysfx, severe PHTN- chronic per prior notes. May be due to chronic COPD, and acutely worsened in setting of PNA/hypoxia. - Underlying AF-holding AC in setting recent unexplored GIB/ low platelets ( sepsis/ possible abx effect). -As per Dr. Peralta: Risks> benefits of AC assessed at this time. -Needs potassium repletion (2.9) -Remains HD stable without rhythm issues, remains off tele
[2019-11-30 10:15] LABS: ALBUMIN 2.9 g/dl (3.4-5.0); BILIRUBIN,TOTAL 0.8 mg/dL (0.2-1); CALCIUM 8.3 mg/dL (8.5-10.1); CREATININE 2.3 mg/dL (0.55-1.3); POTASSIUM 4.2 mmol/L (3.5-5.1)
--- NOTE | 2019-11-30 11:36 | PN ---
Progress Note (short form) - Note Progress Note: PULMONARY Resting in NAD. Has been tolerating NC O2. No acute events overnight. HD Completed 2.5 kilos removed yesterday VSS/AFEBRILE Gen: resting comfortably Heart: RRR Lung: decreased breath sounds at the bases Abd: soft, nontender Ext: R BKA, no edema Chart reviewed ASSESSMENT AND PLAN: Acute Hypoxic Respiratory Failure Pneumonia Septic Shock improving Lactic Acidosis improved +Troponins likely Demand Ischemia COPD ESRD on HD CAD Pulmonary HTN Atrial Fibrillation s/p PPM h/o GI bleed Anemia - HD per renal - Stress dose steroids tapered - inhaled bronchodilators - NC O2 as tolerated - rate controlled - holding anticoagulation - Cardiac Telemetry monitoring Elke LINDSAY MD
--- NOTE | 2019-11-30 19:51 | PN ---
Progress Note, Physician History of Present Illness: Pt seen and examined at bedside. He is awake and appears comfortable. - Current Medication List Current Medications: Active Medications Amino Acids (Prosource No Carb Liquid Pkt) 30 ml PO DAILY [facility] Last Admin: 11/30/19 09:01 Dose: 30 ml Fludrocortisone Acetate (Florinef -) 0.05 mg GT DAILY [facility] Last Admin: 11/30/19 09:01 Dose: 0.05 mg Heparin Sodium (Porcine) (Heparin -) 5,000 unit SQ TID [facility] Last Admin: 11/30/19 15:08 Dose: 5,000 unit Hydrocortisone Sodium Succinate (Solu-Cortef -) 25 mg IVPB BID [facility] Last Admin: 11/30/19 09:01 Dose: 25 mg Insulin Aspart (Novolog Vial Sliding Scale -) 1 vial SQ ACHS [facility]; Protocol Last Admin: 11/30/19 18:00 Dose: 4 units Midodrine (Proamatine -) 2.5 mg PO TID-MID [facility] Last Admin: 11/30/19 18:01 Dose: 2.5 mg Multivit/Ca Carb/B Cmplx/FA/Prenat (Nephro-Malachi -) 1 tablet PO DAILY [facility] Last Admin: 11/30/19 09:00 Dose: 1 tablet Pantoprazole Sodium (Protonix Iv) 40 mg IVPUSH DAILY [facility] Last Admin: 11/30/19 09:01 Dose: 40 mg Sodium Chloride ([place] Nasal [place] -) 2 spray NS BID PRN PRN Reason: NASAL CONGESTION - Objective Vital Signs: Vital Signs Temperature 99.8 F H 11/30/19 14:00 Pulse Rate 60 11/30/19 18:00 Respiratory Rate 18 11/30/19 18:00 Blood Pressure 104/55 L 11/30/19 18:00 O2 Sat by Pulse Oximetry (%) 100 11/30/19 09:00 Constitutional: Yes: Calm Eyes: Yes: Conjunctiva Clear HENT: Yes: Atraumatic Neck: Yes: Supple Cardiovascular: Yes: S1, S2 Respiratory: Yes: CTA Bilaterally Gastrointestinal: Yes: Soft Genitourinary: Yes: WNL Musculoskeletal: Yes: WNL Extremities: Yes: Other (right leg amputation) Edema: No Neurological: Yes: Oriented Psychiatric: Yes: Oriented Labs: CBC, BMP 11/29/19 05:18 11/30/19 09:40 INR, PTT INR 1.02 (0.83-1.09) 11/17/19 06:00 Assessment/Plan Current Medications Generic Name Dose Route Start Last Admin Trade Name Shira PRN Reason Stop Dose Admin Amino Acids 30 ml 11/26/19 11:45 11/30/19 09:01 Prosource No Carb Liquid Pkt PO 30 ml DAILY TED Administration Fludrocortisone Acetate 0.05 mg 11/25/19 10:00 11/30/19 09:01 Florinef - GT 0.05 mg DAILY TED Administration Heparin Sodium (Porcine) 5,000 unit 11/24/19 22:00 11/30/19 15:08 Heparin - SQ 5,000 unit TID TED Administration Hydrocortisone Sodium Succinate 25 mg 11/28/19 14:30 11/30/19 09:01 Solu-Cortef - IVPB 25 mg BID TED Administration Insulin Aspart 1 vial 11/24/19 22:00 11/30/19 18:00 Novolog Vial Sliding Scale - SQ 4 units ACHS TED Administration Protocol Midodrine 2.5 mg 11/24/19 19:00 11/30/19 18:01 Proamatine - PO 2.5 mg TID-MID TED Administration Multivit/Ca Carb/B Cmplx/FA/Prenat 1 tablet 11/26/19 11:45 11/30/19 09:00 Nephro-Malachi - PO 1 tablet DAILY TED Administration Pantoprazole Sodium 40 mg 11/25/19 10:00 11/30/19 09:01 Protonix Iv IVPUSH 40 mg DAILY TED Administration Sodium Chloride 2 spray 11/24/19 18:56 [place] Nasal [place] - NS BID PRN NASAL CONGESTION Impression 1. ESRD 2. resp failure 3. PNA 4. copd 5. chf 6. sepsis 7. pulm effusion 8. hyponatremia 9. hypokalemia Plan - potassium improved - next HD Sunday - discussed plan with family - mental status improved - HD: TTS f180 3:30 DW 87 kg 2 k bath 2.5 ca, [id number], na [id number], access PC right chest
[2019-12-01] MEDS: HEPARIN NA (PORCINE) 5,000 UNITS/ML 1ML VIAL SQ SCH (05:51)
[2019-12-01] MEDS: INSULIN SLIDING SCALE (NOVOLOG) 1 VIAL SQ SCH ×2 (06:23→12:21)
[2019-12-01 08:25] LABS: BLOOD UREA NITROGEN 50.5 mg/dL (7-18); CALCIUM 8.5 mg/dL (8.5-10.1); CREATININE 2.8 mg/dL (0.55-1.3); POTASSIUM 4.2 mmol/L (3.5-5.1)
[2019-12-01] MEDS ORDERED: PT OWN MED DRAWER 7, Y5N ONE (09:00)
[2019-12-01 09:13] VITALS: BP 110/46; PULSE 60; TEMP 98
[2019-12-01] MEDS: AMINO ACIDS/PROTEIN HYDROLYS 30 ML LIQUID.PKT PO SCH (09:19)
[2019-12-01] MEDS: PANTOPRAZOLE SODIUM 40 MG VIAL IVPUSH SCH (09:19)
[2019-12-01] MEDS: MIDODRINE HCL 2.5 MG TABLET PO SCH ×2 (09:20→13:42)
[2019-12-01] MEDS: VITAMIN B COMP W-C 1 EA TABLET PO SCH (09:20)
[2019-12-01] MEDS: FLUDROCORTISONE ACETATE 0.1 MG TABLET (FP) GT SCH (09:20)
[2019-12-01] MEDS ORDERED: HYDROCORTISONE SOD SUCCINATE 100 MG/2 ML VIAL IVPB SCH (10:00)
--- NOTE | 2019-12-01 11:01 | PN ---
Progress Note, Physician - Current Medication List Current Medications: Active Medications Amino Acids (Prosource No Carb Liquid Pkt) 30 ml PO DAILY [facility] Last Admin: 12/01/19 09:19 Dose: 30 ml Fludrocortisone Acetate (Florinef -) 0.05 mg GT DAILY [facility] Last Admin: 12/01/19 09:20 Dose: 0.05 mg Heparin Sodium (Porcine) (Heparin -) 5,000 unit SQ TID [facility] Last Admin: 12/01/19 05:51 Dose: 5,000 unit Hydrocortisone Sodium Succinate (Solu-Cortef -) 25 mg IVPB DAILY [facility] Last Admin: 12/01/19 09:19 Dose: 25 mg Insulin Aspart (Novolog Vial Sliding Scale -) 1 vial SQ ACHS [facility]; Protocol Last Admin: 12/01/19 06:23 Dose: Not Given Midodrine (Proamatine -) 2.5 mg PO TID-MID [facility] Last Admin: 12/01/19 09:20 Dose: 2.5 mg Multivit/Ca Carb/B Cmplx/FA/Prenat (Nephro-Malachi -) 1 tablet PO DAILY [facility] Last Admin: 12/01/19 09:20 Dose: 1 tablet Pantoprazole Sodium (Protonix Iv) 40 mg IVPUSH DAILY [facility] Last Admin: 12/01/19 09:19 Dose: 40 mg Sodium Chloride ([place] Nasal [place] -) 2 spray NS BID PRN PRN Reason: NASAL CONGESTION - Objective Vital Signs: Vital Signs Temperature 98 F 12/01/19 09:00 Pulse Rate 60 12/01/19 09:00 Respiratory Rate 18 12/01/19 09:00 Blood Pressure 110/46 L 12/01/19 09:00 O2 Sat by Pulse Oximetry (%) 98 12/01/19 09:00 Labs: CBC, BMP 11/29/19 05:18 12/01/19 07:08 INR, PTT INR 1.02 (0.83-1.09) 11/17/19 06:00 Assessment/Plan SSESSMENT AND PLAN: Acute Hypoxic Respiratory Failure Pneumonia Septic Shock improving Lactic Acidosis improved +Troponins likely Demand Ischemia COPD ESRD on HD CAD Pulmonary HTN Atrial Fibrillation s/p PPM h/o GI bleed Anemia - ABX - HD per renal - Stress dose steroids tapered - inhaled bronchodilators - NC O2 as tolerated - rate controlled - holding anticoagulation - Cardiac Telemetry monitoring DR CASTELLANOS
--- NOTE | 2019-12-01 11:41 | DS ---
Physical Examination Vital Signs: Vital Signs Temperature 98 F 12/01/19 09:00 Pulse Rate 60 12/01/19 09:00 Respiratory Rate 18 12/01/19 09:00 Blood Pressure 110/46 L 12/01/19 09:00 O2 Sat by Pulse Oximetry (%) 98 12/01/19 09:00 Findings/Remarks: Pt seen/ examined awake/ comfortable feels well eating ok family at bedside Constitutional: Yes: No Distress, Calm Eyes: Yes: Conjunctiva Clear Neck: Yes: Supple Cardiovascular: Yes: Regular Rate and Rhythm Respiratory: Yes: Diminished Gastrointestinal: Yes: Soft Extremities: Yes: Delayed Capillary Refill Wound/Incision: Yes: Dressing Dry and Intact Neurological: Yes: Alert Labs: CBC, BMP 11/29/19 05:18 12/01/19 07:08 Discharge Summary Problems reviewed: Yes Reason For Visit: ELEVATED TROPONIN LEVEL, CHRONIC OBSTRUCTIVE Current Active Problems CAD (coronary artery disease) (Acute) COPD (chronic obstructive pulmonary disease) (Acute) Dysphagia (Acute) ESRD (end stage renal disease) on dialysis (Acute) Elevated troponin (Acute) Immature arteriovenous fistula (Acute) PVD (peripheral vascular disease) (Acute) Respiratory failure (Acute) Thrombocytopenia (Acute) Hospital Course: In summary Pt 79yr old gentleman with extensive PMHx of CAD , s/p multivessel PCI (> 1 year ago), CHF , PPM, AF,COPD, ESRD-HD. s/p right bka and left foot ulcer . Has been in and out of hospital since July with COPD/ infections/ CKD and recently had a possible GIB at [place]- no endoscopic evaluation. Transferred from [facility] for short term rehab and was transferred here for resp distress. Pt intubated/ admitted to icu Was on pressor support/ broad spectrum abx got better extubated eventually transferred out of icu slowly got better off abx now as well as pressors Now stable for d/c back to long term meds reconcilled taper steroids d/w pt/ / Rn in detail will follow in long term condition stable but gaurded Discharge diagnoses Acute Hypoxic Respiratory Failure-- Resolved Pneumonia Septic Shock Lactic Acidosis +Troponins--- likely Demand Ischemia COPD ESRD on HD-- Next Dialysis tomorrow CAD Pulmonary HTN Atrial Fibrillation s/p PPM h/o GI bleed Thrombocytepenia Anemia s/p right BKA Left heel ulcer Time spend in d/c planning/ assessment / coordating care-- approx 45 min Condition: Guarded - Instructions Disposition: LONGTERM FACILITY - Home Medications Comprehensive Discharge Medication List: Ambulatory Orders Aspirin 81 mg PO 11/14/19 Budesonide/Formeterol Fumarate [SYMBICORT 160/4.5mcg -] 1 puff IH BID 11/14/19 Calcitriol [Calcitriol -] 0.25 mcg PO DAILY 11/14/19 Docusate Sodium [Colace] 100 mg PO BID PRN 11/14/19 Furosemide [Lasix] 40 mg PO DAILY 11/14/19 Glipizide 5 mg PO DAILY 11/14/19 Iron Ps Complex/B12/Folic Acid [Ferrex 150 Forte Capsule] 150 mg PO DAILY Lisinopril 10 mg PO DAILY 11/14/19 Metoprolol Tartrate 25 mg PO DAILY 11/14/19 Mirabegron [Myrbetriq] 50 mg PO DAILY 11/14/19 Nitroglycerin [Nitrostat] 0.4 mg SL PRN PRN 11/14/19 Omeprazole Magnesium [Prilosec Otc] 20 mg PO DAILY 11/14/19 Oxybutynin Chloride [Ditropan Xl] 5 mg PO DAILY 11/14/19 Simvastatin 40 mg PO HS 11/14/19 Albuterol 2.5/Ipratropium 0.5 [Duoneb -] 1 amp NEB RQID amp 12/01/19 Fludrocortisone Acetate [Florinef -] 0.05 mg GT DAILY tablet 12/01/19 Insulin Sliding Scale [Novolog Vial Sliding Scale -] 1 vial SQ ACHS units 12/01 Midodrine HCl [Proamatine -] 2.5 mg PO TID-MID tablet 12/01/19 Prednisone 10 mg PO DAILY 6 Days #6 tablet 12/01/19 Vitamin B Comp W-C [Nephro-Malachi -] 1 tablet PO DAILY tablet 12/01/19
--- NOTE | 2019-12-01 12:08 | PN ---
Progress Note, HERB DOCTOR - Note Progress Note: 79 yo male seen as a f/u to [facility] with recommendation for dysphagia chopped with nectar thicken liqids. Chart review and pt indicates pt is improving oral intake since NGT has been removed. Pt is scheduled to be discharged possibly later today. Recommendations: continue current diet dysphagia chopped with thicken liquids. Observe standard aspiration precaution. Oral care before and after meals. No further speech intervention needed at this time unless there is a change in medical status.
--- NOTE | 2019-12-01 12:20 | PN ---
Progress Note, Physician History of Present Illness: stable no new issues - Current Medication List Current Medications: Active Medications Amino Acids (Prosource No Carb Liquid Pkt) 30 ml PO DAILY [facility] Last Admin: 12/01/19 09:19 Dose: 30 ml Fludrocortisone Acetate (Florinef -) 0.05 mg GT DAILY [facility] Last Admin: 12/01/19 09:20 Dose: 0.05 mg Heparin Sodium (Porcine) (Heparin -) 5,000 unit SQ TID [facility] Last Admin: 12/01/19 05:51 Dose: 5,000 unit Hydrocortisone Sodium Succinate (Solu-Cortef -) 25 mg IVPB DAILY [facility] Last Admin: 12/01/19 09:19 Dose: 25 mg Insulin Aspart (Novolog Vial Sliding Scale -) 1 vial SQ [facility]; Protocol Last Admin: 12/01/19 06:23 Dose: Not Given Midodrine (Proamatine -) 2.5 mg PO TID-MID [facility] Last Admin: 12/01/19 09:20 Dose: 2.5 mg Multivit/Ca Carb/B Cmplx/FA/Prenat (Nephro-Malachi -) 1 tablet PO DAILY [facility] Last Admin: 12/01/19 09:20 Dose: 1 tablet Pantoprazole Sodium (Protonix Iv) 40 mg IVPUSH DAILY [facility] Last Admin: 12/01/19 09:19 Dose: 40 mg Sodium Chloride ([place] Nasal [place] -) 2 spray NS BID PRN PRN Reason: NASAL CONGESTION - Objective Vital Signs: Vital Signs Temperature 98 F 12/01/19 09:00 Pulse Rate 60 12/01/19 09:00 Respiratory Rate 18 12/01/19 09:00 Blood Pressure 110/46 L 12/01/19 09:00 O2 Sat by Pulse Oximetry (%) 98 12/01/19 09:00 Constitutional: Yes: No Distress, Calm Cardiovascular: Yes: S1, S2 Respiratory: Yes: Regular, CTA Bilaterally Gastrointestinal: Yes: Normal Bowel Sounds, Soft Musculoskeletal: Yes: WNL Extremities: Yes: WNL Neurological: Yes: Alert, Oriented Psychiatric: Yes: Alert, Oriented Labs: CBC, BMP 11/29/19 05:18 12/01/19 07:08 INR, PTT INR 1.02 (0.83-1.09) 11/17/19 06:00 Assessment/Plan Acute Respiratory Acute due to RLL PNA COPD, ESRD on HD CHF SAVANA R/O Seizure Septic Shock PAD Demand Ischemia Chronic loculated RLL effusion plan continue to monitor nutrition rest as per the team
--- NOTE | 2019-12-01 12:21 | PN ---
Progress Note, Physician History of Present Illness: stable no new issues - Current Medication List Current Medications: Active Medications Amino Acids (Prosource No Carb Liquid Pkt) 30 ml PO DAILY [facility] Last Admin: 12/01/19 09:19 Dose: 30 ml Fludrocortisone Acetate (Florinef -) 0.05 mg GT DAILY [facility] Last Admin: 12/01/19 09:20 Dose: 0.05 mg Heparin Sodium (Porcine) (Heparin -) 5,000 unit SQ TID [facility] Last Admin: 12/01/19 05:51 Dose: 5,000 unit Hydrocortisone Sodium Succinate (Solu-Cortef -) 25 mg IVPB DAILY [facility] Last Admin: 12/01/19 09:19 Dose: 25 mg Insulin Aspart (Novolog Vial Sliding Scale -) 1 vial SQ [facility]; Protocol Last Admin: 12/01/19 06:23 Dose: Not Given Midodrine (Proamatine -) 2.5 mg PO TID-MID [facility] Last Admin: 12/01/19 09:20 Dose: 2.5 mg Multivit/Ca Carb/B Cmplx/FA/Prenat (Nephro-Malachi -) 1 tablet PO DAILY [facility] Last Admin: 12/01/19 09:20 Dose: 1 tablet Pantoprazole Sodium (Protonix Iv) 40 mg IVPUSH DAILY [facility] Last Admin: 12/01/19 09:19 Dose: 40 mg Sodium Chloride ([place] Nasal [place] -) 2 spray NS BID PRN PRN Reason: NASAL CONGESTION - Objective Vital Signs: Vital Signs Temperature 98 F 12/01/19 09:00 Pulse Rate 60 12/01/19 09:00 Respiratory Rate 18 12/01/19 09:00 Blood Pressure 110/46 L 12/01/19 09:00 O2 Sat by Pulse Oximetry (%) 98 12/01/19 09:00 Constitutional: Yes: No Distress, Calm Cardiovascular: Yes: S1, S2 Respiratory: Yes: Regular, CTA Bilaterally Gastrointestinal: Yes: Normal Bowel Sounds, Soft Musculoskeletal: Yes: WNL Extremities: Yes: Other Neurological: Yes: Alert, Oriented Psychiatric: Yes: Alert, Oriented Labs: CBC, BMP 11/29/19 05:18 12/01/19 07:08 INR, PTT INR 1.02 (0.83-1.09) 11/17/19 06:00 Assessment/Plan Acute Respiratory Acute due to RLL PNA COPD, ESRD on HD CHF SAVANA R/O Seizure Septic Shock PAD Demand Ischemia Chronic loculated RLL effusion plan continue to monitor nutrition rest as per the team
--- NOTE | 2019-12-01 14:48 | PN ---
Progress Note, Physician History of Present Illness: Pt seen and examined at bedside. He is awake and alert. He is going back to [facility] today. - Current Medication List Current Medications: Active Medications Amino Acids (Prosource No Carb Liquid Pkt) 30 ml PO DAILY [facility] Last Admin: 12/01/19 09:19 Dose: 30 ml Fludrocortisone Acetate (Florinef -) 0.05 mg GT DAILY [facility] Last Admin: 12/01/19 09:20 Dose: 0.05 mg Heparin Sodium (Porcine) (Heparin -) 5,000 unit SQ TID [facility] Last Admin: 12/01/19 05:51 Dose: 5,000 unit Hydrocortisone Sodium Succinate (Solu-Cortef -) 25 mg IVPB DAILY [facility] Last Admin: 12/01/19 09:19 Dose: 25 mg Insulin Aspart (Novolog Vial Sliding Scale -) 1 vial SQ ACHS [facility]; Protocol Last Admin: 12/01/19 12:21 Dose: 4 units Midodrine (Proamatine -) 2.5 mg PO TID-MID [facility] Last Admin: 12/01/19 13:42 Dose: 2.5 mg Multivit/Ca Carb/B Cmplx/FA/Prenat (Nephro-Malachi -) 1 tablet PO DAILY [facility] Last Admin: 12/01/19 09:20 Dose: 1 tablet Pantoprazole Sodium (Protonix Iv) 40 mg IVPUSH DAILY [facility] Last Admin: 12/01/19 09:19 Dose: 40 mg Sodium Chloride ([place] Nasal [place] -) 2 spray NS BID PRN PRN Reason: NASAL CONGESTION - Objective Vital Signs: Vital Signs Temperature 98 F 12/01/19 09:00 Pulse Rate 60 12/01/19 09:00 Respiratory Rate 18 12/01/19 09:00 Blood Pressure 110/46 L 12/01/19 09:00 O2 Sat by Pulse Oximetry (%) 98 12/01/19 09:00 Constitutional: Yes: Calm Eyes: Yes: Conjunctiva Clear HENT: Yes: Atraumatic Neck: Yes: Supple Cardiovascular: Yes: S1, S2 Respiratory: Yes: CTA Bilaterally Gastrointestinal: Yes: Soft Genitourinary: Yes: WNL Musculoskeletal: Yes: WNL Edema: No Integumentary: Yes: WNL Neurological: Yes: Oriented Labs: CBC, BMP 11/29/19 05:18 12/01/19 07:08 INR, PTT INR 1.02 (0.83-1.09) 11/17/19 06:00 Problem List - Problems (1) ESRD (end stage renal disease) on dialysis Code(s): N18.6 - END STAGE RENAL DISEASE; Z99.2 - DEPENDENCE ON RENAL DIALYSIS Assessment/Plan Current Medications Generic Name Dose Route Start Last Admin Trade Name Freq PRN Reason Stop Dose Admin Amino Acids 30 ml 11/26/19 11:45 12/01/19 09:19 Prosource No Carb Liquid Pkt PO 30 ml DAILY [facility] Administration Fludrocortisone Acetate 0.05 mg 11/25/19 10:00 12/01/19 09:20 Florinef - GT 0.05 mg DAILY [facility] Administration Heparin Sodium (Porcine) 5,000 unit 11/24/19 22:00 12/01/19 05:51 Heparin - SQ 5,000 unit TID [facility] Administration Hydrocortisone Sodium Succinate 25 mg 12/01/19 10:00 12/01/19 09:19 Solu-Cortef - IVPB 25 mg DAILY [facility] Administration Insulin Aspart 1 vial 11/24/19 22:00 12/01/19 12:21 Novolog Vial Sliding Scale - SQ 4 units ACHS [facility] Administration Protocol Midodrine 2.5 mg 11/24/19 19:00 12/01/19 13:42 Proamatine - PO 2.5 mg TID-MID [facility] Administration Multivit/Ca Carb/B Cmplx/FA/Prenat 1 tablet 11/26/19 11:45 12/01/19 09:20 Nephro-Malachi - PO 1 tablet DAILY [facility] Administration Pantoprazole Sodium 40 mg 11/25/19 10:00 12/01/19 09:19 Protonix Iv IVPUSH 40 mg DAILY [facility] Administration Sodium Chloride 2 spray 11/24/19 18:56 [place] Nasal [place] - NS BID PRN NASAL CONGESTION Impression 1. ESRD 2. resp failure 3. PNA 4. copd 5. chf 6. sepsis 7. pulm effusion 8. hyponatremia 9. hypokalemia Plan - pt has HD set up as outpt - informed HD unit that he is going - pt ahs vascular eval set up as outpt - discussed plan with family - mental status improved - HD: TTS f180 3:30 DW 87 kg 2 k bath 2.5 ca, [id number], na 137, access PC right chest
== END 2019-12-01 14:47 | DRG 870 ==
LOC: JER 21:28 → JERBED 11-14 02:07 → JICU 11-14 03:43 → J4W 11-24 20:29
PROVIDERS: ADMIT Internal Medicine; ATTEND Internal Medicine
PROC: 5A1955Z Respiratory Ventilation, Greater than 96 Consecutive Hours (ICD-10-PCS; principal; 2019-11-14)
PROC: 0BH17EZ Insertion of Endotracheal Airway into Trachea, Via Natural or Artificial Opening (ICD-10-PCS; 2019-11-14)
PROC: 0DH67UZ Insertion of Feeding Device into Stomach, Via Natural or Artificial Opening (ICD-10-PCS; 2019-11-14)
PROC: 3E0G76Z Introduction of Nutritional Substance into Upper GI, Via Natural or Artificial Opening (ICD-10-PCS; 2019-11-14)
PROC: 02HV33Z Insertion of Infusion Device into Superior Vena Cava, Percutaneous Approach (ICD-10-PCS; 2019-11-14)
PROC: B548ZZA Ultrasonography of Superior Vena Cava, Guidance (ICD-10-PCS; 2019-11-14)
PROC: 02HV33Z Insertion of Infusion Device into Superior Vena Cava, Percutaneous Approach (ICD-10-PCS; 2019-11-14)
PROC: B548ZZA Ultrasonography of Superior Vena Cava, Guidance (ICD-10-PCS; 2019-11-21)
PROC: 5A1D70Z Performance of Urinary Filtration, Intermittent, Less than 6 Hours Per Day (ICD-10-PCS; 2019-11-24)
DX: A41.9 Sepsis, unspecified organism (principal); N18.6 End stage renal disease; J96.01 Acute respiratory failure with hypoxia; R65.21 Severe sepsis with septic shock; G92 Toxic encephalopathy; J18.9 Pneumonia, unspecified organism; J44.1 Chronic obstructive pulmonary disease with (acute) exacerbation; J44.0 Chronic obstructive pulmonary disease with (acute) lower respiratory infection; N39.0 Urinary tract infection, site not specified; I24.8 Other forms of acute ischemic heart disease; R18.8 Other ascites; I13.2 Hypertensive heart and chronic kidney disease with heart failure and with stage 5 chronic kidney disease, or end stage renal disease; I50.32 Chronic diastolic (congestive) heart failure; J98.11 Atelectasis; I48.92 Unspecified atrial flutter; E87.1 Hypo-osmolality and hyponatremia; E87.2 Acidosis; E66.9 Obesity, unspecified; I25.10 Atherosclerotic heart disease of native coronary artery without angina pectoris; K21.9 Gastro-esophageal reflux disease without esophagitis; G47.33 Obstructive sleep apnea (adult) (pediatric); Z89.511 Acquired absence of right leg below knee; Z99.2 Dependence on renal dialysis; Z95.0 Presence of cardiac pacemaker; I73.9 Peripheral vascular disease, unspecified; I27.20 Pulmonary hypertension, unspecified; E87.6 Hypokalemia; I48.91 Unspecified atrial fibrillation; D69.6 Thrombocytopenia, unspecified; K57.90 Diverticulosis of intestine, part unspecified, without perforation or abscess without bleeding; K42.9 Umbilical hernia without obstruction or gangrene; R16.0 Hepatomegaly, not elsewhere classified; K74.60 Unspecified cirrhosis of liver; D64.9 Anemia, unspecified; C61 Malignant neoplasm of prostate; R13.10 Dysphagia, unspecified
CPT/HCPCS: 36415; 36600; 70450-TC; 71045-TC-FY; 71260-TC; 72125-TC; 74177-TC; 74230-TC-FY; 76700-TC; 76775-TC; 76856-TC; 80048; 80053; 80076; 81003; 82140; 82375; 82565; 82570; 82607; 82747; 82803; 82962; 83050; 83605; 83735; 84100; 84156; 84300; 84484; 85014; 85025; 85027; 85610; 85730; 86803; 86850; 86870; 86900; 86901; 86902; 87040; 87070; 87086; 87186; 87205; 87340; 87899; 92611-GN; 93005; 93010; 93306-TC; 93931; 93971-TC; 94002; 94640; 94660; 97161-GP; 99285-25; G0480; J0131; J0885; J1644; P9047; Q5106; Q9967